=== PATIENT | female | born 1950 | race Caucasian/White ===

== ENCOUNTER 2022-12-03 14:15 | Emergency (ER) | payer MEDICARE, SELFPAY ==
[2022-12-03 14:34] VITALS: BP 139/61; PULSE 77; RESP 16; TEMP 36.8; O2SAT 98; BMI 18.6
--- NOTE | 2022-12-03 14:48 | ECG_ITS ---
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
--- NOTE | 2022-12-03 14:48 | XR_ITS ---
The [address] [address] Patient Name: KARIN ALAN MRN: [id number] date: 1950 Sex: F Assigned Patient Location: ER Current Patient Location: ED.MAIN Accession/Order Number: [id number] Exam Date: 12/03/2022 15:05 Report Date: 12/03/2022 15:34 At the request of: NEVILLE ASHER Procedure: XR chest 1V EXAM: XR chest 1V HISTORY: shortness of breath COMPARISON: None. TECHNIQUE: AP portable study FINDINGS: The lung rodrigez are well-expanded and clear. Hyperexpansion of the thorax is noted. The heart is within normal limits in size. Atherosclerotic aorta without visible aneurysm. Multilevel thoracic spondylosis commensurate with age. IMPRESSION: Hyperexpansion of the thorax. In the proper clinical setting, this finding can be associated with COPD. No acute cardiopulmonary process is otherwise identified. Electronically authenticated by: Anel ROSENTHAL Date: 12/03/2022 15:34
--- NOTE | 2022-12-03 14:53 | ED_ITS ---
HPI - SOB/Dyspnea General Chief Complaint: Shortness of Breath/Dyspnea Stated Complaint: SHORTNESS OF BREATH Time Seen by Provider: 12/03/22 14:28 Source: patient Mode of arrival: walk-in Limitations: no limitations History of Present Illness HPI Narrative: patient with COPD and asthma who smokes daily presents with 2 days of cough and shortness fo breath. She also complains of right ear fullness. No relief with home Albuterol MDI. No fever or chills. No chest pain, pressure or tightness. Related Data Home Medications Medication Instructions Recorded Confirmed albuterol sulfate 90 mcg/actuation inhalation 12/03/22 aerosol inhaler lisinopril 20 tab 12/03/22 mg-hydrochlorothiazide 12.5 mg tablet pregabalin 50 mg capsule mg 12/03/22 Previous Rx's Medication Instructions Recorded azithromycin 250 mg tablet See Rx Instructions PO .COMPLEX #6 12/03/22 tabs prednisone 20 mg tablet 40 mg PO DAILY #10 tabs 12/03/22 Allergies Allergy/AdvReac Type Severity Reaction Status Date / Time acetaminophen [From Percocet] Allergy Unknown Verified 12/03/22 15:26 oxycodone [From Percocet] Allergy Unknown Verified 12/03/22 15:26 PFSH PFSH Social History Smoking status: Current every day smoker Exam Narrative Exam Narrative: Nurses notes and vital signs reviewed and patient is not hypoxic. afebrile General: Well-appearing and in no apparent distress. Skin: Warm, dry, no pallor noted. No rash. Head: Normocephalic, atraumatic. Eye: Pupils are equal, round and EOMI. No scleral icterus. Ears, Nose, Mouth, and Throat: Oral mucosa is moist Cardiovascular: Regular Rate and Rhythm without murmur, gallop or rub. Respiratory: No accessory muscle use or respiratory distress. Lungs are clear to auscultation, no wheezing, rales or rhonchi Chest Wall: no tenderness Musculoskeletal: normal ROM, no calf or popliteal tenderness, no lower extremity edema/swelling GI: Abdomen is soft, non-distended. Normal bowel sounds. No tenderness to palpation. No rebound, guarding, or rigidity noted. Neurological: A&O x4. No cranial nerve dysfunction observed. No truncal ataxia. Moves all extremities. Sensation intact. Psychiatric: Cooperative and interactive. Normal mood and affect. Constitutional Vital Signs - 24 hr 12/03/22 14:34 12/03/22 15:12 12/03/22 15:13 Temperature 98.2 F Pulse Rate 68 Pulse Rate [Monitor] 77 Respiratory Rate 16 Blood Pressure [Right Arm] 139/61 H Pulse Oximetry 98 Oxygen Delivery Method Room Air 12/03/22 15:31 12/03/22 15:55 12/03/22 15:55 Temperature Pulse Rate 78 Pulse Rate [Monitor] Respiratory Rate 16 Blood Pressure [Right Arm] Pulse Oximetry 100 98 98 Oxygen Delivery Method Room Air Room Air Course Vital Signs Vital signs: Vital Signs Temperature 98.2 F 12/03/22 14:34 Pulse Rate 77 12/03/22 14:34 Respiratory Rate 16 12/03/22 14:34 Blood Pressure 139/61 H 12/03/22 14:34 Pulse Oximetry 98 12/03/22 14:34 Temperature 98.2 F 12/03/22 14:34 Pulse Rate 78 12/03/22 15:55 Respiratory Rate 16 12/03/22 15:55 Blood Pressure 139/61 H 12/03/22 14:34 Pulse Oximetry 98 12/03/22 15:55 Oxygen Delivery Method Room Air 12/03/22 15:55 MDM - SOB/Dyspnea MDM Narrative Medical decision making narrative: Patient was placed on environmental monitoring specialist and EKG obtained. Blood drawn and sent for evaluation. chest x-ray obtained. She was ordered to receive IM Solu-Medrol and nebulized albuterol and Atrovent. no pneumonia identified on chest x-ray. Blood testing was unremarkable including negative troponin and BNP. The patient felt better after Emergency Department treatment and was discharged home with a prescription for prednisone hand for azithromycin. She did see her primary care physician for follow-up or return to the emergency department if she worsens. Lab Data Attestation: I reviewed the patient's lab results. Labs: Lab Results 12/03/22 Range/Units 15:14 WBC 8.2 (4.0-11.0) 10^3/uL RBC 4.62 (4.20-5.40) 10^6/uL Hgb 14.0 (12.0-16.0) g/dL Hct 41.3 (36.0-48.0) % MCV 89.4 (81.0-99.0) fL MCH 30.3 (26.7-34.0) pg MCHC 33.9 (29.9-35.2) g/dL RDW 14.4 (11.0-15.0) % Plt Count 200 (150-450) 10^3/uL MPV 10.7 (9.5-13.5) fL Neut % (Auto) 61.6 (43.0-75.0) % Lymph % (Auto) 29.8 (20.5-60.0) % [place] % (Auto) 6.4 (1.7-12.0) % Eos % (Auto) 1.7 (0.9-7.0) % Baso % (Auto) 0.4 (0.2-2.0) % Neut # (Auto) 5.1 (1.4-6.5) 10^3/uL Lymph # (Auto) 2.5 (1.2-3.8) 10^3/uL [place] # (Auto) 0.5 (0.3-0.8) 10^3/uL Eos # (Auto) 0.1 (0.0-0.7) 10^3/uL Baso # (Auto) 0.0 (0.0-0.1) 10^3/uL Abs Immat Gran (auto) 0.01 (0.00-0.03) 10^3/uL Imm/Tot Granulo (auto) 0.1 (0.0-0.5) % Sodium 138 (136-145) mmol/L Potassium 3.2 L (3.5-5.1) mmol/L Chloride 102 (98-107) mmol/L Carbon Dioxide 28.3 (21.0-32.0) mmol/L Anion Gap 10.9 BUN 6.0 L (7.0-18.0) mg/dL Creatinine 0.59 (0.55-1.02) mg/dL Est GFR ( Amer) >60 (>=60) Est GFR (Non-Af Amer) >60 (>=60) BUN/Creatinine Ratio 10.2 Glucose 98 (74-106) mg/dL Calcium 9.1 (8.5-10.1) mg/dL Troponin I High Sens 6.6 (4.0-51.3) pg/mL NT-Pro-B Natriuret Pep 120.0 (<=900.0) pg/mL Imaging Data Chest x-ray: Radiologist's impression: Patient Name: KARIN ALAN MRN: [id number] date: 1950 Sex: F Assigned Patient Location: ER Current Patient Location: ED.MAIN Accession/Order Number: [id number] Exam Date: 12/03/2022 15:05 Report Date: 12/03/2022 15:34 At the request of: NEVILLE ASHER Procedure: XR chest 1V EXAM: XR chest 1V HISTORY: shortness of breath COMPARISON: None. TECHNIQUE: AP portable study FINDINGS: The lung rodrigez are well-expanded and clear. Hyperexpansion of the thorax is noted. The heart is within normal limits in size. Atherosclerotic aorta without visible aneurysm. Multilevel thoracic spondylosis commensurate with age. IMPRESSION: Hyperexpansion of the thorax. In the proper clinical setting, this finding can be associated with COPD. No acute cardiopulmonary process is otherwise identified. Electronically authenticated by: Anel ROSENTHAL Date: 12/03/2022 15:34 ECG Data Interpretation: EKG interpretation: Emergency Department physician interpretation. Normal sinus rhythm at _bpm. Normal axis, normal intervals and no ST segment elevation or depression. sign of early right ventricular conduction delay with RSR in lead V1 and V2. borderline EKG Discharge Plan Discharge Chief Complaint: Shortness of Breath/Dyspnea Clinical Impression: COPD exacerbation Patient Disposition: Home, Self-Care Time of Disposition Decision: 16:24 Prescriptions / Home Meds: New prednisone 20 mg tablet 40 mg PO DAILY Qty: 10 0RF azithromycin 250 mg tablet See Rx Instructions .ROUTE .COMPLEX Qty: 6 0RF Rx Instructions: For 250 mg dose pack: take 500 mg today (day 1), then 250 mg for 4 days (days 2-5) No Action lisinopril-hydrochlorothiazide 20-12.5 mg tablet albuterol sulfate 90 mcg/actuation HFA aerosol inhaler INHALATION pregabalin 50 mg capsule Instructions: COPD (Chronic Obstructive Pulmonary Disease) (ED) Stand Alone Forms: Portal Instructions Referrals: JANICE GARNER [Primary Care Provider] - 1 week
[2022-12-03 15:13] VITALS: PULSE 68
[2022-12-03 15:22] LABS: Basophils Percent Auto 0.4 % (0.2-2.0); Eosinophils Absolute Auto 0.1 10^3/uL (0.0-0.7); Eosinophils Percent Auto 1.7 % (0.9-7.0); Hematocrit 41.3 % (36.0-48.0); Immature Granulocytes Abs Auto 0.01 10^3/uL (0.00-0.03); Immature Granulocytes Pct Auto 0.1 % (0.0-0.5); Lymphocytes Absolute Auto 2.5 10^3/uL (1.2-3.8); Lymphocytes Percent Auto 29.8 % (20.5-60.0); Mean Corpuscular HGB Conc 33.9 g/dL (29.9-35.2); Mean Corpuscular Hemoglobin 30.3 pg (26.7-34.0); Mean Corpuscular Volume 89.4 fL (81.0-99.0); Mean Platelet Volume 10.7 fL (9.5-13.5); Monocytes Absolute Auto 0.5 10^3/uL (0.3-0.8); Monocytes Percent Auto 6.4 % (1.7-12.0); Neutrophils Absolute Auto 5.1 10^3/uL (1.4-6.5); Neutrophils Percent Auto 61.6 % (43.0-75.0); Platelet Count 200 10^3/uL (150-450); Red Blood Count 4.62 10^6/uL (4.20-5.40); Red Cell Distribution Width 14.4 % (11.0-15.0); White Blood Count 8.2 10^3/uL (4.0-11.0)
[2022-12-03] MEDS: METHYLPREDNISOLONE SOD SUCC PF 125 MG/2 ML VIAL IM (15:24)
[2022-12-03] MEDS: IPRATROPIUM/ALBUTEROL SULFATE 3 ML AMPUL.NEB IH (15:28)
[2022-12-03 15:31] VITALS: O2SAT 100
[2022-12-03 15:42] LABS: Anion Gap 10.9; BUN Creatinine Ratio 10.2; Calcium 9.1 mg/dL (8.5-10.1); Carbon Dioxide 28.3 mmol/L (21.0-32.0); Chloride 102 mmol/L (98-107); Estimated GFR (African America >60 (>=60); Estimated GFR (Non-African Ame >60 (>=60); Glucose 98 mg/dL (74-106); Potassium 3.2 mmol/L (3.5-5.1); Sodium 138 mmol/L (136-145); Troponin I High Sensitivity 6.6 pg/mL (4.0-51.3)
[2022-12-03 15:55] VITALS: PULSE 78; RESP 16; O2SAT 98
[2022-12-03] MEDS: POTASSIUM CHLORIDE 10 MEQ ER TABLET 40 MEQ PO (16:26)
--- NOTE | 2022-12-03 16:42 | PC.NURSE ---
d/c instructions complete, pt verbalized understanding and prescriptions sent to pt's pharmacy. gait steady to exit and told to return for any problems
== END 2022-12-03 16:42 | disposition home or self-care (01) ==
PROVIDERS: Emergency Provider Emergency Medicine; PCP Internal Medicine
DX: J44.1 Chronic obstructive pulmonary disease with (acute) exacerbation (principal); F17.210 Nicotine dependence, cigarettes, uncomplicated; Z79.899 Other long term (current) drug therapy
CPT/HCPCS: 36415; 71045; 80048; 83880; 84484; 85025; 93005; 94640; 96372; 99285; 99406; J2930

== ENCOUNTER 2023-01-16 07:25 | Emergency (ER) | payer MEDICARE, SELFPAY ==
[2023-01-16 07:28] VITALS: BP 159/95; PULSE 84; RESP 16; TEMP 37; O2SAT 99; BMI 19.0
--- NOTE | 2023-01-16 07:36 | ED_ITS ---
HPI - Eye Problem General Stated complaint: pink eye Time Seen by Provider: 01/16/23 07:28 History of Present Illness HPI Narrative: patient developed redness of the left eye 2 days ago and then this morning it moved to the right eye. Patient denies any URI symptoms or recent ill exposu res. No eye pain or blurredvision. She has some clear tearing but little to no crusting or matting. No GI or symptoms. Related Data Home Medications Medication Instructions Recorded Confirmed albuterol sulfate 90 mcg/actuation inhalation 12/03/22 aerosol inhaler lisinopril 20 tab 12/03/22 mg-hydrochlorothiazide 12.5 mg tablet pregabalin 50 mg capsule mg 12/03/22 Previous Rx's Medication Instructions Recorded azithromycin 250 mg tablet See Rx Instructions PO .COMPLEX #6 12/03/22 tabs prednisone 20 mg tablet 40 mg PO DAILY #10 tabs 12/03/22 tobramycin 0.3 %-dexamethasone 0.1 1 drp ophthalmic (eye) Q6H 7 days 01/16/23 % eye drops,suspension (TobraDex) #5 mL Allergies Allergy/AdvReac Type Severity Reaction Status Date / Time acetaminophen [From Percocet] Allergy Unknown Verified 12/03/22 15:26 oxycodone [From Percocet] Allergy Unknown Verified 12/03/22 15:26 PFSH PFSH Social History Smoking status: Current every day smoker Exam Narrative Exam Narrative: General: The patient appears well and in no apparent distress. Patient is resting comfortably on cart. afebrile Skin: Warm, dry, no pallor noted. Head: Normocephalic, atraumatic Neck: Supple, trachea mid-line, no tenderness, no lymphadenopathy Eye: Normal extraocular motion without associated pain. Pupils equal, round and reactive to light. Conjunctival injection noted bilaterally, left greater than right. No swelling of the upper/lower eyelid. No evidence of hyphema, preseptal cellulitis or orbital cellulitis. Ears, Nose, Mouth, and Throat: oral mucosa is moist Respiratory: Patient is in no distress Neurological: A&O x4, normal speech Psychiatric: Cooperative and interactive. Constitutional Vital Signs, click to edit/add: Last Vital Signs Temp 98.6 F 01/16/23 07:28 Pulse 84 01/16/23 07:28 Resp 16 01/16/23 07:28 BP 159/95 H 01/16/23 07:28 Pulse Ox 99 01/16/23 07:28 O2 Del Method Room Air 01/16/23 07:28 Course Vital Signs Vital signs: Vital Signs Temperature 98.6 F 01/16/23 07:28 Pulse Rate 84 01/16/23 07:28 Respiratory Rate 16 01/16/23 07:28 Blood Pressure 159/95 H 01/16/23 07:28 Pulse Oximetry 99 01/16/23 07:28 Oxygen Delivery Method Room Air 01/16/23 07:28 Temperature 98.6 F 01/16/23 07:28 Pulse Rate 84 01/16/23 07:28 Respiratory Rate 16 01/16/23 07:28 Blood Pressure 159/95 H 01/16/23 07:28 Pulse Oximetry 99 01/16/23 07:28 Oxygen Delivery Method Room Air 01/16/23 07:28 MDM - Eye Problem MDM Narrative Medical decision making narrative: patient prescribed tobradex ophth drops and discharged home with follow up at local eye doctor Discharge Plan Discharge Clinical Impression: Conjunctivitis Patient Disposition: Home, Self-Care Time of Disposition Decision: 07:39 Prescriptions / Home Meds: New tobramycin-dexamethasone [TobraDex] 0.3-0.1 % drops,suspension 1 drp ophthalmic (eye) Q6H 7 Days Qty: 5 0RF Rx Instructions: 1 drop in both eyes No Action lisinopril-hydrochlorothiazide 20-12.5 mg tablet albuterol sulfate 90 mcg/actuation HFA aerosol inhaler INHALATION pregabalin 50 mg capsule prednisone 20 mg tablet 40 mg PO DAILY Qty: 10 0RF azithromycin 250 mg tablet See Rx Instructions .ROUTE .COMPLEX Qty: 6 0RF Rx Instructions: For 250 mg dose pack: take 500 mg today (day 1), then 250 mg for 4 days (days 2-5) Instructions: Conjunctivitis (ED) Stand Alone Forms: Portal Instructions Referrals: MERLENE LEVY [Physician] - As soon as possible MERLENE SAINI [Physician] - As soon as possible
== END 2023-01-16 07:55 | disposition home or self-care (01) ==
PROVIDERS: Emergency Provider Emergency Medicine; PCP Internal Medicine
DX: H10.9 Unspecified conjunctivitis (principal); F17.210 Nicotine dependence, cigarettes, uncomplicated; Z79.899 Other long term (current) drug therapy
CPT/HCPCS: 99283

== ENCOUNTER 2023-02-28 13:18 | Emergency (ER) | payer MEDICARE, SELFPAY ==
[2023-02-28 13:22] VITALS: BP 142/88; PULSE 86; RESP 18; TEMP 36.6; O2SAT 99; BMI 18.8
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
== END 2023-02-28 13:47 | disposition home or self-care (01) ==
PROVIDERS: Emergency Provider Emergency Medicine; PCP Internal Medicine
DX: H65.01 Acute serous otitis media, right ear (principal); R42 Dizziness and giddiness; J44.9 Chronic obstructive pulmonary disease, unspecified; Z79.899 Other long term (current) drug therapy; F17.210 Nicotine dependence, cigarettes, uncomplicated
CPT/HCPCS: 99283

== ENCOUNTER 2023-04-13 09:46 | Outpatient (OUT) | payer MEDICARE, SELFPAY ==
--- NOTE | 2023-04-13 09:52 | US_ITS ---
The [place] [id number] Patient Name: KARIN ALAN MRN: [id number] date: 1950 Sex: F Assigned Patient Location: US Current Patient Location: US Accession/Order Number: [id number] Exam Date: 04/13/2023 09:55 Report Date: 04/13/2023 20:11 At the request of: TIA JOSE Procedure: US extremity nonvascular LT EXAM: US extremity nonvascular LT 04/13/2023 5:07 PM PST, [id number] HISTORY: Localized Superficial Swelling Or Lump R22.9. TECHNIQUE: Multiple longitudinal and transverse grayscale and color sonographic images of the anterior left shoulder were acquired. COMPARISON: None. FINDINGS/IMPRESSION: Equivocal thickening and hyperemia of the subscapularis tendon which may represent mild tendinitis. No definite soft tissue calcifications. No fluid collection or mass. The visualized skin and subcutaneous fat is within normal limits. Electronically authenticated by: JESÚS SCOTT Date: 04/13/2023 20:11
== END 2023-04-13 09:47 | disposition home or self-care (01) ==
LOC: US 09:46
PROVIDERS: PCP Internal Medicine; Visit Provider Physician Assistant
DX: R22.9 Localized swelling, mass and lump, unspecified (principal)
CPT/HCPCS: 76882

== ENCOUNTER 2023-06-24 15:04 | Emergency (ER) | payer MEDICARE, SELFPAY ==
[2023-06-24 15:13] VITALS: BP 119/63; PULSE 95; RESP 16; TEMP 36.7; O2SAT 98; BMI 19.1
--- OUTSIDE RECORDS SUMMARY | 2023-06-24 15:13 | XMS_ITS | CCD ---
Author Name Unknown Address [address] [place] [id number] Organization [facility] Care Team Providers Care [employer] Insulator Name Role Phone DO Uziel Caicedo Attending Provider [phone] JORDON Jose Primary Care Provider Cynthia Jose Primary Care Unavailable Uziel Caicedo Attending Unavailable Tanisha, Uziel Admitting Unavailable Uziel Caicedo Attending Unavailable Cynthia Jose Primary Care Unavailable Tanisha, Uziel Admitting Unavailable Cynthia Jose Primary Care Unavailable Tanisha, Uziel Admitting Unavailable Uziel Caicedo Attending Unavailable PATSY, DR CAMACHO Primary Care Unavailable ISSA ROJAS Consulting Unavailable ISSA ROJAS Admitting Unavailable ISSA ROJAS Attending Unavailable SELENA CAIN Consulting Unavailable HEMMER, DR CYNTHIA Cohn Admitting Unavailable HEMMER, DR CYNTHIA Cohn Attending Unavailable PATSY, DR CAMACHO Primary Care Unavailable ZIEBER, DR JOSEPH Tavarez Consulting Unavailable HEMMER, DR CYNTHIA Cohn Consulting Unavailable HEMMER, DR CYNTHIA Cohn Admitting Unavailable HEMMER, DR CYNTHIA Cohn Attending Unavailable PATSY, DR CAMACHO Primary Care Unavailable GEOFFREY ELLIS Consulting Unavailable HEMMER, DR CYNTHIA Cohn Consulting Unavailable PATSY, DR CAMACHO Primary Care Unavailable HAY ., DR LOZADA Admitting Unavailable HAY ., DR LOZADA Attending Unavailable PAY ., DR BOWLING Consulting Unavailable UNLU, MARCO Consulting Unavailable KAMILAH ONEILL Attending Unavailable Allergies Allergy Classification Reported Allergen(s) Allergy Type Date of Onset Reaction(s) Facility (2 sources) Acetaminophen; Translations: [acetaminophen] Drug Allergy 03-08-2022 [facility] (2 sources) Amoxicillin; Translations: [amoxicillin] Drug Allergy 03-08-2022 Diarrhea [facility] (2 sources) Clavulanate; Translations: [clavulanic acid] Drug Allergy 03-08-2022 Diarrhea [facility] (2 sources) montelukast; Translations: [montelukast] Drug Allergy 03-08-2022 Nausea [facility] (2 sources) oxyCODONE; Translations: [oxycodone] Drug Allergy 03-08-2022 Dizziness [facility] (1 source) Acetaminophen / oxyCODONE Drug Allergy [facility] Medications Current Medications Medication Drug Class(es) Dates Sig (Normalized) Sig (Original) sensor 200 actuat albuterol 0.09 mg/actuat dry powder inhaler (1 source) beta2-Adrenergic Agonist Start: 2 Albuterol Sulfate Active 2 INH INHALATION Twice daily March 08, 2022 12:00am albuterol 0.833 mg/ml / ipratropium bromide 0.167 mg/ml inhalation solution (1 source) Anticholinergic, beta2-Adrenergic Agonist Start: 2 take 1 mL by inhalation every six hours Ipratropium-Albuter ol Active 3 ML INHALATION Q6H March 08, 2022 12:00am ALPRAZolam 0.25 mg oral tablet (1 source) Benzodiazepine Start: 2 take 0.25 mg by mouth once daily Alprazolam Active 0.25 MG PO Daily March 08, 2022 12:00am ascorbic acid 500 mg oral tablet (1 source) Vitamin C Start: 2 take 1 tablet by mouth once daily Ascorbic Acid (Vitamin C) (Vitamin C) 500 mg Tablet Active 500 MG PO Daily March 08, 2022 12:00am calcium carbonate 500 mg chewable tablet (1 source) Start: 2 take 1 tablet by mouth twice daily Calcium Carbonate (Tums) 200 mg calcium (500 mg) Tablet,Chewable Active 200 MG PO Twice daily March 08, 2022 12:00am cholecalciferol 0.01 mg chewable tablet (1 source) Vitamin D Start: 2 take 1 tablet by mouth once daily Cholecalciferol (Vitamin D3) (Vitamin D3) 10 mcg (400 unit) Tablet,Chewable Active 400 UNIT PO Daily March 08, 2022 12:00am hydroCHLOROthiazide 12.5 mg / lisinopril 20 mg oral tablet (1 source) Thiazide Diuretic, Angiotensin Converting Enzyme Inhibitor Start: 2 take 1 tablet by mouth once daily Lisinopril-Hydrochl orothiazide Active 1 TAB PO Daily March 08, 2022 12:00am ibuprofen 800 mg oral tablet (1 source) Nonsteroidal Anti-inflammatory Drug Start: 2 take 400 mg by mouth twice daily Ibuprofen Active 400 MG PO Twice daily March 08, 2022 12:00am loratadine 10 mg oral tablet (1 source) Start: 2 take 1 tablet by mouth once daily Loratadine (Claritin) 10 mg Tablet Active 10 MG PO Daily March 08, 2022 12:00am meclizine hydrochloride 25 mg oral tablet (1 source) Antiemetic Start: 2 take 25 mg by mouth once daily Meclizine Active 25 MG PO Daily March 08, 2022 12:00am ondansetron 4 mg disintegrating oral tablet (1 source) Serotonin-3 Receptor Antagonist Start: 2 take 4 mg by mouth every six hours Ondansetron Active 4 MG PO Q6H March 08, 2022 12:00am pregabalin 50 mg oral capsule (1 source) Start: 2 take 50 mg by mouth four times daily Pregabalin Active 50 MG PO Four times daily March 08, 2022 12:00am traZODone hydrochloride 50 mg oral tablet (1 source) Serotonin Reuptake Inhibitor Start: 2 take 50 mg by mouth twice daily Trazodone Active 50 MG PO Twice daily March 08, 2022 12:00am Problems Active Problems Problem Classification Problem Date Documented Date Episodic/Chronic Abdominal pain (8 sources) Unspecified abdominal pain; Translations: [Right upper quadrant pain] Onset: 03-02-2022 Episodic Chronic obstructive pulmonary disease and bronchiectasis (1 source) Chronic obstructive pulmonary disease with (acute) exacerbation; Translations: [COPD WITH ACUTE EXACERBATION] Onset: 10-11-2022 Chronic Other aftercare (1 source) Other exterminator (current) drug therapy; Translations: [OTH SKEIN DRIER CURRENT DRUG THERAPY] Onset: 10-11-2022 Episodic Other upper respiratory infections (1 source) Acute upper respiratory infection, unspecified; Translations: [ACUTE UP RESPIRATORY INFECTION UNS] Onset: 10-11-2022 Episodic Residual codes; unclassified (1 source) Acquired absence of other specified parts of digestive tract; Translations: [ACQ ABSENCE OTH PART DIGESTV TRACT] Onset: 09-02-2022 Episodic Substance-related disorders (1 source) Nicotine dependence, cigarettes, uncomplicated; Translations: [NICOTINE DEPEND CIGARETTES UNCOMP] Onset: 10-11-2022 Chronic Unclassified (1 source) Encounter for preprocedural laboratory examination; Translations: [Encounter for preprocedural laboratory examination] Onset: 03-12-2022 Unclassified (3 sources) COUGH, UNSPECIFIED; Translations: [COUGH, UNSPECIFIED] Onset: 10-29-2021 Past or Other Problems Problem Classification Problem Date Documented Date Episodic/Chronic Biliary tract disease (1 source) Calculus of gallbladder with chronic cholecystitis without obstruction; Translations: [Calculus of gallbladder with chronic cholecystitis without obstruction] Onset: 03-16-2022 Episodic Unclassified (1 source) COUGH, UNSPECIFIED; Translations: [COUGH, UNSPECIFIED] Onset: 10-08-2022 Results Test Name Value Interpretation Reference Range Facility XR CHEST 2 Von 10-08-2022 XR CHEST 2 V EXAM: XR CHEST 2 V HISTORY: COUGH COMPARISON: 10/22/2021 TECHNIQUE: PA and lateral views of the chest FINDINGS: There is no focal airspace consolidation. The lungs are hyperinflated. The cardiomediastinal silhouette is not enlarged. There are calcific plaques at aortic arch. No evidence of pleural effusion or pneumothorax are identified. No acute osseous abnormality. IMPRESSION: No acute cardiopulmonary process. Lungs appear hyperinflated suggestive of obstructive lung disease . Electronically authenticated by: MARCO UNLU Date: 2022-10-08 14:[address] [facility] CBC AUTO DIFFon 08-31-2022 BASO # 0.1 103/ul Normal 0.0-0.[address] [facility] Comment on above: Performed By: #### C BC #### [facility] [address] [address] [address] Nehemias Dean Basophils/100 WBC (Bld) 0.6 % Normal 0.2-2.0 [facility] Comment on above: Performed By: #### C BC #### [facility] [address] [place] [address] Dr. Nehemias Dean EO # 0.2 103/ul Normal 0.0-0.7 [facility] Comment on above: Performed By: #### C BC #### [facility] [address] [place] [address] Dr. Nehemias Dean Eosinophils/100 WBC (Bld) 2.2 % Normal 0.9-7.0 [facility] Comment on above: Performed By: #### C BC #### [facility] [address] [place] [address] Dr. Nehemias Dean Erythrocyte distribution width (RBC) [Ratio] 14.6 % Normal 11.0-15.[address] [facility] Comment on above: Performed By: #### C BC #### [facility] [address] [place] [address] Dr. Nehemias Dean Hematocrit (Bld) [Volume fraction] 45.4 % Normal 36.0-48.[address] [facility] Comment on above: Performed By: #### C BC #### [facility] [address] [place] [address] Dr. Nehemias Dean Hemoglobin (Bld) [Mass/Vol] 15.5 g/dL Normal 12.0-16.[address] [facility] Comment on above: Performed By: #### C BC #### [facility] [address] [place] [address] Dr. Nehemias Dean IG # 0.02 10e3/ul Normal 0.00-0.03 [facility] Comment on above: Performed By: #### C BC #### [facility] [address] [place] [address] Dr. Nehemias Dean IG % 0.2 % Normal 0.0-0.5 [facility] Comment on above: Performed By: #### C BC #### [facility] [address] [place] [address] Dr. Nehemias Dean LYMPH # 3.0 103/ul Normal 1.2-3.8 [facility] Comment on above: Performed By: #### C BC #### [facility] [address] [place] [address] Dr. Nehemias Dean Lymphocytes/100 WBC (Bld) 31.2 % Normal 20.5-60.[address] [facility] Comment on above: Performed By: #### C BC #### [facility] [address] [place] [address] Dr. Nehemias Dean MANUAL DIFF REQ NO Normal [facility] Comment on above: Performed By: #### C BC #### [facility] [address] [place] [address] Dr. Nehemias Dean MCH (RBC) [Entitic mass] 30.0 pg Normal 26.7-34.[address] [facility] Comment on above: Performed By: #### C BC #### [facility] [address] [place] [address] Dr. Nehemias Dean MCHC (RBC) [Mass/Vol] 34.1 g/dL Normal 29.9-35.[address] [facility] Comment on above: Performed By: #### C BC #### [facility] [address] [place] [address] Dr. Nehemias Dean MCV (RBC) [Entitic vol] 88.0 fL Normal 81.0-99.0 [facility] Comment on above: Performed By: #### C BC #### [facility] [address] [place] [address] Dr. Nehemias Dean MONO # 0.5 103/ul Normal 0.3-0.[address] [facility] Comment on above: Performed By: #### C BC #### [facility] [address] [place] [address] Dr. Nehemias Dean Monocytes/100 WBC (Bld) 5.5 % Normal 1.7-12.0 [facility] Comment on above: Performed By: #### C BC #### [facility] [address] [place] [address] Dr. Nehemias Dean NEUT # 5.8 103/ul Normal 1.4-6.[address] [facility] Comment on above: Performed By: #### C BC #### [facility] [address] [place] [address] Dr. Nehemias Dean Neutrophils/100 WBC (Bld) 60.3 % Normal 43.0-75.[address] [facility] Comment on above: Performed By: #### C BC #### [facility] [address] [place] [address] Dr. Nehemias Dean Platelet mean volume (Bld) [Entitic vol] 11.2 fL Normal 9.5-13.[address] [facility] Comment on above: Performed By: #### C BC #### [facility] [address] [place] [address] Dr. Nehemias Dean PLT 252 103/ul Normal 150-450 [facility] Comment on above: Performed By: #### C BC #### [facility] [address] [place] [address] Dr. Nehemias Dean RBC 5.16 106/ul Normal 4.20-5.40 [facility] Comment on above: Performed By: #### C BC #### [facility] [address] [place] [address] Dr. Nehemias Dean WBC 9.6 103/ul Normal 4.0-11.0 [facility] Comment on above: Performed By: #### C BC #### [facility] [address] [place] [address] ABD/PELVIS WO CONon 08-31 CT ABD/PELVIS WO CON CT ABD/PELVIS WO CON, 08/31/2022 11:33 AM EDT INDICATION: CALCULUS OF KIDNEY COMPARISON: Contrast-enhanced CT scan of the abdomen and pelvis 01/11/2022 TECHNIQUE: Axial images of the abdomen and pelvis were obtained without IV contrast. Multiplanar reformatted images were generated and reviewed as needed. Dose reduction techniques were achieved by using automated exposure control and/or adjustment of mA and/or kV according to patient size and/or use of iterative reconstruction technique. FINDINGS: No consolidation or effusion. Cholecystectomy. Hepatomegaly. Subcentimeter hepatic hypodensities, too small to characterize. Pancreas, spleen and adrenals are unremarkable on a noncontrast scan. No hydronephrosis or nephrolithiasis. Subcentimeter cortical hypodensities bilaterally, too small to characterize. No urinary bladder wall thickening or perivesicular fat stranding. Uterus and adnexa are unremarkable on a noncontrast scan. No aortic aneurysm. No bowel obstruction or acute focal inflammation. Stable benign-appearing 1.3 cm intramural cystic lesion anterior gastric wall Normal appendix. Sigmoid diverticulosis. No pneumatosis, pneumoperitoneum or ascites. No mesenteric or retroperitoneal lymphadenopathy. No acute fracture or dislocation. IMPRESSION: 1. No hydronephrosis or nephrolithiasis. 2. Sigmoid diverticulosis. No findings to suggest diverticulitis. Electronically authenticated by: SELENA CAIN Date: 2022-08-31 12:26 Normal [facility] ER URINE PROFILEon 3 Bilirubin Ql (U) Negative Normal NEGATIVE [facility] Comment on above: Performed By: #### U MICRO, ERUR #### [facility] [address] [place] [address] Dr. Nehemias Dean Clarity (U) CLEAR Normal CLEAR [facility] Comment on above: Performed By: #### U MICRO, ERUR #### [facility] [address] [place] [address] Dr. Nehemias Dean Color (U) LT. YELLOW Normal YELLOW [facility] Comment on above: Performed By: #### U MICRO, ERUR #### [facility] [address] [place] [address] Dr. Nehemias SUBRAMANIAND A micrscopic examination will be performed if indicated. Normal [facility] Comment on above: Performed By: #### U MICRO, ERUR #### [facility] [address] [address] [address] Nehemias Dean Glucose Ql (U) Negative Normal NEGATIVE The [facility] Comment on above: Performed By: #### U MICRO, ERUR #### [facility] [address] [address] [address] Nehemias Dean Hemoglobin Ql (U) SMALL Abnormal NEGATIVE [facility] Comment on above: Performed By: #### U MICRO, ERUR #### [facility] [address] [place] [address] Dr. Nehemias Dean Ketones Ql (U) Negative Normal NEGATIVE The [facility] Comment on above: Performed By: #### U MICRO, ERUR #### [facility] [address] [place] [address] Dr. Nehemias Dean LEUKOCYTES Negative Normal NEGATIVE [facility] Comment on above: Performed By: #### U MICRO, ERUR #### [facility] [address] [place] [address] Dr. Nehemias Dean Nitrite Ql (U) Negative Normal NEGATIVE [facility] Comment on above: Performed By: #### U MICRO, ERUR #### [facility] [address] [place] [address] Dr. Nehemias Dean pH (U) 7.0 [pH] Normal 5-[address] [facility] Comment on above: Performed By: #### U MICRO, ERUR #### [facility] [address] [place] [address] Dr. Nehemias Dean SPEC GRAVITY 1.015 Normal 1.005-<=1.[address] [facility] Comment on above: Performed By: #### U MICRO, ERUR #### [facility] [address] [place] [address] Dr. Nehemias Dean UA PROTEIN Negative Normal NEGATIVE/ TRACE [facility] Comment on above: Performed By: #### U MICRO, ERUR #### [facility] [address] [place] [address] Dr. Nehemias Dean UR MICRO IND INDICATED Normal [facility] Comment on above: Performed By: #### U MICRO, ERUR #### [facility] [address] [place] [address] Dr. Nehemias Dean Urobilinogen Qn (U) 0.2 {Cristina'U}/dL Normal 0.2 - 1. [address] [facility] Comment on above: Performed By: #### U MICRO, ERUR #### [facility] [address] [place] [address] Dr. Nehemias Dean PROF CHEM 8 (BAS METB)on Anion gap [Moles/Vol] 14.9 mmol/L Normal [facility] Comment on above: Performed By: #### B MP #### [facility] [address] [address] [address] Nehemias Dean Calcium [Mass/Vol] 9.4 mg/dL Normal 8.5-10.1 [facility] Comment on above: Performed By: #### B MP #### [facility] [address] [place] [address] Dr. Nehemias Dean Chloride [Moles/Vol] 100 mmol/L Normal 98-[address] [facility] Comment on above: Performed By: #### B MP #### [facility] [address] [place] [address] Dr. Nehemias Dean CO2 [Moles/Vol] 27.2 mmol/L Normal 21.0-32.0 [facility] Comment on above: Performed By: #### B MP #### [facility] [address] [place] [address] Dr. Nehemias Dean Creatinine [Mass/Vol] 0.63 mg/dL Normal 0.55-1.[address] [facility] Comment on above: Performed By: #### B MP #### [facility] [address] [place] [address] Dr. Nehemias Dean EGFR-AF SWISS >60 Normal >=60 [facility] Comment on above: Performed By: #### B MP #### [facility] [address] [place] [address] Dr. Nehemias Dean EGFR-NON AF SWISS >60 Normal >=[address] [facility] Comment on above: Performed By: #### B MP #### [facility] [address] [place] [address] Dr. Nehemias Dean Glucose [Mass/Vol] 107 mg/dL Critically high 74-106 [facility] Comment on above: Performed By: #### B MP #### [facility] [address] [address] [address] Nehemias Dean Potassium [Moles/Vol] 3.1 mmol/L Critically low 3.5-5.[address] [facility] Comment on above: Performed By: #### B MP #### [facility] [address] [place] [address] Dr. Nehemias Dean Sodium [Moles/Vol] 139 mmol/L Normal 136-145 [facility] Comment on above: Performed By: #### B MP #### [facility] [address] [address] [address] Nehemias Dean Urea nitrogen [Mass/Vol] 7.0 mg/dL Normal 7.0-18.[address] [facility] Comment on above: Performed By: #### B MP #### [facility] [address] [place] [address] Dr. Nehemias Dean Urea nitrogen/Creatinine [Mass ratio] 11.1 mg/mg Normal [facility] Comment on above: Performed By: #### B MP #### [facility] [address] [place] [address] Dr. Nehemias Dean URINE MICROSCOPIC ONLYon BACTERIA TRACE Abnormal NONE SEEN [facility] Comment on above: Performed By: #### U MICRO, ERUR #### [facility] [address] [place] [address] Dr. Nehemias Dean Bacteria identified Cx Nom (U) NOT INDICATED Normal [facility] Comment on above: Performed By: #### U MICRO, ERUR #### [facility] [address] [place] [address] Dr. Nehemias Dean CAST NONE SEEN Normal NONE SEEN [facility] Comment on above: Performed By: #### U MICRO, ERUR #### [facility] [address] [place] [address] Dr. Nehemias Dean Crystals LM Nom (Urine sed) NONE SEEN Normal NONE SEEN [facility] Comment on above: Performed By: #### U MICRO, ERUR #### [facility] [address] [place] [address] Dr. Nehemias Dean Epithelial cells LM Ql (Urine sed) FEW Abnormal NONE SEEN /RARE [facility] Comment on above: Performed By: #### U MICRO, ERUR #### [facility] [address] [place] [address] Dr. Nehemias Dean MUCOUS NONE SEEN Normal NONE SEEN [facility] Comment on above: Performed By: #### U MICRO, ERUR #### [facility] [address] [address] [address] Nehemias Dean RBC 2-5 Abnormal 0-2 [facility] Comment on above: Performed By: #### U MICRO, ERUR #### [facility] [address] [address] [address] Nehemias Dean WBC NONE SEEN Normal NONE SEEN [facility] Comment on above: Performed By: #### U MICRO, ERUR #### [facility] [address] [address] [address] Nehemias Dean Alkaline Phosphataseon 03-16 ALP [Catalytic activity/Vol] 60 U/L Normal 32-92 [facility] Comment on above: Performed By: #### B ILIT, ALP, YEIMY #### [address] Amylaseon 03-16-2022 Amylase [Catalytic activity/Vol] 23 U/L Low 28-100 [facility] Comment on above: Result Comment: PERF ORMED BY: [place] [address] PATHOLOGIST F[employer]ITURE POLISHER LAVERN CHATMAN M.D. Performed By: #### B ILIT, ALP, YEIMY #### [address] Bilirubin,Totalon 03-16-2022 Bilirubin [Mass/Vol] 1.1 mg/dL Normal 0.3-1.2 [facility] Comment on above: Performed By: #### B ILIT, ALP, YEIMY #### [address] Jesus 03-16-2022 L Specimen: [id number] Received: 03/16/22 Status: JOSUE Kern Num: [id number] Spec Type: Surgical Subm Dr: Uziel Caicedo DO Tissues: A Gallbladder (GALLBLADDER) Procedures: HE Stain, Gross/Micro L3 Age/ Patient Sex Location Account Attending Physician Deb Perez 71/F [place] [id number] Uziel Caicedo DO SPEC NUM: [id number] RECD: 03/16/22 STATUS: JOSUE NOELAlyssa NUM: [id number] [place]: 03/16/22- SUBM DR: Uziel Caicedo DO ENTERED: 03/16/22 [facility] DR: DAVID TYPE: Surgical DEPT: S ORDERED: HE Stain, Gross/Micro L3 ORDERED: HE Stain, Gross/Micro L3 Pathological Diagnosis Gallbladder, cholecystectomy: Chronic cholecystitis. Cholelithiasis. Clinical Information Cholelithiasis Gross Description Received in formalin labeled with the patient's name, number and gallbladder is a 6.4 x 3.4 x 3.0 cm previously incised gallbladder with a dove-pink, focally hyperemic serosa. The average wall thickness is 0.2 cm. The lumen contains minimal dove bile and two yellow black choleliths measuring 1.5 cm and 3.8 cm. The mucosa is dove-pink, focally hyperemic, denuded.. Freelance Copywriter sections are submitted in one cassette labeled A1. Microscopic Description One glass slide with H E stained material has been examined. The microscopic findings support the above pathologic diagnosis. Specimen: [id number] Received: 03/16/22 Status: JOSUE Concha Num: [id number] Spec Type: Surgical Subm Dr: Uziel Caicedo DO Tissues: A Gallbladder (GALLBLADDER) Procedures: HE Stain, Gross/Micro L3 Patient: Deb Perez [id number] (Continued) Specimen: [id number] Received: 03/16/22 (Continued) Signed (signature on file) Yasmeen Jameson MD 03/17/22 1744 Specimen: [id number] Received: 03/16/22 Status: JOSUE [place]ern Num: [id number] Spec Type: Surgical Subm Dr: Uziel Caicedo DO Tissues: A Gallbladder (GALLBLADDER) Procedures: HE Stain, Gross/Micro L3 Patient: Deb Perez [id number] (Continued) Specimen: [id number] Received: 03/16/22 (Continued) CPT Codes 05553 Specimen: [id number] Received: 03/16/22 Status: JOSUE [place] Num: [id number] Spec Type: Surgical Subm Dr: Uziel Caicedo DO Tissues: A Gallbladder (GALLBLADDER) Procedures: HE Stain, Gross/Micro L3 Patient: Deb Perez [id number] (Continued) Signed (signature on file) Yasmeen Jameson MD 03/17/22 1741 Normal [facility] COVID-19 [facility] [place] SARS-CoV-2 (COVID-19) RNA DAVIE+probe Ql (Unsp spec) Negative Normal Negative [facility] Comment on above: Order Comment: Healt hcare Worker?: N Result Comment: Testing for SARS-CoV-2 by RT-PCR This test was developed and its performance characteristics determined by [employer] and validated at the [facility]. This test has not been FDA cleared or approved. This test has been authorized by FDA under an Emergency Use Authorization (EUA). This test has been validated in accordance with the FDA's Guidance Document (Policy for Diagnostics Testing in Laboratories Certified to Perform High Complexity Testing under CLIA prior to Emergency Use Authorization for Coronavirus Disease-2019 during the Public Health Emergency) issued on August 30, 2019. This test is only authorized for the duration of time the declaration that circumstances exist justifying the authorization of the emergency use of in vitro diagnostic tests for detection of SARS-CoV-2 virus and/or diagnosis of COVID-19 infection under section 564(b)(1) of the Act, 21 U.S.C. 360bbb-3(b)(1), unless the authorization is terminated or revoked sooner. PERFORMED BY: [place] [address] PATHOLOGIST FURNITURE POLISHER LAVERN CHATMAN M.D. Performed By: #### C OVID 19 [facility] #### [address] COVID-19 Positive/NegativeOr dered By: Uziel Caicedo on 03-12-2022 SARS-CoV-2 (COVID-19) N gene DAVIE+probe Ql (Resp) Negative Negative [facility] Comment on above: Testing for SARS-CoV -2 by RT-PCRThis test was developed and its performance characteristics determined by [employer] and validated at the [facility]. This test has not been FDA cleared or approved. This test has been authorized by FDA under an Emergency Use Authorization (EUA). This test has been validated in accordance with the FDA's Guidance Document (Policy for Diagnostics Testing in Laboratories Certified to Perform High Complexity Testing under CLIA prior to Emergency Use Authorization for Coronavirus Disease-2019 during the Public Health Emergency) issued on August 30, 2019. This test is only authorized for the duration of time the declaration that circumstances exist justifying the authorization of the emergency use of in vitro diagnostic tests for detection of SARS-CoV-2 virus and/or diagnosis of COVID-19 infection under section 564(b)(1) of the Act, 21 U.S.C. 360bbb-3(b)(1), unless the authorization is terminated or revoked sooner. Basic Metabolic Panelon 10- Anion gap [Moles/Vol] 14.9 mmol/L Normal 6.0-15.0 [facility] Comment on above: Performed By: #### C BC, BMP #### [address] Calcium [Mass/Vol] 10.2 mg/dL Normal 8.2-10.2 [facility] Comment on above: Result Comment: PERF ORMED BY: [place] [address] PATHOLOGIST FURNITURE POLISHER LAVERN CHATMAN M.D. Performed By: #### C SHAHAB, BMP #### [address] Chloride [Moles/Vol] 97 mmol/L Normal 95-114 [facility] Comment on above: Performed By: #### C BC, BMP #### [address] CO2 [Moles/Vol] 28.2 mmol/L Normal 22.0-30.0 [facility] Comment on above: Performed By: #### C BC, BMP #### [address] Creatinine [Mass/Vol] 0.65 mg/dL Normal 0.44-1.03 [facility] Comment on above: Performed By: #### C BC, BMP #### [address] Estimated GFR ( My > 60 [facility] Comment on above: Result Comment: GFR estimated reference range: According to KDOQI guidelines, <60 ml/min/1.73m2 is sufficient to diagnose a patient with chronic kidney disease. Performed By: #### C BC, BMP #### [address] Estimated GFR (Non- Am > 60 Normal [facility] Comment on above: Performed By: #### C BC, BMP #### [address] Glucose [Mass/Vol] 97 mg/dL Normal 70-100 [facility] Comment on above: Result Comment: [place] Glucose Reference Range is dependent on time and content of last meal. Glucose of more than 200 mg/dL in a nonstressed, ambulatory subject supports the diagnosis of Diabetes Mellitus. ADA recommended reference range Performed By: #### C BC, BMP #### [facility] [address] Potassium [Moles/Vol] 4.1 mmol/L Normal 3.5-5.1 [facility] Comment on above: Performed By: #### C BC, BMP #### [facility] [address] Sodium [Moles/Vol] 136 mmol/L Normal 136-146 [facility] Comment on above: Performed By: #### C BC, BMP #### [facility] [address] Urea nitrogen [Mass/Vol] 8 mg/dL Low 9-23 [facility] Comment on above: Performed By: #### C BC, BMP #### [facility] [address] [place] [address] [place] Basophils Auto (Bld) [#/Vol] Ordered By: Uziel Caicedo on 03-08-2022 Basophils (Bld) [#/Vol] 0.1 10*3/uL 0.0-0.2 [facility] Basophils/100 WBC Auto (Bld) Ordered By: Uziel Caicedo on 03-08-2022 Basophils/100 WBC (Bld) 0.7 % . [facility] Complete Blood Count Auto Di ffon 03-08-2022 Basophils (Bld) [#/Vol] 0.1 10*3/uL Normal 0.0-0.2 [facility] Comment on above: Result Comment: PERF ORMED BY: [place] [address] PATHOLOGIST FURNITURE POLISHER LAVERN CHATMAN M.D. Performed By: #### C BC, BMP #### [facility] [address] Basophils/100 WBC (Bld) 0.7 % Normal . [facility] Comment on above: Performed By: #### C BC, BMP #### [facility] [address] Eosinophils (Bld) [#/Vol] 0.1 10*3/uL Normal 0.0-0.45 [facility] Comment on above: Performed By: #### C BC, BMP #### [facility] [address] Eosinophils/100 WBC (Bld) 1.2 % Normal . [facility] Comment on above: Performed By: #### C BC, BMP #### [address] Erythrocyte distribution width (RBC) [Ratio] 14.7 % Normal 11.9-15.3 [facility] Comment on above: Performed By: #### C BC, BMP #### [address] Hematocrit (Bld) [Volume fraction] 47.9 % High 34.0-46.4 [facility] Comment on above: Performed By: #### C BC, BMP #### [address] Hemoglobin (Bld) [Mass/Vol] 16.1 g/dL High 11.8-15.4 [facility] Comment on above: Performed By: #### C BC, BMP #### [address] Lymphocytes (Bld) [#/Vol] 1.7 10*3/uL Normal 1.00-4.8 [facility] Comment on above: Performed By: #### C BC, BMP #### [address] Lymphocytes/100 WBC (Bld) 19.6 % Normal . [facility] Comment on above: Performed By: #### C BC, BMP #### [place] [address] [place] MCH (RBC) [Entitic mass] 30.3 pg Normal 24.7-34.3 [facility] Comment on above: Performed By: #### C BC, BMP #### [address] MCV (RBC) [Entitic vol] 90.2 fL Normal 80-100 [facility] Comment on above: Performed By: #### C BC, BMP #### [address] Mean Corpuscular HGB Conc 33.6 g/dL Normal 32.0-35.0 [facility] Comment on above: Performed By: #### C BC, BMP #### [address] Monocytes (Bld) [#/Vol] 0.6 10*3/uL Normal 0.0-0.8 [facility] Comment on above: Performed By: #### C BC, BMP #### [address] Monocytes/100 WBC (Bld) 6.9 % Normal . [facility] Comment on above: Performed By: #### C BC, BMP #### [address] Neutrophils (Bld) [#/Vol] 6.1 10*3/uL Normal 1.8-7.7 [facility] Comment on above: Performed By: #### C BC, BMP #### [address] Neutrophils/100 WBC (Bld) 71.6 % Normal . [facility] Comment on above: Performed By: #### C BC, BMP #### [address] Nucleated RBC/100 WBC (Bld) [Ratio] 0.1 % Normal 0-0.5 [facility] Comment on above: Performed By: #### C BC, BMP #### [address] Platelet mean volume (Bld) [Entitic vol] 10.1 fL Normal 6.3-10.7 [facility] Comment on above: Performed By: #### C SHAHAB, BMP #### [facility] [address] Platelets (Bld) [#/Vol] 218 10*3/uL Normal 150-450 [facility] Comment on above: Performed By: #### C SHAHAB, BMP #### [facility] [address] RBC (Bld) [#/Vol] 5.31 10*6/uL High 3.60-5.00 [facility] Comment on above: Performed By: #### C SHAHAB, BMP #### [facility] [address] WBC (Bld) [#/Vol] 8.5 10*3/uL Normal 4.5-11.0 [facility] Comment on above: Performed By: #### C SHAHAB, BMP #### [address] Creatinine and Glomerular fi ltration rate.predicted panel (S/P/Bld)Ordered By: Uziel Caicedo on 03-08-2022 Creatinine [Mass/Vol] 0.65 mg/dL 0.44-1.03 [facility] ECG 12 lead ECGon 03-08-2022 ECG 12 lead ECG [facility] [place] [address] [place] [address] Electrocardiograph Report Signed Patient: Deb Perez MR#: [id number] : 1950 Acct:[id number] Age/Sex: 71 / F ADM Date: 03/08/22 Loc: Room: Type: [facility] Attending Dr: Uziel Caicedo DO Ordering Provider: Uziel Caicedo DO Date of Service: 03/08/2203/20/810 ECG/ECG 12 lead ECG: surgery Copies to: Test Reason : Blood Pressure : / mmHG Vent. Rate : 060 BPM Atrial Rate : 060 BPM P-R Int : 142 ms QRS Dur : 084 ms QT Int : 414 ms P-R-T Axes : 072 069 078 degrees QTc Int : 414 ms Normal sinus rhythm Normal ECG No previous ECGs available Confirmed by EVERETTE GRAHAM DO ([id number]) on 03/08/2022 12:46:48 PM Referred By: DR CAICEDO Electronically Signed By:EVERETTE GRAHAM DO Transcribed By: MUS Signed By Everette Graham DO 03/08 1246 Normal [facility] Eosinophils Auto (Bld) [#/Vo l]Ordered By: Uziel Caicedo on 03-08-2022 Eosinophils (Bld) [#/Vol] 0.1 10*3/uL 0.0-0.45 [facility] Eosinophils/100 WBC Auto (Bl d)Ordered By: Uziel Caicedo on 03-08-2022 Eosinophils/100 WBC (Bld) 1.2 % . [facility] Erythrocyte distribution wid th Auto (RBC) [Ratio]Ordered By: Uziel Caicedo on 03-08-2022 Erythrocyte distribution width (RBC) [Ratio] 14.7 % 11.9-15.3 [facility] Estimated glomerular filtrat ion rate (GFR) non- AmericanOrdered By: Uziel Caicedo on 03-08-2022 GFR/1.73 sq M.predicted among non-blacks MDRD (S/P/Bld) [Vol rate/Area] > 60 mL/Min [facility] Hematocrit Auto (Bld) [Volum e fraction]Ordered By: Uziel Caicedo on 03-08-2022 Hematocrit (Bld) [Volume fraction] 47.9 % 34.0-46.4 [facility] Hemoglobin [Mass/volume] in BloodOrdered By: Uziel Caicedo on 03-08-2022 Hemoglobin (Bld) [Mass/Vol] 16.1 g/dL 11.8-15.4 [facility] - Hematology and Cell countsOrdered By: Uziel Caicedo on 03-08-2022 Nucleated RBC/100 WBC (Bld) [Ratio] 0.1 % 0-0.5 [facility] Leukocytes [#/volume] in Blo od by Automated countOrdered By: Uziel Caicedo on 03-08-2022 WBC (Bld) [#/Vol] 8.5 10*3/uL 4.5-11.0 [facility] Lymphocytes Auto (Bld) [#/Vo l]Ordered By: Uziel Caicedo on 03-08-2022 Lymphocytes (Bld) [#/Vol] 1.7 10*3/uL 1.00-4.8 [facility] Lymphocytes/100 WBC Auto (Bl d)Ordered By: Uziel Caicedo on 03-08-2022 Lymphocytes/100 WBC (Bld) 19.6 % . [facility] MCH Auto (RBC) [Entitic mass ]Ordered By: Uziel Caicedo on 03-08-2022 MCH (RBC) [Entitic mass] 30.3 pg 24.7-34.3 [facility] MCHC Auto (RBC) [Mass/Vol]Or dered By: Uziel Caicedo on 03-08-2022 MCHC (RBC) [Mass/Vol] 33.6 g/dL 32.0-35.0 [facility] MCV Auto (RBC) [Entitic vol] Ordered By: Uziel Caicedo on 03-08-2022 MCV (RBC) [Entitic vol] 90.2 fL 80-100 [facility] Monocytes Auto (Bld) [#/Vol] Ordered By: Uziel Caicedo on 03-08-2022 Monocytes (Bld) [#/Vol] 0.6 10*3/uL 0.0-0.8 [facility] Monocytes/100 WBC Auto (Bld) Ordered By: Uziel Caicedo on 03-08-2022 Monocytes/100 WBC (Bld) 6.9 % . [facility] Neutrophils Auto (Bld) [#/Vo l]Ordered By: Uziel Caicedo on 03-08-2022 Neutrophils (Bld) [#/Vol] 6.1 10*3/uL 1.8-7.7 [facility] Neutrophils/100 WBC Auto (Bl d)Ordered By: Uziel Caicedo on 03-08-2022 Neutrophils/100 WBC (Bld) 71.6 % . [facility] No Panel InformationOrdered By: Uziel Caicedo on 03-08-2022 Estimated GFR () > 60 mL/Min [facility] Comment on above: GFR estimated refere nce range: According to KDOQI guidelines, <60 ml/min/1.73m2 is sufficient to diagnose a patient with chronic kidney disease. Pharmacy Creatinine Clearance (Chem N/A [facility] Platelet mean volume Auto (B ld) [Entitic vol]Ordered By: Uziel Caicedo on 03-08-2022 Platelet mean volume (Bld) [Entitic vol] 10.1 fL 6.3-10.7 [facility] Platelets Auto (Bld) [#/Vol] Ordered By: Uziel Caicedo on 03-08-2022 Platelets (Bld) [#/Vol] 218 10*3/uL 150-450 [facility] RBC Auto (Bld) [#/Vol]Ordere d By: Uziel Caicedo on 03-08-2022 RBC (Bld) [#/Vol] 5.31 10*6/uL 3.60-5.00 [facility] Serum or plasma anion gap de terminationOrdered By: Uziel Caicedo on 03-08-2022 Anion gap [Moles/Vol] 14.9 mmol/L 6.0-15.0 [facility] Serum or plasma calcium luis m urement (mass/volume)Ordered By: Uziel Caicedo on 03-08-2022 Calcium [Mass/Vol] 10.2 mg/dL 8.2-10.2 [facility] Serum or plasma chloride pedro surement (moles/volume)Ordered By: Uziel Caicedo on 03-08-2022 Chloride [Moles/Vol] 97 mmol/L 95-114 [facility] Serum or plasma glucose luis m urement (mass/volume)Ordered By: Uziel Caicedo on 03-08-2022 Glucose [Mass/Vol] 97 mg/dL 70-100 [facility] Comment on above: ADA recommended refe rence rangeRandom Glucose Reference Range is dependent on time and content of last meal. Glucose of more than 200 mg/dL in a nonstressed, ambulatory subject supports the diagnosis of Diabetes Mellitus. Serum or plasma potassium me asurement (moles/volume)Ordered By: Uziel Caicedo on 03-08-2022 Potassium [Moles/Vol] 4.1 mmol/L 3.5-5.1 [facility] Serum or plasma sodium measu rement (moles/volume)Ordered By: Uziel Caicedo on 03-08-2022 Sodium [Moles/Vol] 136 mmol/L 136-146 [facility] Serum or plasma total carbon dioxide measurement (moles/volume)Ordered By: Uziel Caicedo on 03-08-2022 CO2 [Moles/Vol] 28.2 mmol/L 22.0-30.0 [facility] Serum or plasma urea nitroge n measurement (mass/volume)Ordered By: Uziel Caicedo on 03-08-2022 Urea nitrogen [Mass/Vol] 8 mg/dL 9-23 [facility] US SINGLE QUAD RT UPPERon US SINGLE QUAD RT UPPER EXAMINATION: US SINGLE QUAD RT UPPER HISTORY: Right upper quadrant pain COMPARISON: No relevant comparison available. TECHNIQUE: Transabdominal evaluation of the right upper quadrant. FINDINGS: LIVER: Normal size and echotexture. Color Doppler demonstrates patent hepatic veins. PORTAL VEIN: Duplex Doppler demonstrates normal hepatopetal flow pattern with flow velocity averaging 32 cm/s. GALLBLADDER: Filled with heterogeneous shadowing material, likely mixture of stones and sludge. BILIARY: Common bile duct is 10 mm in diameter. PANCREASE: 3 mm calcification within head of pancreas. No visible mass, abnormal atrophy, or duct dilation. KIDNEY: No hydronephrosis. No visible mass or stones. Size: 11.1 x 5.0 x 4.8 cm IMPRESSION: 1. Abnormal appearance of gallbladder, likely filled with stones and sludge. No internal mass cannot be excluded. No wall thickening or free fluid to suggest acute cholecystitis. 2. Abnormally dilated common bile duct without visible stone or mass. Electronically authenticated by: JOSEPH HUBBARD Date: 2022-03-02 07:[address] [facility] XR CHEST 2 Von 10-22-2021 XR CHEST 2 V EXAM: XR CHEST 2 V HISTORY: . Cough . COMPARISON: 07/07/2021 TECHNIQUE: Total and lateral chest FINDINGS: Heart and vascularity are unremarkable. There is hyperexpansion of lungs and finding in hemidiaphragms suggesting COPD. Lungs are free of focal infiltrates. Atherosclerotic changes of the thoracic aorta are noted. Spondylosis of the spine is noted. IMPRESSION: 1 changes suggestive of COPD. 2. No acute heart or lung disease identified. Electronically authenticated by: GEOFFREY ELLIS Date: 2021-10-22 10:[address] [facility] Iron Profileon 09-22-2021 %FESAT 27 % Normal 11-50 [facility] Comment on above: Performed By: #### T SH reflex FT4, FE Prof #### [facility] [address] [place], [place] [id number] FE 71 ug/dL Normal 40-190 [facility] Comment on above: Result Comment: Refe rence range change 04/15/2017. Prior reference range F 37-145 ug/dL, M 59-158 ug/dL. Performed By: #### T SH reflex FT4, FE Prof #### [facility] [address] [place], [place] [id number] TIBC 261 ug/dL Normal 250-450 [facility] Comment on above: Performed By: #### T SH reflex FT4, FE Prof #### [facility] [address] [place], [place] [id number] UIBC 190 ug/dL Normal 112-347 [facility] Comment on above: Performed By: #### T SH reflex FT4, FE Prof #### [facility] [address] [place], [place] [id number] TSH w/ Reflex to Free T4on 0 09-22-2021 TSH 0.551 uIU/mL Normal 0.400-4.500 [facility] Litigation Support Analyst Comment on above: Performed By: #### T SH reflex FT4, FE Prof #### [facility] [address] [place], [place] [id number] Vitamin B12/Folateon 022 Cobalamin (Vitamin B12) [Mass/Vol] 596 pg/mL Normal 211-946 [facility] Comment on above: Performed By: #### B 12/Fol #### [facility] [address] [place], [place] [id number] FOL 9.9 ng/mL Normal >4.7 [facility] Comment on above: Result Comment: Refe rence range change 04/15/2017. Prior reference range F 4.8-37.3 ng/mL, M 4.5-32.2 ng/mL. Performed By: #### B 12/Fol #### [facility] [address] [place], [place] [id number] Complete Blood Count with Au to Diffon 08-05-2021 Basophils (Bld) [#/Vol] 0.06 10*3/uL Normal 0.00-0.20 [facility] Comment on above: Performed By: #### L IPD, CBCAD, VITD #### [facility] [address] [place], [place] [id number] Basophils/100 WBC (Bld) 0.6 % Normal [facility] Comment on above: Performed By: #### L IPD, CBCAD, VITD #### [facility] [address] [place], [place] [id number] Eosinophils (Bld) [#/Vol] 0.13 10*3/uL Normal 0.02-0.50 [facility] Comment on above: Performed By: #### L IPD, CBCAD, VITD #### [facility] [address] [place], [place] [id number] Eosinophils/100 WBC (Bld) 1.4 % Normal [facility] Comment on above: Performed By: #### L IPD, CBCAD, VITD #### [facility] [address] [place], [place] [id number] Erythrocyte distribution width (RBC) [Ratio] 14.2 % Normal 11.0-15.0 [facility] Specialist Comment on above: Performed By: #### L IPD, CBCAD, VITD #### [facility] [address] [place], [place] [id number] Hematocrit (Bld) [Volume fraction] 48.6 % High 35.0-47.0 [facility] Comment on above: Performed By: #### L IPD, CBCAD, VITD #### [facility] [address] [place], [place] [id number] Hemoglobin (Bld) [Mass/Vol] 16.6 g/dL High 11.6-15.5 [facility] Comment on above: Performed By: #### L IPD, CBCAD, VITD #### [facility] [address] [place], [place] [id number] Lymphocytes (Bld) [#/Vol] 2.2 10*3/uL Normal 0.9-3.9 [facility] Comment on above: Performed By: #### L IPD, CBCAD, VITD #### [facility] [address] [place], [place] [id number] Lymphocytes/100 WBC (Bld) 24.0 % Normal [facility] Comment on above: Performed By: #### L IPD, CBCAD, VITD #### [facility] [address] [place], [place] [id number] MCH (RBC) [Entitic mass] 30.7 pg Normal 27.0-33.0 [facility] Comment on above: Performed By: #### L IPD, CBCAD, VITD #### [facility] [address] [place], [place] [id number] MCHC (RBC) [Mass/Vol] 34.2 g/dL Normal 32.0-36.0 [facility] Comment on above: Performed By: #### L IPD, CBCAD, VITD #### [facility] [address] [place], [place] [id number] MCV (RBC) [Entitic vol] 90 fL Normal 80-100 [facility] Specialist Comment on above: Performed By: #### L IPD, CBCAD, VITD #### [facility] [address] [place], [place] [id number] Monocytes (Bld) [#/Vol] 0.5 10*3/uL Normal 0.2-0.9 [facility] Comment on above: Performed By: #### L IPD, CBCAD, VITD #### [facility] [address] [place], [place] [id number] Monocytes/100 WBC (Bld) 5.8 % Normal [facility] Comment on above: Performed By: #### L IPD, CBCAD, VITD #### [facility] [address] [place], [place] [id number] Neutrophils (Bld) [#/Vol] 6.3 10*3/uL Normal 1.5-7.8 [facility] Comment on above: Performed By: #### L IPD, CBCAD, VITD #### [facility] [address] [place], [place] [id number] Neutrophils/100 WBC (Bld) 67.9 % Normal [facility] Comment on above: Performed By: #### L IPD, CBCAD, VITD #### [facility] [address] [place], [place] [id number] Platelet mean volume (Bld) [Entitic vol] 12.00 fL Normal 7.50-12.50 [facility] Comment on above: Performed By: #### L IPD, CBCAD, VITD #### [facility] [address] [place], [place] [id number] Platelets (Bld) [#/Vol] 215 10*3/uL Normal 140-400 [facility] Comment on above: Performed By: #### L IPD, CBCAD, VITD #### [facility] [address] [place], [place] [id number] RBC (Bld) [#/Vol] 5.41 10*6/uL High 3.90-5.20 [facility] Comment on above: Performed By: #### L IPD, CBCAD, VITD #### [facility] [address] [place], [place] [id number] RDW-SD 46.5 fL Normal 37.0-50.0 [facility] Comment on above: Performed By: #### L IPD, CBCAD, VITD #### [facility] [address] [place], [place] [id number] WBC (Bld) [#/Vol] 9.2 10*3/uL Normal 3.8-11.0 [facility] Comment on above: Performed By: #### L IPD, CBCAD, VITD #### [facility] [address] [place], [place] [id number] Lipid Panelon 08-05-2021 Cholesterol [Mass/Vol] 285 mg/dL High 125-200 [facility] Comment on above: Result Comment: Low risk < 200mg/dL Borderline risk 201-239 mg/dl High risk > or equal to 240 Performed By: #### L IPD, CBCAD, VITD #### [facility] [address] [place], [place] [id number] Cholesterol in HDL [Mass/Vol] 67 mg/dL Normal >40 [facility] Comment on above: Result Comment: High Cardiovascular Risk HDL <40 mg/dL Low Cardiovascular Risk HDL > or equal to 60 mg/dl Performed By: #### L IPD, CBCAD, VITD #### [facility] [address] [place], [place] [id number] Cholesterol in LDL [Mass/Vol] 184 mg/dL Normal [facility] Comment on above: Result Comment: LDL ATP III CLASSIFICATION LDL less than 100 mg/dl Optimal LDL 100-129 mg/dl Near or above optimal LDL 130-159 Borderline high LDL 160-189 High LDL greater than 189 mg/dl Very High Performed By: #### L IPD, CBCAD, VITD #### [facility] [address] [place], [place] [id number] Cholesterol in VLDL [Mass/Vol] 34 mg/dL Normal [facility] Comment on above: Performed By: #### L IPD, CBCAD, VITD #### [facility] [address] [place], [place] [id number] Cholesterol.total/Choles terol in HDL [Mass ratio] 4 {ratio} Normal [facility] Comment on above: Performed By: #### L IPD, CBCAD, VITD #### [facility] [address] [place] [id number] Triglyceride [Mass/Vol] 168 mg/dL High 30-150 [facility] Comment on above: Result Comment: TRIG ATPIII CLASSIFICATIONS TRIG less than 150 mg/dl Normal TRIG 150-199 mg/dl Borderline High TRIG 200-500 mg/dl High TRIG greather than 500 mg/dl Very High Performed By: #### L IPD, CBCAD, VITD #### [facility] [address] [place], [place] [id number] Q - SARS CoV2 COVID 19 Ab Ig Uriel 08-05-2021 SARS-CoV-2 (COVID-19) Ab IA Qn <1.00 Normal <1.00 [facility] Litigation Support Analyst Comment on above: Order Comment: [facility] Testing performed at: [facility], [facility], [address], [address] [place], [address], Wheel Cutter: Solitario Lopez MD [facility] Collection Date/Time: [facility] Results Received Date/Time: [facility] Reported Date/Time: Result Comment: This test is intended to help identify individuals with antibodies to SARS-CoV-2 (COVID-19). The results of this semi-quantitative test should not be interpreted as an indication or degree of immunity or protection from reinfection. A test result that is 1.00 or more (Positive) means antibodies to SARS-CoV-2 were detected in the blood sample by the test. This could mean that the individual may have an immune response to a recent or prior infection with SARS-CoV-2. Positive results may occur after COVID-19 vaccination, but the clinical significance of a positive antibody result for individuals that have received a COVID-19 vaccine is unknown, and the performance of the test has not been established in COVID-19 vaccinees. False positive results for the test may occur due to cross-reactivity from pre-existing antibodies or other possible causes. A test result that is less than 1.00 (Negative) means that antibodies were not detected in the blood sample by the test. This could mean that the individual has not been previously infected with SARS-CoV-2. The clinical significance of a negative antibody result for individuals that have received a COVID-19 vaccine is unknown. The performance of the test has not been established in COVID-19 vaccinees. False negative results for the test may occur if the individual's antibodies have not reached a sufficient level for the test to be able to detect them. Antibodies can take up to two to three weeks (sometimes longer) to develop after someone is infected. How long antibodies to SARS-CoV-2 last after infection is not known. This test should not be used to diagnose an active SARS-CoV-2 infection. If an active infection is suspected, direct molecular or antigen testing for SARS-CoV-2 is recommended. Please review the Fact Sheets available for healthcare providers and patients using the following websites: http://patient.SHAPE.com/Atellica-HCP http://patient.eVoters.com/Atellica-Patients Healthcare Providers: For additional information please refer to: http://education.HelloFresh/faq/XSC989 (This link is being provided for informational/educational purposes only.) This test has been authorized by the FDA under an Emergency Use Authorization (EUA) for use by authorized laboratories. The FDA authorized labeling is available on the [employer] website: www.Channel Breeze.produkte24.com/Covid19. Performed By: #### 3 [id number] #### [facility] [address] [place] [address] Vitamin D 25-OHon 08-05-2021 VIT D 25 OH 67 ng/ml Normal >29 [facility] Litigation Support Analyst Comment on above: Result Comment: Freda min D Status Deficiency <20 ng/mL Insufficiency 20-29 ng/mL Optimal 30-100 ng/mL Possible Toxicity >=150 ng/mL Performed By: #### L IPD, CBCAD, VITD #### [facility] [address] [place], [place] [id number] Encounters Encounter Date Encounter Type Care Provider Facility Start: 06-15-2023 End: 06-15-2023 ambulatory KAMILAH ONEILL Not Available Start: 10-08-2022 End: 10-08-[address] JANICE GARNER Facility:[facility] Start: 08-31-2022 End: 08-31-[address] JANICE GARNER Facility:[facility] Start: 03-16-2022 End: 03-16-2022 ambulatory Cynthia Jose Facility:[facility] Start: 03-12-2022 End: 03-12-2022 ambulatory Uziel Caicedo Facility:[facility] Start: 03-12-2022 End: 03-12-2022 ambulatory [employer] SALES-Rigoberto Jose Work Phone: [facility] Work Phone: Start: 03-12-2022 End: 03-12-2022 Patient encounter procedure AREA DIRECTOR OF HOME HEALTH SALES-Rigoberto Jose Work Phone: [facility][id number] Testing Start: 03-08-2022 End: 03-08-2022 ambulatory Cynthia Jose Facility:[facility] Start: 03-08-2022 End: 03-08-2022 Patient encounter procedure AREA DIRECTOR OF HOME HE[employer] SALES-Rigoberto Jose Work Phone: [facility]Qnf[facility] Testing Start: 03-02-2022 End: 03-03-[address] CYNTHIA JOSE Facility: Start: 10-22-2021 End: 10-23-[address] CYNTHIA JOSE Facility:[facility] Payers Date Payer Category Payer Medicare [id number] 2022 Self-pay [id number] 1961 Medicaid [id number] 1961 Medicare [id number] 1950 Unknown [id number] 2.16.84 [id number] 1950 Unknown [id number] 2.16.84 [id number] 1950 Unknown [id number] 2.16.84 [id number] 1950 Unknown [id number] 2.16.84 [id number] 1950 Unknown [id number] 2.16.84 [id number] Unknown [id number] 2.16.8 [id number] Unknown [id number] 2.16.8 [id number] Unknown [id number] 2.16.8 [id number] Social History Date Type Detail Facility Start[facility]-08-[facility]22 [facility] Start: 1950 Sex Assigned At Female F [facility] Evaluation note Note Date & Type Note Facility Evaluation note No assessment information availa ble [facility] Work Phone: Summary Purpose Family History No Family History Records Found Relationship Condition Age at Onset Recorded Date/T parminder father Malignant neoplasm Unknown Cerebral aneurysm Unknown Not Specified Malignant neoplasm Unknown Hypertension Unknown Advance Directives No Advanced Directives Records Found Advance Directive Response Recorded Date/ Time Advance Directives No March 24, 2018 11:52am Chief Complaint and Reason for Visit Chief Complaint Cholelithiasis Cholelithiasis Additional Source Comments INFORMATION SOURCE (unrecogn ized section and content) DATE CREATED AUTHOR 09/24/2021 [facility] dical Specialist DATE CREATED AUTHOR AUTHOR'S ORGANIZ ATION 07/03/2022 [place] DATE CREATED AUTHOR AUTHOR'S ORGANIZ ATION 10/11/2022 [facility] DATE CREATED AUTHOR AUTHOR'S ORGANIZ ATION 06/16/2023 [facility] dical Specialists EPIC Care Teams (unrecognized sec tion and content) Team Status: Inactive Member Role Status Dates Uziel Caicedo DO Attending Provider Active JORDON Ceja Primary Care Provider Active Team Status: Active Member Role Status Dates JORDON Ceja Primary Care Provider Active Goals (unrecognized section and content) Goals may be documented in a n alternate section FOR RECORDS PERTAINING TO PATIENTS WHO ARE OR HAVE BEEN ENROLLED IN A CHEMICAL DEPENDENCY/SUBSTANCEABUSE PROGRAM, SOME INFORMATION MAY BE OMITTED. This clinical summary was aggregated from multiple sources. Caution should be exercised in using it in the provision of clinical care. This summary normalizes information from multiple sources, and as a consequence, information in this document may materially change the coding, format and clinical context of patient data. In addition, data may be omitted in some cases. CLINICAL DECISIONS SHOULD BE BASED ON THE PRIMARY CLINICAL RECORDS. [facility]. provides no warranty or guarantee of the accuracy or completeness of information in this document.
--- NOTE | 2023-06-24 15:22 | XR_ITS ---
The [address] [address] Patient Name: KARIN ALAN MRN: [id number] date: 1950 Sex: F Assigned Patient Location: ER Current Patient Location: ER Accession/Order Number: [id number] Exam Date: 06/24/2023 16:08 Report Date: 06/24/2023 16:34 At the request of: ISSA ROJAS Procedure: XR chest 1V EXAM: XR chest 1V at 1608 hours HISTORY: cough for two weeks COMPARISON: 12/03/2022 TECHNIQUE: AP upright portable chest X FINDINGS: The heart is not enlarged and the vasculature is not distended. No acute infiltrate, effusion or pneumothorax is identified. The lungs are bit overexpanded suggesting COPD. Degenerative changes are seen in the spine. XR/XR chest 1V IMPRESSION: No acute infiltrate or evidence of cardiac decompensation. Mild chronic changes are present. The overall appearance of the chest is unchanged. Electronically authenticated by: LORETTA PARHAM Date: 06/24/2023 16:34
--- NOTE | 2023-06-24 15:23 | ED.URI1 ---
HPI - URI/Sore Throat General Chief Complaint: Upper Respiratory Infection Stated Complaint: bad cough, headache Time Seen by Provider: 06/24/23 15:18 Source: patient Limitations: no limitations History of Present Illness HPI Narrative: 73-year-old female presents for cough. She has had this for two weeks and has been on prednisone which she has now finished. She also finished a Z-Omar and is on her 2nd Z-Omar and has two pills left. She uses an inhaler at home. The cough is mostly nonproductive and she's had two negative home Covid test. Related Data Home Medications Medication Instructions Recorded Confirmed albuterol sulfate 90 mcg/actuation 2 inh inhalation Q6H PRN shortness 12/03/22 02/28/23 aerosol inhaler of breath or wheezing lisinopril 20 1 tab PO DAILY 12/03/22 02/28/23 mg-hydrochlorothiazide 12.5 mg tablet pregabalin 50 mg capsule 150 mg PO TID 12/03/22 02/28/23 Previous Rx's Medication Instructions Recorded azithromycin 250 mg tablet See Rx Instructions PO .COMPLEX #6 02/28/23 (Zithromax Z-Omar) tabs cetirizine 5 mg-pseudoephedrine ER 1 tab PO BID #10 tabs 02/28/23 120 mg tablet,extended release,12hr (Zyrtec-D) methylprednisolone 4 mg tablets in See Rx Instructions .Route 02/28/23 a dose pack (Medrol (Omar)) .COMPLEX #21 ea ondansetron 4 mg disintegrating 4 mg PO Q6H PRN nausea and 02/28/23 tablet vomiting #12 tabs doxycycline hyclate 100 mg capsule 100 mg PO BID 10 days #20 caps 06/24/23 prednisone 10 mg tablet See Rx Instructions .Route 06/24/23 .COMPLEX #30 tabs Allergies Allergy/AdvReac Type Severity Reaction Status Date / Time acetaminophen [From Percocet] Allergy Unknown Verified 02/28/23 13:31 oxycodone [From Percocet] Allergy Unknown Verified 02/28/23 13:31 Review of Systems ROS Narrative A ten point review of systems is negative except as noted above. PFSH PFSH Social History Smoking status: Current every day smoker Exam Narrative Exam Narrative: Nurses note and vital signs reviewed and patient is not hypoxic. General: The patient appears in no apparent distress. Patient is coughing frequently Skin: Warm, dry, no pallor noted. There is no rash noted. Head: Normocephalic, atraumatic Eye: Normal conjunctiva, no drainage Ears, Nose, Mouth, and Throat: oral mucosa is moist. Nares patent. Cardiovascular: Regular Rate and Rhythm Respiratory: breath sounds are equal with good air movement. No rhonchi. Back: non-tender GI: soft and nontender Musculoskeletal: The patient has no evidence of calf tenderness, no pitting edema, symmetrical pulses noted bilaterally Neurological: A&O, normal speech Psychiatric: Cooperative Constitutional Vital Signs, click to edit/add: Last Vital Signs Temp 98.0 F 06/24/23 15:13 Pulse 95 H 06/24/23 15:13 Resp 16 06/24/23 15:13 BP 119/63 06/24/23 15:13 Pulse Ox 98 06/24/23 15:13 O2 Del Method Room Air 06/24/23 15:13 Course Vital Signs Vital signs: Vital Signs Temperature 98.0 F 06/24/23 15:13 Pulse Rate 95 H 06/24/23 15:13 Respiratory Rate 16 06/24/23 15:13 Blood Pressure 119/63 06/24/23 15:13 Pulse Oximetry 98 06/24/23 15:13 Oxygen Delivery Method Room Air 06/24/23 15:13 Temperature 98.0 F 06/24/23 15:13 Pulse Rate 95 H 06/24/23 15:13 Respiratory Rate 16 06/24/23 15:13 Blood Pressure 119/63 06/24/23 15:13 Pulse Oximetry 98 06/24/23 15:13 Oxygen Delivery Method Room Air 06/24/23 15:13 MDM - URI/Sore Throat MDM Narrative Medical decision making narrative: chest x-ray is negative. I'll switch her to doxycycline and place her on a course of prednisone. Treatment diagnosis and follow-up were discussed with the patient. She was offered Covid an influenza testing but doesn't feel that she needs it. Differential Diagnosis Differential diagnosis: Likely upper respiratory infection and viral infection Imaging Data Chest x-ray: Radiologist's impression: ITS Impressions Chest X-Ray 06/24/23 15:22 IMPRESSION: No acute infiltrate or evidence of cardiac decompensation. Mild chronic changes are present. The overall appearance of the chest is unchanged. Electronically authenticated by: LORETTA PARHAM Date: 06/24/2023 16:34 Discharge Plan Discharge Chief Complaint: Upper Respiratory Infection Clinical Impression: Upper respiratory infection, COPD exacerbation Patient Disposition: Home, Self-Care Time of Disposition Decision: 16:53 Condition: Good Mode of Transportation: Private Vehicle Prescriptions / Home Meds: New prednisone 10 mg tablet See Rx Instructions .ROUTE .COMPLEX Qty: 30 0RF Rx Instructions: 4 by mouth daily for three days then 3 by mouth daily for three days then 2 by mouth daily for three days then 1 by mouth daily for three days doxycycline hyclate 100 mg capsule 100 mg PO BID 10 Days Qty: 20 0RF No Action lisinopril-hydrochlorothiazide 20-12.5 mg tablet 1 tab PO DAILY albuterol sulfate 90 mcg/actuation HFA aerosol inhaler 2 inh INHALATION Q6H PRN (Reason: shortness of breath or wheezing) pregabalin 50 mg capsule 150 mg PO TID cetirizine-pseudoephedrine [Zyrtec-D] 5-120 mg tablet extended release 12 hr 1 tab PO BID Qty: 10 0RF azithromycin [Zithromax Z-Omar] 250 mg tablet See Rx Instructions .ROUTE .COMPLEX Qty: 6 0RF Rx Instructions: For 250 mg dose pack: take 500 mg today (day 1), then 250 mg for 4 days (days 2-5) methylprednisolone [Medrol (Omar)] 4 mg tablets,dose pack See Rx Instructions .ROUTE .COMPLEX Qty: 21 0RF Rx Instructions: Taper as directed ondansetron 4 mg tablet,disintegrating 4 mg PO Q6H PRN (Reason: nausea and vomiting) Qty: 12 0RF Instructions: Upper Respiratory Infection (ED), COPD (Chronic Obstructive Pulmonary Disease) (ED) Stand Alone Forms: Portal Instructions Referrals: JANICE GARNER [Primary Care Provider] - 1 week
--- NOTE | 2023-06-24 16:12 | PC.NURSE ---
Xray to bedside at this time
== END 2023-06-24 17:08 | disposition home or self-care (01) ==
PROVIDERS: Emergency Provider Emergency Medicine; PCP Internal Medicine
DX: J06.9 Acute upper respiratory infection, unspecified (principal); J44.1 Chronic obstructive pulmonary disease with (acute) exacerbation; Z79.899 Other long term (current) drug therapy; F17.210 Nicotine dependence, cigarettes, uncomplicated
CPT/HCPCS: 71045; 99283

== ENCOUNTER 2023-08-15 11:30 | Emergency (ER) | payer MEDICARE, SELFPAY ==
[2023-08-15 11:35] VITALS: BP 132/87; PULSE 87; RESP 18; TEMP 36.8; O2SAT 100; BMI 25.7
[2023-08-15 12:27] LABS: Bilirubin Urine NEGATIVE (NEGATIVE); Blood Urine SMALL (NEGATIVE); Clarity Urine CLEAR (CLEAR); Color Urine LT. YELLOW (YELLOW); Glucose Urine UA NEGATIVE (NEGATIVE); Ketones Urine NEGATIVE (NEGATIVE); Leukocyte Esterase Urine NEGATIVE (NEGATIVE); Nitrite Urine NEGATIVE (NEGATIVE); Protein Urine NEGATIVE (NEG/TRACE); Urobilinogen Urine 0.2 EU/dL (0.2-1.0); pH Urine 6.5 (5.0-9.0)
[2023-08-15 12:40] LABS: WBC Urine 0-2 #/HPF (NONE SEEN)
[2023-08-15 12:41] LABS: Bacteria Urine TRACE #/HPF (NONE SEEN); Cast Seen? NONE SEEN #/LPF (NONE SEEN); Crystals Seen? None Seen #/HPF (None Seen); Mucus Urine NONE SEEN (NONE SEEN); Squamous Epithelial Cell Urine FEW #/LPF (NONE/RARE)
[2023-08-15 12:58] LABS: Basophils Absolute Auto 0.1 10^3/uL (0.0-0.1); Basophils Percent Auto 0.6 % (0.2-2.0); Eosinophils Absolute Auto 0.1 10^3/uL (0.0-0.7); Eosinophils Percent Auto 1.1 % (0.9-7.0); Hematocrit 45.5 % (36.0-48.0); Hemoglobin 15.3 g/dL (12.0-16.0); Immature Granulocytes Abs Auto 0.01 10^3/uL (0.00-0.03); Immature Granulocytes Pct Auto 0.1 % (0.0-0.5); Lymphocytes Absolute Auto 2.7 10^3/uL (1.2-3.8); Lymphocytes Percent Auto 30.5 % (20.5-60.0); Mean Corpuscular HGB Conc 33.6 g/dL (29.9-35.2); Mean Corpuscular Hemoglobin 30.9 pg (26.7-34.0); Mean Corpuscular Volume 91.9 fL (81.0-99.0); Mean Platelet Volume 11.1 fL (9.5-13.5); Monocytes Absolute Auto 0.6 10^3/uL (0.3-0.8); Monocytes Percent Auto 6.3 % (1.7-12.0); Neutrophils Absolute Auto 5.4 10^3/uL (1.4-6.5); Neutrophils Percent Auto 61.4 % (43.0-75.0); Platelet Count 258 10^3/uL (150-450); Red Blood Count 4.95 10^6/uL (4.20-5.40); Red Cell Distribution Width 14.8 % (11.0-15.0); White Blood Count 8.8 10^3/uL (4.0-11.0)
--- NOTE | 2023-08-15 13:01 | CT_ITS ---
[address] [address] Patient Name: KARIN ALAN MRN: [id number] date: 1950 Sex: F Assigned Patient Location: ER Current Patient Location: ER Accession/Order Number: [id number] Exam Date: 08/15/2023 13:48 Report Date: 08/15/2023 14:13 At the request of: ALEXA WATTS Procedure: CT abdomen pelvis wo con EXAMINATION: CT abdomen pelvis wo con HISTORY: flank pain COMPARISON: No relevant comparison available. TECHNIQUE: Axial, Coronal, and Sagittal images were created without IV contrast. Dose reduction techniques were achieved by using automated exposure control and/or adjustment of mA and/or kV according to patient size and/or use of iterative reconstruction technique. FINDINGS: LUNG BASES: Paraseptal emphysema in the right lower lobe over the hemidiaphragm LIVER: No enlargement, atrophy, abnormal density, or significant focal lesion. BILIARY: Surgical clips from cholecystectomy PANCREAS: No lesion, fluid collection, ductal dilatation, or atrophy. SPLEEN: No enlargement or focal lesion. ADRENALS: No mass or enlargement. KIDNEYS: Left renal cortical hypodensities too small to characterize. No hydronephrosis or obstructing stones are observed BOWEL/MESENTERY: Extensive colonic diverticulosis without evidence of acute diverticulitis AORTA/VASCULAR: Extensive atherosclerosis with likely flow significant stenosis of the common iliac arteries RETROPERITONEUM: No mass or adenopathy. LYMPH NODES: No adenopathy. URINARY BLADDER: No visible focal wall thickening, lesion, or calculus. PELVIC ORGANS: No visible mass. Pelvic organs appropriate for patient age. ABDOMINAL WALL: No mass or hernia. BONES: No bony lesion or fracture. OTHER: Negative. CT/CT abdomen pelvis wo con IMPRESSION: No obstructive uropathy Electronically authenticated by: GEOFFREY MORGAN Date: 08/15/2023 14:13
[2023-08-15 13:07] LABS: Alanine Aminotransferase 21 U/L (14-59); Albumin Globulin Ratio 1.3; Albumin Level 3.9 g/dL (3.4-5.0); Alkaline Phosphatase 73 U/L (46-116); Anion Gap 13.1; Aspartate Amino Transferase 16 U/L (15-37); BUN Creatinine Ratio 15.5; Bilirubin Direct 0.1 mg/dL (0.0-0.2); Bilirubin Total 0.6 mg/dL (0.2-1.0); Calcium 9.1 mg/dL (8.5-10.1); Carbon Dioxide 29.4 mmol/L (21.0-32.0); Chloride 98 mmol/L (98-107); Estimated GFR (African America >60 (>=60); Estimated GFR (Non-African Ame >60 (>=60); Globulin 3.1 g/dL; Glucose 93 mg/dL (74-106); Potassium 3.5 mmol/L (3.5-5.1); Sodium 137 mmol/L (136-145)
[2023-08-15] MEDS: 0.9 % SODIUM CHLORIDE 1,000 ML 999 ML IV (13:19)
--- NOTE | 2023-08-15 14:52 | ED.GENADUL1 ---
Documented by User: MANUEL Diaz 08/15/23 14:58 HPI - General Adult General Chief complaint: Abdominal Pain Stated complaint: flank pain'left Time Seen by Provider: 08/15/23 12:53 Source: patient Mode of arrival: walk-in Limitations: no limitations History of Present Illness HPI narrative: 73-year-old female presents to the emergency department with with complaint of left flank pain. Onset yesterday. Symptoms have been waxing and waning since onset. Became concerned because she did notice some hematuria. Has had history of urine infections where hematuria was the only symptom. Currently, his pain-free. Has had some nausea. Denies fever, vomiting, dysuria, frequency. Quality:?Dull Severity:?Moderate Timing:?Since yesterday, waxing and waning, intermittent, currently resolved Context: Normal setting and activity? Modifying factors:?None Associated symptoms: As above Related Data Home Medications Medication Instructions Recorded Confirmed albuterol sulfate 90 mcg/actuation 2 inh inhalation Q6H PRN shortness 12/03/22 02/28/23 aerosol inhaler of breath or wheezing lisinopril 20 1 tab PO DAILY 12/03/22 02/28/23 mg-hydrochlorothiazide 12.5 mg tablet pregabalin 50 mg capsule 150 mg PO TID 12/03/22 02/28/23 Previous Rx's Medication Instructions Recorded azithromycin 250 mg tablet See Rx Instructions PO .COMPLEX #6 02/28/23 (Zithromax Z-Omar) tabs cetirizine 5 mg-pseudoephedrine ER 1 tab PO BID #10 tabs 02/28/23 120 mg tablet,extended release,12hr (Zyrtec-D) methylprednisolone 4 mg tablets in See Rx Instructions .Route 02/28/23 a dose pack (Medrol (Omar)) .COMPLEX #21 ea ondansetron 4 mg disintegrating 4 mg PO Q6H PRN nausea and 02/28/23 tablet vomiting #12 tabs doxycycline hyclate 100 mg capsule 100 mg PO BID 10 days #20 caps 06/24/23 prednisone 10 mg tablet See Rx Instructions .Route 06/24/23 .COMPLEX #30 tabs tizanidine 2 mg capsule 2 mg PO BID PRN muscle spasm #10 08/15/23 caps Allergies Allergy/AdvReac Type Severity Reaction Status Date / Time oxycodone [From Percocet] Allergy Unknown Verified 02/28/23 13:31 Review of Systems ROS Narrative CONST: Denies any fever, chills HENT: Denies any congestion, sore throat RESP: Denies any cough, shortness of breath CV: Denies any chest pain, peripheral edema GI: +nausesa.? Denies abd pain, vomiting, diarrhea : + flank pain, hematuria. Denies any flank pain, dysuria MS: Denies any back pain, myalgias SKIN: Denies any color change, rash NEURO: Denies numbness, weakness PSYCHIATRIC: Denies confusion, agitation PFSH PFSH Social History Smoking status: Current every day smoker Exam Narrative Exam Narrative: Vital signs reviewed Nurses notes noted CONST: Nontoxic, well appearing, well nourished, in no distress.? No diaphoresis.?? HENT: normocephalic, atraumatic, moist mucous membrane, no abnormalities of the nose noted, hearing normal EYES: normal appearing conjunctiva, no apparent discharge bilat NECK: normal appearance CV: normal rate, regular rhythm, no murmur RESP: normal effort, speaking in complete sentences. Lung sounds clear and equal bilat.? No wheezes, rales, rhonchi GI: normal bowel sounds, soft, no distension, nontender : no CVA tenderness MS: no edema, tenderness SKIN: no pallor NEURO: A&Ox 3, no focal findings PSYCH: normal mood, affect Constitutional Vital Signs, click to edit/add: Last Vital Signs Temp 98.2 F 08/15/23 11:35 Pulse 87 08/15/23 11:35 Resp 18 08/15/23 11:35 BP 132/87 08/15/23 11:35 Pulse Ox 100 08/15/23 11:35 Course Reevaluation(s) Reevaluation #1: Remains pain-free on reevaluation. Discussed with patient and results, plan, and disposition. They are agreeable with plan. Time: 14:33 Vital Signs Vital signs: Vital Signs Temperature 98.2 F 08/15/23 11:35 Pulse Rate 87 08/15/23 11:35 Respiratory Rate 18 08/15/23 11:35 Blood Pressure 132/87 08/15/23 11:35 Pulse Oximetry 100 08/15/23 11:35 Temperature 98.2 F 08/15/23 11:35 Pulse Rate 87 08/15/23 11:35 Respiratory Rate 18 08/15/23 11:35 Blood Pressure 132/87 08/15/23 11:35 Pulse Oximetry 100 08/15/23 11:35 Medical Decision Making MDM Narrative Medical decision making narrative: This is a pleasant 73-year-old female who presents to the emergency department with complaint of left flank pain. Onset yesterday. Symptoms have waxed and waned, been intermittent. Currently pain-free. Has had some mild nausea, as well as, hematuria. Denies any nausea currently. Denies any specific injury, history of kidney stones, dysuria, fevers. On arrival, afebrile, vital signs are stable. On exam, nontoxic, well-appearing patient in no distress. Heart regular rate and rhythm. Lung sounds clear and equal bilaterally. No CVA tenderness. Denies any abdominal tenderness. Labs reveal no leukocytosis, anemia, thrombocytopenia, electrolyte imbalance, renal impairment. LFTs unremarkable. Lipase 45. Urinalysis showed 2?5 red blood cells, no other acute findings. CT abdomen pelvis imaging, per radiologist reveals no acute findings. Patient remained symptom-free during ED course Fever nonspecific back pain, possible muscle spasm Less likely ureterolithiasis based on imaging Less likely pyelonephritis based on urinalysis, imaging Disposition ? The patient was discharged. Plan: Patient will be discharged to home. Condition at time of disposition: stable Patient will be given prescription for tizanidine. Advised to follow up with her provider. Advised to return for any worsening and/or development of new, concerning signs or symptoms PLEASE NOTE: Portions of the medical record may have been produced using electronic string studies director and may contain errors with respect to translation of words which may not have been identified prior to finalization of the chart. Lab Data Lab results reviewed: Yes I reviewed the patient's lab results Labs: Lab Results 08/15/23 08/15/23 Range/Units 12:21 12:44 WBC 8.8 (4.0-11.0) 10^3/uL RBC 4.95 (4.20-5.40) 10^6/uL Hgb 15.3 (12.0-16.0) g/dL Hct 45.5 (36.0-48.0) % MCV 91.9 (81.0-99.0) fL MCH 30.9 (26.7-34.0) pg MCHC 33.6 (29.9-35.2) g/dL RDW 14.8 (11.0-15.0) % Plt Count 258 (150-450) 10^3/uL MPV 11.1 (9.5-13.5) fL Neut % (Auto) 61.4 (43.0-75.0) % Lymph % (Auto) 30.5 (20.5-60.0) % [place] % (Auto) 6.3 (1.7-12.0) % Eos % (Auto) 1.1 (0.9-7.0) % Baso % (Auto) 0.6 (0.2-2.0) % Neut # (Auto) 5.4 (1.4-6.5) 10^3/uL Lymph # (Auto) 2.7 (1.2-3.8) 10^3/uL [place] # (Auto) 0.6 (0.3-0.8) 10^3/uL Eos # (Auto) 0.1 (0.0-0.7) 10^3/uL Baso # (Auto) 0.1 (0.0-0.1) 10^3/uL Abs Immat Gran (auto) 0.01 (0.00-0.03) 10^3/uL Imm/Tot Granulo (auto) 0.1 (0.0-0.5) % Sodium 137 (136-145) mmol/L Potassium 3.5 (3.5-5.1) mmol/L Chloride 98 (98-107) mmol/L Carbon Dioxide 29.4 (21.0-32.0) mmol/L Anion Gap 13.1 BUN 9.0 (7.0-18.0) mg/dL Creatinine 0.58 (0.55-1.02) mg/dL Est GFR ( Amer) >60 (>=60) Est GFR (Non-Af Amer) >60 (>=60) BUN/Creatinine Ratio 15.5 Glucose 93 (74-106) mg/dL Calcium 9.1 (8.5-10.1) mg/dL Total Bilirubin 0.6 (0.2-1.0) mg/dL Direct Bilirubin 0.1 (0.0-0.2) mg/dL AST 16 (15-37) U/L ALT 21 (14-59) U/L Alkaline Phosphatase 73 (46-116) U/L Total Protein 7.0 (6.4-8.2) g/dL Albumin 3.9 (3.4-5.0) g/dL Globulin 3.1 g/dL Albumin/Globulin Ratio 1.3 Lipase 45.0 (16.0-77.0) U/L Urine Color Lt. yellow (YELLOW) Urine Clarity Clear (CLEAR) Urine pH 6.5 (5.0-9.0) Ur Specific [place] 1.010 (1.005-1.025) Urine Protein Negative (NEG/TRACE) mg/dL Urine Glucose (UA) Negative (NEGATIVE) mg/dL Urine Ketones Negative (NEGATIVE) mg/dL Urine Occult Blood Small A (NEGATIVE) Urine Nitrite Negative (NEGATIVE) Urine Bilirubin Negative (NEGATIVE) Urine Urobilinogen 0.2 (0.2-1.0) EU/dL Ur Leukocyte Esterase Negative (NEGATIVE) Urine RBC 2-5 A (0-2) #/HPF Urine WBC 0-2 A (NONE SEEN) #/HPF Ur Squamous Epith Cells Few A (NONE/RARE) #/LPF Urine Crystals None seen (None Seen) #/HPF Urine Bacteria Trace A (NONE SEEN) #/HPF Urine Casts None seen (NONE SEEN) #/LPF Urine Mucus None seen (NONE SEEN) Imaging Data CT scan - abdomen: Attestation: I have reviewed the pertinent imaging results. Radiologist's impression: ITS Impressions Abdomen/Pelvis CT 08/15/23 13:01 IMPRESSION: No obstructive uropathy Electronically authenticated by: GEOFFREY MORGAN Date: 08/15/2023 14:13 Discharge Plan Discharge Stand Alone Forms: Portal Instructions Chief Complaint: Abdominal Pain Clinical Impression: Acute left flank pain Hematuria Qualifiers: Hematuria type: unspecified type Qualified Code(s): R31.9 - Hematuria, unspecified Patient Disposition: Home, Self-Care Time of Disposition Decision: 14:33 Condition: Good Mode of Transportation: Private Vehicle Prescriptions / Home Meds: New tizanidine 2 mg capsule 2 mg PO BID PRN (Reason: muscle spasm) Qty: 10 0RF No Action lisinopril-hydrochlorothiazide 20-12.5 mg tablet 1 tab PO DAILY albuterol sulfate 90 mcg/actuation HFA aerosol inhaler 2 inh INHALATION Q6H PRN (Reason: shortness of breath or wheezing) pregabalin 50 mg capsule 150 mg PO TID cetirizine-pseudoephedrine [Zyrtec-D] 5-120 mg tablet extended release 12 hr 1 tab PO BID Qty: 10 0RF azithromycin [Zithromax Z-Omar] 250 mg tablet See Rx Instructions .ROUTE .COMPLEX Qty: 6 0RF Rx Instructions: For 250 mg dose pack: take 500 mg today (day 1), then 250 mg for 4 days (days 2-5) methylprednisolone [Medrol (Omar)] 4 mg tablets,dose pack See Rx Instructions .ROUTE .COMPLEX Qty: 21 0RF Rx Instructions: Taper as directed ondansetron 4 mg tablet,disintegrating 4 mg PO Q6H PRN (Reason: nausea and vomiting) Qty: 12 0RF prednisone 10 mg tablet See Rx Instructions .ROUTE .COMPLEX Qty: 30 0RF Rx Instructions: 4 by mouth daily for three days then 3 by mouth daily for three days then 2 by mouth daily for three days then 1 by mouth daily for three days doxycycline hyclate 100 mg capsule 100 mg PO BID 10 Days Qty: 20 0RF Instructions: Flank Pain (ED) Referrals: JANICE GARNER [Primary Care Provider] - 1 week Discharge Date/Time: 08/15/23 14:46 Documented by User: Bradley Hernandez MD 08/15/23 20:12 HPI - General Adult General Chief complaint: Abdominal Pain Stated complaint: flank pain'left Time Seen by Provider: 08/15/23 12:53 Related Data Home Medications Medication Instructions Recorded Confirmed albuterol sulfate 90 mcg/actuation 2 inh inhalation Q6H PRN shortness 12/03/22 02/28/23 aerosol inhaler of breath or wheezing lisinopril 20 1 tab PO DAILY 12/03/22 02/28/23 mg-hydrochlorothiazide 12.5 mg tablet pregabalin 50 mg capsule 150 mg PO TID 12/03/22 02/28/23 Previous Rx's Medication Instructions Recorded azithromycin 250 mg tablet See Rx Instructions PO .COMPLEX #6 02/28/23 (Zithromax Z-Omar) tabs cetirizine 5 mg-pseudoephedrine ER 1 tab PO BID #10 tabs 02/28/23 120 mg tablet,extended release,12hr (Zyrtec-D) methylprednisolone 4 mg tablets in See Rx Instructions .Route 02/28/23 a dose pack (Medrol (Omar)) .COMPLEX #21 ea ondansetron 4 mg disintegrating 4 mg PO Q6H PRN nausea and 02/28/23 tablet vomiting #12 tabs doxycycline hyclate 100 mg capsule 100 mg PO BID 10 days #20 caps 06/24/23 prednisone 10 mg tablet See Rx Instructions .Route 06/24/23 .COMPLEX #30 tabs tizanidine 2 mg capsule 2 mg PO BID PRN muscle spasm #10 08/15/23 caps Allergies Allergy/AdvReac Type Severity Reaction Status Date / Time oxycodone [From Percocet] Allergy Unknown Verified 02/28/23 13:31 [facility] Social History Smoking status: Current every day smoker Exam Constitutional Vital Signs, click to edit/add: Last Vital Signs Temp 98.2 F 08/15/23 11:35 Pulse 87 08/15/23 11:35 Resp 18 08/15/23 11:35 BP 132/87 08/15/23 11:35 Pulse Ox 100 08/15/23 11:35 Course Vital Signs Vital signs: Vital Signs Temperature 98.2 F 08/15/23 11:35 Pulse Rate 87 08/15/23 11:35 Respiratory Rate 18 08/15/23 11:35 Blood Pressure 132/87 08/15/23 11:35 Pulse Oximetry 100 08/15/23 11:35 Temperature 98.2 F 08/15/23 11:35 Pulse Rate 87 08/15/23 11:35 Respiratory Rate 18 08/15/23 11:35 Blood Pressure 132/87 08/15/23 11:35 Pulse Oximetry 100 08/15/23 11:[address] [facility] Narrative Medical decision making narrative: This is a pleasant 73-year-old female who presents to the emergency department with complaint of left flank pain. Onset yesterday. Symptoms have waxed and waned, been intermittent. Currently pain-free. Has had some mild nausea, as well as, hematuria. Denies any nausea currently. Denies any specific injury, history of kidney stones, dysuria, fevers. On arrival, afebrile, vital signs are stable. On exam, nontoxic, well-appearing patient in no distress. Heart regular rate and rhythm. Lung sounds clear and equal bilaterally. No CVA tenderness. Denies any abdominal tenderness. Labs reveal no leukocytosis, anemia, thrombocytopenia, electrolyte imbalance, renal impairment. LFTs unremarkable. Lipase 45. Urinalysis showed 2?5 red blood cells, no other acute findings. CT abdomen pelvis imaging, per radiologist reveals no acute findings. Patient remained symptom-free during ED course Fever nonspecific back pain, possible muscle spasm Less likely ureterolithiasis based on imaging Less likely pyelonephritis based on urinalysis, imaging Disposition ? The patient was discharged. Plan: Patient will be discharged to home. Condition at time of disposition: stable Patient will be given prescription for tizanidine. Advised to follow up with her provider. Advised to return for any worsening and/or development of new, concerning signs or symptoms PLEASE NOTE: Portions of the medical record may have been produced using electronic string studies director and may contain errors with respect to translation of words which may not have been identified prior to finalization of the chart. I, Dr Hernandez, have reviewed the above progress note and course of action in the ER; agree with the above. I have gone over history and physical, and discussed disposition and treatment plan with the patient. Lab Data Labs: Lab Results 08/15/23 08/15/23 Range/Units 12:21 12:44 WBC 8.8 (4.0-11.0) 10^3/uL RBC 4.95 (4.20-5.40) 10^6/uL Hgb 15.3 (12.0-16.0) g/dL Hct 45.5 (36.0-48.0) % MCV 91.9 (81.0-99.0) fL MCH 30.9 (26.7-34.0) pg MCHC 33.6 (29.9-35.2) g/dL RDW 14.8 (11.0-15.0) % Plt Count 258 (150-450) 10^3/uL MPV 11.1 (9.5-13.5) fL Neut % (Auto) 61.4 (43.0-75.0) % Lymph % (Auto) 30.5 (20.5-60.0) % [place] % (Auto) 6.3 (1.7-12.0) % Eos % (Auto) 1.1 (0.9-7.0) % Baso % (Auto) 0.6 (0.2-2.0) % Neut # (Auto) 5.4 (1.4-6.5) 10^3/uL Lymph # (Auto) 2.7 (1.2-3.8) 10^3/uL [place] # (Auto) 0.6 (0.3-0.8) 10^3/uL Eos # (Auto) 0.1 (0.0-0.7) 10^3/uL Baso # (Auto) 0.1 (0.0-0.1) 10^3/uL Abs Immat Gran (auto) 0.01 (0.00-0.03) 10^3/uL Imm/Tot Granulo (auto) 0.1 (0.0-0.5) % Sodium 137 (136-145) mmol/L Potassium 3.5 (3.5-5.1) mmol/L Chloride 98 (98-107) mmol/L Carbon Dioxide 29.4 (21.0-32.0) mmol/L Anion Gap 13.1 BUN 9.0 (7.0-18.0) mg/dL Creatinine 0.58 (0.55-1.02) mg/dL Est GFR ( Amer) >60 (>=60) Est GFR (Non-Af Amer) >60 (>=60) BUN/Creatinine Ratio 15.5 Glucose 93 (74-106) mg/dL Calcium 9.1 (8.5-10.1) mg/dL Total Bilirubin 0.6 (0.2-1.0) mg/dL Direct Bilirubin 0.1 (0.0-0.2) mg/dL AST 16 (15-37) U/L ALT 21 (14-59) U/L Alkaline Phosphatase 73 (46-116) U/L Total Protein 7.0 (6.4-8.2) g/dL Albumin 3.9 (3.4-5.0) g/dL Globulin 3.1 g/dL Albumin/Globulin Ratio 1.3 Lipase 45.0 (16.0-77.0) U/L Urine Color Lt. yellow (YELLOW) Urine Clarity Clear (CLEAR) Urine pH 6.5 (5.0-9.0) Ur Specific [place] 1.010 (1.005-1.025) Urine Protein Negative (NEG/TRACE) mg/dL Urine Glucose (UA) Negative (NEGATIVE) mg/dL Urine Ketones Negative (NEGATIVE) mg/dL Urine Occult Blood Small A (NEGATIVE) Urine Nitrite Negative (NEGATIVE) Urine Bilirubin Negative (NEGATIVE) Urine Urobilinogen 0.2 (0.2-1.0) EU/dL Ur Leukocyte Esterase Negative (NEGATIVE) Urine RBC 2-5 A (0-2) #/HPF Urine WBC 0-2 A (NONE SEEN) #/HPF Ur Squamous Epith Cells Few A (NONE/RARE) #/LPF Urine Crystals None seen (None Seen) #/HPF Urine Bacteria Trace A (NONE SEEN) #/HPF Urine Casts None seen (NONE SEEN) #/LPF Urine Mucus None seen (NONE SEEN) Imaging Data CT scan - abdomen: Radiologist's impression: ITS Impressions Abdomen/Pelvis CT 08/15/23 13:01
== END 2023-08-15 14:46 | disposition home or self-care (01) ==
PROVIDERS: Physician Assistant; Emergency Provider Emergency Medicine; PCP Internal Medicine
DX: R10.9 Unspecified abdominal pain (principal); Z79.899 Other long term (current) drug therapy; F17.210 Nicotine dependence, cigarettes, uncomplicated
CPT/HCPCS: 36415; 74176; 80053; 80076; 81001; 83690; 85025; 99285

== ENCOUNTER 2023-10-09 08:58 | Emergency (ER) | payer MEDICARE, SELFPAY ==
[2023-10-09 09:03] VITALS: BP 144/79; PULSE 81; TEMP 36.6; O2SAT 99; BMI 18.3
--- NOTE | 2023-10-09 09:18 | ED_ITS ---
HPI - URI/Sore Throat General Chief Complaint: Upper Respiratory Infection Stated Complaint: URTI COMPLAINTS Time Seen by Provider: 10/09/23 09:03 Source: patient Limitations: no limitations History of Present Illness HPI Narrative: 73-year-old female presents to the emergency department for a 6-day history of congestion and cough. It has been getting worse over time and she is now coughing up some yellow phlegm. No hemoptysis or known fever. Her right ear has been hurting. No drainage. Related Data Home Medications ?Medication ?Instructions ?Recorded ?Confirmed albuterol sulfate 90 mcg/actuation 2 inh inhalation Q6H PRN shortness 12/03/22 02/28/23 aerosol inhaler of breath or wheezing lisinopril 20 1 tab PO DAILY 12/03/22 02/28/23 mg-hydrochlorothiazide 12.5 mg tablet pregabalin 50 mg capsule 150 mg PO TID 12/03/22 02/28/23 Previous Rx's ?Medication ?Instructions ?Recorded azithromycin 250 mg tablet See Rx Instructions PO .COMPLEX #6 02/28/23 (Zithromax Z-Omar) tabs cetirizine 5 mg-pseudoephedrine ER 1 tab PO BID #10 tabs 02/28/23 120 mg tablet,extended release,12hr (Zyrtec-D) methylprednisolone 4 mg tablets in See Rx Instructions .Route 02/28/23 a dose pack (Medrol (Omar)) .COMPLEX #21 ea ondansetron 4 mg disintegrating 4 mg PO Q6H PRN nausea and 02/28/23 tablet vomiting #12 tabs doxycycline hyclate 100 mg capsule 100 mg PO BID 10 days #20 caps 06/24/23 prednisone 10 mg tablet See Rx Instructions .Route 06/24/23 .COMPLEX #30 tabs tizanidine 2 mg capsule 2 mg PO BID PRN muscle spasm #10 08/15/23 caps benzonatate 100 mg capsule 100 mg PO TID PRN cough #20 caps 10/09/23 sulfamethoxazole 800 1 tab PO BID 10 days #20 tabs 10/09/23 mg-trimethoprim 160 mg tablet (Bactrim DS) Allergies Allergy/AdvReac Type Severity Reaction Status Date / Time oxycodone [From Percocet] Allergy Unknown Verified 02/28/23 13:31 Review of Systems ROS Narrative A ten point review of systems is negative except as noted above. PFSH PFSH Social History Smoking status: Current every day smoker Exam Narrative Exam Narrative: Nurses note and vital signs reviewed and patient is not hypoxic. General: The patient appears well and in no apparent distress. Patient is resting comfortably on cart. Skin: Warm, dry, no pallor noted. There is no rash noted. Head: Normocephalic, atraumatic Eye: Normal conjunctiva, no drainage Ears, Nose, Mouth, and Throat: oral mucosa is moist. Nares patent. Minimal pharyngeal erythema, no exudate. Both TMs and both external canals are normal. Cardiovascular: Regular Rate and Rhythm Respiratory: Patient is in no distress, no accessory muscle use, lungs are clear to auscultation, no wheezing, rales or rhonchi Back: non-tender GI: Soft and nontender Musculoskeletal: The patient has no evidence of calf tenderness, no pitting edema, symmetrical pulses noted bilaterally Neurological: A&O, normal speech Psychiatric: Cooperative Constitutional Vital Signs, click to edit/add: Last Vital Signs Temp 97.9 F 10/09/23 09:03 Pulse 81 10/09/23 09:03 Resp 20 10/09/23 09:03 BP 144/79 H 10/09/23 09:03 Pulse Ox 99 10/09/23 09:03 O2 Del Method Room Air 10/09/23 09:03 Course Vital Signs Vital signs: Vital Signs Temperature 97.9 F 10/09/23 09:03 Pulse Rate 81 10/09/23 09:03 Respiratory Rate 20 10/09/23 09:03 Blood Pressure 144/79 H 10/09/23 09:03 Pulse Oximetry 99 10/09/23 09:03 Oxygen Delivery Method Room Air 10/09/23 09:03 Temperature 97.9 F 10/09/23 09:03 Pulse Rate 81 10/09/23 09:03 Respiratory Rate 20 10/09/23 09:03 Blood Pressure 144/79 H 10/09/23 09:03 Pulse Oximetry 99 10/09/23 09:03 Oxygen Delivery Method Room Air 10/09/23 09:03 MDM - URI/Sore Throat MDM Narrative Medical decision making narrative: We discussed COVID and influenza testing and she does not feel it is necessary. I do not feel that a chest x-ray is necessary. She will be treated with Bactrim and Tessalon. Treatment diagnosis and follow-up were discussed with the patient. Differential Diagnosis Differential diagnosis: Likely upper respiratory infection, sinusitis, viral infection, bronchitis and pharyngitis Discharge Plan Discharge Stand Alone Forms: Portal Instructions Chief Complaint: Upper Respiratory Infection Clinical Impression: Upper respiratory infection Patient Disposition: Home, Self-Care Time of Disposition Decision: 09:17 Condition: Good Mode of Transportation: Private Vehicle Prescriptions / Home Meds: New sulfamethoxazole-trimethoprim [Bactrim DS] 800-160 mg tablet 1 tab PO BID 10 Days Qty: 20 0RF benzonatate 100 mg capsule 100 mg PO TID PRN (Reason: cough) Qty: 20 0RF No Action lisinopril-hydrochlorothiazide 20-12.5 mg tablet 1 tab PO DAILY albuterol sulfate 90 mcg/actuation HFA aerosol inhaler 2 inh INHALATION Q6H PRN (Reason: shortness of breath or wheezing) pregabalin 50 mg capsule 150 mg PO TID tizanidine 2 mg capsule 2 mg PO BID PRN (Reason: muscle spasm) Qty: 10 0RF cetirizine-pseudoephedrine [Zyrtec-D] 5-120 mg tablet extended release 12 hr 1 tab PO BID Qty: 10 0RF azithromycin [Zithromax Z-Omar] 250 mg tablet See Rx Instructions .ROUTE .COMPLEX Qty: 6 0RF Rx Instructions: For 250 mg dose pack: take 500 mg today (day 1), then 250 mg for 4 days (days 2-5) methylprednisolone [Medrol (Omar)] 4 mg tablets,dose pack See Rx Instructions .ROUTE .COMPLEX Qty: 21 0RF Rx Instructions: Taper as directed ondansetron 4 mg tablet,disintegrating 4 mg PO Q6H PRN (Reason: nausea and vomiting) Qty: 12 0RF prednisone 10 mg tablet See Rx Instructions .ROUTE .COMPLEX Qty: 30 0RF Rx Instructions: 4 by mouth daily for three days then 3 by mouth daily for three days then 2 by mouth daily for three days then 1 by mouth daily for three days doxycycline hyclate 100 mg capsule 100 mg PO BID 10 Days Qty: 20 0RF Print Language: Nepalese Referrals: JANICE GARNER [Primary Care Provider] - 1 week
--- OUTSIDE RECORDS SUMMARY | 2023-10-09 09:34 | XMS_ITS | CCD ---
Author Organization [facility] Care Team Providers Care Mental Health Specialist Name Role Phone DO Uziel Caicedo Attending Provider KRISTINA JoseC Cynthia Primary Care Provider [phone] Cynthia Jose Primary Care Unavailable Uziel Caicedo Attending Unavailable Tanisha, Uziel Admitting Unavailable Uziel Caicedo Attending Unavailable Cynthia Jose Primary Care Unavailable Uziel Caicedo Admitting Unavailable Cynthia Jose Primary Care Unavailable Tanisha, Uziel Admitting Unavailable Uziel Caicedo Attending Unavailable PATSY, DR CAMACHO Primary Care Unavailable ISSA ROJAS Consulting Unavailable ISSA ROJAS Admitting Unavailable ISSA ROJAS Attending Unavailable SELENA CAIN Consulting Unavailable HEMHECTOR, DR CYNTHIA Cohn Admitting Unavailable HEMMER, DR CYNTHIA Cohn Attending Unavailable PATSY, DR CAMACHO Primary Care Unavailable ZIEBER, DR JOSEPH Tavarez Consulting Unavailable HEMMER, DR CYNTHIA Cohn Consulting Unavailable HEMHECTOR, DR CYNTHIA Cohn Admitting Unavailable HEMMER, DR CYNTHIA Cohn Attending Unavailable PATSY, DR CAMACHO Primary Care Unavailable GEOFFREY ELLIS Consulting Unavailable HEMMER, DR CYNTHIA Cohn Consulting Unavailable PATSY, DR CAMACHO Primary Care Unavailable HAY ., DR LOZADA Admitting Unavailable HAY ., DR LOZADA Attending Unavailable PAY ., DR BOWLING Consulting Unavailable UNLU, MARCO Consulting Unavailable Lane Swann MD Primary Care Provider [phone] Swann MD Unavailable Lane Swann MD Unavailable KAMILAH ONEILL Attending Unavailable HEMCYNTHIA YOUNG Attending Unavailable Allergies Allergy Classification Reported Allergen(s) Allergy Type Date of Onset Reaction(s) Facility (2 sources) Acetaminophen; Translations: [acetaminophen] Drug Allergy 03-08-2022 Dizziness [facility] (2 sources) Amoxicillin; Translations: [amoxicillin] Drug Allergy 03-08-2022 Diarrhea [facility] (2 sources) Clavulanate; Translations: [clavulanic acid] Drug Allergy 03-08-2022 Diarrhea [facility] (3 sources) montelukast; Translations: [montelukast] Drug Allergy 03-08-2022 Nausea Only [facility] (2 sources) oxyCODONE; Translations: [oxycodone] Drug Allergy 03-08-2022 Dizziness [facility] (1 source) Acetaminophen / oxyCODONE Drug Allergy [facility] (1 source) Acetaminophen / oxyCODONE Drug Allergy 12-10-2022 Dizziness [facility] (1 source) Amoxicillin-Pot Clavulanate Drug Allergy 12-10-2022 [facility] Healthcare Work Phone: Medications Current Medications Medication Drug Class(es) Dates Sig (Normalized) Sig (Original) [id number] 200 actuat albuterol 0.09 mg/actuat metered dose inhaler (2 sources) beta2-Adrenergic Agonist Start: 02-28-2023 take 2 puff(s) by inhalation every six hours for wheezing albuterol HFA 90 mcg/act inhaler Indications: Chronic obstructive pulmonary disease, unspecified COPD type (CMS/HCC) Inhale 2 puffs every 6 (six) hours if needed for wheezing. 18 g 3 02/28/2023 Active Start: 03-08-2022 Albuterol Sulf ate Active 2 INH INHALATION Twice daily March 08, 2022 12:00am albuterol 0.833 mg/ml / ipratropium bromide 0.167 mg/ml inhalation solution (1 source) Anticholinergic, beta2-Adrenergic Agonist Start: 03-08-2022 take 1 mL by inhalation every six hours Ipratropium-Albuterol Active 3 ML INHALATION Q6H March 08, 2022 12:00am ALPRAZolam 0.25 mg oral tablet (2 sources) Benzodiazepine Start: 02-28-2023 take 1 tablet by mouth three times daily as needed for anxiety ALPRAZolam (Xanax) 0.25 MG tablet Indications: Anxiety state ([facility]) Take 1 tablet (0.25 mg) by mouth 3 (three) times a day as needed for anxiety. 30 tablet 0 02/28/2023 Active Start: 03-08-2022 take 0.25 mg by mout h once daily Alprazolam Active 0.25 MG PO Daily March 08, 2022 12:00am ascorbic acid 500 mg oral tablet (1 source) Vitamin C Start: 03-08-2022 take 1 tablet by mouth once daily Ascorbic Acid (Vitamin C) (Vitamin C) 500 mg Tablet Active 500 MG PO Daily March 08, 2022 12:00am 60 actuat budesonide 0.16 mg/actuat / formoterol fumarate 0.0045 mg/actuat metered dose inhaler (1 source) Corticosteroid, beta2-Adrenergi c Agonist Start: 01-04-2023 End: 01-04-2024 take 2 puff(s) by inhalation in the morning budesonide-formoter ol (Symbicort) 160-4.5 MCG/ACT inhaler Indications: Chronic obstructive pulmonary disease, unspecified COPD type ([facility]) Inhale 2 puffs in the morning and 2 puffs before bedtime. Rinse mouth with water after use to reduce aftertaste and incidence of candidiasis. Do not swallow.. 1 each 01/04/2023 01/04/2024 Active calcium carbonate 500 mg chewable tablet (1 source) Start: 03-08-2022 take 1 tablet by mouth twice daily Calcium Carbonate (Tums) 200 mg calcium (500 mg) Tablet,Chewable Active 200 MG PO Twice daily March 08, 2022 12:00am cholecalciferol 0.01 mg chewable tablet (1 source) Vitamin D Start: 03-08-2022 take 1 tablet by mouth once daily Cholecalciferol (Vitamin D3) (Vitamin D3) 10 mcg (400 unit) Tablet,Chewable Active 400 UNIT PO Daily March 08, 2022 12:00am [facility] D 5-120 MG 12 hr tablet (1 source) Start: 02-28-2023 take 1 tablet by mouth once in the morning, then take 1 tablet by mouth every twelve hours at bedtime [facility] D 5-120 MG 12 hr tablet Take 1 tablet by mouth in the morning and 1 tablet before bedtime. 0 02/28/2023 Active hydroCHLOROthiazide 12.5 mg / lisinopril 20 mg oral tablet (2 sources) Thiazide Diuretic, Angiotensin Converting Enzyme Inhibitor Start: 08-21-2022 take 1 tablet by mouth in the morning lisinopril-hydroCHL OROthiazide 20-12.5 MG tablet Take 1 tablet by mouth in the morning. 0 08/21/2022 Active Start: 03-08-2022 take 1 tablet by uli th once daily Lisinopril-Hydrochlorothiazide Active 1 TAB PO Daily March 08, 2022 12:00am ibuprofen 800 mg oral tablet (2 sources) Nonsteroidal Anti-inflammatory Drug Start: 03-22-2023 take 1 tablet by mouth three times daily at mealtime as needed ibuprofen 800 MG tablet Indications: Right rotator cuff tendonitis TAKE 1 TABLET BY MOUTH THREE TIMES A DAY WITH FOOD OR MILK NEEDED 90 tablet 3 03/22/2023 Active Start: 03-08-2022 take 400 mg by mouth twice rl ly Ibuprofen Active 400 MG PO Twice daily March 08, 2022 12:00am loratadine 10 mg oral tablet (1 source) Start: 03-08-2022 take 1 tablet by mouth once daily Loratadine (Claritin) 10 mg Tablet Active 10 MG PO Daily March 08, 2022 12:00am meclizine hydrochloride 25 mg oral tablet (1 source) Antiemetic Start: 03-08-2022 take 25 mg by mouth once daily Meclizine Active 25 MG PO Daily March 08, 2022 12:00am ondansetron 4 mg disintegrating oral tablet (2 sources) Serotonin-3 Receptor Antagonist Start: 03-08-2022 take 4 mg by mouth every six hours Ondansetron Active 4 MG PO Q6H March 08, 2022 12:00am Start: 02-03-2022 take 1 tablet by uli th every twenty-four hours as needed for nausea and vomiting ondansetron ODT (Zofran-ODT) 4 MG disintegrating tablet Take 4 mg by mouth Daily as needed for nausea or vomiting. 0 02/03/2022 Active pregabalin 50 mg oral capsule (2 sources) Start: 06-08-2023 take 1 capsule by mouth four times daily pregabalin (Lyrica) 50 MG capsule Indications: Neuropathy of both upper extremities TAKE 1 CAPSULE BY MOUTH FOUR TIMES A DAY 120 capsule 2 06/08/2023 Active Start: 03-08-2022 take 50 mg by mouth four times daily Pregabalin Active 50 MG PO Four times daily March 08, 2022 12:00am traZODone hydrochloride 50 mg oral tablet (1 source) Serotonin Reuptake Inhibitor Start: 03-08-2022 take 50 mg by mouth twice daily Trazodone Active 50 MG PO Twice daily March 08, 2022 12:00am Problems Active Problems Problem Classification Problem Date Documented Date Episodic/Chronic Abdominal pain (8 sources) Unspecified abdominal pain; Translations: [Right upper quadrant pain] Onset: 03-02-2022 Episodic Anxiety disorders (1 source) Anxiety state; Translations: [Generalized anxiety disorder] Onset: 11-10-2022 11-10-2022 Chronic Chronic obstructive pulmonary disease and bronchiectasis (2 sources) Chronic obstructive pulmonary disease with (acute) exacerbation; Translations: [Chronic obstructive lung disease] Onset: 10-11-2022 01-04-2023 Chronic Disorders of lipid metabolism (1 source) Hypercholesterolemia; Translations: [Pure hypercholesterolemia, unspecified] Onset: 11-10-2022 11-10-2022 Chronic Diverticulosis and diverticulitis (1 source) Diverticulosis of sigmoid colon; Translations: [Diverticulosis of large intestine without perforation or abscess without bleeding] Onset: 11-10-2022 11-10-2022 Chronic Essential hypertension (1 source) Benign essential hypertension; Translations: [Essential (primary) hypertension] Onset: 11-10-2022 11-10-2022 Chronic Late effects of cerebrovascular disease (1 source) Late effects of cerebrovascular disease; Translations: [Other sequelae following unspecified cerebrovascular disease] Onset: 11-10-2022 11-10-2022 Chronic Malaise and fatigue (1 source) Fatigue; Translations: [Chronic fatigue, unspecified] Onset: 11-10-2022 11-10-2022 Chronic Menopausal disorders (1 source) Primary ovarian failure; Translations: [Other primary ovarian failure] Onset: 11-10-2022 11-10-2022 Chronic Nutritional deficiencies (1 source) Vitamin D deficiency; Translations: [Vitamin D deficiency, unspecified] Onset: 11-10-2022 11-10-2022 Chronic Osteoporosis (1 source) Osteoporosis; Translations: [Age-related osteoporosis without current pathological fracture] Onset: 04-04-2013 01-04-2023 Chronic Other aftercare (1 source) 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; Translations: [OTH BULK SAUSAGE CASING TIER OFF CURRENT DRUG THERAPY] Onset: 10-11-2022 Episodic Other nervous system disorders (1 source) Bilateral carpal tunnel syndrome; Translations: [Carpal tunnel syndrome, bilateral upper limbs] Onset: 11-10-2022 11-10-2022 Chronic Other nervous system disorders (1 source) Polyneuropathy; Translations: [Unspecified mononeuropathy of bilateral upper limbs] Onset: 11-10-2022 11-10-2022 Chronic Other nervous system disorders (1 source) Carpal tunnel syndrome; Translations: [Carpal tunnel syndrome, unspecified upper limb] Onset: 12-14-2017 01-04-2023 Chronic Other upper respiratory disease (1 source) Allergic rhinitis; Translations: [Allergic rhinitis, unspecified] Onset: 11-10-2022 11-10-2022 Chronic Otitis media and related conditions (1 source) Bilateral middle ear chronic mucoid otitis media; Translations: [Other chronic nonsuppurative otitis media, bilateral] Onset: 01-04-2023 01-04-2023 Chronic Residual codes; unclassified (1 source) Initial insomnia; Translations: [Other insomnia] Onset: 11-10-2022 11-10-2022 Chronic Residual codes; unclassified (1 source) Acquired absence of other specified parts of digestive tract; Translations: [ACQ ABSENCE OTH PART DIGESTV TRACT] Onset: 09-02-2022 Episodic Spondylosis; intervertebral disc disorders; other back problems (2 sources) Cervical spondylosis; Translations: [Other spondylosis with myelopathy, cervical region] Onset: 11-10-2022 11-10-2022 Chronic Unclassified (1 source) Encounter for preprocedural laboratory examination; Translations: [Encounter for preprocedural laboratory examination] Onset: 03-12-2022 Unclassified (3 sources) COUGH, UNSPECIFIED; Translations: [COUGH, UNSPECIFIED] Onset: 10-29-2021 Past or Other Problems Problem Classification Problem Date Documented Da te Episodic/Chronic Biliary tract disease (1 source) Calculus of gallbladder with chronic cholecystitis without obstruction; Translations: [Calculus of gallbladder with chronic cholecystitis without obstruction] Onset: 03-16-2022 Episodic Cancer of breast (1 source) History of malignant neoplasm of breast; Translations: [Personal history of malignant neoplasm of breast] Onset: 10-17-2014 01-04-2023 Episodic Conditions associated with dizziness or vertigo (1 source) Dizziness; Translations: [Dizziness and giddiness] Onset: 11-10-2022 11-10-2022 Episodic Fluid and electrolyte disorders (1 source) Hypokalemia; Translations: [Hypokalemia] Onset: 01-04-2023 01-04-2023 Episodic Other acquired deformities (1 source) Spondylolysis of cervical spine; Translations: [Spondylolysis, cervical region] Onset: 11-10-2022 11-10-2022 Episodic Other acquired deformities (1 source) Acquired spondylolisthesis; Translations: [Spondylolisthesis, site unspecified] Onset: 11-01-2016 01-04-2023 Episodic Other bone disease and musculoskeletal deformities (1 source) Osteopenia; Translations: [Other specified disorders of bone density and structure, unspecified site] Onset: 05-04-2012 01-04-2023 Episodic Other connective tissue disease (1 source) Tendinitis of right rotator cuff; Translations: [Other shoulder lesions, right shoulder] Onset: 11-10-2022 11-10-2022 Episodic Other eye disorders (1 source) Xanthoma of eyelid; Translations: [Xanthelasma of unspecified eye, unspecified eyelid] Onset: 11-10-2022 11-10-2022 Episodic Other gastrointestinal disorders (1 source) Constipation; Translations: [Constipation, unspecified] Onset: 11-10-2022 11-10-2022 Episodic Other nervous system disorders (1 source) Burning sensation of skin; Translations: [Other disturbances of skin sensation] Onset: 11-10-2022 11-10-2022 Episodic Other nervous system disorders (1 source) Paresthesia of skin; Translations: [Disturbance of skin sensation] Onset: 03-01-2018 01-04-2023 Episodic Other upper respiratory infections (2 sources) Acute upper respiratory infection, unspecified; Translations: [Nasal discharge] Onset: 10-11-2022 11-10-2022 Episodic Screening and history of mental health and substance abuse codes (1 source) Ex-smoker; Translations: [Personal history of nicotine dependence] Onset: 01-04-2023 01-04-2023 Episodic Substance-related disorders (2 sources) Nicotine dependence, cigarettes, uncomplicated; Translations: [Nicotine dependence] Onset: 10-11-2022 Resolved: 01-04-2023 01-04-2023 Chronic Unclassified (1 source) COUGH, UNSPECIFIED; Translations: [COUGH, [...] lung disease . Electronically authenticated by: MARCO MORTONU Date: 2022-10-08 14:48 Normal [facility] CBC AUTO DIFFon 08-31-2022 BASO # 0.1 103/ul Normal 0.0-0.1 [facility] Comment on above: Performed By: #### C BC #### [facility] [address] [place] [address] Dr. Nehemias Dean Basophils/100 WBC (Bld) 0.6 % Normal 0.2-2.0 [facility] Comment on above: Performed By: #### C BC #### [facility] [address] [place] [address] Dr. Nehemias Dean EO # 0.2 103/ul Normal 0.0-0.7 [facility] Comment on above: Performed By: #### C BC #### [facility] [address] [place] [address] Dr. Nehemias Dean Eosinophils/100 WBC (Bld) 2.2 % Normal 0.9-7.0 [facility] Comment on above: Performed By: #### C BC #### [facility] [address] [place] [address] Dr. Nehemias Dean Erythrocyte distribution width (RBC) [Ratio] 14.6 % Normal 11.0-15.0 [facility] Comment on above: Performed By: #### C BC #### [facility] [address] [place] [address] Dr. Nehemias Dean Hematocrit (Bld) [Volume fraction] 45.4 % Normal 36.0-48.0 [facility] Comment on above: Performed By: #### C BC #### [facility] [address] [place] [address] Dr. Nehemias Dean Hemoglobin (Bld) [Mass/Vol] 15.5 g/dL Normal 12.0-16.0 [facility] Comment on above: Performed By: #### C BC #### [facility] [address] [place] [address] Dr. Nehemias Dean IG # 0.02 10e3/ul Normal 0.00-0.03 [facility] Comment on above: Performed By: #### C BC #### [facility] [address] [place] [address] Dr. Nehemias Dean IG % 0.2 % Normal 0.0-0.5 [facility] Comment on above: Performed By: #### C BC #### [facility] [address] [place] [address] Dr. Nehemias Dean LYMPH # 3.0 103/ul Normal 1.2-3.8 [facility] Comment on above: Performed By: #### C BC #### [facility] [address] [place] [address] Dr. Nehemias Dean Lymphocytes/100 WBC (Bld) 31.2 % Normal 20.5-60.0 [facility] Comment on above: Performed By: #### C BC #### [facility] [address] [place] [address] Dr. Nehemias Dean MANUAL DIFF REQ NO Normal [facility] Comment on above: Performed By: #### C BC #### [facility] [address] [place] [address] Dr. Nehemias Dean MCH (RBC) [Entitic mass] 30.0 pg Normal 26.7-34.0 [facility] Comment on above: Performed By: #### C BC #### [facility] [address] [address] [address] Nehemias Dean MCHC (RBC) [Mass/Vol] 34.1 g/dL Normal 29.9-35.2 [facility] Comment on above: Performed By: #### C BC #### [facility] [address] [address] [address] Nehemias Dean MCV (RBC) [Entitic vol] 88.0 fL Normal 81.0-99.0 [facility] Comment on above: Performed By: #### C BC #### [facility] [address] [place] [address] Dr. Nehemias Dean MONO # 0.5 103/ul Normal 0.3-0.8 [facility] Comment on above: Performed By: #### C BC #### [facility] [address] [place] [address] Dr. Nehemias Dean Monocytes/100 WBC (Bld) 5.5 % Normal 1.7-12.0 [facility] Comment on above: Performed By: #### C BC #### [facility] [address] [place] [address] Dr. Nehemias Dean NEUT # 5.8 103/ul Normal 1.4-6.5 [facility] Comment on above: Performed By: #### C BC #### [facility] [address] [place] [address] Dr. Nehemias Dean Neutrophils/100 WBC (Bld) 60.3 % Normal 43.0-75.0 [facility] Comment on above: Performed By: #### C BC #### [facility] [address] [address] [address] Nehemias Dean Platelet mean volume (Bld) [Entitic vol] 11.2 fL Normal 9.5-13.5 [facility] Comment on above: Performed By: #### C BC #### [facility] [address] [place] [address] Dr. Nehemias Dean PLT 252 103/ul Normal 150-450 [facility] Comment on above: Performed By: #### C BC #### [facility] [address] [place], [place] [address] Dr. Nehemias Dean RBC 5.16 106/ul Normal 4.20-5.40 [facility] Comment on above: Performed By: #### C BC #### [facility] [address] [place], [place] [address] Dr. Nehemias Dean WBC 9.6 103/ul Normal 4.0-11.0 [facility] Comment on above: Performed By: #### C BC #### [facility] [address] [place], [place] [address] ABD/PELVIS WO CONon [...] SELENA CAIN Date: 2022-08-31 12:26 Normal [facility] ER URINE PROFILEon 3 Bilirubin Ql (U) Negative Normal NEGATIVE [facility] Comment on above: Performed By: #### U MICRO, ERUR #### [facility] [address] [address] [address] Nehemias Dean Clarity (U) CLEAR Normal CLEAR [facility] Comment on above: Performed By: #### U MICRO, ERUR #### [facility] [address] [address] [address] Nehemias Dean Color (U) LT. YELLOW Normal YELLOW [facility] Comment on above: Performed By: #### U MICRO, ERUR #### [facility] [address] [address] [address] Nehemias Dean ERUAHD A micrscopic examination will be performed if indicated. Normal [facility] Comment on above: Performed By: #### U MICRO, ERUR #### [facility] [address] [place] [address] Dr. Nehemias Dean Glucose Ql (U) Negative Normal NEGATIVE [facility] Comment on above: Performed By: #### U MICRO, ERUR #### [facility] [address] [place] [address] Dr. Nehemias Dean Hemoglobin Ql (U) SMALL Abnormal NEGATIVE [facility] Comment on above: Performed By: #### U MICRO, ERUR #### [facility] [address] [address] [address] Nehemias Dean Ketones Ql (U) Negative Normal NEGATIVE [facility] Comment on above: Performed By: #### U MICRO, ERUR #### [facility] [address] [address] [address] Nehemias Dean LEUKOCYTES Negative Normal NEGATIVE [facility] Comment on above: Performed By: #### U MICRO, ERUR #### [facility] [address] [address] [address] Nehemias Dean Nitrite Ql (U) Negative Normal NEGATIVE [facility] Comment on above: Performed By: #### U MICRO, ERUR #### [facility] [address] [place] [address] Dr. Nehemias Dean pH (U) 7.0 [pH] Normal 5-9 [facility] Comment on above: Performed By: #### U MICRO, ERUR #### [facility] [address] [place] [address] Dr. Nehemias Dean SPEC GRAVITY 1.015 Normal 1.005-<=1.02 5 [facility] Comment on above: Performed By: #### U MICRO, ERUR #### [facility] [address] [place] [address] Dr. Nehemias Dean UA PROTEIN Negative Normal NEGATIVE/ TRACE [facility] Comment on above: Performed By: #### U MICRO, ERUR #### [facility] [address] [place] [address] Dr. Nehemias Dean UR MICRO IND INDICATED Normal [facility] Comment on above: Performed By: #### U MICRO, ERUR #### [facility] [address] [place] [address] Dr. Nehemias Dean Urobilinogen Qn (U) 0.2 {Cristina'U}/dL Normal 0.2 - 1. 0 [facility] Comment on above: Performed By: #### U MICRO, ERUR #### [facility] [address] [place] [address] Dr. Nehemias Dean PROF CHEM 8 (BAS METB)on Anion gap [Moles/Vol] 14.9 mmol/L Normal [facility] Comment on above: Performed By: #### B MP #### [facility] [address] [place] [address] Dr. Nehemias Dean Calcium [Mass/Vol] 9.4 mg/dL Normal 8.5-10.1 [facility] Comment on above: Performed By: #### B MP #### [facility] [address] [place] [address] Dr. Nehemias Dean Chloride [Moles/Vol] 100 mmol/L Normal 98-107 [facility] Comment on above: Performed By: #### B MP #### [facility] [address] [place] [address] Dr. Nehemias Dean CO2 [Moles/Vol] 27.2 mmol/L Normal 21.0-32.0 [facility] Comment on above: Performed By: #### B MP #### [facility] [address] [address] [address] Nehemias Dean Creatinine [Mass/Vol] 0.63 mg/dL Normal 0.55-1.02 [facility] Comment on above: Performed By: #### B MP #### [facility] [address] [address] [address] Nehemias Dean EGFR-AF TURKMEN >60 Normal >=60 [facility] Comment on above: Performed By: #### B MP #### [facility] [address] [address] [address] Nehemias Dean EGFR-NON AF TURKMEN >60 Normal >=60 [facility] Comment on above: Performed By: #### B MP #### [facility] [address] [address] [address] Nehemias Dean Glucose [Mass/Vol] 107 mg/dL Critically high 74-106 [facility] Comment on above: Performed By: #### B MP #### [facility] [address] [place] [address] Dr. Nehemias Dean Potassium [Moles/Vol] 3.1 mmol/L Critically low 3.5-5.1 [facility] Comment on above: Performed By: #### B MP #### [facility] [address] [address] [address] Nehemias Dean Sodium [Moles/Vol] 139 mmol/L Normal 136-145 [facility] Comment on above: Performed By: #### B MP #### [facility] [address] [address] [address] Nehemias Dean Urea nitrogen [Mass/Vol] 7.0 mg/dL Normal 7.0-18.0 [facility] Comment on above: Performed By: #### B MP #### [facility] [address] [address] [address] Nehemias Dean Urea nitrogen/Creatinine [Mass ratio] 11.1 mg/mg Normal [facility] Comment on above: Performed By: #### B MP #### [facility] [address] [address] [address] Nehemias Dean URINE MICROSCOPIC ONLYon BACTERIA TRACE Abnormal NONE SEEN [facility] Comment on above: Performed By: #### U MICRO, ERUR #### [facility] [address] [place] [address] Dr. Nehemias Dean Bacteria identified Cx Nom (U) NOT INDICATED Normal [facility] Comment on above: Performed By: #### U MICRO, ERUR #### [facility] [address] [place] [address] Dr. Nehemias Dean CAST NONE SEEN Normal NONE SEEN [facility] Comment on above: Performed By: #### U MICRO, ERUR #### [facility] [address] [place] [address] Dr. Nehemias Dean Crystals LM Nom (Urine sed) NONE SEEN Normal NONE SEEN [facility] Comment on above: Performed By: #### U MICRO, ERUR #### [facility] [address] [address] [address] Nehemias Dean Epithelial cells LM Ql (Urine sed) FEW Abnormal NONE SEEN /RARE [facility] Comment on above: Performed By: #### U MICRO, ERUR #### [facility] [address] [place] [address] Dr. Nehemias Dean MUCOUS NONE SEEN Normal NONE SEEN [facility] Comment on above: Performed By: #### U MICRO, ERUR #### [facility] [address] [place] [address] Dr. Nehemias Dean RBC 2-5 Abnormal 0-2 [facility] Comment on above: Performed By: #### U MICRO, ERUR #### [facility] [address] [address] [address] Nehemias Dean WBC NONE SEEN Normal NONE SEEN [facility] Comment on above: Performed By: #### U MICRO, ERUR #### [facility] [address] [place] [address] Dr. Nehemias Dean Alkaline Phosphataseon 03-16 ALP [Catalytic activity/Vol] 60 U/L Normal 32-92 [facility] Comment on above: Performed By: #### B ILIT, ALP, YEIMY #### [facility] [address] Amylaseon 03-16-2022 Amylase [Catalytic activity/Vol] 23 U/L Low 28-100 [facility] Comment on above: Result Comment: PERF ORMED BY: [place] [address] PATHOLOGIST FORGING DIE FINISHER LAVERN CHATMAN M.D. Performed By: #### B ILIT, ALP, YEIMY #### [facility] [address] [place] [address] Bilirubin,Totalon 03-16-2022 Bilirubin [Mass/Vol] 1.1 mg/dL Normal 0.3-1.2 [facility] Comment on above: Performed By: #### B ILIT, ALP, YEIMY #### [facility] [address] [place] [address] Jesus 03-16-2022 L Specimen: [id number] Received: 03/16/22 Status: JOSUE Kern Num: [id number] Spec Type: Surgical Subm Dr: Uziel Caicedo, Tissues: A Gallbladder (GALLBLADDER) Procedures: HE Stain, Gross/Micro L3 Age/ Patient Sex Location Account Attending Physician Deb Perez 71/F [place] [id number] Uziel Caicedo, DO SPEC NUM: [id number] RECD: 03/16/22 STATUS: JOSUE LEONIDAS NUM: [id number] [place]: 03/16/[address]: Uziel Caicedo DO ENTERED: 03/16/22 [facility] DR: DAVID TYPE: Surgical DEPT: S ORDERED: [...] The mucosa is dove-pink, focally hyperemic, denuded.. Client Advisor sections are submitted in one cassette labeled A1. Microscopic Description One glass slide with H E stained material has been examined. The microscopic findings support the above pathologic diagnosis. Specimen: [id number] Received: 03/16/22 Status: JOSUE Kern Num: [id number] Spec Type: Surgical Subm Dr: Uziel Caicedo DO Tissues: A Gallbladder (GALLBLADDER) Procedures: HE Stain, Gross/Micro L3 Patient: Deb Perez [id number] (Continued) Specimen: Received: 03/16/22 (Continued) Signed (signature on file) Yasmeen Jameson MD 03/17/22 1744 Specimen: Received: 03/16/22 Status: JOSUE Kern Num: [id number] Spec Type: Surgical Subm Dr: Uziel Caicedo DO Tissues: A Gallbladder (GALLBLADDER) Procedures: HE Stain, Gross/Micro L3 Patient: Deb Perez [id number] (Continued) Specimen: [id number] Received: 03/16/22 (Continued) CPT Codes 60665 Specimen: [id number] Received: 03/16/22 Status: JOSUE Kern Num: [id number] Spec Type: Surgical Subm Dr: Uziel Caicedo DO Tissues: A Gallbladder (GALLBLADDER) Procedures: HE Stain, Gross/Micro L3 Patient: Deb Perez [id number] (Continued) Signed (signature on file) Yasmeen Jameson MD 03/17/22 1744 Normal [facility] COVID-19 [facility] [place] SARS-CoV-2 (COVID-19) RNA DAVIE+probe Ql (Unsp spec) Negative Normal Negative [facility] Comment on above: Order Comment: Healt hcare Worker?: N Result Comment: Testing for SARS-CoV-2 by RT-PCR This test was developed and its performance characteristics determined by [employer]) and validated at the [facility]. This test has not been FDA cleared [...] is terminated or revoked sooner. PERFORMED BY: [facility] [address] [place] [address] PATHOLOGIST FORGING DIE FINISHER LAVERN CHATMAN M.D. Performed By: #### C OVID 19 [facility] #### [facility] [address] [place] [address] [facility] COVID-19 Positive/NegativeOr dered By: Uziel Caicedo on 03-12-2022 SARS-CoV-2 (COVID-19) N gene DAVIE+probe Ql (Resp) Negative Negative [facility] Comment on above: Testing for SARS-CoV -2 by RT-PCRThis test was developed and its performance characteristics determined by [employer]) and validated at the [facility]. This test has not been FDA cleared [...] terminated or revoked sooner. Basic Metabolic Panelon 10-1 Anion gap [Moles/Vol] 14.9 mmol/L Normal 6.0-15.0 [facility] Comment on above: Performed By: #### C BC, [facility] #### [facility] [id number] [facility] Calcium [Mass/Vol] 10.2 mg/dL Normal 8.2-10.2 [facility] Comment on above: Result Comment: PERF ORMED BY: [facility] [address] [id number] PATHOLOGIST FORGING DIE FINISHER LAVERN CHATMAN M.D. Performed By: #### C BC, BMP #### [facility] [address] [place] [address] [place] Chloride [Moles/Vol] 97 mmol/L Normal 95-114 [facility] Comment on above: Performed By: #### C BC, BMP #### [facility] [address] CO2 [Moles/Vol] 28.2 mmol/L Normal 22.0-30.0 [facility] Comment on above: Performed By: #### C BC, BMP #### [facility] [address] Creatinine [Mass/Vol] 0.65 mg/dL Normal 0.44-1.03 [facility] Comment on above: Performed By: #### C BC, BMP #### [address] Estimated GFR ( My > 60 [facility] Comment on above: Result Comment: GFR estimated reference range: According to KDOQI guidelines, <60 ml/min/1.73m2 is sufficient to diagnose a patient with chronic kidney disease. Performed By: #### C BC, BMP #### [address] Estimated GFR (Non- Am > 60 [facility] Comment on above: Performed By: #### C BC, BMP #### [place] [id number] [facility] Glucose [Mass/Vol] 97 mg/dL Normal 70-100 [facility] Comment on above: Result Comment: Carlotta Glucose Reference Range is dependent on time and content of last meal. Glucose of more than 200 mg/dL in a nonstressed, ambulatory subject supports the diagnosis of Diabetes Mellitus. ADA recommended reference range Performed By: #### C BC, BMP #### [facility] [address] Potassium [Moles/Vol] 4.1 mmol/L Normal 3.5-5.1 [facility] Comment on above: Performed By: #### C BC, BMP #### [facility] [address] Sodium [Moles/Vol] 136 mmol/L Normal 136-146 [facility] Comment on above: Performed By: #### C BC, BMP #### [facility] [address] Urea nitrogen [Mass/Vol] 8 mg/dL Low 9- [facility] Comment on above: Performed By: #### C BC, BMP #### [facility] [address] Basophils Auto (Bld) [#/Vol] Ordered By: Uziel Caicedo on 03-08-2022 Basophils (Bld) [#/Vol] 0.1 10*3/uL 0.0-0.2 [facility] Basophils/100 WBC Auto (Bld) Ordered By: Uziel Caicedo on 03-08-2022 Basophils/100 WBC (Bld) 0.7 % . [facility] Complete Blood Count Auto Di ffon 03-08-2022 Basophils (Bld) [#/Vol] 0.1 10*3/uL Normal 0.0-0.2 [facility] Comment on above: Result Comment: PERF ORMED BY: [place] [address] PATHOLOGIST FORGING DIE FINISHER LAVERN CHATMAN M.D. Performed By: #### C BC, BMP #### [place] [address] [place] Basophils/100 WBC (Bld) 0.7 % Normal . [facility] Comment on above: Performed By: #### C BC, BMP #### [facility] [address] [place] [address] [place] Eosinophils (Bld) [#/Vol] 0.1 10*3/uL Normal 0.0-0.45 [facility] Comment on above: Performed By: #### C BC, BMP #### [place] [address] [place] Eosinophils/100 WBC (Bld) 1.2 % Normal . [facility] Comment on above: Performed By: #### C BC, BMP #### [facility] [address] Erythrocyte distribution width (RBC) [Ratio] 14.7 % Normal 11.9-15.3 [facility] Comment on above: Performed By: #### C BC, BMP #### [facility] [address] Hematocrit (Bld) [Volume fraction] 47.9 % High 34.0-46.4 [facility] Comment on above: Performed By: #### C BC, BMP #### [facility] [address] Hemoglobin (Bld) [Mass/Vol] 16.1 g/dL High 11.8-15.4 [facility] Comment on above: Performed By: #### C BC, BMP #### [address] Lymphocytes (Bld) [#/Vol] 1.7 10*3/uL Normal 1.00-4.8 [facility] Comment on above: Performed By: #### C BC, BMP #### [address] Lymphocytes/100 WBC (Bld) 19.6 % Normal . [facility] Comment on above: Performed By: #### C BC, BMP #### [facility] [address] MCH (RBC) [Entitic mass] 30.3 pg Normal 24.7-34.3 [facility] Comment on above: Performed By: #### C BC, BMP #### [facility] [address] MCV (RBC) [Entitic vol] 90.2 fL Normal 80-100 [facility] Comment on above: Performed By: #### C BC, BMP #### [facility] [address] Mean Corpuscular HGB Conc 33.6 g/dL Normal 32.0-35.0 [facility] Comment on above: Performed By: #### C BC, BMP #### [facility] [address] [place] [address] [place] Monocytes (Bld) [#/Vol] 0.6 10*3/uL Normal 0.0-0.8 [facility] Comment on above: Performed By: #### C BC, BMP #### [facility] [address] [id number] [place] Monocytes/100 WBC (Bld) 6.9 % Normal . [facility] Comment on above: Performed By: #### C BC, BMP #### [facility] [address] [place] [address] [place] Neutrophils (Bld) [#/Vol] 6.1 10*3/uL Normal 1.8-7.7 [facility] Comment on above: Performed By: #### C BC, BMP #### [facility] [address] [id number] [place] Neutrophils/100 WBC (Bld) 71.6 % Normal . [facility] Comment on above: Performed By: #### C BC, BMP #### [facility] [address] [id number] [place] Nucleated RBC/100 WBC (Bld) [Ratio] 0.1 % Normal 0-0.5 [facility] Comment on above: Performed By: #### C BC, BMP #### [facility] [address] [id number] [place] Platelet mean volume (Bld) [Entitic vol] 10.1 fL Normal 6.3-10.7 [facility] Comment on above: Performed By: #### C BC, BMP #### [facility] [address] [id number] [place] Platelets (Bld) [#/Vol] 218 10*3/uL Normal 150-450 [facility] Comment on above: Performed By: #### C BC, BMP #### [facility] [address] [id number] [place] RBC (Bld) [#/Vol] 5.31 10*6/uL High 3.60-5.00 [facility] Comment on above: Performed By: #### C BC, BMP #### [facility] [address] [place] [address] [place] WBC (Bld) [#/Vol] 8.5 10*3/uL Normal 4.5-11.0 [facility] Comment on above: Performed By: #### C BC, BMP #### [facility] [address] Creatinine and Glomerular fi ltration rate.predicted panel (S/P/Bld)Ordered By: Uziel Caicedo on 03-08-2022 Creatinine [Mass/Vol] 0.65 mg/dL 0.44-1.03 [facility] ECG 12 lead ECGon 03-08-2022 ECG 12 lead ECG [facility] [place] [address] [place] [address] Electrocardiograph Report Signed Patient: Deb Perez MR#: [id number] : 1950 Acct:[id number] Age/Sex: 71 / F ADM Date: 03/08/22 Loc: Room: Type: [facility] Attending Dr: Uziel Caicedo DO Ordering Provider: [...] By Everette Graham DO 03/08 1246 Normal [facility] Eosinophils Auto (Bld) [#/Vo l]Ordered By: Uziel Caicedo on 03-08-2022 Eosinophils (Bld) [#/Vol] 0.1 10*3/uL 0.0-0.45 [facility] Eosinophils/100 WBC Auto (Bl d)Ordered By: Uziel Caicedo on 03-08-2022 Eosinophils/100 WBC (Bld) 1.2 % . [facility] Erythrocyte distribution wid th Auto (RBC) [Ratio]Ordered By: Uziel Caicedo on 03-08-2022 Erythrocyte distribution width (RBC) [Ratio] 14.7 % 11.9-15.3 [facility] Estimated glomerular filtrat ion rate (GFR) non- AmericanOrdered By: Uziel Caicedo on 03-08-2022 GFR/1.73 sq M.predicted among non-blacks MDRD (S/P/Bld) [Vol rate/Area] > 60 mL/Min [facility] Hematocrit Auto (Bld) [Volum e fraction]Ordered By: Uziel Caicedo on 03-08-2022 Hematocrit (Bld) [Volume fraction] 47.9 % 34.0-46.4 [facility] Hemoglobin [Mass/volume] in BloodOrdered By: Uziel Caicedo on 03-08-2022 Hemoglobin (Bld) [Mass/Vol] 16.1 g/dL 11.8-15.4 [facility] Laboratory - Hematology and Cell countsOrdered By: Uziel Caicedo on 03-08-2022 Nucleated RBC/100 WBC (Bld) [Ratio] 0.1 % 0-0.5 [facility] Leukocytes [#/volume] in Blo od by Automated countOrdered By: Uziel Caicedo on 03-08-2022 WBC (Bld) [#/Vol] 8.5 10*3/uL 4.5-11.0 [facility] Lymphocytes Auto (Bld) [#/Vo l]Ordered By: Uziel Caicedo on 03-08-2022 Lymphocytes (Bld) [#/Vol] 1.7 10*3/uL 1.00-4.8 [facility] Lymphocytes/100 WBC Auto (Bl d)Ordered By: Uziel Caicedo on 03-08-2022 Lymphocytes/100 WBC (Bld) 19.6 % . [facility] MCH Auto (RBC) [Entitic mass ]Ordered By: Uziel Caicedo on 03-08-2022 MCH (RBC) [Entitic mass] 30.3 pg 24.7-34.3 [facility] MCHC Auto (RBC) [Mass/Vol]Or dered By: Uziel Caicedo on 03-08-2022 MCHC (RBC) [Mass/Vol] 33.6 g/dL 32.0-35.0 [facility] MCV Auto (RBC) [Entitic vol] Ordered By: Uziel Caicedo on 03-08-2022 MCV (RBC) [Entitic vol] 90.2 fL 80-100 [facility] Monocytes Auto (Bld) [#/Vol] Ordered By: Uziel Caicedo on 03-08-2022 Monocytes (Bld) [#/Vol] 0.6 10*3/uL 0.0-0.8 [facility] Monocytes/100 WBC Auto (Bld) Ordered By: Uziel Caicedo on 03-08-2022 Monocytes/100 WBC (Bld) 6.9 % . [facility] Neutrophils Auto (Bld) [#/Vo l]Ordered By: Uziel Caicedo on 03-08-2022 Neutrophils (Bld) [#/Vol] 6.1 10*3/uL 1.8-7.7 [facility] Neutrophils/100 WBC Auto (Bl d)Ordered By: Uziel Caicedo on 03-08-2022 Neutrophils/100 WBC (Bld) 71.6 % . [facility] No Panel InformationOrdered By: Uziel Caicedo on 03-08-2022 Estimated GFR () > 60 mL/Min [facility] Comment on above: GFR estimated refere nce range: According to KDOQI guidelines, <60 ml/min/1.73m2 is sufficient to diagnose a patient with chronic kidney disease. Pharmacy Creatinine Clearance (Chem N/A [facility] Platelet mean volume Auto (B ld) [Entitic vol]Ordered By: Uziel Caicedo on 03-08-2022 Platelet mean volume (Bld) [Entitic vol] 10.1 fL 6.3-10.7 [facility] Platelets Auto (Bld) [#/Vol] Ordered By: Uziel Caicedo on 03-08-2022 Platelets (Bld) [#/Vol] 218 10*3/uL 150-450 [facility] RBC Auto (Bld) [#/Vol]Ordere d By: Uziel Caicedo on 03-08-2022 RBC (Bld) [#/Vol] 5.31 10*6/uL 3.60-5.00 [facility] Serum or plasma anion gap de terminationOrdered By: Uziel Caicedo on 03-08-2022 Anion gap [Moles/Vol] 14.9 mmol/L 6.0-15.0 [facility] Serum or plasma calcium luis m urement (mass/volume)Ordered By: Uziel Caicedo on 03-08-2022 Calcium [Mass/Vol] 10.2 mg/dL 8.2-10.2 [facility] Serum or plasma chloride pedro surement (moles/volume)Ordered By: Uziel Caicedo on 03-08-2022 Chloride [Moles/Vol] 97 mmol/L 95-114 [facility] Serum or plasma glucose luis m urement (mass/volume)Ordered By: Uziel Caicedo on 03-08-2022 Glucose [Mass/Vol] 97 mg/dL 70-100 [facility] Comment on above: ADA recommended refe rence rangeRandom Glucose Reference Range is dependent on time and content of last meal. Glucose of more than 200 mg/dL in a nonstressed, ambulatory subject supports the diagnosis of Diabetes Mellitus. Serum or plasma potassium me asurement (moles/volume)Ordered By: Uziel Caicedo on 03-08-2022 Potassium [Moles/Vol] 4.1 mmol/L 3.5-5.1 [facility] Serum or plasma sodium measu rement (moles/volume)Ordered By: Uziel Caicedo on 03-08-2022 Sodium [Moles/Vol] 136 mmol/L 136-146 [facility] Serum or plasma total carbon dioxide measurement (moles/volume)Ordered By: Uziel Caicedo on 03-08-2022 CO2 [Moles/Vol] 28.2 mmol/L 22.0-30.0 [facility] Serum or plasma urea nitroge n measurement (mass/volume)Ordered By: Uziel Caicedo on 03-08-2022 Urea nitrogen [Mass/Vol] 8 mg/dL 02-19 [facility] US SINGLE QUAD RT UPPERon US SINGLE [...] by: JOSEPH HUBBARD Date: 2022-03-02 07:41 Normal [facility] XR CHEST 2 Von 10-22-2021 XR [...] by: GEOFFREY ELLIS Date: 2021-10-22 10:10 Normal [facility] Iron Profileon 09-22-2021 %FESAT 27 % Normal 11-50 [facility] Comment on above: Performed By: #### T SH reflex FT4, FE Prof #### [facility] [address] [place], [place] [id number] FE 71 ug/dL Normal 40-190 [facility] Comment on above: Result Comment: Refe rence range change 04/15/2017. Prior reference range F 37-145 ug/dL, M 59-158 ug/dL. Performed By: #### T SH reflex FT4, FE Prof #### [facility] [address] [place], [place] [id number] TIBC 261 ug/dL Normal 250-450 [facility] Comment on above: Performed By: #### T SH reflex FT4, FE Prof #### [facility] [address] [place], [place] [id number] UIBC 190 ug/dL Normal 112-347 [facility] Comment on above: Performed By: #### T SH reflex FT4, FE Prof #### [facility] [address] [place], [place] [id number] TSH w/ Reflex to Free T4on 0 09-22-2021 TSH 0.551 uIU/mL Normal 0.400-4.500 [facility] [employer] Comment on above: Performed By: #### T SH reflex FT4, FE Prof #### [facility] [address] [place], [place] [id number] Vitamin B12/Folateon 022 Cobalamin (Vitamin B12) [Mass/Vol] 596 pg/mL Normal 211-946 [facility] Comment on above: Performed By: #### B 12/Fol #### [facility] [address] [place], [place] [id number] FOL 9.9 ng/mL Normal >4.7 [facility] Comment on above: Result Comment: Refe rence range change 04/15/2017. Prior reference range F 4.8-37.3 ng/mL, M 4.5-32.2 ng/mL. Performed By: #### B 12/Fol #### [facility] [address] [place], [place] [id number] Complete Blood Count with Au to Diffon 08-05-2021 Basophils (Bld) [#/Vol] 0.06 10*3/uL Normal 0.00-0.20 [facility] Comment on above: Performed By: #### L IPD, CBCAD, VITD #### [facility] [address] [place], [place] [id number] Basophils/100 WBC (Bld) 0.6 % Normal [facility] Comment on above: Performed By: #### L IPD, CBCAD, VITD #### [facility] [address] [place], [place] [id number] Eosinophils (Bld) [#/Vol] 0.13 10*3/uL Normal 0.02-0.50 [facility] Comment on above: Performed By: #### L IPD, CBCAD, VITD #### [facility] [address] [place], [place] [id number] Eosinophils/100 WBC (Bld) 1.4 % Normal [facility] Comment on above: Performed By: #### L IPD, CBCAD, VITD #### [facility] [address] [place], [place] [id number] Erythrocyte distribution width (RBC) [Ratio] 14.2 % Normal 11.0-15.0 [facility] Comment on above: Performed By: #### L IPD, CBCAD, VITD #### [facility] [address] [place], [place] [id number] Hematocrit (Bld) [Volume fraction] 48.6 % High 35.0-47.0 [facility] Comment on above: Performed By: #### L IPD, CBCAD, VITD #### [facility] [address] [place], [place] [id number] Hemoglobin (Bld) [Mass/Vol] 16.6 g/dL High 11.6-15.5 [facility] Comment on above: Performed By: #### L IPD, CBCAD, VITD #### [facility] [address] [place], [place] [id number] Lymphocytes (Bld) [#/Vol] 2.2 10*3/uL Normal 0.9-3.9 [facility] Comment on above: Performed By: #### L IPD, CBCAD, VITD #### [facility] [address] [place], [place] [id number] Lymphocytes/100 WBC (Bld) 24.0 % Normal [facility] Comment on above: Performed By: #### L IPD, CBCAD, VITD #### [facility] [address] [place], [place] [id number] MCH (RBC) [Entitic mass] 30.7 pg Normal 27.0-33.0 [facility] Comment on above: Performed By: #### L IPD, CBCAD, VITD #### [facility] [address] [place], [place] [id number] MCHC (RBC) [Mass/Vol] 34.2 g/dL Normal 32.0-36.0 [facility] Comment on above: Performed By: #### L IPD, CBCAD, VITD #### [facility] [address] [place], [place] [id number] MCV (RBC) [Entitic vol] 90 fL Normal 80-100 [facility] Comment on above: Performed By: #### L IPD, CBCAD, VITD #### [facility] [address] [place], [place] [id number] Monocytes (Bld) [#/Vol] 0.5 10*3/uL Normal 0.2-0.9 [facility] Comment on above: Performed By: #### L IPD, CBCAD, VITD #### [facility] [address] [place], [place] [id number] Monocytes/100 WBC (Bld) 5.8 % Normal N [facility] Comment on above: Performed By: #### L IPD, CBCAD, VITD #### [facility] [address] [place], [place] [id number] Neutrophils (Bld) [#/Vol] 6.3 10*3/uL Normal 1.5-7.8 [facility] Comment on above: Performed By: #### L IPD, CBCAD, VITD #### [facility] [address] [place], [place] [id number] Neutrophils/100 WBC (Bld) 67.9 % Normal [facility] Comment on above: Performed By: #### L IPD, CBCAD, VITD #### [facility] [address] [place], [place] [id number] Platelet mean volume (Bld) [Entitic vol] 12.00 fL Normal 7.50-12.50 [facility] Comment on above: Performed By: #### L IPD, CBCAD, VITD #### [facility] [address] [place], [place] [id number] Platelets (Bld) [#/Vol] 215 10*3/uL Normal 140-400 [facility] Comment on above: Performed By: #### L IPD, CBCAD, VITD #### [facility] [address] [place], [place] [id number] RBC (Bld) [#/Vol] 5.41 10*6/uL High 3.90-5.20 [facility] Comment on above: Performed By: #### L IPD, CBCAD, VITD #### [facility] [address] [place], [place] [id number] RDW-SD 46.5 fL Normal 37.0-50.0 [facility] Comment on above: Performed By: #### L IPD, CBCAD, VITD #### [facility] [address] [place], [place] [id number] WBC (Bld) [#/Vol] 9.2 10*3/uL Normal 3.8-11.0 [facility] Comment on above: Performed By: #### L IPD, CBCAD, VITD #### [facility] [address] [place], [place] [id number] Lipid Panelon 08-05-2021 Cholesterol [Mass/Vol] 285 mg/dL High 125-200 [facility] on above: Result Comment: Low risk < 200mg/dL Borderline risk 201-239 mg/dl High risk > or equal to 240 Performed By: #### L IPD, CBCAD, VITD #### [facility] [address] [place], [place] [id number] Cholesterol in HDL [Mass/Vol] 67 mg/dL Normal >40 [facility] Comment on above: Result Comment: High Cardiovascular Risk HDL <40 mg/dL Low Cardiovascular Risk HDL > or equal to 60 mg/dl Performed By: #### L IPD, CBCAD, VITD #### [facility] [address] [place], [place] [id number] Cholesterol in LDL [Mass/Vol] 184 mg/dL Normal [facility] Comment on above: Result Comment: LDL ATP III CLASSIFICATION LDL less than 100 mg/dl Optimal LDL 100-129 mg/dl Near or above optimal LDL 130-159 Borderline high LDL 160-189 High LDL greater than 189 mg/dl Very High Performed By: #### L IPD, CBCAD, VITD #### [facility] [address] [place], [place] [id number] Cholesterol in VLDL [Mass/Vol] 34 mg/dL Normal [facility] Comment on above: Performed By: #### L IPD, CBCAD, VITD #### [facility] [address] [place], [place] [id number] Cholesterol.total/Choles terol in HDL [Mass ratio] 4 {ratio} Normal [facility] Comment on above: Performed By: #### L IPD, CBCAD, VITD #### [facility] [address] [place], [place] [id number] Triglyceride [Mass/Vol] 168 mg/dL High 30-150 [facility] Comment on above: Result Comment: TRIG ATPIII CLASSIFICATIONS TRIG less than 150 mg/dl Normal TRIG 150-199 mg/dl Borderline High TRIG 200-500 mg/dl High TRIG greather than 500 mg/dl Very High Performed By: #### L IPD, CBCAD, VITD #### [facility] [address] [place], [place] [id number] Q - SARS CoV2 COVID 19 Ab Ig Uriel 08-05-2021 SARS-CoV-2 (COVID-19) Ab IA Qn <1.00 Normal <1.00 [facility] Sourcing Intern Comment on above: Order Comment: [facility] Testing performed at: PT, [facility], [address], [address] [place], [address], Undertaker Helper: Solitario Lopez MD [facility] Collection Date/Time: [facility] [...] providers and patients using the following websites: http://[email or web address]/[facility]-HCP http://[email or web address]/[email or web address]-Patients Healthcare Providers: For additional information please refer to: http://education.[employer].com/faq/SSV951 (This link is being provided for informational/educational purposes only.) This test has been authorized by the FDA under an Emergency Use Authorization (EUA) for use by authorized laboratories. The FDA authorized labeling is available on the [employer] website: www.[employer] Online Scheduling/Covid19. Performed By: #### [id number] #### [facility] [address] [place] [address] Vitamin D 25-OHon 08-05-2021 VIT D 25 OH 67 ng/ml Normal >29 [facility] Sourcing Intern Comment on above: Result Comment: Freda min D Status Deficiency <20 ng/mL Insufficiency 20-29 ng/mL Optimal 30-100 ng/mL Possible Toxicity >=150 ng/mL Performed By: #### L IPD, CBCAD, VITD #### [facility] [address] [place], [place] [id number] Encounters Encounter Date Encounter Type Care Provider Facility Start: 08-16-2023 End: 08-16-2023 ambulatory CYNTHIA JOSE Not Available Start: 07-04-[address] dacosta MD Work Phone: [facility] Start: 06-15-2023 End: 06-15-2023 ambulatory KAMILAH ONEILL Not Available Start: 10-08-2022 End: 10-08-[address] SWANN Facility:[facility] Start: 08-31-2022 End: 08-31-[address] SWANN Facility:[facility] Start: 03-16-2022 End: 03-16-2022 ambulatory Cynthia Jose Facility:[facility] Start: 03-12-2022 End: 03-12-2022 ambulatory Uziel Caicedo Facility:[facility] Start: 03-12-2022 End: 03-12-2022 ambulatory FOOD AND BEVERAGE ANALYST-C Cynthia Jose Work Phone: [facility] Work Phone: Start: 03-12-2022 End: 03-12-2022 Patient encounter procedure FOOD AND BEVERAGE ANALYST-Rigoberto Jose Work Phone: [id number] Start: 03-08-2022 End: 03-08-2022 ambulatory Cynthia Jose Facility:[facility] Start: 03-08-2022 End: 03-08-2022 Patient encounter procedure FOOD AND BEVERAGE ANALYST-Rigoberto Jose Work Phone: [facility] Start: 03-02-2022 End: 03-03-[address] CYNTHIA JOSE Facility:[facility] Start: 10-22-2021 End: 10-23-[address] CYNTHIA JOSE Facility:[facility] Plan of Treatment Date Care Activity Detail Author Start: 03-22-2024 Pneumococcal Vaccine : 65+ Years (1 of 2 - PCV) Pneumococcal Vaccine: 65+ Years (1 of 2 - PCV) [facility] Comment on above: Postponed from 06/04 (Patient Refused) Start: 03-22-2024 Screening for malign ant neoplasm of colon Colorectal Cancer Screening [facility] Comment on above: Postponed from 06/04 (Patient Refused) Start: 11-27-2023 Influenza vaccination Influenza Vacc ine (#1) [facility] Comment on above: Postponed from 01/28 (Patient Refused) Start: 09-08-2023 Medicare Annual Well ness (AWV) Medicare Annual Wellness (AWV) [facility] Start: 1950 Screening for malign ant neoplasm of colon [facility] Payers Date Payer Category Payer Medicare [id number] 2022 Self-pay [id number] 2022 Medicare ANTHEM MEDICARE ADVANTAGE [facility] MEDICARE ADVANTAGE [id number] 2022-Present [address] [place] [address] [id number] 1959 Medicaid [id number] 1961 Medicare [id number] 1948 Unknown [id number] 1948 Unknown [id number] 1948 Unknown [id number] 1948 Unknown [id number] 1948 Unknown [id number] 1948 Unknown [id number] Unknown [id number] Unknown [id number] Unknown [id number] Social History Date Type Detail Facility Start: 03-08-2022 Tobacco smoking status [facility] Smoker (finding) [facility] Start: 1950 Sex Assigned At Female [facility] Start: 07-07-1978 Tobacco smoking status [facility] Occasional tobacco smoker [facility] Start: 07-07-1978 End: 01-01-2023 History of tobacco use Cigarette Smoker [facility] Start: 06-15-2023 Cigarettes smoked current (pack per day) - Reported 0.5 [facility] History of tobacco use Passive smoker [facility] Start: 06-15-2023 Tobacco use and exposure Smokeless tobacco non-user [facility] Start: 06-15-2023 Alcohol intake Ex-drinker (finding) [facility] Start: 06-15-2023 Humiliation, Afraid, Rape, and Kick questionnaire [HARK] [facility] Within the last year , have you been afraid of your partner or ex-partner? No [facility] In a typical week, h ow many times do you talk on the telephone with family, friends, or neighbors? Patient declined [facility] Are you now , , , , never or living with a partner? [facility] Start: 01-04-2023 Alcohol Comment Caffeine intake : 2-3 cups per day coffee [facility] Start: 1950 Sex Assigned At Not on file [facility] Telephone encounter Note 07-04-2023 Telephone Encounter - Anastacia Hart - 07/04/2023 9:28 AM EST Note Date & Type Note Facility 07-04-2023 Telephone encount er Note PT has been sick for over 3 weeks now and said she has took numerous antibiotics and steroids and still not feeling well. She wanted to have an order for a chest xray sent to [facility] if there has been any change. [facility] Note 07-04-2023 Telephone Encounter - Anastacia Hart - 07/04/2023 9:28 AM EST Note Date & Type Note Facility 07-04-2023 Miscellaneous Notes Formattin g of this note might be different from the original. PT has been sick for over 3 weeks now and said she has took numerous antibiotics and steroids and still not feeling well. She wanted to have an order for a chest xray sent to [facility] if there has been any change. documented in this encounter [facility] Evaluation note Note Date & Type Note Facility Evaluation note No assessment information availa [facility] Work Phone: Summary Purpose Family History No [...] section and content) DATE CREATED AUTHOR 09/24/2021 [facility] dical Specialist DATE CREATED AUTHOR AUTHOR'S ORGANIZ ATION 07/03/2022 [facility] DATE CREATED AUTHOR AUTHOR'S ORGANIZ ATION 10/11/2022 [facility] pital DATE CREATED AUTHOR AUTHOR'S ORGANIZ ATION 08/17/2023 [facility] dical Specialists EPIC Care Teams (unrecognized sec tion and content) Team Status: Inactive Member Role Status Dates Uziel Caicedo DO Attending Provider Active JORDON Ceja Primary Care Provider Active Team Status: Active Member Role Status Dates JORDON Ceja Primary Care Provider Active Mental Health Specialist Relationship Specialty Start Date End Date Lane Swann MD [address] [place] [address] PCP - General Internal Medicine 11/16/22 Lane Swann MD [address] [place] [address] PCP - Tucker GRAF 05/30/21 Lane Swann MD [address] [place] [address] Internal Medicine 11/16/22 Goals (unrecognized section and content) Goals may [...] BE BASED ON THE PRIMARY CLINICAL RECORDS. [employer] provides no warranty or guarantee of the accuracy or completeness of information in this document.
== END 2023-10-09 09:45 | disposition home or self-care (01) ==
LOC: ER 09:32
PROVIDERS: Emergency Provider Emergency Medicine; PCP Internal Medicine
DX: J06.9 Acute upper respiratory infection, unspecified (principal); Z79.899 Other long term (current) drug therapy; F17.210 Nicotine dependence, cigarettes, uncomplicated
CPT/HCPCS: 99283

== ENCOUNTER 2024-08-08 13:14 | Emergency (ER) | payer OTHER, SELFPAY ==
[2024-08-08 13:17] VITALS: BP 132/73; PULSE 93; TEMP 36.9; O2SAT 97; BMI 19.6
--- OUTSIDE RECORDS SUMMARY | 2024-08-08 13:29 | XMS_ITS | CCD ---
Author Organization [facility] Care Team Providers Care Senior Fund Accountant Name Role Phone DO Uziel Caicedo Attending Provider JORDON Jose Primary Care Provider [phone] Cynthia Jose Primary Care Unavailable Uziel Caicedo Attending Unavailable Uziel Caicedo Admitting Unavailable zUiel Caicedo Attending Unavailable Cynthia Jose Primary Care [...] Unavailable ZIEBER, DR JOSEPH Tavarez Consulting Unavailable HEMHECTOR, DR CYNTHIA Cohn Consulting Unavailable HEMHECTOR, DR CYNTHIA Cohn Admitting Unavailable HEMMER, DR CYNTHIA Cohn Attending Unavailable PATSY, DR CAMACHO Primary Care Unavailable GEOFFREY ELLIS Consulting Unavailable HEMMER, DR CYNTHIA Cohn Consulting Unavailable PATSY, DR CAMACHO Primary Care Unavailable LAKESHIA ., DR LOZADA Admitting Unavailable HAY ., DR LOZADA Attending Unavailable PAY ., DR BOWLING Consulting Unavailable UNLU, MARCO Consulting Unavailable Lane Swann MD Primary Care Provider Lane Swann MD Unavailable Lane Swann MD Unavailable [phone] KAMILAH ONEILL Attending Unavailable CYNTHIA JOSE Attending Unavailable HEMCYNTHIA YOUNG Attending Unavailable HEMHECTOR, CYNTHIA Cohn Attending Unavailable FELTER, PRECIOUS A Attending Unavailable Lane Swann MD Unavailable [phone] Allergies Allergy Classification Reported Allergen(s) Allergy Type Date of Onset Reaction(s) Facility (2 sources) Acetaminophen; Translations: [acetaminophen] Drug Allergy 2 Dizziness [facility] (2 sources) Amoxicillin; Translations: [amoxicillin] Drug Allergy 2 Diarrhea [facility] (2 sources) Clavulanate; Translations: [clavulanic acid] Drug Allergy 2 Diarrhea [facility] (10 sources) montelukast; Translations: [montelukast] Drug Allergy 2 Nausea Only [facility] (2 sources) oxyCODONE; Translations: [oxycodone] Drug Allergy 2 Dizziness [facility] (1 source) Acetaminophen / oxyCODONE Drug Allergy [facility] (8 sources) Acetaminophen / oxyCODONE Drug Allergy 3 Dizziness [facility] (8 sources) Amoxicillin-Pot Clavulanate Drug Allergy 3 [facility] Work Phone: (5 sources) Sulfamethoxazole / Trimethoprim Drug Allergy 4 GI intolerance [facility] Work Phone: Medications Current Medications Medication Drug Class(es) Dates Sig (Normalized) Sig (Original) [id number] 200 actuat albuterol 0.09 mg/actuat metered dose inhaler (9 sources) beta2-Adrenergic Agonist Start: 09-14-2023 take 2 puff(s) by inhalation every six hours for wheezing albuterol HFA 90 mcg/act inhaler Indications: Chronic obstructive pulmonary disease, unspecified COPD type (CMS/HCC) INHALE 2 PUFFS EVERY 6 HOURS IF NEEDED FOR WHEEZING. 3 g 3 09/14/2023 Active Start: 02-28-2023 take 2 puff(s) by in halation every six hours for wheezing albuterol HFA [...] 2022 12:00am ALPRAZolam 0.25 mg oral tablet (9 sources) Benzodiazepine Start: 12-29-2023 take 1 tablet by mouth three times daily as needed for anxiety ALPRAZolam (Xanax) 0.25 MG tablet Indications: Anxiety state (CMS/HCC) Take 1 tablet (0.25 mg) by mouth 3 (three) times a day as needed for anxiety 30 tablet 12/29/2023 Active Start: 02-28-2023 take 1 tablet by uli th three times daily as needed for anxiety ALPRAZolam (Xanax) 0.25 MG tablet Indications: Anxiety state (CMS/HCC) Take 1 tablet (0.25 mg) by mouth [...] MG PO Daily March 08, 2022 12:00am azithromycin 250 mg oral tablet (2 sources) Macrolide Antimicrobial Start: 05-02-2024 End: 05-06-2024 take 2 tablets by mouth once daily, then take 1 tablet by mouth once daily azithromycin (Zithromax) 250 MG tablet Indications: Chronic bronchitis, unspecified chronic bronchitis type (CMS/HCC) , Acute non-recurrent frontal sinusitis Take 2 tablets (500 mg) by mouth Daily for 1 day, THEN 1 tablet (250 mg) Daily for 4 days. 6 tablet 05/02/2024 05/06/2024 Active 60 actuat budesonide 0.16 mg/actuat / formoterol fumarate 0.0045 mg/actuat metered dose inhaler (7 sources) Corticosteroid, beta2-Adrenergic Agonist Start: 01-04-2023 End: 01-04-2024 take 2 puff(s) by inhalation in the morning budesonide-formoter ol (Symbicort) 160-4.5 MCG/ACT inhaler Indications: Chronic obstructive pulmonary disease, unspecified COPD type (CMS/HCC) Inhale 2 puffs in the morning and 2 puffs before bedtime. Rinse mouth with water after use to reduce aftertaste and incidence of candidiasis. Do not swallow.. 1 each 01/04/2023 Active calcium carbonate 500 mg chewable tablet [...] Relief D 5-120 MG 12 hr tablet (8 sources) Start: 02-28-2023 End: 05-02-2024 take 1 tablet by mouth once in the morning, then take 1 tablet by mouth every twelve hours at bedtime [facility] Relief D 5-120 MG 12 hr tablet Take 1 tablet by mouth in the morning and 1 tablet before bedtime. 02/28/2023 05/02/2024 Discontinued (Other) Start: 02-28-2023 take 1 tablet by uil th once in the morning, then take 1 tablet by mouth every twelve hours at bedtime [facility] D 5-120 MG 12 hr tablet Take 1 tablet by mouth in the morning and 1 tablet before bedtime. 02/28/2023 Active Start: 02-28-2023 take 1 tablet by uli th once in the morning, then take 1 tablet by mouth every twelve hours at bedtime [facility] D 5-120 MG 12 hr tablet Take 1 tablet by mouth in the morning and 1 tablet before bedtime. 0 02/28/2023 Active hydroCHLOROthiazide 12.5 mg / lisinopril 20 mg oral tablet (9 sources) Thiazide Diuretic, Angiotensin Converting Enzyme Inhibitor Start: 08-15-2023 take 1 tablet by mouth once daily lisinopril-hydroCHLOROthiazide 20-12.5 MG tablet Indications: Essential (primary) hypertension (CMS/HCC) TAKE 1 TABLET BY MOUTH EVERY DAY FOR 90 DAYS 90 tablet 3 08/15/2023 Active Start: 08-21-2022 take 1 tablet by uli th in the morning lisinopril-hydroCHLOROthiazide 20-12.5 M G tablet Take 1 tablet by mouth in the morning. 0 08/21/2022 Active Start: 03-08-2022 take 1 tablet by uli th once daily Lisinopril-Hydrochlorothiazide Active 1 TAB PO Daily March 08, 2022 12:00am ibuprofen 800 mg oral tablet (9 sources) Nonsteroidal Anti-inflammatory Drug Start: 04-09-2024 take 1 tablet by mouth three times daily at mealtime as needed ibuprofen 800 MG tablet Indications: Right rotator cuff tendonitis TAKE 1 TABLET BY MOUTH THREE TIMES A DAY WITH FOOD OR MILK NEEDED 90 tablet 3 04/09/2024 Active Start: 11-28-2023 take 1 tablet by uli th three times daily at mealtime as needed ibuprofen 800 MG tablet Indications: Right rotator cuff tendonitis TAKE 1 TABLET BY MOUTH THREE TIMES A DAY WITH FOOD OR MILK NEEDED 90 tablet 3 11/28/2023 Active Start: 03-22-2023 take 1 tablet by uli th three times daily at mealtime as needed [...] 12:00am ondansetron 4 mg disintegrating oral tablet (9 sources) Serotonin-3 Receptor Antagonist Start: 03-13-2024 take 1 tablet by mouth every twenty-four hours as needed for nausea and vomiting and nausea and nausea ondansetron ODT (Zofran-ODT) 4 MG disintegrating tablet Indications: Nausea Take 1 tablet (4 mg) by mouth Daily as needed for nausea or vomiting 20 tablet 2 03/13/2024 Active Start: 03-08-2022 take 4 mg by mouth e very six hours Ondansetron Active 4 MG PO Q6H March 08, 2022 12:00am Start: 02-03-2022 take 1 tablet by uli th every twenty-four hours as needed for nausea and vomiting ondansetron ODT (Zofran-ODT) 4 MG disintegrating tablet Take 4 mg by mouth Daily as needed for nausea or vomiting. 02/03/2022 Active predniSONE 10 mg oral tablet (2 sources) Start: 05-02-2024 End: 05-11-2024 take 1 tablet by mouth twice daily, then take 1 tablet by mouth once daily at mealtime predniSONE (Deltasone) 10 MG tablet Indications: Chronic bronchitis, unspecified chronic bronchitis type (CMS/HCC) Take 1 tablet (10 mg) by mouth 2 (two) times a day for 5 days, THEN 1 tablet (10 mg) Daily for 5 days. Take with food. 15 tablet 05/02/2024 05/11/2024 Active pregabalin 50 mg oral capsule (10 sources) Start: 12-26-2023 End: 04-16-2024 take 1 capsule by mouth four times daily pregabalin (Lyrica) 50 MG capsule Indications: Neuropathy of both upper extremities TAKE 1 CAPSULE BY MOUTH FOUR TIMES A DAY 120 capsule 04/16/2024 Active Start: 06-08-2023 take 1 capsule by mo uth four times daily pregabalin (Lyrica) 50 MG [...] quadrant pain] Onset: 03-02-2022 Episodic Anxiety disorders (10 sources) Anxiety state; Translations: [Generalized anxiety disorder] Onset: 11-10-2022 11-10-2022 Chronic Chronic obstructive pulmonary disease and bronchiectasis (11 sources) Chronic obstructive pulmonary disease with (acute) exacerbation; Translations: [Chronic obstructive lung disease] Onset: 10-11-2022 01-04-2023 Chronic Disorders of lipid metabolism (10 sources) Hypercholesterolemia; Translations: [Pure hypercholesterolemia, unspecified] Onset: 11-10-2022 11-10-2022 Chronic Diverticulosis and diverticulitis (8 sources) Diverticulosis of sigmoid colon; Translations: [Diverticulosis of large intestine without perforation or abscess without bleeding] Onset: 11-10-2022 11-10-2022 Chronic Essential hypertension (10 sources) Benign essential hypertension; Translations: [Essential (primary) hypertension] Onset: 11-10-2022 11-10-2022 Chronic Late effects of cerebrovascular disease (8 sources) Late effects of cerebrovascular disease; Translations: [Other sequelae following unspecified cerebrovascular disease] Onset: 11-10-2022 11-10-2022 Chronic Malaise and fatigue (8 sources) Fatigue; Translations: [Chronic fatigue, unspecified] Onset: 11-10-2022 11-10-2022 Chronic Menopausal disorders (8 sources) Primary ovarian failure; Translations: [Other primary ovarian failure] Onset: 11-10-2022 11-10-2022 Chronic Neoplasms of unspecified nature or uncertain behavior (2 sources) Neoplastic disease; Translations: [Neoplasm of unspecified behavior of bone, soft tissue, and skin] 03-12-2024 Episodic Nutritional deficiencies (8 sources) Vitamin D deficiency; Translations: [Vitamin D deficiency, unspecified] Onset: 11-10-2022 11-10-2022 Chronic Osteoporosis (8 sources) Osteoporosis; Translations: [Age-related osteoporosis without current pathological fracture] Onset: 04-04-2013 01-04-2023 Chronic Other aftercare (1 source) Other superintendent container terminal (current) drug therapy; Translations: [OTH EDITING COMPUTER PUBLISHER CURRENT DRUG THERAPY] Onset: 10-11-2022 Episodic Other nervous system disorders (8 sources) Bilateral carpal tunnel syndrome; Translations: [Carpal tunnel syndrome, bilateral upper limbs] Onset: 11-10-2022 11-10-2022 Chronic Other nervous system disorders (9 sources) Polyneuropathy; Translations: [Unspecified mononeuropathy of bilateral upper limbs] Onset: 11-10-2022 11-10-2022 Chronic Other skin disorders (2 sources) Inflamed seborrheic keratosis; Translations: [Inflamed seborrheic keratosis] 03-12-2024 Episodic Other upper respiratory disease (8 sources) Allergic rhinitis; Translations: [Allergic rhinitis, unspecified] Onset: 11-10-2022 11-10-2022 Chronic Other upper respiratory infections (11 sources) Acute upper respiratory infection, unspecified; Translations: [Nasal discharge] Onset: 10-11-2022 11-10-2022 Episodic Otitis media and related conditions (8 sources) Bilateral middle ear chronic mucoid otitis media; Translations: [Other chronic nonsuppurative otitis media, bilateral] Onset: 01-04-2023 01-04-2023 Chronic Peripheral and visceral atherosclerosis (7 sources) Atherosclerosis of aorta; Translations: [Atherosclerosis of aorta] Onset: 11-23-2023 11-23-2023 Chronic Residual codes; unclassified (8 sources) Initial insomnia; Translations: [Other insomnia] Onset: 11-10-2022 11-10-2022 Chronic Residual codes; unclassified (1 source) Acquired absence of other specified parts of digestive tract; Translations: [ACQ ABSENCE OTH PART DIGESTV TRACT] Onset: 09-02-2022 Episodic Spondylosis; intervertebral disc disorders; other back problems (16 sources) Cervical spondylosis; Translations: [Other spondylosis with myelopathy, cervical region] Onset: 11-10-2022 11-10-2022 Chronic Substance-related disorders (11 sources) Nicotine dependence, cigarettes, uncomplicated; Translations: [Nicotine dependence] Onset: 10-11-2022 Resolved: 01-04-2023 01-04-2023 Chronic Unclassified (1 source) Encounter for preprocedural [...] obstruction] Onset: 03-16-2022 Episodic Cancer of breast (8 sources) History of malignant neoplasm of breast; Translations: [Personal history of malignant neoplasm of breast] Onset: 10-17-2014 01-04-2023 Episodic Conditions associated with dizziness or vertigo (8 sources) Dizziness; Translations: [Dizziness and giddiness] Onset: 11-10-2022 11-10-2022 Episodic Fluid and electrolyte disorders (8 sources) Hypokalemia; Translations: [Hypokalemia] Onset: 01-04-2023 01-04-2023 Episodic Mood disorders (7 sources) Mood disorders Onset: 10-10-2023 10-11-2023 Other acquired deformities (8 sources) Spondylolysis of cervical spine; Translations: [Spondylolysis, cervical region] Onset: 11-10-2022 11-10-2022 Episodic Other acquired deformities (8 sources) Acquired spondylolisthesis; Translations: [Spondylolisthesis, site unspecified] Onset: 11-01-2016 01-04-2023 Episodic Other bone disease and musculoskeletal deformities (8 sources) Osteopenia; Translations: [Other specified disorders of bone density and structure, unspecified site] Onset: 05-04-2012 Resolved: 10-11-2023 01-04-2023 Episodic Other connective tissue disease (8 sources) Tendinitis of right rotator cuff; Translations: [Other shoulder lesions, right shoulder] Onset: 11-10-2022 11-10-2022 Episodic Other eye disorders (1 source) Xanthoma of eyelid; Translations: [Xanthelasma of unspecified eye, unspecified eyelid] Onset: 11-10-2022 11-10-2022 Episodic Other eye disorders (7 sources) Xanthelasma; Translations: [Xanthelasma of unspecified eye, unspecified eyelid] Onset: 11-10-2022 11-10-2022 Episodic Other gastrointestinal disorders (8 sources) Constipation; Translations: [Constipation, unspecified] Onset: 11-10-2022 3 Episodic Other infections; including parasitic (7 sources) Personal history of other infectious and parasitic diseases; Translations: [History of COVID-19] Onset: 10-11-2023 10-11-2023 Episodic Other nervous system disorders (8 sources) Carpal tunnel syndrome; Translations: [Carpal tunnel syndrome, unspecified upper limb] Onset: 12-14-2017 Resolved: 10-11-2023 01-04-2023 Chronic Other nervous system disorders (8 sources) Burning sensation of skin; Translations: [Other disturbances of skin sensation] Onset: 11-10-2022 11-10-2022 Episodic Other nervous system disorders (8 sources) Paresthesia of skin; Translations: [Disturbance of skin sensation] Onset: 03-01-2018 Resolved: 10-11-2023 01-04-2023 Episodic Other nutritional; endocrine; and metabolic disorders (7 sources) Decrease in appetite; Translations: [Anorexia] Onset: 10-11-2023 10-11-2023 Episodic Other nutritional; endocrine; and metabolic disorders (7 sources) Abnormal weight loss; Translations: [Abnormal weight loss] Onset: 10-11-2023 10-11-2023 Episodic Screening and history of mental health and substance abuse codes (8 sources) Ex-smoker; Translations: [Personal history of nicotine dependence] Onset: 01-04-2023 Resolved: 05-02-2024 01-04-2023 Episodic Unclassified (1 source) COUGH, UNSPECIFIED; Translations: [COUGH, UNSPECIFIED] Onset: 10-08-2022 Results Test Name Value Interpretation Reference Range Facility No Panel Informationon 03-12 [facility] Type of biopsy: tangential Informed consent: discussed and consent obtained Informed consent comment: The risks and benefits of the biopsy were discussed. Risks include but are not limited to bleeding, infection, scarring, pain, and nerve damage. An opportunity to ask questions prior to the procedure was permitted and all questions were answered. Patient was prepped and draped in usual sterile fashion: area cleansed with alcohol. Anesthesia: the lesion was anesthetized in a standard fashion Anesthetic: 1% lidocaine w/ epinephrine 1-100,000 buffered w/ 8.4% NaHCO3 Instrument used: DermaBlade Hemostasis achieved with: electrodesiccation Outcome: patient tolerated procedure well Outcome comment: The specimen was placed in a prelabeled formalin container to be sent for pathology Post-procedure details: sterile dressing applied and wound care instructions given Post-procedure details comment: Emphasized need to contact clinic for any signs of infection, uncontrollable bleeding, or complications. Dressing type: bandage Additional details: Photo taken yes Amount of lidocaine used: 1.0 cc [facility] XR CHEST 2 Von 10-08-2022 XR CHEST [...] by: MARCO UNLU Date: 2022-10-08 14:48 Normal [facility] CBC AUTO DIFFon 08-31-2022 BASO # 0.1 103/ul Normal 0.0-0.1 [facility] Comment on above: Performed By: #### C BC #### [facility] [address] [place] [address] Dr. Nehemias Dean Basophils/100 WBC (Bld) 0.6 % Normal 0.2-2.0 [facility] Comment on above: Performed By: #### C BC #### [facility] [address] [place] [address] Dr. Nehemias Dean EO # 0.2 103/ul Normal 0.0-0.7 [facility] Comment on above: Performed By: #### C BC #### [facility] [address] [place] [address] Dr. Nehemias Dean Eosinophils/100 WBC (Bld) 2.2 % Normal 0.9-7.0 [facility] Comment on above: Performed By: #### C BC #### [facility] [address] [place] [address] Dr. Nehemias Dean Erythrocyte distribution width (RBC) [Ratio] 14.6 % Normal 11.0-15.0 [facility] Comment on above: Performed By: #### C BC #### [facility] [address] [place] [address] Dr. Nehemias Dean Hematocrit (Bld) [Volume fraction] 45.4 % Normal 36.0-48.0 [facility] Comment on above: Performed By: #### C BC #### [facility] [address] [place] [address] Dr. Nehemias Dean Hemoglobin (Bld) [Mass/Vol] 15.5 g/dL Normal 12.0-16.0 [facility] Comment on above: Performed By: #### C BC #### [facility] [address] [place] [address] Dr. Nehemias Dean IG # 0.02 10e3/ul Normal 0.00-0.03 [facility] Comment on above: Performed By: #### C BC #### [facility] [address] [place] [address] Dr. Nehemias Dean IG % 0.2 % Normal 0.0-0.5 [facility] Comment on above: Performed By: #### C BC #### [facility] [address] [place] [address] Dr. Nehemias Dean LYMPH # 3.0 103/ul Normal 1.2-3.8 [facility] Comment on above: Performed By: #### C BC #### [facility] [address] [place] [address] Dr. Nehemias Dean Lymphocytes/100 WBC (Bld) 31.2 % Normal 20.5-60.0 [facility] Comment on above: Performed By: #### C BC #### [facility] [address] [place] [address] Dr. Nehemias Dean MANUAL DIFF REQ NO Normal [facility] Comment on above: Performed By: #### C BC #### [facility] [address] [place] [address] Dr. Nehemias Dean MCH (RBC) [Entitic mass] 30.0 pg Normal 26.7-34.0 [facility] Comment on above: Performed By: #### C BC #### [facility] [address] [place] [address] Dr. Nehemias Dean MCHC (RBC) [Mass/Vol] 34.1 g/dL Normal 29.9-35.2 [facility] Comment on above: Performed By: #### C BC #### [facility] [address] [place] [address] Dr. Nehemias Dean MCV (RBC) [Entitic vol] 88.0 fL Normal 81.0-99.0 [facility] Comment on above: Performed By: #### C BC #### [facility] [address] [place] [address] Dr. Nehemias Dean MONO # 0.5 103/ul Normal 0.3-0.8 [facility] Comment on above: Performed By: #### C BC #### [facility] [address] [place] [address] Dr. Nehemias Dean Monocytes/100 WBC (Bld) 5.5 % Normal 1.7-12.0 [facility] Comment on above: Performed By: #### C BC #### [facility] [address] [place] [address] Dr. Nehemias Dean NEUT # 5.8 103/ul Normal 1.4-6.5 [facility] Comment on above: Performed By: #### C BC #### [facility] [address] [place] [address] Dr. Nehemias Dean Neutrophils/100 WBC (Bld) 60.3 % Normal 43.0-75.0 [facility] Comment on above: Performed By: #### C BC #### [facility] [address] [place] [address] Dr. Nehemias Dean Platelet mean volume (Bld) [Entitic vol] 11.2 fL Normal 9.5-13.5 [facility] Comment on above: Performed By: #### C BC #### [facility] [address] [place] [address] Dr. Nehemias Dean PLT 252 103/ul Normal 150-450 [facility] Comment on above: Performed By: #### C BC #### [facility] [address] [place] [address] Dr. Nehemias Dean RBC 5.16 106/ul Normal 4.20-5.40 [facility] Comment on above: Performed By: #### C BC #### [facility] [address] [address] [address] Nehemias Dean WBC 9.6 103/ul Normal 4.0-11.0 [facility] Comment on above: Performed By: #### C BC #### [facility] [id number] Nehemias Dean CT ABD/PELVIS WO CONon 08-31 CT ABD/PELVIS WO CON CT ABD/PELVIS WO CO N, 08/31/2022 11:33 AM EDT INDICATION: CALCULUS OF [...] SELENA CAIN Date: 2022-08-31 12:26 Normal [facility] ER URINE PROFILEon 3 Bilirubin Ql (U) Negative Normal NEGATIVE [facility] Comment on above: Performed By: #### U MICRO, ERUR #### [facility] [address] [address] [address] Nehemias Dean Clarity (U) CLEAR Normal CLEAR [facility] Comment on above: Performed By: #### U MICRO, ERUR #### [facility] [address] [address] [address] Nehemias Dean Color (U) LT. YELLOW Normal YELLOW [facility] Comment on above: Performed By: #### U MICRO, ERUR #### [facility] [address] [address] [address] Nehemias Dean ERUAHD A micrscopic examination will be performed if indicated. Normal [facility] Comment on above: Performed By: #### U MICRO, ERUR #### [facility] [address] [place] [address] Dr. Nehemias Dean Glucose Ql (U) Negative Normal NEGATIVE [facility] Comment on above: Performed By: #### U MICRO, ERUR #### [facility] [address] [address] [address] Nehemias Dean Hemoglobin Ql (U) SMALL Abnormal NEGATIVE [facility] Comment on above: Performed By: #### U MICRO, ERUR #### [facility] [address] [place] [address] Dr. Nehemias Dean Ketones Ql (U) Negative Normal NEGATIVE [facility] Comment on above: Performed By: #### U MICRO, ERUR #### [facility] [address] [place] [address] Dr[address] Nehemias Dean LEUKOCYTES Negative Normal NEGATIVE [facility] Comment on above: Performed By: #### U MICRO, ERUR #### [facility] [address] [address] [address] Nehemias Dean Nitrite Ql (U) Negative Normal NEGATIVE [facility] Comment on above: Performed By: #### U MICRO, ERUR #### [facility] [address] [place] [address] Dr. Nehemias Dean pH (U) 7.0 [pH] Normal 5-9 [facility] Comment on above: Performed By: #### U MICRO, ERUR #### [facility] [address] [place] [address] Dr. Nehemias Dean SPEC GRAVITY 1.015 Normal 1.005-<=1.02 5 [facility] Comment on above: Performed By: #### U MICRO, ERUR #### [facility] [address] [place] [address] Dr. Nehemias Dean UA PROTEIN Negative Normal NEGATIVE/ TRACE [facility] Comment on above: Performed By: #### U MICRO, ERUR #### [facility] [address] [place] [address] Dr. Nehemias Dean UR MICRO IND INDICATED Normal [facility] Comment on above: Performed By: #### U MICRO, ERUR #### [facility] [address] [place] [address] Dr. Nehemias Dean Urobilinogen Qn (U) 0.2 {Cristina'U}/dL Normal 0.2 - 1. 0 [facility] Comment on above: Performed By: #### U MICRO, ERUR #### [facility] [address] [place] [address] Dr. Nehemias Dean PROF CHEM 8 (BAS METB)on Anion gap [Moles/Vol] 14.9 mmol/L Normal [facility] Comment on above: Performed By: #### B MP #### [facility] [address] [place] [address] Dr. Nehemias Dean Calcium [Mass/Vol] 9.4 mg/dL Normal 8.5-10.1 [facility] Comment on above: Performed By: #### B MP #### [facility] [address] [place] [address] Dr. Nehemias Dean Chloride [Moles/Vol] 100 mmol/L Normal 98-107 [facility] Comment on above: Performed By: #### B MP #### [facility] [address] [place] [address] Dr. Nehemias Dean CO2 [Moles/Vol] 27.2 mmol/L Normal 21.0-32.0 [facility] Comment on above: Performed By: #### B MP #### [facility] [address] [address] [address] Nehemias Dean Creatinine [Mass/Vol] 0.63 mg/dL Normal 0.55-1.02 [facility] Comment on above: Performed By: #### B MP #### [facility] [address] [address] [address] Nehemias Dean EGFR-AF [place]TH [place]OREAN >60 Normal >=60 [facility] Comment on above: Performed By: #### B MP #### [facility] [address] [address] [address] Nehemias Dean EGFR-NON AF [place]ORE[place] >60 Normal >=60 [facility] Comment on above: Performed By: #### B MP #### [facility] [address] [place] [address] Dr. Nehemias Dean Glucose [Mass/Vol] 107 mg/dL Critically high 74-106 [facility] Comment on above: Performed By: #### B MP #### [facility] [address] [address] [address] Nehemias Dean Potassium [Moles/Vol] 3.1 mmol/L Critically low 3.5-5.1 [facility] Comment on above: Performed By: #### B MP #### [facility] [address] [place] [address] Dr. Nehemias Dean Sodium [Moles/Vol] 139 mmol/L Normal 136-145 [facility] Comment on above: Performed By: #### B MP #### [facility] [address] [address] [address] Nehemias Dean Urea nitrogen [Mass/Vol] 7.0 mg/dL Normal 7.0-18.0 [facility] Comment on above: Performed By: #### B MP #### [facility] [address] [place] [address] Dr. Nehemias Dean Urea nitrogen/Creatinine [Mass ratio] 11.1 mg/mg Normal [facility] Comment on above: Performed By: #### B MP #### [facility] [address] [place] [address] Dr. Nehemias Dean URINE MICROSCOPIC ONLYon BACTERIA TRACE Abnormal NONE SEEN [facility] Comment on above: Performed By: #### U MICRO, ERUR #### [facility] [address] [place] [address] Dr. Nehemias Dean Bacteria identified Cx Nom (U) NOT INDICATED Normal [facility] Comment on above: Performed By: #### U MICRO, ERUR #### [facility] [address] [place] [address] Dr. Nehemias Dean CAST NONE SEEN Normal NONE SEEN [facility] Comment on above: Performed By: #### U MICRO, ERUR #### [facility] [address] [address] [address] Nehemias Dean Crystals LM Nom (Urine sed) NONE SEEN Normal NONE SEEN [facility] Comment on above: Performed By: #### U MICRO, ERUR #### [facility] [address] [place] [address] Dr. Nehemias Dean Epithelial cells LM Ql (Urine sed) FEW Abnormal NONE SEEN /RARE [facility] Comment on above: Performed By: #### U MICRO, ERUR #### [facility] [address] [place] [address] Dr. Nehemias Dean MUCOUS NONE SEEN Normal NONE SEEN [facility] Comment on above: Performed By: #### U MICRO, ERUR #### [facility] [address] [place] [address] Dr. Nehemias Dean RBC 2-5 Abnormal 0-2 [facility] Comment on above: Performed By: #### U MICRO, ERUR #### [facility] [address] [place] [address] Dr. Nehemias Dean WBC NONE SEEN Normal NONE SEEN [facility] Comment on above: Performed By: #### U MICRO, ERUR #### [facility] [address] [place] [address] Dr. Nehemias Dean Alkaline Phosphataseon 03-16 ALP [Catalytic activity/Vol] 60 U/L Normal 32-92 [facility] Comment on above: Performed By: #### B ILIT, ALP, YEIMY #### [address] Amylaseon 03-16-2022 Amylase [Catalytic activity/Vol] 23 U/L Low 28-100 [facility] Comment on above: Result Comment: PERF ORMED BY: [address] [place] [address] PATHOLOGIST YOUTH ACCOMMODATION SUPPORT WORKER LAVERN CHATMAN M.D. Performed By: #### B ILIELISE Miles, YEIMY #### [address] Bilirubin,Totalon 03-16-2022 Bilirubin [Mass/Vol] 1.1 mg/dL Normal 0.3-1.2 [facility] Comment on above: Performed By: #### B ELISE BURGESS, YEIMY #### [address] Jesus 03-16-2022 L - -------- Specimen: [id number] Received: 03/16/22 Status: JOSUE Concha Num: [id number] Spec Type: Surgical Subm Dr: Uziel Caicedo, DO Tissues: A Gallbladder (GALLBLADDER) Procedures: HE Stain, Gross/Micro L3 -------- Age/ Patient Sex Location Account Attending Physician -------- Deb Perez Holly 71/F DC [id number] Uziel Caicedo, DO -------- SPEC NUM: [id number] RECD: 03/16/22 STATUS: JOSUE KERN NUM: [id number] [place]: 03/16/22 DR: Uziel Caicedo DO ENTERED: 03/16/[address] [facility] [address]: DAVID TYPE: Surgical DEPT: S [...] The mucosa is dove-pink, focally hyperemic, denuded.. Unbundler sections are submitted in one cassette labeled A1. Microscopic Description One glass slide with H E stained material has been examined. The microscopic findings support the above pathologic diagnosis. -------- Specimen: [id number] Received: 03/16/22 Status: JOSUE Kern Num: [id number] Spec Type: Surgical Subm Dr: Uziel Caicedo DO Tissues: A Gallbladder (GALLBLADDER) Procedures: HE Stain, Gross/Micro L3 -------- Patient: Deb Perez [id number] (Continued) -------- Specimen: [id number] Received: 03/16/22 (Continued) Signed (signature on file) Yasmeen Jameson MD 03/17/22 1744 -------- Specimen: Received: 03/16/22 Status: JOSUE Kern Num: [id number] Spec Type: Surgical Subm Dr: Uziel Caicedo DO Tissues: A Gallbladder (GALLBLADDER) Procedures: HE Stain, Gross/Micro L3 -------- Patient: Deb Perez [id number] (Continued) -------- Specimen: [id number] Received: 03/16/22 (Continued) CPT Codes 98302 -------- -------- Specimen: [id number] Received: 03/16/22 Status: JOSUE Kern Num: [id number] Spec Type: Surgical Subm Dr: Uziel Caicedo DO Tissues: A Gallbladder (GALLBLADDER) Procedures: HE Stain, Gross/Micro L3 -------- Patient: Deb Perez [id number] (Continued) -------- Signed (signature on file) Yasmeen Jameson MD 03/17/22 1744 Normal [facility] COVID[facility]19 [facility] SARS-CoV-2 (COVID-19) RNA DAVIE+probe Ql (Unsp spec) Negative Normal Negative [facility] Comment on above: Order Comment: Healt hcare Worker?: N Result Comment: Testing for SARS-CoV-2 by RT-PCR This test was developed and its performance characteristics determined by [employer] and validated at the [facility]. This test has not been FDA [...] is terminated or revoked sooner. PERFORMED BY: [facility] [place] [address] PATHOLOGIST YOUTH ACCOMMODATION SUPPORT WORKER LAVERN CHATMAN M.D. Performed By: #### C OVID 19 [facility] #### [facility] [address] COVID-19 Positive/NegativeOr dered By: Uziel Caicedo on 03-12-2022 SARS-CoV-2 (COVID-19) N gene DAVIE+probe Ql (Resp) Negative Negative [facility] Comment on above: Testing for SARS-CoV -2 by RT-PCRThis test was developed and its performance characteristics determined by [employer] ([employer]) and validated at the [facility]. This test has not been FDA [...] terminated or revoked sooner. Basic Metabolic Panelon 02-27 Anion gap [Moles/Vol] 14.9 mmol/L Normal 6.0-15.0 [facility] Comment on above: Performed By: #### C BC, BMP #### [place] [id number] [facility] Calcium [Mass/Vol] 10.2 mg/dL Normal 8.2-10.2 [facility] Comment on above: Result Comment: PERF ORMED BY: [address] [place] [address] PATHOLOGIST [employer] ACCOMMODATION SUPPORT WORKER LAVERN CHATMAN M.D. Performed By: #### C BC, BMP #### [address] [place] [address] [place] Chloride [Moles/Vol] 97 mmol/L Normal 95-114 [facility] Comment on above: Performed By: #### C BC, BMP #### [address] CO2 [Moles/Vol] 28.2 mmol/L Normal 22.0-30.0 [facility] Comment on above: Performed By: #### C BC, BMP #### [address] Creatinine [Mass/Vol] 0.65 mg/dL Normal 0.44-1.03 [facility] Comment on above: Performed By: #### C BC, BMP #### [address] Estimated GFR ( My > 60 [facility] Comment on above: Result Comment: GFR estimated reference range: According to KDOQI guidelines, <60 ml/min/1.73m2 is sufficient to diagnose a patient with chronic kidney disease. Performed By: #### C BC, BMP #### [place] [address] [place] Estimated GFR (Non- Am > 60 [facility] Comment on above: Performed By: #### C BC, BMP #### [address] Glucose [Mass/Vol] 97 mg/dL Normal 70-100 [facility] Comment on above: Result Comment: [place] Glucose Reference Range is dependent on time and content of last meal. Glucose of more than 200 mg/dL in a nonstressed, ambulatory subject supports the diagnosis of Diabetes Mellitus. ADA recommended reference range Performed By: #### C BC, BMP #### [place] [address] [place] Potassium [Moles/Vol] 4.1 mmol/L Normal 3.5-5.1 [facility] Comment on above: Performed By: #### C BC, BMP #### [place] [address] [place] Sodium [Moles/Vol] 136 mmol/L Normal 136-146 [facility] Comment on above: Performed By: #### C BC, BMP #### [facility] [address] Urea nitrogen [Mass/Vol] 8 mg/dL Low 02-19 [facility] Comment on above: Performed By: #### C BC, BMP #### [facility] [address] [place] [address] [place] Basophils Auto (Bld) [#/Vol] Ordered By: Uziel Caicedo on 03-08-2022 Basophils (Bld) [#/Vol] 0.1 10*3/uL 0.0-0.2 [facility] Basophils/100 WBC Auto (Bld) Ordered By: Uziel Caicedo on 03-08-2022 Basophils/100 WBC (Bld) 0.7 % . [facility] Complete Blood Count Auto Di ffon 03-08-2022 Basophils (Bld) [#/Vol] 0.1 10*3/uL Normal 0.0-0.2 [facility] Comment on above: Result Comment: PERF ORMED BY: [place] [address] PATHOLOGIST YOUTH ACCOMMODATION SUPPORT WORKER LAVERN CHATMAN M.D. Performed By: #### C BC, BMP #### [facility] [address] [place] [address] [place] Basophils/100 WBC (Bld) 0.7 % Normal . [facility] Comment on above: Performed By: #### C BC, BMP #### [facility] [address] [place] [address] [place] Eosinophils (Bld) [#/Vol] 0.1 10*3/uL Normal 0.0-0.45 [facility] Comment on above: Performed By: #### C BC, BMP #### [facility] [address] [place] [address] [place] Eosinophils/100 WBC (Bld) 1.2 % Normal . [facility] Comment on above: Performed By: #### C BC, BMP #### [facility] [address] Erythrocyte distribution width (RBC) [Ratio] 14.7 % Normal 11.9-15.3 [facility] Comment on above: Performed By: #### C BC, BMP #### [facility] [address] Hematocrit (Bld) [Volume fraction] 47.9 % High 34.0-46.4 [facility] Comment on above: Performed By: #### C BC, BMP #### [address] Hemoglobin (Bld) [Mass/Vol] 16.1 g/dL High 11.8-15.4 [facility] Comment on above: Performed By: #### C BC, BMP #### [address] Lymphocytes (Bld) [#/Vol] 1.7 10*3/uL Normal 1.00-4.8 [facility] Comment on above: Performed By: #### C BC, BMP #### [address] Lymphocytes/100 WBC (Bld) 19.6 % Normal . [facility] Comment on above: Performed By: #### C BC, BMP #### [address] MCH (RBC) [Entitic mass] 30.3 pg Normal 24.7-34.3 [facility] Comment on above: Performed By: #### C BC, BMP #### [address] MCV (RBC) [Entitic vol] 90.2 fL Normal 80-100 [facility] Comment on above: Performed By: #### C BC, BMP #### [address] Mean Corpuscular HGB Conc 33.6 g/dL Normal 32.0-35.0 [facility] Comment on above: Performed By: #### C BC, BMP #### [address] [place] [address] [place] Monocytes (Bld) [#/Vol] 0.6 10*3/uL Normal 0.0-0.8 [facility] Comment on above: Performed By: #### C BC, BMP #### [facility] [address] [place] [address] [place] Monocytes/100 WBC (Bld) 6.9 % Normal . [facility] Comment on above: Performed By: #### C BC, BMP #### [facility] [address] [place] [address] [place] Neutrophils (Bld) [#/Vol] 6.1 10*3/uL Normal 1.8-7.7 [facility] Comment on above: Performed By: #### C SHAHAB, BMP #### [facility] [address] Neutrophils/100 WBC (Bld) 71.6 % Normal . [facility] Comment on above: Performed By: #### C SHAHAB, BMP #### [facility] [address] [place] [address] [place] Nucleated RBC/100 WBC (Bld) [Ratio] 0.1 % Normal 0-0.5 [facility] Comment on above: Performed By: #### C BC, BMP #### [facility] [address] [place] [address] [place] Platelet mean volume (Bld) [Entitic vol] 10.1 fL Normal 6.3-10.7 [facility] Comment on above: Performed By: #### C BC, BMP #### [facility] [address] [place] [address] [place] Platelets (Bld) [#/Vol] 218 10*3/uL Normal 150-450 [facility] Comment on above: Performed By: #### C BC, BMP #### [facility] [address] [place] [address] [place] RBC (Bld) [#/Vol] 5.31 10*6/uL High 3.60-5.00 [facility] Comment on above: Performed By: #### C BC, BMP #### [facility] [address] [place] [id number] [place] WBC (Bld) [#/Vol] 8.5 10*3/uL Normal 4.5-11.0 [facility] Comment on above: Performed By: #### C BC, BMP #### [facility] [address] Creatinine and Glomerular fi ltration rate.predicted panel (S/P/Bld)Ordered By: Uziel Caicedo on 03-08-2022 Creatinine [Mass/Vol] 0.65 mg/dL 0.44-1.03 [facility] ECG 12 lead ECGon 03-08-2022 ECG 12 lead ECG [facility] [place] [address] [place] [address] Electrocardiograph Report Signed Patient: Deb Perez MR#: [id number] : 1950 Acct:[id number] Age/Sex: 71 / F ADM Date: 03/08/22 Loc: Room: Type: [facility] Attending Dr: Uziel Caicedo DO Ordering Provider: [...] Signed By Everette Graham DO 03/08 1246 [facility] Eosinophils Auto (Bld) [#/Vo l]Ordered By: Uziel Caicedo on 03-08-2022 Eosinophils (Bld) [#/Vol] 0.1 10*3/uL 0.0-0.45 [facility] Eosinophils/100 WBC Auto (Bl d)Ordered By: Uziel Caicedo on 03-08-2022 Eosinophils/100 WBC (Bld) 1.2 % . [facility] Erythrocyte distribution wid th Auto (RBC) [Ratio]Ordered By: Uziel Caicedo on 03-08-2022 Erythrocyte distribution width (RBC) [Ratio] 14.7 % 11.9-15.3 [facility] Estimated glomerular filtrat ion rate (GFR) non- AmericanOrdered By: Uziel Caicedo on 03-08-2022 GFR/1.73 sq M.predicted among non-blacks MDRD (S/P/Bld) [Vol rate/Area] > 60 mL/Min [facility] Hematocrit Auto (Bld) [Volum e fraction]Ordered By: Uziel Caicedo on 03-08-2022 Hematocrit (Bld) [Volume fraction] 47.9 % 34.0-46.4 [facility] Hemoglobin [Mass/volume] in BloodOrdered By: Uziel Caicedo on 03-08-2022 Hemoglobin (Bld) [Mass/Vol] 16.1 g/dL 11.8-15.4 [facility] - Hematology and Cell countsOrdered By: Uziel Caicedo on 03-08-2022 Nucleated RBC/100 WBC (Bld) [Ratio] 0.1 % 0-0.5 [facility] Leukocytes [#/volume] in Blo od by Automated countOrdered By: Uziel Caicedo on 03-08-2022 WBC (Bld) [#/Vol] 8.5 10*3/uL 4.5-11.0 [facility] Lymphocytes Auto (Bld) [#/Vo l]Ordered By: Uziel Caicedo on 03-08-2022 Lymphocytes (Bld) [#/Vol] 1.7 10*3/uL 1.00-4.8 [facility] Lymphocytes/100 WBC Auto (Bl d)Ordered By: Uziel Caicedo on 03-08-2022 Lymphocytes/100 WBC (Bld) 19.6 % . [facility] MCH Auto (RBC) [Entitic mass ]Ordered By: Uziel Caicedo on 03-08-2022 MCH (RBC) [Entitic mass] 30.3 pg 24.7-34.3 [facility] MCHC Auto (RBC) [Mass/Vol]Or dered By: Uziel Caicedo on 03-08-2022 MCHC (RBC) [Mass/Vol] 33.6 g/dL 32.0-35.0 [facility] MCV Auto (RBC) [Entitic vol] Ordered By: Uziel Caicedo on 03-08-2022 MCV (RBC) [Entitic vol] 90.2 fL 80-100 [facility] Monocytes Auto (Bld) [#/Vol] Ordered By: Uziel Caicedo on 03-08-2022 Monocytes (Bld) [#/Vol] 0.6 10*3/uL 0.0-0.8 [facility] Monocytes/100 WBC Auto (Bld) Ordered By: Uziel Caicedo on 03-08-2022 Monocytes/100 WBC (Bld) 6.9 % . [facility] Neutrophils Auto (Bld) [#/Vo l]Ordered By: Uziel Caicedo on 03-08-2022 Neutrophils (Bld) [#/Vol] 6.1 10*3/uL 1.8-7.7 [facility] Neutrophils/100 WBC Auto (Bl d)Ordered By: Uziel Caicedo on 03-08-2022 Neutrophils/100 WBC (Bld) 71.6 % . [facility] No Panel InformationOrdered By: Uziel Caicedo on 03-08-2022 Estimated GFR () > 60 mL/Min [facility] Comment on above: GFR estimated refere nce range: According to KDOQI guidelines, <60 ml/min/1.73m2 is sufficient to diagnose a patient with chronic kidney disease. Pharmacy Creatinine Clearance (Chem N/A [facility] Platelet mean volume Auto (B ld) [Entitic vol]Ordered By: Uziel Caicedo on 03-08-2022 Platelet mean volume (Bld) [Entitic vol] 10.1 fL 6.3-10.7 [facility] Platelets Auto (Bld) [#/Vol] Ordered By: Uziel Caicedo on 03-08-2022 Platelets (Bld) [#/Vol] 218 10*3/uL 150-450 [facility] RBC Auto (Bld) [#/Vol]Ordere d By: Uziel Caicedo on 03-08-2022 RBC (Bld) [#/Vol] 5.31 10*6/uL 3.60-5.00 [facility] Serum or plasma anion gap de terminationOrdered By: Uziel Caicedo on 03-08-2022 Anion gap [Moles/Vol] 14.9 mmol/L 6.0-15.0 [facility] Serum or plasma calcium luis m urement (mass/volume)Ordered By: Uziel Caicedo on 03-08-2022 Calcium [Mass/Vol] 10.2 mg/dL 8.2-10.2 [facility] Serum or plasma chloride pedro surement (moles/volume)Ordered By: Uziel Caicedo on 03-08-2022 Chloride [Moles/Vol] 97 mmol/L 95-114 [facility] Serum or plasma glucose luis m urement (mass/volume)Ordered By: Uziel Caicedo on 03-08-2022 Glucose [Mass/Vol] 97 mg/dL 70-100 [facility] Comment on above: ADA recommended refe rence rangeRandom Glucose Reference Range is dependent on time and content of last meal. Glucose of more than 200 mg/dL in a nonstressed, ambulatory subject supports the diagnosis of Diabetes Mellitus. Serum or plasma potassium me asurement (moles/volume)Ordered By: Uziel Caicedo on 03-08-2022 Potassium [Moles/Vol] 4.1 mmol/L 3.5-5.1 [facility] Serum or plasma sodium measu rement (moles/volume)Ordered By: Uziel Caicedo on 03-08-2022 Sodium [Moles/Vol] 136 mmol/L 136-146 [facility] Serum or plasma total carbon dioxide measurement (moles/volume)Ordered By: Uziel Caicedo on 03-08-2022 CO2 [Moles/Vol] 28.2 mmol/L 22.0-30.0 [facility] Serum or plasma urea nitroge n measurement (mass/volume)Ordered By: Uziel Caicedo on 03-08-2022 Urea nitrogen [Mass/Vol] 8 mg/dL 9-23 [facility] US SINGLE QUAD RT UPPERon US [...] by: JOSEPH HUBBARD Date: 2022-03-02 07:41 Normal [facility] XR CHEST 2 Von 10-22-2021 XR [...] by: GEOFFREY ELLIS Date: 2021-10-22 10:10 Normal [facility] Iron Profileon 09-22-2021 %FESAT 27 % Normal 11-50 [facility] Specialist Comment on above: Performed By: #### T SH reflex FT4, FE Prof #### [facility] [address] [place], [place] [id number] FE 71 ug/dL Normal 40-190 [facility] Comment on above: Result Comment: Refe rence range change 04/15/2017. Prior reference range F 37-145 ug/dL, M 59-158 ug/dL. Performed By: #### T SH reflex FT4, FE Prof #### [facility] [address] [place], [place] [id number] TIBC 261 ug/dL Normal 250-450 [facility] Special[facility] Comment on above: Performed By: #### T SH reflex FT4, FE Prof #### [facility] [address] [place], [place] [id number] UIBC 190 ug/dL Normal 112-347 [facility] Specialist Comment on above: Performed By: #### T SH reflex FT4, FE Prof #### [facility] [address] [place], [place] [id number] TSH w/ Reflex to Free T4on 0 09-22-2021 TSH 0.551 uIU/mL Normal 0.400-4.500 [facility] Client Coordinator Comment on above: Performed By: #### T SH reflex FT4, FE Prof #### [facility] [address] [place], [place] [id number] Vitamin B12/Folateon 022 Cobalamin (Vitamin B12) [Mass/Vol] 596 pg/mL Normal 211-946 [facility] Specialist Comment on above: Performed By: #### B 12/Fol #### [facility] [address] [place], [place] [id number] FOL 9.9 ng/mL Normal >4.7 [facility] Special[facility] Comment on above: Result Comment: Refe rence range change 04/15/2017. Prior reference range F 4.8-37.3 ng/mL, M 4.5-32.2 ng/mL. Performed By: #### B 12/Fol #### [facility] Laboratory [address], [place] [id number] Complete Blood Count with Au to Diffon 08-05-2021 Basophils (Bld) [#/Vol] 0.06 10*3/uL Normal 0.00-0.20 [facility] Client Coordinator Comment on above: Performed By: #### L IPD, CBCAD, VITD #### [facility] [address], [place] [id number] Basophils/100 WBC (Bld) 0.6 % Normal [facility] Comment on above: Performed By: #### L IPD, CBCAD, VITD #### [facility] [address], [place] [id number] Eosinophils (Bld) [#/Vol] 0.13 10*3/uL Normal 0.02-0.50 [facility] Specialist Comment on above: Performed By: #### L IPD, CBCAD, VITD #### [facility] [address], [place] [id number] Eosinophils/100 WBC (Bld) 1.4 % Normal [facility] Specialist Comment on above: Performed By: #### L IPD, CBCAD, VITD #### [facility] [address], [place] [id number] Erythrocyte distribution width (RBC) [Ratio] 14.2 % Normal 11.0-15.0 [facility] Specialist Comment on above: Performed By: #### L IPD, CBCAD, VITD #### [facility] [address], [place] [id number] Hematocrit (Bld) [Volume fraction] 48.6 % High 35.0-47.0 [facility] Client Coordinator Comment on above: Performed By: #### L IPD, CBCAD, VITD #### [facility] [address], [place] [id number] Hemoglobin (Bld) [Mass/Vol] 16.6 g/dL High 11.6-15.5 [facility] Specialist Comment on above: Performed By: #### L IPD, CBCAD, VITD #### [facility] [address], [place] [id number] Lymphocytes (Bld) [#/Vol] 2.2 10*3/uL Normal 0.9-3.9 [facility] Specialist Comment on above: Performed By: #### L IPD, CBCAD, VITD #### [facility] [address], [place] [id number] Lymphocytes/100 WBC (Bld) 24.0 % Normal [facility] Comment on above: Performed By: #### L IPD, CBCAD, VITD #### [facility] [address], [place] [id number] MCH (RBC) [Entitic mass] 30.7 pg Normal 27.0-33.0 [facility] Comment on above: Performed By: #### L IPD, CBCAD, VITD #### [facility] [address], [place] [id number] MCHC (RBC) [Mass/Vol] 34.2 g/dL Normal 32.0-36.0 [facility] Comment on above: Performed By: #### L IPD, CBCAD, VITD #### [facility] [address], [place] [id number] MCV (RBC) [Entitic vol] 90 fL Normal 80-100 [facility] Comment on above: Performed By: #### L IPD, CBCAD, VITD #### [facility] [address], [place] [id number] Monocytes (Bld) [#/Vol] 0.5 10*3/uL Normal 0.2-0.9 [facility] Comment on above: Performed By: #### L IPD, CBCAD, VITD #### [facility] [address], [place] [id number] Monocytes/100 WBC (Bld) 5.8 % Normal [facility] Comment on above: Performed By: #### L IPD, CBCAD, VITD #### [facility] [address] [facility] [place] [id number] Neutrophils (Bld) [#/Vol] 6.3 10*3/uL Normal 1.5-7.8 [facility] Comment on above: Performed By: #### L IPD, CBCAD, VITD #### [facility] [address] [facility] [place] [id number] Neutrophils/100 WBC (Bld) 67.9 % Normal [facility] Client Coordinator Comment on above: Performed By: #### L IPD, CBCAD, VITD #### [facility] [address], [place] [id number] Platelet mean volume (Bld) [Entitic vol] 12.00 fL Normal 7.50-12.50 [facility] Comment on above: Performed By: #### L IPD, CBCAD, VITD #### [facility] [address], [place] [id number] Platelets (Bld) [#/Vol] 215 10*3/uL Normal 140-400 [facility] Specialist Comment on above: Performed By: #### L IPD, CBCAD, VITD #### [facility] [address], [place] [id number] RBC (Bld) [#/Vol] 5.41 10*6/uL High 3.90-5.20 [facility] Specialist Comment on above: Performed By: #### L IPD, CBCAD, VITD #### [facility] [address], [place] [id number] RDW-SD 46.5 fL Normal 37.0-50.0 [facility] Specialist Comment on above: Performed By: #### L IPD, CBCAD, VITD #### [facility] [address], [place] [id number] WBC (Bld) [#/Vol] 9.2 10*3/uL Normal 3.8-11.0 [facility] Comment on above: Performed By: #### L IPD, CBCAD, VITD #### [facility] [address], [place] [id number] Lipid Panelon 08-05-2021 Cholesterol [Mass/Vol] 285 mg/dL High 125-200 [facility] Comment on above: Result Comment: Low risk < 200mg/dL Borderline risk 201-239 mg/dl High risk > or equal to 240 Performed By: #### L IPD, CBCAD, VITD #### [facility] [address], [place] [id number] Cholesterol in HDL [Mass/Vol] 67 mg/dL Normal >40 [facility] Specialist Comment on above: Result Comment: High Cardiovascular Risk HDL <40 mg/dL Low Cardiovascular Risk HDL > or equal to 60 mg/dl Performed By: #### L IPD, CBCAD, VITD #### [facility] [address], [place] [id number] Cholesterol in LDL [Mass/Vol] 184 mg/dL Normal [facility] Specialist Comment on above: Result Comment: LDL ATP III CLASSIFICATION LDL less than 100 mg/dl Optimal LDL 100-129 mg/dl Near or above optimal LDL 130-159 Borderline high LDL 160-189 High LDL greater than 189 mg/dl Very High Performed By: #### L IPD, CBCAD, VITD #### [facility] [address], [place] [id number] Cholesterol in VLDL [Mass/Vol] 34 mg/dL Normal [facility] Client Coordinator Comment on above: Performed By: #### L IPD, CBCAD, VITD #### [facility] [address], [place] [id number] Cholesterol.total/Bhumi sterol in HDL [Mass ratio] 4 {ratio} Normal [facility] Client Coordinator Comment on above: Performed By: #### L IPD, CBCAD, VITD #### [facility] [address], [place] [id number] Triglyceride [Mass/Vol] 168 mg/dL High 30-150 [place] [place] [facility] Comment on above: Result Comment: TRIG ATPIII CLASSIFICATIONS TRIG less than 150 mg/dl Normal TRIG 150-199 mg/dl Borderline High TRIG 200-500 mg/dl High TRIG greather than 500 mg/dl Very High Performed By: #### L IPD, CBCAD, VITD #### [facility] [address], [place] [id number] Q - SARS CoV2 COVID 19 Ab Ig Uriel 08-05-2021 SARS-CoV-2 (COVID-19) Ab IA Qn <1.00 Normal <1.00 [facility] Client Coordinator Comment on above: Order Comment: [facility] Testing performed at: [facility], [address] [facility], [address] [place] [address], [place], [address], Certified Coding Specialist: Solitario Lopez MD [facility] Collection Date/Time: [facility] Results Received Date/Time: [id number] [facility] Reported Date/Time: [id number] Result Comment: This test is intended to [...] providers and patients using the following websites: http://patient.iJoules.com/Atellica-HCP http://patient.iJoules.com/Atellica-Patients Healthcare Providers: For additional information please refer to: http://education.Kout.Year Up/faq/JZI084 (This link is being provided for informational/educational purposes only.) This test has been authorized by the FDA under an Emergency Use Authorization (EUA) for use by authorized laboratories. The FDA authorized labeling is available on the [employer]or[employer] website: www.meebee.Year Up/Covid19. Performed By: #### 3 [id number] #### [facility] Default [address] [place] [address] Vitamin D 25-OHon 08-05-2021 VIT D 25 OH 67 ng/ml Normal >29 [facility] Client Coordinator Comment on above: Result Comment: Freda min D Status Deficiency <20 ng/mL Insufficiency 20-29 ng/mL Optimal 30-100 ng/mL Possible Toxicity >=150 ng/mL Performed By: #### L IPD, CBCAD, VITD #### [facility] [address] [place], [place] [id number] Vital Signs Date Time Vital Sign Value Performing Clinician Toi campos 05-02-2024 10:03-0500 Body height 165.1 cm Cynthia Hemmer PA Work Phone: [facility] 05-02-2024 10:03-0500 Body mass index (BMI) [Ratio] 19.04 kg/m2 Cynthia Hemmer PA Work Phone: [facility] 05-02-2024 10:03-0500 Body temperature 97.39 [degF] Cynthia Hemmer PA Work Phone: [facility] 05-02-2024 10:03-0500 Body weight 51.89 kg Cynthia Hemmer PA Work Phone: [facility] 05-02-2024 10:03-0500 Diastolic blood pressure 84 mm[Hg] Cynthia Hemmer PA Work Phone: [facility] 05-02-2024 10:03-0500 Heart rate 90 /min Cynthia Hemmer PA Work Phone: [facility] 05-02-2024 10:03-0500 Respiratory rate 16 /min Cynthia Hemmer PA Work Phone: [facility] 05-02-2024 10:03-0500 SaO2% (BldA) [Mass fraction] 99 % Cynthia Hemmer PA Work Phone: [facility] Healthcare 05-02-2024 10:03-0500 Systolic blood pressure 126 mm[Hg] Cynthia JACKSON Work Phone: [facility] Encounters Encounter Date Encounter Type Care Provider Facility Start: 05-02-2024 End: 05-02-2024 Bamboo flowsheet Cynthia JACKSON Work Phone: [facility] Start: 05-02-2024 End: 05-02-2024 Bamboo flowsheet Cynthia JACKSON Work Phone: [facility] Start: 05-02-2024 End: 05-02-2024 Office outpatient visit 25 minutes Cynthia JACKSON Work Phone: [facility] Comment on above: Benign essential hyp ertension (CMS/HCC) (Primary Dx); Anxiety state (CMS/HCC); Hypercholesteremia (CMS/HCC); Chronic bronchitis, unspecified chronic bronchitis type (CMS/HCC); Acute non-recurrent frontal sinusitis; Tobacco dependence Start: 04-13-2024 End: 04-16-2024 Refill Cynthia JACKSON Work Phone: [facility] Comment on above: Neuropathy of both u pper extremities Start: 03-12-2024 End: 03-12-2024 Bamboo flowsheet Precious A Felter BRINE TANK SEPARATOR OPERATOR-BLOOD COLLECTOR Work Phone: [facility] Start: 03-12-2024 End: 03-12-2024 Bamboo flowsheet Precious A Felter BRINE TANK SEPARATOR OPERATOR-BLOOD COLLECTOR Work Phone: [facility] Start: 03-12-2024 End: 03-12-2024 Patient encounter procedure Precious A Felter BRINE TANK SEPARATOR OPERATOR-BLOOD COLLECTOR Work Phone: [facility] Comment on above: Inflamed seborrheic keratosis (Primary Dx); Neoplasm of unspecified behavior of bone, soft tissue, and skin Start: 03-12-2024 End: 03-12-2024 ambulatory PRECIOUS Dafne SABRAER Not Available Start: 11-23-2023 End: 11-23-2023 ambulatory CYNTHIA JOSE Not Available Start: 10-11-2023 End: 10-11-2023 ambulatory CYNTHIA JOSE Not Available Start: 08-16-2023 End: 08-16-2023 ambulatory CYNTHIA JOSE Not Available Start: 07-04-[address] dacosta MD Work Phone: [facility] Start: 06-15-2023 End: 06-15-2023 ambulatory KAMILAH Cohn MAI Not Available Start: 10-08-2022 End: 10-08-[address] SWANN Facility:[facility] Start: 08-31-2022 End: 08-31-[address] SWANN Facility:[facility] Start: 03-16-2022 End: 03-16-2022 ambulatory Cynthia Jose Facility:[facility] Start: 03-12-2022 End: 03-12-2022 ambulatory Uziel Caicedo Facility:[facility] Start: 03-12-2022 End: 03-12-2022 ambulatory CYLINDER INSPECTOR AND TESTER-C Cynthia Jose Work Phone: [facility] Work Phone: Start: 03-12-2022 End: 03-12-2022 Patient encounter procedure CYLINDER INSPECTOR AND TESTER-C Cynthia Hemhector Work Phone: [facility] Start: 03-08-2022 End: 03-08-2022 ambulatory Cynthia Jose Facility:[facility] Start: 03-08-2022 End: 03-08-2022 Patient encounter procedure CYLINDER INSPECTOR AND TESTER-C Cynthia Hemhector Work Phone: [facility] Start: 03-02-2022 End: 03-03-[address] CYNTHIA JOSE Facility:[facility] Start: 10-22-2021 End: 10-23-[address] CYNTHIA JOSE Facility:[facility] Procedures Date Procedure Procedure Detail Performing Clinician Start: 03-12-2024 CRYOTHERAPY SKIN LESION 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 BRINE TANK SEPARATOR OPERATOR-BLOOD COLLECTOR Work Phone: Start: 03-12-2024 SKIN / NAIL BIOPSY Jie lie Dafne Xiao BRINE TANK SEPARATOR OPERATOR-BLOOD COLLECTOR Work Phone: Plan of Treatment Date Care Activity Detail Author Start: 10-10-2024 Medicare Annual Wellness (AWV) Medicare Annual Wellness (AWV) [facility] Start: 05-02-2024 End: 05-02-2025 Lipid 1996 panel - Serum or Plasma Lipid panel Lab Routine Hypercholesteremia (CMS/HCC) Expected: 05/02/2024 (Approximate), Expires: 05/02/2025 [facility] Work Phone: Comment on above: Expected: 05/02/2024 (Approximate), Expi res: 05/02/2025 Start: 05-02-2024 End: 05-02-2024 Patient encounter procedure [facility] Comment on above: Arrived Start: 05-01-2024 End: 05-01-2024 Patient encounter procedure 05/01/2024 10:55 AM EST Office Visit [facility] [address] [place] [address] 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, BRINE TANK SEPARATOR OPERATOR-BLOOD COLLECTOR [address] [place] [address] [facility] Start: 03-22-2024 Pneumococcal Vaccine: 65+ Years (1 of 2 - PCV) Pneumococcal Vaccine: 65+ Years (1 of 2 - PCV) [facility] Healthcare Comment on above: Postponed from 1954 (Patient Refus ed) Start: 03-22-2024 Screening for malignant neoplasm of colon Colorectal Cancer Screening [facility] Comment on above: Postponed from 1948 (Patient Refus ed) Start: 03-12-2024 End: 03-12-2024 Patient encounter procedure 03/12/2024 11:10 AM EDT Office Visit [facility] [address] [place] [address] 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, BRINE TANK SEPARATOR OPERATOR-BLOOD COLLECTOR [address] [place] [address] Arrived [facility] Comment on above: Arrived Start: 01-29-2024 Influenza vaccination Influenza Vaccine (#1) [facility] Start: 11-27-2023 Influenza vaccination Influenza Vaccine (#1) [facility] Comment on above: Postponed from 01/28/2023 (Patient Refus ed) Start: 09-08-2023 Medicare Annual Wellness (AWV) Medicare Annual Wellness (AWV) [facility] Start: 1956 Pneumococcal Vaccine: 65+ Years (1 of 2 - PCV) Pneumococcal Vaccine: 65+ Years (1 of 2 - PCV) [facility] Start: 1950 Screening for malignant neoplasm of colon [facility] Dermatopathology exam Dermatopat hology exam Pathology and Cytology Timed Neoplasm of unspecified behavior of bone, soft tissue, and skin Release Upon Ordering for 1 Occurrences starting 03/12/2024 [facility] Work Phone: Comment on above: Release Upon Ordering for 1 Occurrences starting 03/12/2024 Payers Date Payer Category Payer Medicare (Managed Care) [facility] [id number] 2023 Unknown [id number] 2022 Medicare [id number] 2022 Self-pay [id number] 2022 Medicare ANTH MEDICARE ADVANTAGE [facility] MEDICARE ADVANTAGE [id number] 2022-Present [address] [place] [address] [id number] 1959 Medicaid [id number] 1959 Medicare [id number] 1948 Unknown [id number]. 593 1948 Unknown [id number]. 593 1948 Unknown [id number] [id number]. 593 1948 Unknown [id number] [id number]. 593 1948 Unknown [id number] [id number]. 1259 1948 Unknown [id number] [id number]. 1259 1948 Unknown [id number] [id number]. 1259 1948 Unknown [id number] [id number]. 1259 1948 Unknown [id number] [id number]. 1259 Unknown [id number] [id number]. 531 Unknown [id number] [id number]. 531 Unknown [id number] [id number]. 531 Social History Date Type Detail Facility Start: 03-08-2022 Tobacco smoking status [facility] Smoker (finding) [facility] Start: 1950 Sex Assigned At Female [facility] Start: 07-07-1978 Tobacco smoking status [facility] Occasional tobacco smoker [facility] Start: 07-07-1978 End: 08-05-2023 History of tobacco use Cigarette Smoker [facility] Start: 06-15-2023 End: 01-12-2024 Cigarettes smoked current (pack per day) - Reported 0.5 [facility] History of tobacco use Passive smoker [facility] Start: 06-15-2023 Tobacco use and exposure Smokeless tobacco non-user [facility] Start: 06-15-2023 End: 03-12-2024 Alcohol intake Ex-drinker (finding) [facility] Start: 06-15-2023 End: 01-12-2024 Humiliation, Afraid, Rape, and Kick questionnaire [HARK] [...] intake : 2-3 cups per day coffee [facility] Start: 1950 Sex Assigned At Not on file [facility] How often to you hav e a drink containing alcohol? Never [facility] How hard is it for y ou to pay for the very basics like food, housing, medical care, and heating Not very hard [facility] Do you feel stress - tense, restless, nervous, or anxious, or unable to sleep at night because your mind is troubled all the time - these days [OSQ] To some extent [facility] (I/We) worried wheth er (my/our) food would run out before (I/we) got money to buy more. Never true [facility] Clinical Notes 07-04-2023 to 05-02-2024 MANUEL Graff - 05/02/2024 10:00 AM ESTTelephone Encounter - Mary Lou Leyva - 04/16/2024 3:23 PM ESTTelephone Encounter - Mary Lou Leyva - 04/16/2024 3:23 PM EST Note Date & Type Note Facility 05-02-2024 History of Present illness Narrative Images from the original note were not included. HPI Sinusitis Additional comments: Admits sinus pressure/pain, headaches, right ear pain, nasal congestion, runny nose, post nasal drainage, cough (dry), SOB. She has had this for a week, She has been taking onion juice and honey for 2 days. Last edited by Olesya Hancock LPN on 05/02/2024 10:03 AM. Subjective Patient ID: Deb Perez is a 73 y.o. female who presents for hypertension. Deb is present today for follow up hypertension. Denies chest pain, SOB, blurry vision. Admits headaches. Does not check BP's at home. Currently on Lisinopril-hydrochlorothiazide. Current Outpatient Medications on File Prior to Visit Medication Sig Dispense Refill albuterol HFA 90 mcg/act inhaler INHALE 2 PUFFS EVERY 6 HOURS IF NEEDED FOR WHEEZING. 3 g 3 ALPRAZolam (Xanax) 0.25 MG tablet Take 1 tablet (0.25 mg) by mouth 3 (three) times a day as needed for anxiety 30 tablet 0 budesonide-formoterol (Symbicort) 160-4.5 MCG/ACT inhaler Inhale 2 puffs in the morning and 2 puffs before bedtime. Rinse mouth with water after use to reduce aftertaste and incidence of candidiasis. Do not swallow.. 1 each 11 ibuprofen 800 MG tablet TAKE 1 TABLET BY MOUTH THREE TIMES A DAY WITH FOOD OR MILK NEEDED 90 tablet 3 lisinopril-hydroCHLOROthiazide 20-12.5 MG tablet TAKE 1 TABLET BY MOUTH EVERY DAY FOR 90 DAYS 90 tablet 3 ondansetron ODT (Zofran-ODT) 4 MG disintegrating tablet Take 1 tablet (4 mg) by mouth Daily as needed for nausea or vomiting 20 tablet 2 pregabalin (Lyrica) 50 MG capsule TAKE 1 CAPSULE BY MOUTH FOUR TIMES A DAY 120 capsule 0 [DISCONTINUED] [facility] Allergy Relief D 5-120 MG 12 hr tablet Take 1 tablet by mouth in the morning and 1 tablet before bedtime. No current facility-administered medications on file prior to visit. I have reviewed and reconciled the history and medication list with the patient today. Allergies Allergen Reactions Amoxicillin-Pot Clavulanate Other Reaction(s): Cramping, Diarrhea Montelukast Nausea Only Oxycodone-Acetaminophen Dizziness Social History Tobacco Use Smoking status: Some Days Current packs/day: 0.00 Average packs/day: 0.5 packs/day for 44.5 years (22.2 ttl pk-yrs) Types: Cigarettes Start date: 07/07/1978 Last attempt to quit: 01/01/2023 Years since quittin.3 Passive exposure: Current Smokeless tobacco: Never Vaping Use Vaping status: Never Used Substance Use Topics Alcohol use: Not Currently Alcohol/week: 2.0 standard drinks of alcohol Types: 2 Standard drinks or equivalent per week Comment: Caffeine intake : 2-3 cups per day coffee Drug use: Never Family History Problem Relation Name Age of Onset Hypertension Mother No Cancer Mother No Aneurysm Father Cancer Father No Known Problems Sister No Known Problems Brother Past Medical History: Diagnosis Date Allergic Anxiety Arthritis Asthma (CMS/HCC) Bartholin's cyst Bronchitis Calculus of gallbladder Calculus of gallbladder and bile duct w/cholecystitis w/o obstruction Cancer (CMS/HCC) breast Carpal tunnel syndrome of right wrist Cataract Cholelithiasis 02/2022 Chronic bronchitis (CMS/HCC) Complex regional pain syndrome affecting both upper arms COVID-19 07/07/2021 Ectopic Hypertension (CMS/HCC) Paresthesia of hand, bilateral Raynaud's disease without gangrene Vertigo as late effectof cerebrovascular disease Past Surgical History: Procedure Laterality Date BREAST LUMPECTOMY Left 2011 CATARACT EXTRACTION Bilateral 03/2019 CERVICAL LAMINECTOMY 2017 with bilateral foraminotomies C3 through C6 Posterior fusion iwth insrumentation C3-4 Dr. Felix Howard SECTION, LOW TRANSVERSE 1981 OTHER SURGICAL HISTORY marsupilization;Disease:bartholom ew cyst NM LAP,CHOLECYSTECTOMY 03/16/2022 with cholangiography SALPINGECTOMY Visit Vitals BP 126/84 Pulse 90 Temp 97.4 F Resp 16 Ht 5' 5 Wt 114 lb 6.4 oz SpO2 99% BMI 19.04 kg/m Smoking Status Some Days BSA 1.54 m Review of Systems Constitutional: Negative for chills, fatigue and fever. HENT: Positive for congestion, ear pain, postnasal drip, rhinorrhea, sinus pressure and sinus pain. Negative for sore throat. Respiratory: Positive for cough and stridor. Negative for shortness of breath and wheezing. Cardiovascular: Negative for chest pain, palpitations and leg swelling. Gastrointestinal: Negative for abdominal pain, constipation, diarrhea, nausea and vomiting. Neurological: Positive for headaches. Objective Physical Exam Constitutional: General: She is not in acute distress. Appearance: Normal appearance. She is well-developed. HENT: Head: Normocephalic and atraumatic. Right Ear: Ear canal normal. Tympanic membrane is retracted. Left Ear: Tympanic membrane and ear canal normal. Nose: Congestion present. Right Turbinates: Swollen. Left Turbinates: Swollen. Right Sinus: Frontal sinus tenderness present. Left Sinus: Frontal sinus tenderness present. Mouth/Throat: Mouth: Mucous membranes are moist. Pharynx: Posterior oropharyngeal erythema present. Eyes: General: No scleral icterus. Conjunctiva/sclera: Conjunctivae normal. Cardiovascular: Rate and Rhythm: Normal rate and regular rhythm. Heart sounds: Normal heart sounds. No murmur heard. Pulmonary: Effort: Pulmonary effort is normal. No respiratory distress. Breath sounds: Decreased air movement present. No wheezing, rhonchi or rales. Comments: Occasional dry cough Lymphadenopathy: Cervical: No cervical adenopathy. Skin: General: Skin is warm and dry. Neurological: General: No focal deficit present. Mental Status: She is alert and oriented to person, place, and time. Psychiatric: Mood and Affect: Mood normal. Behavior: Behavior normal. Assessment/Plan Diagnoses and all orders for this visit: Benign essential hypertension (CMS/HCC) Patient's blood pressure is currently well controlled. Continue with current medications and I will continue to monitor. Goal BP remains less than 130/80. Anxiety state (CMS/HCC) This is a chronic medical condition that is stable since last assessment. No changes in treatment are suggested at this time. Hypercholesteremia (CMS/HCC) Lipid panel ordered for pt to have completed today as she is fasting. Chronic bronchitis, unspecified chronic bronchitis type (CMS/HCC) - azithromycin (Zithromax) 250 MG tablet; Take 2 tablets (500 mg) by mouth Daily for 1 day, THEN 1 tablet (250 mg) Daily for 4 days. - predniSONE (Deltasone) 10 MG tablet; Take 1 tablet (10 mg) by mouth 2 (two) times a day for 5 days, THEN 1 tablet (10 mg) Daily for 5 days. Take with food. Start the above medications as directed. Advised of potential side effects of the steroid. Patient is to take the steroid with food. Increase water intake, get plenty of rest. Can take Tylenol prn for any discomfort or fever. No other anti-inflammatories while on steroid. Cough into elbow. Wash hands often. Follow up in our office if no improvement in one week. Acute non-recurrent frontal sinusitis - azithromycin (Zithromax) 250 MG tablet; Take 2 tablets (500 mg) by mouth Daily for 1 day, THEN 1 tablet (250 mg) Daily for 4 days. See above. Tobacco dependence Is down to 4 cigarettes a day. Encouraged her to continue to cut back and soon quit smoking. Follow up in about 5 months (around 10/11/2024) for Medicare Wellness Visit. documented in this encounter [facility] 04-16-2024 Telephone encounter Note Appt scheduled [facility] 04-16-2024 Miscellaneous Notes Appt scheduled Please help pt get set up for a medication follow up appointment. She cancelled her appt in December. This is her last refill until seen. OARRS reviewed, Rx sent into patient's pharmacy. documented in this encounter [facility] 04-16-2024 Telephone encounter Note Please help pt get set up for a medication follow up appointment. She cancelled her appt in December. This is her last refill until seen. OARRS reviewed, Rx sent into patient's pharmacy. [facility] 03-12-2024 History of Present illness Narrative Images from the original note were not included. Lesions: Location: right abdomen Duration: couple of years Quality: painful at times Modifying factors: rubs on clothing Associated symptoms: non-healing Treatments: none Lesion #2: Location: right neck Duration: couple of years Quality: painful at times Modifying factors: aggravated by picking Associated symptoms: non-healing Treatments: none New patient All pertinent medical history, medications, and allergies were reviewed. General Exam: alert, oriented to person, place, and time, normal affect, well appearing Unaccompanied A focused exam completed based on patient reported problems, see below: 1. Inflamed seborrheic keratosis (2) Right Breast, Right Neck Inflamed seborrheic keratoses: pink and brown stuck on verrucous scaly papule with surrounding erythema and bloody crust. The patient was informed that symptomatic seborrheic keratoses are benign growths that become inflamed, itchy, tender, traumatized, caught on clothing, or bleed. Symptomatic lesions can be treated with cryotherapy or curretage. Thicker lesions treated with cryotherapy may require more than one treatment. The patient was instructed to notify the office if abnormal redness or tenderness develops at the treatment site. Cryotherapy today, see procedure note. Diagnosis: Inflamed seborrheic keratosis Indication: Inflamed Consent: Verbal consent was obtained and risks were discussed, including, but not limited to risks of scarring, darker or master ocean yacht pigmentary changes, recurrence, incomplete removal and infection. Method: Liquid nitrogen was used to treat the lesion(s) with two 5-10 second freeze-thaw cycles Number of lesions treated: 2 Post-procedure instructions: Instructions were given orally and in writing. The office will be contacted if the lesion fails to resolve despite treatment, or if a side effect develops such as abnormal crusting, scabbing, redness or tenderness Cryotherapy, skin lesion - Right Breast, Right Neck 2. Neoplasm of unspecified behavior of bone, soft tissue, and skin Right Abdomen - Lower Hyperkeratotic papule Lesion biopsy Type of biopsy: tangential Informed consent: discussed and consent obtained Informed consent comment: The risks and benefits of the biopsy were discussed. Risks include but are not limited to bleeding, infection, scarring, pain, and nerve damage. An opportunity to ask questions prior to the procedure was permitted and all questions were answered. Patient was prepped and draped in usual sterile fashion: area cleansed with alcohol. Anesthesia: the lesion was anesthetized in a standard fashion Anesthetic: 1% lidocaine w/ epinephrine 1-100,000 buffered w/ 8.4% NaHCO3 Instrument used: DermaBlade Hemostasis achieved with: electrodesiccation Outcome: patient tolerated procedure well Outcome comment: The specimen was placed in a prelabeled formalin container to be sent for pathology Post-procedure details: sterile dressing applied and wound care instructions given Post-procedure details comment: Emphasized need to contact clinic for any signs of infection, uncontrollable bleeding, or complications. Dressing type: bandage Additional details: Photo taken yes Amount of lidocaine used: 1.0 cc Specimen A - Dermatopathology exam Differential Diagnosis: dermatofibroma vs other Check Margins: No Size of lesion: 1.9 x 1.0 cm Next Visit: 6 months, skin check, patient states she will call documented in this encounter [facility] 07-04-2023 Telephone encounter Note PT has been sick for over 3 weeks now and said she has took numerous antibiotics and steroids and still not feeling well. She wanted to have an order for a chest xray sent to [facility] if there has been any change. [facility] 07-04-2023 Miscellaneous Notes PT has been sick for over 3 weeks now and said she has took numerous antibiotics and steroids and still not feeling well. She wanted to have an order for a chest xray sent to [facility] if there has been any change. documented in this encounter [facility] Evaluation note No assessment inform ation available [facility] Work Phone: Evaluation note Diagnosis Inflamed seborrheic keratosis- Primary Neoplasm of unspecified behavior of bone, soft tissue, and skin documented in this encounter [facility] HealthcareEvaluation note* Diagnosis Neuropathy of both upper extremities documented in this encounter [facility] HealthcareEvaluation note* Diagnosis Benign essential hypertension (CMS/HCC)- Primary Essential hypertension, benign Anxiety state (CMS/HCC) Anxiety state, unspecified Hypercholesteremia (CMS/HCC) Pure hypercholesterolemia Chronic bronchitis, unspecified chronic bronchitis type (CMS/HCC) Acute non-recurrent frontal sinusitis Tobacco dependence Tobacco use disorder documented in this encounter [facility] Summary Purpose Family History Relationship Condition Age at Onset Recorded Date/T parminder father Malignant neoplasm Unknown Cerebral aneurysm Unknown Not Specified Malignant neoplasm Unknown Hypertension Unknown Advance Directives Advance Directive Response Recorded Date/ Time Advance Directives No March 24, 2018 11:52am Chief Complaint and Reason for Visit Chief Complaint Cholelithiasis Cholelithiasis Additional Source Comments INFORMATION SOURCE (unrecogn ized section and content) DATE CREATED AUTHOR 09/24/2021 [facility] dical Specialist DATE CREATED AUTHOR AUTHOR'S ORGANIZ ATION 07/03/2022 [facility] DATE CREATED AUTHOR AUTHOR'S ORGANIZ ATION 10/11/2022 [facility] DATE CREATED AUTHOR AUTHOR'S ORGANIZ ATION 03/13/2024 [facility] dical Specialists [facility] Care Teams (unrecognized sec tion and content) Team Status: Inactive Member Role Status Dates Uziel Caicedo DO Attending Provider Active JORDON Ceja Primary Care Provider Active Team Status: Active Member Role Status Dates JORDON Ceja Primary Care Provider Active Senior Fund Accountant Relationship Specialty Start Date End Date Lane Swann MD [address] [place] [address] PCP - General Internal Medicine 11/16/22 Lane Swann MD [address] [facility] [address] [place] [address] PCP - Tucker GRAF 05/30/21 Lane Swann MD [address] [place] [address] Internal Medicine 11/16/22 Senior Fund Accountant Relationship Specialty Start Date End Date Lane Swann MD [address] [place] [address] PCP - General Internal Medicine 11/16/22 Lane Swann MD [address] [place] [address] PCP - Devoted 11/28/23 Lane Swann MD [address] [place] [address] Internal Medicine 11/16/22 Senior Fund Accountant Relationship Specialty Start Date End Date Lane Swann MD [address] [place] [address] PCP - General Internal Medicine 11/16/22 Lane Swann MD [address] [place] [address] PCP - Devoted 11/28/23 Lane Swann MD [address] [place] [address] Internal Medicine 11/16/22 Senior Fund Accountant Relationship Specialty Start Date End Date Lane Swann MD [address] [place] [address] PCP - General Internal Medicine 11/16/22 Lane Swann MD [address] [place] [address] PCP - Devoted 11/28/23 Lane Swann MD [address] [place] [address] Internal Medicine 11/16/22 Senior Fund Accountant Relationship Specialty Start Date End Date Lane Swann MD [address] [place] [address] PCP - General Internal Medicine 11/16/22 Lane Swann MD [address] [place] [address] PCP - Devoted 11/28/23 Lane Swann MD [address] [facility] [place] [address] Internal Medicine 11/16/22 Goals (unrecognized section and content) Goals may be documented in a n alternate section Reason for Visit (unrecogniz ed section and content) Reason Comments Suspicious Skin Lesion Reason Comments Med Refill Reason Comments Sinusitis Admits sinus pressur e/pain, headaches, right ear pain, nasal congestion, runny nose, post nasal drainage, cough (dry), SOB. She has had this for a week, She has been taking onion juice and honey for 2 days. FOR RECORDS PERTAINING TO PATIENTS WHO ARE [...] BE BASED ON THE PRIMARY CLINICAL RECORDS. [employer] provides no warranty or guarantee of the accuracy or completeness of information in this document.
[2024-08-08] MEDS: LIDOCAINE/EPINEPHRINE/TETRACAINE 3 ML GEL.PF.APP 1.5 ML TOPICAL (13:35)
--- NOTE | 2024-08-08 13:38 | PC.NURSE ---
pt request a female DR and a female nurse. ER DR applied Let to area at this time.
--- NOTE | 2024-08-08 14:26 | ED_ITS ---
HPI HPI - General Adult General Chief complaint: Skin/Abscess/Foreign Body Stated complaint: POSSIBLE BOIL LEFT LEG Time Seen by Provider: 08/08/24 13:21 Source: patient Mode of arrival: walk-in History of Present Illness HPI narrative: Patient presents to ED complaining of a bump on her labia. She said it started out as some tenderness and redness and now has grown. She said she has had a history of boils in the past and knew it seems similar. She said she thinks it needs lanced. It has not been draining yet. She said she does not really shave and she is not exactly sure how she got this infection. She has had no fevers no vomiting. She is alert and oriented in no acute distress. She said it is starting to rub on her clothing and become uncomfortable. No other complaints at this time Related Data Home Medications ?Medication ?Instructions ?Recorded ?Confirmed albuterol sulfate 90 mcg/actuation 2 inh inhalation Q6H PRN shortness 12/03/22 02/28/23 aerosol inhaler of breath or wheezing lisinopril 20 1 tab PO DAILY 12/03/22 02/28/23 mg-hydrochlorothiazide 12.5 mg tablet pregabalin 50 mg capsule 150 mg PO TID 12/03/22 02/28/23 Previous Rx's ?Medication ?Instructions ?Recorded azithromycin 250 mg tablet See Rx Instructions PO .COMPLEX #6 02/28/23 (Zithromax Z-Omar) tabs cetirizine 5 mg-pseudoephedrine ER 1 tab PO BID #10 tabs 02/28/23 120 mg tablet,extended release,12hr (Zyrtec-D) methylprednisolone 4 mg tablets in See Rx Instructions .Route 02/28/23 a dose pack (Medrol (Omar)) .COMPLEX #21 ea ondansetron 4 mg disintegrating 4 mg PO Q6H PRN nausea and 02/28/23 tablet vomiting #12 tabs doxycycline hyclate 100 mg capsule 100 mg PO BID 10 days #20 caps 06/24/23 prednisone 10 mg tablet See Rx Instructions .Route 06/24/23 .COMPLEX #30 tabs tizanidine 2 mg capsule 2 mg PO BID PRN muscle spasm #10 08/15/23 caps benzonatate 100 mg capsule 100 mg PO TID PRN cough #20 caps 10/09/23 sulfamethoxazole 800 1 tab PO BID 10 days #20 tabs 10/09/23 mg-trimethoprim 160 mg tablet (Bactrim DS) amoxicillin 875 mg-potassium 1 tab PO BID #14 tabs 08/08/24 clavulanate 125 mg tablet Allergies Allergy/AdvReac Type Severity Reaction Status Date / Time oxycodone (From Percocet) Allergy Unknown Verified 02/28/23 13:31 Opioid HPI Opioid Management Most Recent Opioid Data: Last Pain Scale 8 08/15/23 12:10 08/15/23 Review of Systems ROS Status of ROS 10 or more systems reviewed and unremark able except as noted in history and below PFSH PFS Social History Smoking status: Current every day smoker Little interest or pleasure in doing things: not at all Feeling down, depressed, or hopeless: not at all Exam Narrative Exam Narrative: General: alert, no acute distress Cardiovascular: regular rate and rhythm, normal peripheral perfusion. Respiratory: Lungs CTA, respirations non labored. Extremities: no deformity, no trauma. Neurological: oriented x 4, LOC appropriate for age. Small abscess on the left labia Constitutional Vital Signs, click to edit/add: Last Vital Signs Temp 98.5 F 08/08/24 13:17 Pulse 93 H 08/08/24 13:17 Resp 20 08/08/24 13:17 BP 132/73 08/08/24 13:17 Pulse Ox 97 08/08/24 13:17 O2 Del Method Room Air 08/08/24 13:17 Course Vital Signs Vital signs: Vital Signs Temperature 98.5 F 08/08/24 13:17 Pulse Rate 93 H 08/08/24 13:17 Respiratory Rate 20 08/08/24 13:17 Blood Pressure 132/73 08/08/24 13:17 Pulse Oximetry 97 08/08/24 13:17 Oxygen Delivery Method Room Air 08/08/24 13:17 Temperature 98.5 F 08/08/24 13:17 Pulse Rate 93 H 08/08/24 13:17 Respiratory Rate 20 08/08/24 13:17 Blood Pressure 132/73 08/08/24 13:17 Pulse Oximetry 97 08/08/24 13:17 Oxygen Delivery Method Room Air 08/08/24 13:17 Medical Decision Making MDM Narrative Medical decision making narrative: Patient had an abscess and an I&D was performed here in ED. A large amount of pus was removed. Patient tolerated well. Patient was feeling much better after drainage. She will go home on antibiotics. She said amoxicillin is what she tolerates best. Keep an eye on the area if increased swelling redness or pain or fevers please return to ED otherwise follow-up outpatient. Patient comfortable with care plan for home. Differential Diagnosis Differential Diagnosis: Abscess, cellulitis, Discharge Plan Discharge Chief Complaint: Skin/Abscess/Foreign Body Clinical Impression: Abscess of skin or subcutaneous tissue Patient Disposition: Home, Self-Care Time of Disposition Decision: 14:47 Condition: Good Mode of Transportation: Private Vehicle Prescriptions / Home Meds: New amoxicillin-pot clavulanate 875-125 mg tablet 1 tab PO BID Qty: 14 0RF No Action lisinopril-hydrochlorothiazide 20-12.5 mg tablet 1 tab PO DAILY albuterol sulfate 90 mcg/actuation HFA aerosol inhaler 2 inh INHALATION Q6H PRN (Reason: shortness of breath or wheezing) pregabalin 50 mg capsule 150 mg PO TID tizanidine 2 mg capsule 2 mg PO BID PRN (Reason: muscle spasm) Qty: 10 0RF cetirizine-pseudoephedrine [Zyrtec-D] 5-120 mg tablet extended release 12 hr 1 tab PO BID Qty: 10 0RF azithromycin [Zithromax Z-Omar] 250 mg tablet See Rx Instructions .ROUTE .COMPLEX Qty: 6 0RF Rx Instructions: For 250 mg dose pack: take 500 mg today (day 1), then 250 mg for 4 days (days 2-5) methylprednisolone [Medrol (Omar)] 4 mg tablets,dose pack See Rx Instructions .ROUTE .COMPLEX Qty: 21 0RF Rx Instructions: Taper as directed ondansetron 4 mg tablet,disintegrating 4 mg PO Q6H PRN (Reason: nausea and vomiting) Qty: 12 0RF prednisone 10 mg tablet See Rx Instructions .ROUTE .COMPLEX Qty: 30 0RF Rx Instructions: 4 by mouth daily for three days then 3 by mouth daily for three days then 2 by mouth daily for three days then 1 by mouth daily for three days doxycycline hyclate 100 mg capsule 100 mg PO BID 10 Days Qty: 20 0RF sulfamethoxazole-trimethoprim [Bactrim DS] 800-160 mg tablet 1 tab PO BID 10 Days Qty: 20 0RF benzonatate 100 mg capsule 100 mg PO TID PRN (Reason: cough) Qty: 20 0RF Print Language: Monegasque Instructions: Abscess (ED), Abscess Incision and Drainage (DC) Referrals: JANICE GARNER [Primary Care Provider] - 1 week Procedures ED ID Incision & Drainage I&D Type: abcess Site: other (Left labia) Side (if applicable): left Sedation/analgesia: none Anesthetic used: with epi Technique: incised with #11 blade Amount of fluid (mL): 4 Irrigation: No Packing used: none Complications: other (No complications)
[2024-08-08] MEDS: LIDOCAINE HCL 2%-EPINEPHRINE 1:200,000 20 ML MDV 10 ML INJ (14:30)
== END 2024-08-08 14:59 | disposition home or self-care (01) ==
PROVIDERS: Emergency Provider Emergency Medicine; PCP Internal Medicine
DX: N76.4 Abscess of vulva (principal); F17.200 Nicotine dependence, unspecified, uncomplicated
CPT/HCPCS: 56405; 99283

== ENCOUNTER 2024-09-12 08:08 | Emergency (ER) | payer OTHER, SELFPAY ==
[2024-09-12] VITALS (17 sets, daily range): BP systolic 122–146; BP diastolic 73–97; PULSE 60–72; TEMP 36.6; O2SAT 98–100; BMI 22.4
--- NOTE | 2024-09-12 08:19 | XR_ITS ---
The [place] [id number] Patient Name: KARIN ALAN MRN: [id number] date: 1950 Sex: F Assigned Patient Location: ER Current Patient Location: ED.MAIN Accession/Order Number: [id number] Exam Date: 09/12/2024 08:58 Report Date: 09/12/2024 09:02 At the request of: CAYETANO BRADEN DO Procedure: XR chest 1V PORTABLE P ERECT CHEST 0845 hours CLINICAL HISTORY: dizziness COMPARISON: 06/24/2023 The heart is within normal limits. The hilar and mediastinal contours are stable. There is no vascular congestion. Lungs are hyperinflated. There is minor scarring or atelectasis. No developing consolidation is noted. There is no effusion or pneumothorax. The osseous structures are intact. Endplate spurring is seen XR/XR chest 1V IMPRESSION: SIMILAR MILD CHRONIC CHANGES. NO ACUTE FINDINGS Impression dictated by: Cynthia Paige M.D.09/12/2024 9:02 AM Dictation Location: [place] [address] Electronically authenticated by: [id number] Y Date: 09/12/2024 09:02
--- NOTE | 2024-09-12 08:19 | CT_ITS ---
The [address] [address] Patient Name: KARIN ALAN MRN: [id number] date: 1950 Sex: F Assigned Patient Location: ER Current Patient Location: .[facility] Accession/Order Number: [id number] Exam Date: 09/12/2024 09:03 Report Date: 09/12/2024 09:07 At the request of: CAYETANO BRADEN DO Procedure: CT head/brain wo con CT BRAIN WITHOUT CONTRAST: CLINICAL HISTORY: dizzy vertigo COMPARISON: None TECHNIQUE: Contiguous axial unenhanced images were obtained through the brain. This CT exam was performed using one or more following dose reduction techniques: Automated exposure control, adjustment of the mA and/or kV according to patient size, or use of iterative reconstruction technique. FINDINGS: There is generalized atrophy. The ventricles are normal in size and position. Mild white matter hypodensity is present suggesting chronic microvascular disease. There are no additional areas of abnormal attenuation. There is no hemorrhage, mass effect or extra-axial collections. The imaged paranasal sinuses and mastoid air cells are clear. There is carotid siphon and vertebral artery plaque. CT/CT head/brain wo con IMPRESSION: ATROPHY AND CHRONIC MICROVASCULAR CHANGES. NO ACUTE INTRACRANIAL ABNORMALITY. Impression dictated by: Cynthia Paige M.D.09/12/2024 9:07 AM Dictation Location: [place] [address] Electronically authenticated by: [id number] Y Date: 09/12/2024 09:07
--- NOTE | 2024-09-12 08:19 | ECG_ITS ---
The [facility] Test Date: 2024-09-12 Pat Name: KARIN ALAN Department: Room: - Gender: Female Pharmacy Helper: : 1950 Requested By: [id number] Order Number: [id number] Reading MD: ROLAND ROGERS M.D. Measurements Intervals [place] Rate: 62 P: 106 CT: 152 QRS: 105 QRSD: 86 T: 96 QT: 416 QTc: 421 Interpretive Statements 1100 Sinus rhythm 2420 RSR (QR) in lead V1/V2, consistent with right ventricular conduction delay 7100 Abnormal right axis deviation 0101 Possible arm leads reversed, check lead requested 9130 borderline ECG Compared to ECG 12/03/2022 15:08:29 Right-axis deviation now present Electronically Signed On 09-12-2024 21:14:34 EDT by ROLAND ROGERS M.D.
--- NOTE | 2024-09-12 08:22 | ED.DIZZY1 ---
HPI - Dizziness General Chief Complaint: Dizziness Stated Complaint: general weakness Time Seen by Provider: 09/12/24 08:09 Mode of arrival: ambulance Limitations: no limitations History of Present Illness HPI Narrative: Patient presents to ED complaining of dizziness. She has a history of vertigo but states when she got up this morning it was much worse than normal. Patient states she could not even sit up without severe dizziness and feeling like she had to hold onto everything. She denies chest pain or shortness of breath. No headache no visual changes. Patient denies any numbness tingling or weakness in her extremities. Patient does admit to being more congested than normal and she said she has had some ear pain worse on the right feels like she had fluid in her ears and sinus congestion recently. She also reports a cough but states that is chronic. She said she is able to cough things up in the morning and that is typical for her. She is a smoker. She has a history of COPD as well. Patient is alert and oriented and answering questions appropriately. Related Data Home Medications ?Medication ?Instructions ?Recorded ?Confirmed albuterol sulfate 90 mcg/actuation 2 inh inhalation Q6H PRN shortness 12/03/22 02/28/23 aerosol inhaler of breath or wheezing lisinopril 20 1 tab PO DAILY 12/03/22 02/28/23 mg-hydrochlorothiazide 12.5 mg tablet pregabalin 50 mg capsule 150 mg PO TID 12/03/22 02/28/23 Previous Rx's ?Medication ?Instructions ?Recorded azithromycin 250 mg tablet See Rx Instructions PO .COMPLEX #6 02/28/23 (Zithromax Z-Omar) tabs cetirizine 5 mg-pseudoephedrine ER 1 tab PO BID #10 tabs 02/28/23 120 mg tablet,extended release,12hr (Zyrtec-D) methylprednisolone 4 mg tablets in See Rx Instructions .Route 02/28/23 a dose pack (Medrol (Omar)) .COMPLEX #21 ea ondansetron 4 mg disintegrating 4 mg PO Q6H PRN nausea and 02/28/23 tablet vomiting #12 tabs doxycycline hyclate 100 mg capsule 100 mg PO BID 10 days #20 caps 06/24/23 prednisone 10 mg tablet See Rx Instructions .Route 06/24/23 .COMPLEX #30 tabs tizanidine 2 mg capsule 2 mg PO BID PRN muscle spasm #10 08/15/23 caps benzonatate 100 mg capsule 100 mg PO TID PRN cough #20 caps 10/09/23 sulfamethoxazole 800 1 tab PO BID 10 days #20 tabs 10/09/23 mg-trimethoprim 160 mg tablet (Bactrim DS) amoxicillin 875 mg-potassium 1 tab PO BID #14 tabs 08/08/24 clavulanate 125 mg tablet amoxicillin 875 mg-potassium 1 tab PO BID 7 days #14 tabs 09/12/24 clavulanate 125 mg tablet meclizine 25 mg tablet 25 mg PO BID PRN dizziness #20 tabs 09/12/24 Allergies Allergy/AdvReac Type Severity Reaction Status Date / Time oxycodone (From Percocet) Allergy Unknown Verified 02/28/23 13:31 Review of Systems ROS Status of ROS 10 or more systems reviewed and unremarkable except as noted in history and below PFSH PFS Social History Smoking status: Current every day smoker Little interest or pleasure in doing things: not at all Feeling down, depressed, or hopeless: not at all Exam Narrative Exam Narrative: Time Seen: [] Vital Signs: [Per nurse's notes.] General: [Alert] Skin: [Warm, dry, no rash.] Head: [Normocephalic, atraumatic.] Neck: [Supple, trachea midline.] Eye: [Pupils are equal, round and reactive to light, extraocular movements are intact, normal conjunctiva.] Ears, nose, mouth and throat: oral mucosa moist. TMs slightly occluded with wax bilaterally. Right TM is slightly erythematous. Cardiovascular: [Regular rate and rhythm, no murmur.] Respiratory: [Lungs are clear to auscultation, respirations are non-labored, breath sounds are equal.] Chest wall: [No tenderness, no deformity.] Gastrointestinal: [Soft, nontender, non distended, normal bowel sounds.] MSK: 5 out of 5 muscle strength x 4 extremities no calf pain or edema Lymphatics: [No lymphadenopathy.] Psychiatric: [Cooperative, appropriate mood & affect.] Neurological: [Alert and oriented to person, place, time, and situation, no focal neurological deficit observed.] Constitutional Vital Signs, click to edit/add: Last Vital Signs Temp 97.8 F 09/12/24 08:12 Pulse 61 09/12/24 09:20 Resp 19 09/12/24 09:20 BP 127/76 09/12/24 10:00 Pulse Ox 98 09/12/24 10:00 O2 Del Method Room Air 09/12/24 08:12 Course Vital Signs Vital signs: Vital Signs Temperature 97.8 F 09/12/24 08:12 Pulse Rate 68 09/12/24 08:12 Respiratory Rate 18 09/12/24 08:12 Blood Pressure 122/97 H 09/12/24 08:12 Pulse Oximetry 98 09/12/24 08:12 Oxygen Delivery Method Room Air 09/12/24 08:12 Temperature 97.8 F 09/12/24 08:12 Pulse Rate 61 09/12/24 09:20 Respiratory Rate 19 09/12/24 09:20 Blood Pressure 127/76 09/12/24 10:00 Pulse Oximetry 98 09/12/24 10:00 Oxygen Delivery Method Room Air 09/12/24 08:12 MDM - Dizziness MDM Narrative Medical decision making narrative: Patient is feeling better after some fluids and meclizine. She was able to ambulate to the bathroom and back. She still does have some mild dizziness but it is much improved. CT brain negative for acute findings. Labs are negative for acute findings. COVID and flu are negative. Patient states she takes a decongestant every day. She does have a red ear on examination on the right as well as pain in that ear which could be increasing her vertigo. Patient will be sent home with a prescription for meclizine and antibiotic for her ear. Return to ED if worsening symptoms otherwise follow-up outpatient. Patient expresses understanding and is comfortable with care plan for home Differential Diagnosis Differential diagnosis: Likely benign paroxysmal positional vertigo, orthostatic hypotension, vertebral basilar insufficiency, cerebrovascular accident, acute vestibular neuronitis and transient cerebral ischemia Medical Records Attestation: I reviewed the patient's medical records. Lab Data Attestation: I reviewed the patient's lab results. Labs: Lab Results 09/12/24 09/12/24 09/12/24 Range/Units 08:22 08:58 09:35 WBC 8.9 (4.0-11.0) 10^3/uL RBC 5.04 (4.20-5.40) 10^6/uL Hgb 15.3 (12.0-16.0) g/dL Hct 44.8 (36.0-48.0) % MCV 88.9 (81.0-99.0) fL MCH 30.4 (26.7-34.0) pg MCHC 34.2 (29.9-35.2) g/dL RDW 14.3 (11.0-15.0) % Plt Count 218 (150-450) 10^3/uL MPV 11.1 (9.5-13.5) fL Neut % (Auto) 64.4 (43.0-75.0) % Lymph % (Auto) 25.4 (20.5-60.0) % [place] % (Auto) 7.7 (1.7-12.0) % Eos % (Auto) 1.6 (0.9-7.0) % Baso % (Auto) 0.6 (0.2-2.0) % Neut # (Auto) 5.7 (1.4-6.5) 10^3/uL Lymph # (Auto) 2.3 (1.2-3.8) 10^3/uL [place] # (Auto) 0.7 (0.3-0.8) 10^3/uL Eos # (Auto) 0.1 (0.0-0.7) 10^3/uL Baso # (Auto) 0.1 (0.0-0.1) 10^3/uL Abs Immat Gran (auto) 0.03 (0.00-0.03) 10^3/uL Imm/Tot Granulo (auto) 0.3 (0.0-0.5) % Sodium 142 (136-145) mmol/L Potassium 3.6 (3.5-5.1) mmol/L Chloride 107 (98-107) mmol/L Carbon Dioxide 26.9 (21.0-32.0) mmol/L Anion Gap 11.7 BUN 8.0 (7.0-18.0) mg/dL Creatinine 0.69 (0.55-1.02) mg/dL Est GFR ( Amer) >60 (>=60 mL/min/1.73m^2) Est GFR (Non-Af Amer) >60 (>=60 mL/min/1.73m^2) BUN/Creatinine Ratio 11.6 Glucose 93 (74-106) mg/dL Calcium 9.0 (8.5-10.1) mg/dL Total Bilirubin 0.7 (0.2-1.0) mg/dL AST 16 (15-37) U/L ALT 20 (14-59) U/L Alkaline Phosphatase 75 (46-116) U/L Troponin I High Sens 9.4 (4.0-51.3) pg/mL Total Protein 6.3 L (6.4-8.2) g/dL Albumin 3.5 (3.4-5.0) g/dL Globulin 2.8 g/dL Albumin/Globulin Ratio 1.2 Urine Color Lt. yellow (YELLOW) Urine Clarity Clear (CLEAR) Urine pH 7.5 (5.0-9.0) Ur Specific [place] 1.010 (1.005-1.025) Urine Protein Negative (NEG/TRACE) mg/dL Urine Glucose (UA) Negative (NEGATIVE) mg/dL Urine Ketones Negative (NEGATIVE) mg/dL Urine Occult Blood Negative (NEGATIVE) Urine Nitrite Negative (NEGATIVE) Urine Bilirubin Negative (NEGATIVE) Urine Urobilinogen 0.2 (0.2-1.0) EU/dL Ur Leukocyte Esterase Negative (NEGATIVE) Influenza Type A Ag Negative Influenza Type B Ag Negative SARS-CoV-2 Ag (CV2AG) Negative (NEGATIVE) Imaging Data CT scan - head: Radiologist's impression: ITS Impressions Chest X-Ray 09/12/24 08:19 IMPRESSION: SIMILAR MILD CHRONIC CHANGES. NO ACUTE FINDINGS Impression dictated by: Cynthia Paige M.D.09/12/2024 9:02 AM Dictation Location: [place] [address] Electronically authenticated by: [id number] Y Date: 09/12/2024 09:[address] 09/12/24 08:19 IMPRESSION: ATROPHY AND CHRONIC MICROVASCULAR CHANGES. NO ACUTE INTRACRANIAL ABNORMALITY. Impression dictated by: Cynthia Paige M.D.09/12/2024 9:07 AM Dictation Location: [place] [address] Electronically authenticated by: [id number] Y Date: 09/12/2024 09:07 ECG Data Attestation: I personally reviewed and interpreted this ECG as follows: Interpretation: EKG INTERPRETATION Time: [] 814 Rate: [] 62 Rhythm: _ [] Normal sinus rhythm ST segments: _ [] No acute ST elevation or depression T waves: _ [] Ectopy: _ [] P wave/NE interval: _ [] QRS interval: _ [] QT interval: _ [] Comparison: _ [] Comparison EKG date: [] Performed by: [self] right axis deviation Discharge Plan Discharge Chief Complaint: Dizziness Clinical Impression: Vertigo, Otitis media Patient Disposition: Home, Self-Care Time of Disposition Decision: 10:00 Condition: Good Mode of Transportation: Private Vehicle Prescriptions / Home Meds: New meclizine 25 mg tablet 25 mg PO BID PRN (Reason: dizziness) Qty: 20 0RF amoxicillin-pot clavulanate 875-125 mg tablet 1 tab PO BID 7 Days Qty: 14 0RF No Action lisinopril-hydrochlorothiazide 20-12.5 mg tablet 1 tab PO DAILY albuterol sulfate 90 mcg/actuation HFA aerosol inhaler 2 inh INHALATION Q6H PRN (Reason: shortness of breath or wheezing) pregabalin 50 mg capsule 150 mg PO TID tizanidine 2 mg capsule 2 mg PO BID PRN (Reason: muscle spasm) Qty: 10 0RF amoxicillin-pot clavulanate 875-125 mg tablet 1 tab PO BID Qty: 14 0RF cetirizine-pseudoephedrine [Zyrtec-D] 5-120 mg tablet extended release 12 hr 1 tab PO BID Qty: 10 0RF azithromycin [Zithromax Z-Omar] 250 mg tablet See Rx Instructions .ROUTE .COMPLEX Qty: 6 0RF Rx Instructions: For 250 mg dose pack: take 500 mg today (day 1), then 250 mg for 4 days (days 2-5) methylprednisolone [Medrol (Omar)] 4 mg tablets,dose pack See Rx Instructions .ROUTE .COMPLEX Qty: 21 0RF Rx Instructions: Taper as directed ondansetron 4 mg tablet,disintegrating 4 mg PO Q6H PRN (Reason: nausea and vomiting) Qty: 12 0RF prednisone 10 mg tablet See Rx Instructions .ROUTE .COMPLEX Qty: 30 0RF Rx Instructions: 4 by mouth daily for three days then 3 by mouth daily for three days then 2 by mouth daily for three days then 1 by mouth daily for three days doxycycline hyclate 100 mg capsule 100 mg PO BID 10 Days Qty: 20 0RF sulfamethoxazole-trimethoprim [Bactrim DS] 800-160 mg tablet 1 tab PO BID 10 Days Qty: 20 0RF benzonatate 100 mg capsule 100 mg PO TID PRN (Reason: cough) Qty: 20 0RF Print Language: Tamazight Instructions: Vertigo (ED), Dizziness (ED) Referrals: JANICE GARNER [Physician] - 1 week Discharge Date/Time: 09/12/24 10:27 Procedures ED Procedure Instructions Procedures Procedures: NIH stroke scale: Date/Time: [] Level of consciousness: _0 Current month and age: _0 Open and close eyes/investment officer release hand: _0 Best gaze: _0 Visual field testing: _0 Facial paresis: _0 Motor function left arm: _0 Motor function right arm: _0 Motor function left leg: _0 Motor function right leg: _0 Limb ataxia: _0 Sensory: _0 Best language: _0 Extinction and inattention: _0 Total Score: [] 0 (severe deficit > 22) Notes: [] No acute neurological deficits found on NIH scale
[2024-09-12 08:45] LABS: Influenza Virus A Antigen Negative; Influenza Virus B Antigen Negative; Internal Control Within Normal Limits; SARS-CoV-2 Ag NEGATIVE (NEGATIVE)
[2024-09-12] MEDS: MECLIZINE HCL 12.5 MG TABLET 25 MG PO (08:49)
[2024-09-12] MEDS: 0.9 % SODIUM CHLORIDE 1,000 ML 1000 ML IV (08:49)
--- OUTSIDE RECORDS SUMMARY | 2024-09-12 09:00 | XMS_ITS | CCD ---
Author Organization [facility] [place] [facility] Care Team Providers Care [employer] Supervisor Name Role Phone DO Uziel Caicedo Attending Provider JORDON Jose Primary Care Provider [phone] Cynthia Jose Primary Care Unavailable Uziel Caicedo Attending Unavailable Uziel Caicedo Admitting Unavailable Uziel Caicedo Attending Unavailable Cynthia [...] Unavailable Lane Swann MD Primary Care Provider [phone] Swann MD Unavailable Lane Swann MD Unavailable [phone] KAMILAH ONEILL Attending Unavailable CYNTHIA JOSE Attending Unavailable HEMCYNTHIA YONUG Attending Unavailable HEMHECTOR, CYNTHIA Cohn Attending Unavailable FELTER, PRECIOUS A Attending Unavailable Lane Swann MD Unavailable Zohra Somers LPN Unavailable Unavailable Allergies Allergy Classification Reported Allergen(s) Allergy Type Date of Onset Reaction(s) Facility (2 sources) Acetaminophen; Translations: [acetaminophen] Drug Allergy 2 Dizziness [facility] (2 sources) Amoxicillin; Translations: [amoxicillin] Drug Allergy 2 Diarrhea [facility] (2 sources) Clavulanate; Translations: [clavulanic acid] Drug Allergy 2 Diarrhea [facility] (11 sources) montelukast; Translations: [montelukast] Drug Allergy 2 Nausea Only [facility] (2 sources) oxyCODONE; Translations: [oxycodone] Drug Allergy 2 [facility] (1 source) Acetaminophen / oxyCODONE Drug Allergy [facility] (9 sources) Acetaminophen / oxyCODONE Drug Allergy [address] [facility] (9 sources) Amoxicillin-Pot Clavulanate Drug Allergy [address] [facility] Work Phone: (5 sources) Sulfamethoxazole / Trimethoprim Drug Allergy [address] [facility] Work Phone: Medications Current Medications Medication Drug Class(es) Dates Sig (Normalized) Sig (Original) [id number] 200 actuat albuterol 0.09 mg/actuat metered dose inhaler (10 sources) beta2-Adrenergic Agonist Start: 09-14-2023 take 2 [...] 2022 12:00am ALPRAZolam 0.25 mg oral tablet (11 sources) Benzodiazepine Start: 12-29-2023 End: 09-21-2024 take 1 tablet by mouth three times daily as needed for anxiety ALPRAZolam (Xanax) 0.25 MG tablet Indications: Anxiety state (CMS/HCC) Take 1 tablet (0.25 mg) by mouth 3 (three) times a day as needed for anxiety for up to 10 days 30 tablet 09/11/2024 09/21/2024 Active Start: 02-28-2023 take 1 tablet by [...] MG PO Daily March 08, 2022 12:00am amoxicillin 875 mg / clavulanate 125 mg oral tablet (1 source) Penicillin-class Antibacterial Start: 08-08-2024 take 1 tablet by mouth in the morning amoxicillin-clavulanate (Augmentin) 875-125 MG tablet Take 875 mg by mouth in the morning and 875 mg before bedtime. 08/08/2024 Active ascorbic acid 500 mg oral tablet (1 source) Vitamin C Start: 03-08-2022 take 1 tablet by mouth once daily Ascorbic Acid (Vitamin C) (Vitamin C) 500 mg Tablet Active 500 MG PO Daily March 08, 2022 12:00am azithromycin 250 mg oral tablet (2 sources) Macrolide Antimicrobial Start: 05-02-2024 End: 12-08-2024 take 2 tablets by mouth once daily, [...] formoterol fumarate 0.0045 mg/actuat metered dose inhaler (8 sources) Corticosteroid, beta2-Adrenergic Agonist Start: 01-04-2023 End: 01-04-2024 take 2 puff(s) by inhalation in the morning budesonide-formoterol (Symbicort) 160-4.5 MCG/ACT inhaler Indications: Chronic obstructive pulmonary disease, unspecified COPD type (CMS/HCC) Inhale 2 puffs in the morning and 2 puffs before bedtime. Rinse mouth with water after use to reduce aftertaste and incidence of candidiasis. Do not swallow.. 1 each 11 01/04/2023 Active calcium carbonate 500 mg chewable [...] (Other) Start: 02-28-2023 take 1 tablet by uli once in the morning, then take 1 [...] mg / lisinopril 20 mg oral tablet (10 sources) Thiazide Diuretic, Angiotensin Converting Enzyme Inhibitor Start: 08-10-2024 take 1 tablet by mouth once daily lisinopril-hydroCHLOROthiazide 20-12.5 MG tablet Indications: Essential (primary) hypertension (CMS/HCC) TAKE 1 TABLET BY MOUTH EVERY DAY FOR 90 DAYS 90 tablet 3 08/10/2024 Active Start: 08-15-2023 take 1 tablet by uli th once daily lisinopril-hydroCHLOROthiazide 20-12.5 M G tablet Indications: Essential (primary) hypertension (CMS/HCC) TAKE [...] 2022 12:00am ibuprofen 800 mg oral tablet (10 sources) Nonsteroidal Anti-inflammatory Drug Start: 04-09-2024 take [...] 12:00am ondansetron 4 mg disintegrating oral tablet (10 sources) Serotonin-3 Receptor Antagonist Start: 06-22-2024 take 1 tablet by mouth every twenty-four hours as needed for nausea and vomiting and nausea and nausea ondansetron ODT (Zofran-ODT) 4 MG disintegrating tablet Indications: Nausea Take 1 tablet (4 mg) by mouth Daily as needed for nausea or vomiting 20 tablet 2 06/22/2024 Active Start: 03-13-2024 take 1 tablet by uli th every [...] 05/11/2024 Active pregabalin 50 mg oral capsule (11 sources) Start: 06-23-2024 pregabalin (Ly monica) 50 MG capsule Indications: Neuropathy of both upper extremities Take 1 capsule (50 mg) by mouth in the morning and 1 capsule (50 mg) at noon and 1 capsule (50 mg) in the evening and 1 capsule (50 mg) before bedtime. 120 capsule 2 06/23/2024 Active Start: 12-26-2023 End: 04-16-2024 take 1 capsule [...] quadrant pain] Onset: 03-02-2022 Episodic Anxiety disorders (12 sources) Anxiety state; Translations: [Generalized anxiety disorder] Onset: 11-10-2022 11-10-2022 Chronic Chronic obstructive pulmonary disease and bronchiectasis (12 sources) Chronic obstructive pulmonary disease with (acute) exacerbation; Translations: [Chronic obstructive lung disease] Onset: 10-11-2022 01-04-2023 Chronic Disorders of lipid metabolism (11 sources) Hypercholesterolemia; Translations: [Pure hypercholesterolemia, unspecified] Onset: 11-10-2022 11-10-2022 Chronic Diverticulosis and diverticulitis (9 sources) Diverticulosis of sigmoid colon; Translations: [Diverticulosis of large intestine without perforation or abscess without bleeding] Onset: 11-10-2022 11-10-2022 Chronic Essential hypertension (11 sources) Benign essential hypertension; Translations: [Essential (primary) hypertension] Onset: 11-10-2022 11-10-2022 Chronic Late effects of cerebrovascular disease (9 sources) Late effects of cerebrovascular disease; Translations: [Other sequelae following unspecified cerebrovascular disease] Onset: 11-10-2022 11-10-2022 Chronic Malaise and fatigue (9 sources) Fatigue; Translations: [Chronic fatigue, unspecified] Onset: 11-10-2022 11-10-2022 Chronic Menopausal disorders (9 sources) Primary ovarian failure; Translations: [Other primary ovarian failure] Onset: 11-10-2022 11-10-2022 Chronic Neoplasms of unspecified nature or uncertain behavior (2 sources) Neoplastic disease; Translations: [Neoplasm of unspecified behavior of bone, soft tissue, and skin] 03-12-2024 Episodic Nutritional deficiencies (9 sources) Vitamin D deficiency; Translations: [Vitamin D deficiency, unspecified] Onset: 11-10-2022 11-10-2022 Chronic Osteoporosis (9 sources) Osteoporosis; Translations: [Age-related osteoporosis without current pathological fracture] Onset: 04-04-2013 01-04-2023 Chronic Other aftercare (1 source) Other halfway (current) drug therapy; Translations: [[facility] CURRENT DRUG THERAPY] Onset: 10-11-2022 Episodic Other nervous system disorders (9 sources) Bilateral carpal tunnel syndrome; Translations: [Carpal tunnel syndrome, bilateral upper limbs] Onset: 11-10-2022 11-10-2022 Chronic Other nervous system disorders (10 sources) Polyneuropathy; Translations: [Unspecified mononeuropathy of bilateral upper limbs] Onset: 11-10-2022 11-10-2022 Chronic Other skin disorders (2 sources) Inflamed seborrheic keratosis; Translations: [Inflamed seborrheic keratosis] 03-12-2024 Episodic Other upper respiratory disease (9 sources) Allergic rhinitis; Translations: [Allergic rhinitis, unspecified] Onset: 11-10-2022 11-10-2022 Chronic Otitis media and related conditions (9 sources) Bilateral middle ear chronic mucoid otitis media; Translations: [Other chronic nonsuppurative otitis media, bilateral] Onset: 01-04-2023 01-04-2023 Chronic Peripheral and visceral atherosclerosis (8 sources) Atherosclerosis of aorta; Translations: [Atherosclerosis of aorta] Onset: 11-23-2023 11-23-2023 Chronic Residual codes; unclassified (9 sources) Initial insomnia; Translations: [Other insomnia] Onset: 11-10-2022 11-10-2022 Chronic Residual codes; unclassified (1 source) Acquired absence of other specified parts of digestive tract; Translations: [ACQ ABSENCE OTH PART DIGESTV TRACT] Onset: 09-02-2022 Episodic Spondylosis; intervertebral disc disorders; other back problems (18 sources) Cervical spondylosis; Translations: [Other spondylosis with myelopathy, cervical region] Onset: 11-10-2022 11-10-2022 Chronic Substance-related disorders (12 sources) Nicotine dependence, cigarettes, uncomplicated; Translations: [Nicotine [...] obstruction] Onset: 03-16-2022 Episodic Cancer of breast (9 sources) History of malignant neoplasm of breast; Translations: [Personal history of malignant neoplasm of breast] Onset: 10-17-2014 01-04-2023 Episodic Conditions associated with dizziness or vertigo (9 sources) Dizziness; Translations: [Dizziness and giddiness] Onset: 11-10-2022 11-10-2022 Episodic Fluid and electrolyte disorders (9 sources) Hypokalemia; Translations: [Hypokalemia] Onset: 01-04-2023 01-04-2023 Episodic Mood disorders (8 sources) Mood disorders Onset: 10-10-2023 10-11-2023 Other acquired deformities (9 sources) Spondylolysis of cervical spine; Translations: [Spondylolysis, cervical region] Onset: 11-10-2022 11-10-2022 Episodic Other acquired deformities (9 sources) Acquired spondylolisthesis; Translations: [Spondylolisthesis, site unspecified] Onset: 11-01-2016 01-04-2023 Episodic Other bone disease and musculoskeletal deformities (9 sources) Osteopenia; Translations: [Other specified disorders of bone density and structure, unspecified site] Onset: 05-04-2012 Resolved: 10-11-2023 01-04-2023 Episodic Other connective tissue disease (9 sources) Tendinitis of right rotator cuff; Translations: [Other shoulder lesions, right shoulder] Onset: 11-10-2022 11-10-2022 Episodic Other eye disorders (1 source) Xanthoma of eyelid; Translations: [Xanthelasma of unspecified eye, unspecified eyelid] Onset: 11-10-2022 11-10-2022 Episodic Other eye disorders (8 sources) Xanthelasma; Translations: [Xanthelasma of unspecified eye, unspecified eyelid] Onset: 11-10-2022 11-10-2022 Episodic Other gastrointestinal disorders (9 sources) Constipation; Translations: [Constipation, unspecified] Onset: 11-10-2022 11-10-2022 Episodic Other infections; including parasitic (8 sources) Personal history of other infectious and parasitic diseases; Translations: [History of COVID-19] Onset: 10-11-2023 10-11-2023 Episodic Other nervous system disorders (9 sources) Carpal tunnel syndrome; Translations: [Carpal tunnel syndrome, unspecified upper limb] Onset: 12-14-2017 Resolved: 10-11-2023 01-04-2023 Chronic Other nervous system disorders (9 sources) Burning sensation of skin; Translations: [Other disturbances of skin sensation] Onset: 11-10-2022 11-10-2022 Episodic Other nervous system disorders (9 sources) Paresthesia of skin; Translations: [Disturbance of skin sensation] Onset: 03-01-2018 Resolved: 10-11-2023 01-04-2023 Episodic Other nutritional; endocrine; and metabolic disorders (8 sources) Decrease in appetite; Translations: [Anorexia] Onset: 10-11-2023 4 Episodic Other nutritional; endocrine; and metabolic disorders (8 sources) Abnormal weight loss; Translations: [Abnormal weight loss] Onset: 10-11-2023 10-11-2023 Episodic Other upper respiratory infections (12 sources) Acute upper respiratory infection, unspecified; Translations: [Nasal discharge] Onset: 10-11-2022 11-10-2022 Episodic Screening and history of mental health and substance abuse codes (9 sources) Ex-smoker; Translations: [Personal history of nicotine dependence] Onset: 01-04-2023 Resolved: 05-02-2024 01-04-2023 Episodic Unclassified (1 source) COUGH, UNSPECIFIED; Translations: [COUGH, UNSPECIFIED] Onset: 10-08-2022 Results Test Name Value Interpretation Reference Range Facility No Panel Informationon 03-12 [facility] Type of biopsy: tangential Informed consent: discussed [...] yes Amount of lidocaine used: 1.0 cc [facility] XR CHEST 2 Von 10-08-2022 XR CHEST [...] MARCO UNLU Date: 2022-10-08 14:48 Normal [facility] CBC AUTO DIFFon 08-31-2022 BASO # 0.1 103/ul Normal 0.0-0.1 [facility] Comment on above: Performed By: #### C BC #### [facility] [address] [address] [address] Nehemias Dean Basophils/100 WBC (Bld) 0.6 % Normal 0.2-2.0 [facility] Comment on above: Performed By: #### C BC #### [facility] [address] [address] [address] Nehemias Dean EO # 0.2 103/ul Normal 0.0-0.7 [facility] Comment on above: Performed By: #### C BC #### [facility] [address] [address] [address] Nehemias Dean Eosinophils/100 WBC (Bld) 2.2 % Normal 0.9-7.0 [facility] Comment on above: Performed By: #### C BC #### [facility] [address] [address] [address] Nehemias Dean Erythrocyte distribution width (RBC) [Ratio] 14.6 % Normal 11.0-15.0 [facility] Comment on above: Performed By: #### C BC #### [facility] [address] [address] [address] Nehemias Dean Hematocrit (Bld) [Volume fraction] 45.4 % Normal 36.0-48.0 [facility] Comment on above: Performed By: #### C BC #### [facility] [address] [address] [address] Nehemias Dean Hemoglobin (Bld) [Mass/Vol] 15.5 g/dL Normal 12.0-16.0 [facility] Comment on above: Performed By: #### C BC #### [facility] [address] [address] [address] Nehemias Dean IG # 0.02 10e3/ul Normal 0.00-0.03 [facility] Comment on above: Performed By: #### C BC #### [facility] [address] [place] [address] Dr. Nehemias Dean IG % 0.2 % Normal 0.0-0.5 [facility] Comment on above: Performed By: #### C BC #### [facility] [address] [place] [address] Dr. Nehemias Dean LYMPH # 3.0 103/ul Normal 1.2-3.8 [facility] Comment on above: Performed By: #### C BC #### [facility] [address] [place] [address] Dr. Nehemias Dean Lymphocytes/100 WBC (Bld) 31.2 % Normal 20.5-60.0 [facility] Comment on above: Performed By: #### C BC #### [facility] [address] [place] [address] Dr. Nehemias Dean MANUAL DIFF REQ NO Normal [facility] Comment on above: Performed By: #### C BC #### [facility] [address] [place] [address] Dr. Nehemias Dean MCH (RBC) [Entitic mass] 30.0 pg Normal 26.7-34.0 [facility] Comment on above: Performed By: #### C BC #### [facility] [address] [place] [address] Dr. Nehemias Dean MCHC (RBC) [Mass/Vol] 34.1 g/dL Normal 29.9-35.2 [facility] Comment on above: Performed By: #### C BC #### [facility] [address] [place] [address] Dr. Nehemias Dean MCV (RBC) [Entitic vol] 88.0 fL Normal 81.0-99.0 [facility] Comment on above: Performed By: #### C BC #### [facility] [address] [place] [address] Dr. Nehemias Dean MONO # 0.5 103/ul Normal 0.3-0.8 [facility] Comment on above: Performed By: #### C BC #### [facility] [address] [place] [address] Dr. Nehemias Dean Monocytes/100 WBC (Bld) 5.5 % Normal 1.7-12.0 [facility] Comment on above: Performed By: #### C BC #### [facility] [address] [address] [address] Nehemias Dean NEUT # 5.8 103/ul Normal 1.4-6.5 [facility] Comment on above: Performed By: #### C BC #### [facility] [address] [place] [address] Dr. Nehemias Dean Neutrophils/100 WBC (Bld) 60.3 % Normal 43.0-75.0 [facility] Comment on above: Performed By: #### C BC #### [facility] [address] [place] [address] Dr. Nehemias Dean Platelet mean volume (Bld) [Entitic vol] 11.2 fL Normal 9.5-13.5 [facility] Comment on above: Performed By: #### C BC #### [facility] [address] [place] [address] Dr. Nehemias Dean PLT 252 103/ul Normal 150-450 [facility] Comment on above: Performed By: #### C BC #### [facility] [address] [place] [address] Dr. Nehemias Dean RBC 5.16 106/ul Normal 4.20-5.40 [facility] Comment on above: Performed By: #### C BC #### [facility] [address] [place] [address] Dr. Nehemias Dean WBC 9.6 103/ul Normal 4.0-11.0 [facility] Comment on above: Performed By: #### C BC #### [facility] [address] [place] [address] ABD/PELVIS WO CONon [...] SELENA CAIN Date: 2022-08-31 12:26 Normal [facility] ER URINE PROFILEon 3 Bilirubin Ql (U) Negative Normal NEGATIVE [facility] Comment on above: Performed By: #### U MICRO, ERUR #### [facility] [address] [address] [address] Nehemias Dean Clarity (U) CLEAR Normal CLEAR [facility] Comment on above: Performed By: #### U MICRO, ERUR #### [facility] [address] [address] [address] Nehemias Dean Color (U) LT. YELLOW Normal YELLOW [facility] Comment on above: Performed By: #### U MICRO, ERUR #### [facility] [address] [address] [address] Nehemias Dean ERUAHD A micrscopic examination will be performed if indicated. Normal [facility] Comment on above: Performed By: #### U MICRO, ERUR #### [facility] [address] [address] [address] Nehemias Dean Glucose Ql (U) Negative Normal NEGATIVE [facility] Comment on above: Performed By: #### U MICRO, ERUR #### [facility] [address] [address] [address] Nehemias Dean Hemoglobin Ql (U) SMALL Abnormal NEGATIVE [facility] Comment on above: Performed By: #### U MICRO, ERUR #### [facility] [address] [address] [address] Nehemias Dean Ketones Ql (U) Negative Normal NEGATIVE [facility] Comment on above: Performed By: #### U MICRO, ERUR #### [facility] [address] [place] [address] Dr. Nehemias Dean LEUKOCYTES Negative Normal NEGATIVE [facility] Comment on above: Performed By: #### U MICRO, ERUR #### [facility] [address] [place] [address] Dr. Nehemias Dean Nitrite Ql (U) Negative Normal NEGATIVE [facility] Comment on above: Performed By: #### U MICRO, ERUR #### [facility] [address] [address] [address] Nehemias Dean pH (U) 7.0 [pH] Normal 5-9 [facility] Comment on above: Performed By: #### U MICRO, ERUR #### [facility] [address] [place] [address] Dr. Nehemias Dean SPEC GRAVITY 1.015 Normal 1.005-<=1.02 5 [facility] Comment on above: Performed By: #### U MICRO, ERUR #### [facility] [address] [address] [address] Nehemias Dean UA PROTEIN Negative Normal NEGATIVE/ TRACE [facility] Comment on above: Performed By: #### U MICRO, ERUR #### [facility] [address] [place] [address] Dr. Nehemias Dean UR MICRO IND INDICATED Normal [facility] Comment on above: Performed By: #### U MICRO, ERUR #### [facility] [address] [address] [address] Nehemias Dean Urobilinogen Qn (U) 0.2 {Cristina'U}/dL Normal 0.2 - 1. 0 [facility] Comment on above: Performed By: #### U MICRO, ERUR #### [facility] [address] [address] [address] Nehemias Dean PROF CHEM 8 (BAS METB)on Anion gap [Moles/Vol] 14.9 mmol/L Normal [facility] Comment on above: Performed By: #### B MP #### [facility] [address] [address] [address] Nehemias Dean Calcium [Mass/Vol] 9.4 mg/dL Normal 8.5-10.1 [facility] Comment on above: Performed By: #### B MP #### [facility] [address] [address] [address] Nehemias Dean Chloride [Moles/Vol] 100 mmol/L Normal 98-107 [facility] Comment on above: Performed By: #### B MP #### [facility] [address] [address] [address] Nehemias Dean CO2 [Moles/Vol] 27.2 mmol/L Normal 21.0-32.0 [facility] Comment on above: Performed By: #### B MP #### [facility] [address] [address] [address] Nehemias Dean Creatinine [Mass/Vol] 0.63 mg/dL Normal 0.55-1.02 [facility] Comment on above: Performed By: #### B MP #### [facility] [address] [address] [address] Nehemias Dean EGFR-AF PRYDEINIG >60 Normal >=60 [facility] Comment on above: Performed By: #### B MP #### [facility] [address] [address] [address] Nehemias Dean EGFR-NON AF PRYDEINIG >60 Normal >=60 [facility] Comment on above: Performed By: #### B MP #### [facility] [address] [address] [address] Nehemias Dean Glucose [Mass/Vol] 107 mg/dL Critically high 74-106 [facility] Comment on above: Performed By: #### B MP #### [facility] [address] [place] [address] Dr. Nehemias Dean Potassium [Moles/Vol] 3.1 mmol/L Critically low 3.5-5.1 [facility] Comment on above: Performed By: #### B MP #### [facility] [address] [address] [address] Nehemias Dean Sodium [Moles/Vol] 139 mmol/L Normal 136-145 [facility] Comment on above: Performed By: #### B MP #### [facility] [address] [place] [address] Dr. Nehemias Dean Urea nitrogen [Mass/Vol] 7.0 mg/dL Normal 7.0-18.0 [facility] Comment on above: Performed By: #### B MP #### [facility] [address] [place] [address] Dr. Nehemias Dean Urea nitrogen/Creatinine [Mass ratio] 11.1 mg/mg Normal [facility] Comment on above: Performed By: #### B MP #### [facility] [address] [place] [address] Dr. Nehemias Dean URINE MICROSCOPIC ONLYon BACTERIA TRACE Abnormal NONE SEEN [facility] Comment on above: Performed By: #### U MICRO, ERUR #### [facility] [address] [place] [address] Dr. Nehemias Dean Bacteria identified Cx Nom (U) NOT INDICATED Normal [facility] Comment on above: Performed By: #### U MICRO, ERUR #### [facility] [address] [place] [address] Dr. Nehemias Dean CAST NONE SEEN Normal NONE SEEN [facility] Comment on above: Performed By: #### U MICRO, ERUR #### [facility] [address] [place] [address] Dr. Nehemias Dean Crystals LM Nom (Urine sed) NONE SEEN Normal NONE SEEN [facility] Comment on above: Performed By: #### U MICRO, ERUR #### [facility] [address] [address] [address] Nehemias Dean Epithelial cells LM Ql (Urine sed) FEW Abnormal NONE SEEN /RARE [facility] Comment on above: Performed By: #### U MICRO, ERUR #### [facility] [address] [address] [address] Nehemias Dean MUCOUS NONE SEEN Normal NONE SEEN [facility] Comment on above: Performed By: #### U MICRO, ERUR #### [facility] [address] [address] [address] Nehemias Dean RBC 2-5 Abnormal 0-2 [facility] Comment on above: Performed By: #### U MICRO, ERUR #### [facility] [address] [place] [address] Dr. Nehemias Dean WBC NONE SEEN Normal NONE SEEN [facility] Comment on above: Performed By: #### U MICRO, ERUR #### [facility] [address] [address] [address] Nehemias Dean Alkaline Phosphataseon 03-16 ALP [Catalytic activity/Vol] 60 U/L Normal 32-92 [facility] Comment on above: Performed By: #### B ILIT, ALP, YEIMY #### [facility] [address] [place] [address] Amylaseon 03-16-2022 Amylase [Catalytic activity/Vol] 23 U/L Low 28-100 [facility] Comment on above: Result Comment: PERF ORMED BY: [place] [address] PATHOLOGIST BUDDER LAVERN CHATMAN M.D. Performed By: #### B ILIT, ALP, YEIMY #### [facility] [address] [place] [address] [place] Bilirubin,Totalon 03-16-2022 Bilirubin [Mass/Vol] 1.1 mg/dL Normal 0.3-1.2 [facility] Comment on above: Performed By: #### B ILIT, ALP, YEIMY #### [facility] [address] [id number] [facility] 03-16-2022 L - -------- Specimen: [id number] Received: 03/16/22 Status: JOSUE Kern Num: [id number] Spec Type: Surgical Subm Dr: Uziel Caicedo DO Tissues: A Gallbladder (GALLBLADDER) Procedures: HE Stain, Gross/Micro L3 -------- Age/ Patient Sex Location Account Attending Physician -------- Deb Perez 71/F CT [id number] Uziel Caicedo DO -------- SPEC NUM: [id number] RECD: 03/16/22 STATUS: JOSUE KERN NUM: [id number] [place]: 03/16/22 DR: Uziel Caicedo DO ENTERED: 03/16/[address]: DAVID TYPE: Surgical DEPT: S ORDERED: [...] The mucosa is dove-pink, focally hyperemic, denuded.. Ring Striker sections are submitted in one cassette labeled A1. Microscopic Description One glass slide with H E stained material has been examined. The microscopic findings support the above pathologic diagnosis. -------- Specimen: [id number] Received: 03/16/22 Status: JOSUE Kern Num: [id number] Spec Type: Surgical Subm Dr: Uziel Caicedo DO Tissues: A Gallbladder (GALLBLADDER) Procedures: HE Stain, Gross/Micro L3 -------- Patient: Deb Perez [id number] (Continued) -------- Specimen: [id number] Received: 03/16/22 (Continued) Signed (signature on file) Yasmeen Jameson MD 03/17/221743 -------- Specimen: [id number] Received: 03/16/22 Status: JOSUE Kern Num: [id number] Spec Type: Surgical Subm Dr: Uziel Caicedo DO Tissues: A Gallbladder (GALLBLADDER) Procedures: HE Stain, Gross/Micro L3 -------- Patient: ChrisDeb [id number] (Continued) -------- Specimen: [id number] Received: 03/16/22 (Continued) CPT Codes 67816 -------- -------- Specimen: [id number] Received: 03/16/22 Status: JOSUE Kern Num: [id number] Spec Type: Surgical Subm Dr: Uziel Caicedo DO Tissues: A Gallbladder (GALLBLADDER) Procedures: HE Stain, Gross/Micro L3 -------- Patient: Deb Perez [id number] (Continued) -------- Signed (signature on file) Yasmeen Jameson MD 03/17/22 1744 Normal [facility] COVID[facility]19 [facility] SARS-CoV-2 (COVID-19) RNA DAVIE+probe Ql (Unsp spec) Negative Normal Negative [facility] Comment on above: Order Comment: Healt hcare Worker?: N Result Comment: Testing for SARS-CoV-2 by RT-PCR This test was developed and its performance characteristics determined by [employer]) and validated at the [facility]. This test has not been FDA [...] is terminated or revoked sooner. PERFORMED BY: [place] [address] PATHOLOGIST BUDDER LAVERN CHATMAN M.D. Performed By: #### C OVID 19 [facility] #### [address] COVID-19 Positive/NegativeOr dered By: Uziel Caicedo on 03-12-2022 SARS-CoV-2 (COVID-19) N gene DAVIE+probe Ql (Resp) Negative Negative [facility] Comment on above: Testing for SARS-CoV -2 by RT-PCRThis test was developed and its performance characteristics determined by [employer]) and validated at the [facility]. This test has not been FDA [...] terminated or revoked sooner. Basic Metabolic Panelon 10 Anion gap [Moles/Vol] 14.9 mmol/L Normal 6.0-15.0 [facility] Comment on above: Performed By: #### C BC, BMP #### [address] Calcium [Mass/Vol] 10.2 mg/dL Normal 8.2-10.2 [facility] Comment on above: Result Comment: PERF ORMED BY: [place] [address] PATHOLOGIST BUDDER LAVERN CHATMAN M.D. Performed By: #### C BC, BMP #### [place] [address] [place] Chloride [Moles/Vol] 97 mmol/L Normal 95-114 [facility] Comment on above: Performed By: #### C BC, BMP #### [facility] [address] [id number] [place] CO2 [Moles/Vol] 28.2 mmol/L Normal 22.0-30.0 [facility] Comment on above: Performed By: #### C BC, BMP #### [facility] [address] Creatinine [Mass/Vol] 0.65 mg/dL Normal 0.44-1.03 [facility] Comment on above: Performed By: #### C BC, BMP #### [facility] [address] [place] [address] [place] Estimated GFR ( My > 60 Normal [facility] Comment on above: Result Comment: GFR estimated reference range: According to KDOQI guidelines, <60 ml/min/1.73m2 is sufficient to diagnose a patient with chronic kidney disease. Performed By: #### C BC, BMP #### [facility] [address] Estimated GFR (Non- Am > 60 Normal [facility] Comment on above: Performed By: #### C BC, BMP #### [address] Glucose [Mass/Vol] 97 mg/dL Normal 70-100 [facility] Comment on above: Result Comment: [place] Glucose Reference Range is dependent on time and content of last meal. Glucose of more than 200 mg/dL in a nonstressed, ambulatory subject supports the diagnosis of Diabetes Mellitus. ADA recommended reference range Performed By: #### C BC, BMP #### [address] Potassium [Moles/Vol] 4.1 mmol/L Normal 3.5-5.1 [facility] Comment on above: Performed By: #### C BC, BMP #### [address] Sodium [Moles/Vol] 136 mmol/L Normal 136-146 [facility] Comment on above: Performed By: #### C BC, BMP #### [address] Urea nitrogen [Mass/Vol] 8 mg/dL Low 9-23 [facility] Comment on above: Performed By: #### C BC, BMP #### [place] [address] [place] Basophils Auto (Bld) [#/Vol] Ordered By: Uziel Caicedo on 03-08-2022 Basophils (Bld) [#/Vol] 0.1 10*3/uL 0.0-0.2 [facility] Basophils/100 WBC Auto (Bld) Ordered By: Uziel Caicedo on 03-08-2022 Basophils/100 WBC (Bld) 0.7 % . [facility] Complete Blood Count Auto Di ffon 03-08-2022 Basophils (Bld) [#/Vol] 0.1 10*3/uL Normal 0.0-0.2 [facility] Comment on above: Result Comment: PERF ORMED BY: [place] [address] PATHOLOGIST BUDDER LAVERN CHATMAN M.D. Performed By: #### C BC, BMP #### [facility] [address] Basophils/100 WBC (Bld) 0.7 % Normal . [facility] Comment on above: Performed By: #### C BC, BMP #### [facility] [address] [place] [address] [place] Eosinophils (Bld) [#/Vol] 0.1 10*3/uL Normal 0.0-0.45 [facility] Comment on above: Performed By: #### C BC, BMP #### [place] [address] [place] Eosinophils/100 WBC (Bld) 1.2 % Normal . [facility] Comment on above: Performed By: #### C BC, BMP #### [facility] [address] [place] [address] [place] Erythrocyte distribution width (RBC) [Ratio] 14.7 % Normal 11.9-15.3 [facility] Comment on above: Performed By: #### C BC, BMP #### [facility] [address] [place] [address] [place] Hematocrit (Bld) [Volume fraction] 47.9 % High 34.0-46.4 [facility] Comment on above: Performed By: #### C BC, BMP #### [address] Hemoglobin (Bld) [Mass/Vol] 16.1 g/dL High 11.8-15.4 [facility] Comment on above: Performed By: #### C BC, BMP #### [facility] [address] [place] [address] [place] Lymphocytes (Bld) [#/Vol] 1.7 10*3/uL Normal 1.00-4.8 [facility] Comment on above: Performed By: #### C BC, BMP #### [facility] [address] [id number] [place] Lymphocytes/100 WBC (Bld) 19.6 % Normal . [facility] Comment on above: Performed By: #### C BC, BMP #### [facility] [address] MCH (RBC) [Entitic mass] 30.3 pg Normal 24.7-34.3 [facility] Comment on above: Performed By: #### C BC, BMP #### [facility] [address] MCV (RBC) [Entitic vol] 90.2 fL Normal 80-100 [facility] Comment on above: Performed By: #### C BC, BMP #### [facility] [address] Mean Corpuscular HGB Conc 33.6 g/dL Normal 32.0-35.0 [facility] Comment on above: Performed By: #### C BC, BMP #### [facility] [address] [place] [address] [place] Monocytes (Bld) [#/Vol] 0.6 10*3/uL Normal 0.0-0.8 [facility] Comment on above: Performed By: #### C BC, BMP #### [facility] [address] [place] [address] [place] Monocytes/100 WBC (Bld) 6.9 % Normal . [facility] Comment on above: Performed By: #### C BC, BMP #### [facility] [address] [place] [address] [place] Neutrophils (Bld) [#/Vol] 6.1 10*3/uL Normal 1.8-7.7 [facility] Comment on above: Performed By: #### C BC, BMP #### [facility] [address] [place] [address] [place] Neutrophils/100 WBC (Bld) 71.6 % Normal . [facility] Comment on above: Performed By: #### C BC, BMP #### [facility] [address] [place] [address] [place] Nucleated RBC/100 WBC (Bld) [Ratio] 0.1 % Normal 0-0.5 [facility] Comment on above: Performed By: #### C SHAHAB, BMP #### [facility] [address] Platelet mean volume (Bld) [Entitic vol] 10.1 fL Normal 6.3-10.7 [facility] Comment on above: Performed By: #### C SHAHAB, BMP #### [facility] [address] [place] [address] [place] Platelets (Bld) [#/Vol] 218 10*3/uL Normal 150-450 [facility] Comment on above: Performed By: #### C SHAHAB, BMP #### [facility] [address] [place] [address] [place] RBC (Bld) [#/Vol] 5.31 10*6/uL High 3.60-5.00 [facility] Comment on above: Performed By: #### C SHAHAB, BMP #### [facility] [address] [place] [address] [place] WBC (Bld) [#/Vol] 8.5 10*3/uL Normal 4.5-11.0 [facility] Comment on above: Performed By: #### C SHAHAB, BMP #### [facility] [address] [place] [address] [place] Creatinine and Glomerular fi ltration rate.predicted panel (S/P/Bld)Ordered By: Uziel Caicedo on 03-08-2022 Creatinine [Mass/Vol] 0.65 mg/dL 0.44-1.03 [facility] ECG 12 lead ECGon 03-08-2022 ECG 12 lead ECG [facility] [address] [place] [address] [place] [address] Electrocardiograph Report Signed Patient: Deb Perez MR#: [id number] : 1950 Acct:[id number] Age/Sex: 71 / F ADM Date: 03/08/22 Loc: PS Room: Type: [facility] Attending Dr: Uziel Caicedo DO Ordering [...] By Everette Graham DO 03/08 1246 Normal [facility] Eosinophils Auto (Bld) [#/Vo l]Ordered By: Uziel Caicedo on 03-08-2022 Eosinophils (Bld) [#/Vol] 0.1 10*3/uL 0.0-0.45 [facility] Eosinophils/100 WBC Auto (Bl d)Ordered By: Uziel Caicedo on 03-08-2022 Eosinophils/100 WBC (Bld) 1.2 % . [facility] Erythrocyte distribution wid th Auto (RBC) [Ratio]Ordered By: Uziel Caicedo on 03-08-2022 Erythrocyte distribution width (RBC) [Ratio] 14.7 % 11.9-15.3 [facility] Estimated glomerular filtrat ion rate (GFR) non- AmericanOrdered By: Uziel Caicedo on 03-08-2022 GFR/1.73 sq M.predicted among non-blacks MDRD (S/P/Bld) [Vol rate/Area] > 60 mL/Min [facility] Hematocrit Auto (Bld) [Volum e fraction]Ordered By: Uziel Caicedo on 03-08-2022 Hematocrit (Bld) [Volume fraction] 47.9 % 34.0-46.4 [facility] Hemoglobin [Mass/volume] in BloodOrdered By: Uziel Caicedo on 03-08-2022 Hemoglobin (Bld) [Mass/Vol] 16.1 g/dL 11.8-15.4 [facility] - Hematology and Cell countsOrdered By: Uziel Caicedo on 03-08-2022 Nucleated RBC/100 WBC (Bld) [Ratio] 0.1 % 0-0.5 [facility] Leukocytes [#/volume] in Blo od by Automated countOrdered By: Uziel Caicedo on 03-08-2022 WBC (Bld) [#/Vol] 8.5 10*3/uL 4.5-11.0 [facility] Lymphocytes Auto (Bld) [#/Vo l]Ordered By: Uziel Caicedo on 03-08-2022 Lymphocytes (Bld) [#/Vol] 1.7 10*3/uL 1.00-4.8 [facility] Lymphocytes/100 WBC Auto (Bl d)Ordered By: Uziel Caicedo on 03-08-2022 Lymphocytes/100 WBC (Bld) 19.6 % . [facility] MCH Auto (RBC) [Entitic mass ]Ordered By: Uziel Caicedo on 03-08-2022 MCH (RBC) [Entitic mass] 30.3 pg 24.7-34.3 [facility] MCHC Auto (RBC) [Mass/Vol]Or dered By: Uziel Caicedo on 03-08-2022 MCHC (RBC) [Mass/Vol] 33.6 g/dL 32.0-35.0 [facility] MCV Auto (RBC) [Entitic vol] Ordered By: Uziel Caicedo on 03-08-2022 MCV (RBC) [Entitic vol] 90.2 fL 80-100 [facility] Monocytes Auto (Bld) [#/Vol] Ordered By: Uziel Caicedo on 03-08-2022 Monocytes (Bld) [#/Vol] 0.6 10*3/uL 0.0-0.8 [facility] Monocytes/100 WBC Auto (Bld) Ordered By: Uziel Caicedo on 03-08-2022 Monocytes/100 WBC (Bld) 6.9 % . [facility] Neutrophils Auto (Bld) [#/Vo l]Ordered By: Uziel Caicedo on 03-08-2022 Neutrophils (Bld) [#/Vol] 6.1 10*3/uL 1.8-7.7 [facility] Neutrophils/100 WBC Auto (Bl d)Ordered By: Uziel Caicedo on 03-08-2022 Neutrophils/100 WBC (Bld) 71.6 % . [facility] No Panel InformationOrdered By: Uziel Caicedo on 03-08-2022 Estimated GFR () > 60 mL/Min [facility] Comment on above: GFR estimated refere nce range: According to KDOQI guidelines, <60 ml/min/1.73m2 is sufficient to diagnose a patient with chronic kidney disease. Pharmacy Creatinine Clearance (Chem N/A [facility] Platelet mean volume Auto (B ld) [Entitic vol]Ordered By: Uziel Caicedo on 03-08-2022 Platelet mean volume (Bld) [Entitic vol] 10.1 fL 6.3-10.7 [facility] Platelets Auto (Bld) [#/Vol] Ordered By: Uziel Caicedo on 03-08-2022 Platelets (Bld) [#/Vol] 218 10*3/uL 150-450 [facility] RBC Auto (Bld) [#/Vol]Ordere d By: Uziel Caicedo on 03-08-2022 RBC (Bld) [#/Vol] 5.31 10*6/uL 3.60-5.00 [facility] Serum or plasma anion gap de terminationOrdered By: Uziel Caicedo on 03-08-2022 Anion gap [Moles/Vol] 14.9 mmol/L 6.0-15.0 [facility] Serum or plasma calcium luis m urement (mass/volume)Ordered By: Uziel Caicedo on 03-08-2022 Calcium [Mass/Vol] 10.2 mg/dL 8.2-10.2 [facility] Serum or plasma chloride pedro surement (moles/volume)Ordered By: Uziel Caicedo on 03-08-2022 Chloride [Moles/Vol] 97 mmol/L 95-114 [facility] Serum or plasma glucose luis m urement (mass/volume)Ordered By: Uziel Caicedo on 03-08-2022 Glucose [Mass/Vol] 97 mg/dL 70-100 [facility] Comment on above: ADA recommended refe rence rangeRandom Glucose Reference Range is dependent on time and content of last meal. Glucose of more than 200 mg/dL in a nonstressed, ambulatory subject supports the diagnosis of Diabetes Mellitus. Serum or plasma potassium me asurement (moles/volume)Ordered By: Uziel Caicedo on 03-08-2022 Potassium [Moles/Vol] 4.1 mmol/L 3.5-5.1 [facility] Serum or plasma sodium measu rement (moles/volume)Ordered By: Uziel Caicedo on 03-08-2022 Sodium [Moles/Vol] 136 mmol/L 136-146 [facility] Serum or plasma total carbon dioxide measurement (moles/volume)Ordered By: Uziel Caicedo on 03-08-2022 CO2 [Moles/Vol] 28.2 mmol/L 22.0-30.0 [facility] Serum or plasma urea nitroge n measurement (mass/volume)Ordered By: Uziel Caicedo on 03-08-2022 Urea nitrogen [Mass/Vol] 8 mg/dL 9- [facility] US SINGLE QUAD RT UPPERon US [...] by: JOSEPH HUBBARD Date: 2022-03-02 07:41 Normal [facility] XR CHEST 2 Von 10-22-2021 XR [...] by: GEOFFREY ELLIS Date: 2021-10-22 10:10 Normal [facility] Iron Profileon 09-22-2021 %FESAT 27 % Normal 11-50 [facility] Comment on above: Performed By: #### T SH reflex FT4, FE Prof #### [facility] [address] [place], [place] [id number] FE 71 ug/dL Normal 40-190 [facility] Comment on above: Result Comment: Refe rence range change 04/15/2017. Prior reference range F 37-145 ug/dL, M 59-158 ug/dL. Performed By: #### T SH reflex FT4, FE Prof #### [facility] [address] [place], [place] [id number] TIBC 261 ug/dL Normal 250-450 [facility] Comment on above: Performed By: #### T SH reflex FT4, FE Prof #### [facility] [address] [place], [place] [id number] UIBC 190 ug/dL Normal 112-347 [facility] Comment on above: Performed By: #### T SH reflex FT4, FE Prof #### [facility] [address] [place], [place] [id number] TSH w/ Reflex to Free T4on 0 09-22-2021 TSH 0.551 uIU/mL Normal 0.400-4.500 [facility] Comment on above: Performed By: #### T SH reflex FT4, FE Prof #### [facility] [address] [place], [place] [id number] Vitamin B12/Folateon 022 Cobalamin (Vitamin B12) [Mass/Vol] 596 pg/mL Normal 211-946 [facility] Comment on above: Performed By: #### B 12/Fol #### [facility] [address] [place], [place] [id number] FOL 9.9 ng/mL Normal >4.7 [facility] Comment on above: Result Comment: Refe rence range change 04/15/2017. Prior reference range F 4.8-37.3 ng/mL, M 4.5-32.2 ng/mL. Performed By: #### B 12/Fol #### [facility] [address] [place], [place] [id number] Complete Blood Count with Au to Diffon 08-05-2021 Basophils (Bld) [#/Vol] 0.06 10*3/uL Normal 0.00-0.20 [facility] Comment on above: Performed By: #### L IPD, CBCAD, VITD #### [facility] [address] [place], [place] [id number] Basophils/100 WBC (Bld) 0.6 % Normal N [facility] Comment on above: Performed By: #### L IPD, CBCAD, VITD #### [facility] [address] [place], [place] [id number] Eosinophils (Bld) [#/Vol] 0.13 10*3/uL Normal 0.02-0.50 [facility] Comment on above: Performed By: #### L IPD, CBCAD, VITD #### [facility] [address] [place], [place] [id number] Eosinophils/100 WBC (Bld) 1.4 % Normal [facility] Comment on above: Performed By: #### L IPD, CBCAD, VITD #### [facility] [address] [place], [place] [id number] Erythrocyte distribution width (RBC) [Ratio] 14.2 % Normal 11.0-15.0 [facility] Comment on above: Performed By: #### L IPD, CBCAD, VITD #### [facility] [address] [place], [place] [id number] Hematocrit (Bld) [Volume fraction] 48.6 % High 35.0-47.0 [facility] Comment on above: Performed By: #### L IPD, CBCAD, VITD #### [facility] [address] [place], [place] [id number] Hemoglobin (Bld) [Mass/Vol] 16.6 g/dL High 11.6-15.5 [facility] Comment on above: Performed By: #### L IPD, CBCAD, VITD #### [facility] [address] [place], [place] [id number] Lymphocytes (Bld) [#/Vol] 2.2 10*3/uL Normal 0.9-3.9 [facility] Comment on above: Performed By: #### L IPD, CBCAD, VITD #### [facility] [address] [place], [place] [id number] Lymphocytes/100 WBC (Bld) 24.0 % Normal [facility] Comment on above: Performed By: #### L IPD, CBCAD, VITD #### [facility] [address] [place], [place] [id number] MCH (RBC) [Entitic mass] 30.7 pg Normal 27.0-33.0 [facility] Comment on above: Performed By: #### L IPD, CBCAD, VITD #### [facility] [address] [place], [place] [id number] MCHC (RBC) [Mass/Vol] 34.2 g/dL Normal 32.0-36.0 [facility] Comment on above: Performed By: #### L IPD, CBCAD, VITD #### [facility] [address] [place], [place] [id number] MCV (RBC) [Entitic vol] 90 fL Normal 80-100 [facility] Comment on above: Performed By: #### L IPD, CBCAD, VITD #### [facility] [address] [place], [place] [id number] Monocytes (Bld) [#/Vol] 0.5 10*3/uL Normal 0.2-0.9 [facility] Comment on above: Performed By: #### L IPD, CBCAD, VITD #### [facility] [address] [place], [place] [id number] Monocytes/100 WBC (Bld) 5.8 % Normal [facility] Comment on above: Performed By: #### L IPD, CBCAD, VITD #### [facility] [address] [place], [place] [id number] Neutrophils (Bld) [#/Vol] 6.3 10*3/uL Normal 1.5-7.8 [facility] Comment on above: Performed By: #### L IPD, CBCAD, VITD #### [facility] [address] [place], [place] [id number] Neutrophils/100 WBC (Bld) 67.9 % Normal [facility] Comment on above: Performed By: #### L IPD, CBCAD, VITD #### [facility] [address] [place], [place] [id number] Platelet mean volume (Bld) [Entitic vol] 12.00 fL Normal 7.50-12.50 [facility] Specialist Comment on above: Performed By: #### L IPD, CBCAD, VITD #### [facility] [address] [place], [place] [id number] Platelets (Bld) [#/Vol] 215 10*3/uL Normal 140-400 [facility] Comment on above: Performed By: #### L IPD, CBCAD, VITD #### [facility] [address] [place], [place] [id number] RBC (Bld) [#/Vol] 5.41 10*6/uL High 3.90-5.20 [facility] Comment on above: Performed By: #### L IPD, CBCAD, VITD #### [facility] [address] [place], [place] [id number] RDW-SD 46.5 fL Normal 37.0-50.0 [facility] Comment on above: Performed By: #### L IPD, CBCAD, VITD #### [facility] [address] [place], [place] [id number] WBC (Bld) [#/Vol] 9.2 10*3/uL Normal 3.8-11.0 [facility] Comment on above: Performed By: #### L IPD, CBCAD, VITD #### [facility] [address] [place], [place] [id number] Lipid Panelon 08-05-2021 Cholesterol [Mass/Vol] 285 mg/dL High 125-200 [facility] Comment on above: Result Comment: Low risk < 200mg/dL Borderline risk 201-239 mg/dl High risk > or equal to 240 Performed By: #### L IPD, CBCAD, VITD #### [facility] [address] [place], [place] [id number] Cholesterol in HDL [Mass/Vol] 67 mg/dL Normal >40 [facility] Comment on above: Result Comment: High Cardiovascular Risk HDL <40 mg/dL Low Cardiovascular Risk HDL > or equal to 60 mg/dl Performed By: #### L IPD, CBCAD, VITD #### [facility] [address] [place], [place] [id number] Cholesterol in LDL [Mass/Vol] 184 mg/dL Normal [facility] Comment on above: Result Comment: LDL ATP III CLASSIFICATION LDL less than 100 mg/dl Optimal LDL 100-129 mg/dl Near or above optimal LDL 130-159 Borderline high LDL 160-189 High LDL greater than 189 mg/dl Very High Performed By: #### L IPD, CBCAD, VITD #### [facility] [address] [place], [place] [id number] Cholesterol in VLDL [Mass/Vol] 34 mg/dL Normal [facility] [employer] [facility] Comment on above: Performed By: #### L IPD, CBCAD, VITD #### [facility] [address] [place], [place] [id number] Cholesterol.total/Bhumi sterol in HDL [Mass ratio] 4 {ratio} Normal [facility] Specialist Comment on above: Performed By: #### L IPD, CBCAD, VITD #### [facility] [address] [place], [place] [id number] Triglyceride [Mass/Vol] 168 mg/dL High 30-150 [facility] Comment on above: Result Comment: TRIG ATPIII CLASSIFICATIONS TRIG less than 150 mg/dl Normal TRIG 150-199 mg/dl Borderline High TRIG 200-500 mg/dl High TRIG greather than 500 mg/dl Very High Performed By: #### L IPD, CBCAD, VITD #### [facility] [address] [place], [place] [id number] Q - SARS CoV2 COVID 19 Ab Ig Uriel 08-05-2021 SARS-CoV-2 (COVID-19) Ab IA Qn <1.00 Normal <1.00 [facility] Specialist Comment on above: Order Comment: [facility] Testing performed at: Q, [facility], [address] [place] [address], [address] [place] [address], [id number], Certified Nursing Assistant: Solitario Lopez MD [facility] Collection Date/Time: [facility] [...] providers and patients using the following websites: http://patient.[employer]ica.Nexway/[facility]ell[facility]-HCP http://patient.Selectica.com/Atellica-Patients Healthcare Providers: For additional information please refer to: http://education.Selectica.Nexway/faq/JYV324 (This link is being provided for informational/educational purposes only.) This test has been authorized by the FDA under an Emergency Use Authorization (EUA) for use by authorized laboratories. The FDA authorized labeling is available on the [employer] website: www.Newshubby.Nexway/Covid19. Performed By: #### 3 4499 #### [facility] Default [address] [place] [address] Vitamin D 25-OHon 08-05-2021 VIT D 25 OH 67 ng/ml Normal >29 [facility] Drum Plater Comment on above: Result Comment: Freda min D Status Deficiency <20 ng/mL Insufficiency 20-29 ng/mL Optimal 30-100 ng/mL Possible Toxicity >=150 ng/mL Performed By: #### L IPD, CBCAD, VITD #### [facility] [address] [place], [place] [id number] Vital Signs Date Time Vital Sign Value Performing Clinician Faci lity 05-02-2024 10:03-0500 Body height 165.1 cm Cynthia Hemmer PA Work Phone: [facility] 05-02-2024 10:03-0500 Body mass index (BMI) [Ratio] 19.04 kg/m2 Cynthia Hemmer PA Work Phone: [facility] 05-02-2024 10:03-0500 Body temperature 97.39 [degF] Cynthia Hemmer PA Work Phone: [facility] 05-02-2024 10:03-0500 Body weight 51.89 kg Cynthia Hemmer PA Work Phone: [facility] 05-02-2024 10:03-0500 Diastolic blood pressure 84 mm[Hg] Cynthia Hemmer PA Work Phone: [facility] 05-02-2024 10:03-0500 Heart rate 90 /min Cynthia Hemmer PA Work Phone: [facility] 05-02-2024 10:03-0500 Respiratory rate 16 /min Cynthia Hemmer PA Work Phone: [facility] 05-02-2024 10:03-0500 SaO2% (BldA) [Mass fraction] 99 % Cynthia Hemmer PA Work Phone: [facility] 05-02-2024 10:03-0500 Systolic blood pressure 126 mm[Hg] Cynthia Hemmer PA Work Phone: [facility] Healthcare Encounters Encounter Date Encounter Type Care Provider Facility Start: 09-11-2024 End: 09-11-2024 Refill Zaria Figueroa MA [facility] Comment on above: Anxiety state (CMS/H CC) Start: 05-02-2024 End: 05-02-2024 Bamboo flowsheet Cynthia Jose PA Work Phone: [facility] Start: 05-02-2024 End: 05-02-2024 Bamboo flowsheet Cynthia Jose PA Work Phone: [facility] Start: 05-02-2024 End: 05-02-2024 Office outpatient visit 25 minutes Cynthia Jose PA Work Phone: [facility] Comment on above: Benign essential hyp ertension (CMS/HCC) (Primary Dx); Anxiety state (CMS/HCC); Hypercholesteremia (CMS/HCC); Chronic bronchitis, unspecified chronic bronchitis type (CMS/HCC); Acute non-recurrent frontal sinusitis; Tobacco dependence Start: 04-13-2024 End: 04-16-2024 Refill Cynthia Jose PA Work Phone: [facility] Comment on above: Neuropathy of both u pper extremities Start: 03-12-2024 End: 03-12-2024 Bamboo flowsheet Precious Leos Felter 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 Work Phone: [facility] Start: 03-12-2024 End: 03-12-2024 Bamboo flowsheet Precious A Felter 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 Work Phone: [facility] Start: 03-12-2024 End: 03-12-2024 Patient encounter procedure Precious Leos Felter 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 Work Phone: [facility] Comment on above: Inflamed seborrheic keratosis (Primary Dx); Neoplasm of unspecified behavior of bone, soft tissue, and skin Start: 03-12-2024 End: 03-12-2024 ambulatory PRECIOUS MONTAÑOER Not Available Start: 11-23-2023 End: 11-23-2023 ambulatory [...] Start: 03-16-2022 End: 03-16-2022 ambulatory Cynthia Jose Facility:[facility] Start: 03-12-2022 End: 03-12-2022 ambulatory Uziel Caicedo Facility:[facility] Start: 03-12-2022 End: 03-12-2022 ambulatory TANGLED [employer] SPOOL STRAIGHTENER-C Cynthia Estradamer Work Phone: [facility] Work Phone: Start: 03-12-2022 End: 03-12-2022 Patient encounter procedure TANGLED YARN SPOOL STRAIGHTENER-C Cynthia Estradamer Work Phone: [facility] Start: 03-08-2022 End: 03-08-2022 ambulatory Cynthia Jose Facility:[facility] Start: 03-08-2022 End: 03-08-2022 Patient encounter procedure TANGLED YARN SPOOL STRAIGHTENER-C Cynthia Hemmer Work Phone: [facility] Start: 03-02-2022 End: 03-03-[address] CYNTHIA JOSE Facility:[facility] Start: 10-22-2021 End: 10-23-[address] CYNTHIA JOSE Facility:[facility] Procedures Date Procedure Procedure Detail Performing Clinician Start: 03-12-2024 CRYOTHERAPY SKIN LESION 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 Work Phone: Start: 03-12-2024 SKIN / NAIL BIOPSY Jie ed Xiao 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 Work Phone: Plan of Treatment Date Care Activity Detail Author Start: 01-28-2025 Influenza vaccination Influenza Vaccine (Season Ended) [facility] Start: 10-10-2024 Medicare Annual Wellness (AWV) Medicare Annual Wellness (AWV) 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 [address] [place] [address] [facility] Start: 03-22-2024 Pneumococcal Vaccine: 65+ Years (1 of 2 - PCV) Pneumococcal Vaccine: 65+ Years (1 of 2 - PCV) [facility] Comment on above: Postponed from 1954 (Patient Refus ed) Start: 03-22-2024 Screening for malignant neoplasm of colon Colorectal Cancer Screening [facility] Comment on above: Postponed from 1948 (Patient Refus ed) Start: 03-12-2024 End: 03-12-2024 Patient encounter procedure 03/12/2024 11:10 AM EDT Office Visit [facility] [address] [place] [address] 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, 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 [address] [place] [address] Arrived [facility] Comment on above: Arrived Start: 01-29-2024 Influenza vaccination Influenza Vaccine (#1) [facility] Start: 11-27-2023 Influenza vaccination Influenza Vaccine (#1) [facility] Comment on above: Postponed from 01/28/2023 (Patient Refus ed) Start: 09-08-2023 Medicare Annual Wellness (AWV) Medicare Annual Wellness (AWV) [facility] Start: 1969 Pneumococcal Vaccine: 65+ Years (1 of 2 - PCV) Pneumococcal Vaccine: 65+ Years (1 of 2 - PCV) [facility] Start: 1956 Pneumococcal Vaccine: 65+ Years (1 of 2 - PCV) Pneumococcal Vaccine: 65+ Years (1 of 2 - PCV) [facility] Start: 1950 Screening for malignant neoplasm of colon [facility] Dermatopathology exam Dermatopat hology exam Pathology and Cytology Timed Neoplasm of unspecified behavior of bone, soft tissue, and skin Release Upon Ordering for 1 Occurrences starting 03/12/2024 [facility] Work Phone: Comment on above: Release Upon Ordering for 1 Occurrences starting 03/12/2024 Payers Date Payer Category Payer Medicare (Managed Care) [facility] [id number] 2023 Unknown [id number] 2022 Medicare [id number] 2022 Self-pay [id number] 2022 Medicare ANTHEM MEDICARE ADVANTAGE ANTHEM MEDICARE ADVANTAGE [id number] 2022-Present [address] [place] [address] [id number] 1959 Medicaid [id number] 1959 Medicare [id number] 1948 Unknown [id number] [id number]. 593 1948 Unknown [id number] [id number]. 593 1948 Unknown [id number] 2.16.840.1.611946.3.579.2. 593 1948 Unknown [id number] [id number]. 593 1948 Unknown [id number] 2.16.840.1.436104.3.579.2. 1259 1948 Unknown [id number] 2.16.840.1.914562.3.579.2. 1259 1948 Unknown [id number] 2.16.840.1.075239.3.579.2. 1259 1948 Unknown [id number] 2.16.840.1.402680.3.579.2. 1259 1948 Unknown [id number] 2.16.840.1.892182.3.579.2. 1259 Unknown [id number] [id number]. 531 Unknown [id number] [id number]. 531 Unknown [id number]. 531 Social History Date Type Detail Facility Start: 03-08-2022 Tobacco smoking status [facility] Smoker (finding) [facility] Start: 1950 Sex Assigned At Female [facility] Start: 07-07-1978 Tobacco smoking status [facility] Occasional tobacco smoker [facility] Start: 07-07-1978 End: 01-01-2023 History of tobacco use Cigarette Smoker [facility] Start: 06-15-2023 End: 01-12-2024 Cigarettes smoked current (pack per day) - Reported 0.5 [facility] History of tobacco use Passive smoker [facility] Start: 06-15-2023 Tobacco use and exposure Smokeless tobacco non-user [facility] Start: 06-15-2023 End: 05-02-2024 Alcohol intake Ex-drinker (finding) [facility] Start: [...] true [facility] Clinical Notes 07-04-2023 to 09-11-2024 Telephone Encounter - MANUEL Graff - 09/11/2024 4:16 PM EDTTelephone Encounter - MANUEL Graff - 09/11/2024 4:16 PM EDTMANUEL Graff - 05/02/2024 10:00 AM EST Note Date & Type Note Facility 09-11-2024 Telephone encounter Note OARRS reviewed, Rx sent into patient's pharmacy. [facility] 09-11-2024 Miscellaneous Notes OARRS reviewed, Rx sent into patient's pharmacy. documented in this encounter [facility] 05-02-2024 History of Present illness Narrative Images [...] History: Procedure Laterality Date BREAST LUMPECTOMY Left 2010 CATARACT EXTRACTION Bilateral 03/2019 CERVICAL LAMINECTOMY 2017 with bilateral foraminotomies C3 through C6 Posterior fusion iwth insrumentation C3-4 Dr. [place] - [facility] SECTION, LOW TRANSVERSE 1980 OTHER SURGICAL HISTORY marsupilization;Disease:bartholom ew cyst ND LAP,CHOLECYSTECTOMY 03/16/2022 with cholangiography SALPINGECTOMY Visit Vitals [...] Medicare Wellness Visit. documented in this encounter [facility] 04-16-2024 Telephone encounter Note Appt scheduled [facility] 04-16-2024 Miscellaneous Notes Appt scheduled Please help pt get set up for a medication follow up appointment. She cancelled her appt in December. This is her last refill until seen. OARRS reviewed, Rx sent into patient's pharmacy. documented in this encounter [facility] 04-16-2024 Telephone encounter Note Please help pt get set up for a medication follow up appointment. She cancelled her appt in December. This is her last refill until seen. OARRS reviewed, Rx sent into patient's pharmacy. [facility] 03-12-2024 History of Present illness Narrative Images [...] limited to risks of scarring, darker or parquetry layer pigmentary changes, recurrence, incomplete removal and infection. [...] she will call documented in this encounter [facility] 07-04-2023 Telephone encounter Note PT has been sick for over 3 weeks now and said she has took numerous antibiotics and steroids and still not feeling well. She wanted to have an order for a chest xray sent to [facility] if there has been any change. [facility] 07-04-2023 Miscellaneous Notes PT has been sick for over 3 weeks now and said she has took numerous antibiotics and steroids and still not feeling well. She wanted to have an order for a chest xray sent to [facility] if there has been any change. documented in this encounter [facility] Evaluation note No assessment inform ation available [facility] Work Phone: Evaluation note Diagnosis Inflamed seborrheic keratosis- Primary Neoplasm of unspecified behavior of bone, soft tissue, and skin documented in this encounter [facility] HealthcareEvaluation note* Diagnosis Neuropathy of both upper extremities documented in this encounter [facility] HealthcareEvaluation note* Diagnosis Benign essential hypertension (CMS/HCC)- Primary Essential hypertension, benign Anxiety state (CMS/HCC) Anxiety state, unspecified Hypercholesteremia (CMS/HCC) Pure hypercholesterolemia Chronic bronchitis, unspecified chronic bronchitis type (CMS/HCC) Acute non-recurrent frontal sinusitis Tobacco dependence Tobacco use disorder documented in this encounter [facility] Diagnosis Anxiety state (CMS/HCC) Anxiety state, unspecified documented in this encounter [facility] Summary [...] section and content) DATE CREATED AUTHOR 09/24/2021 [facility] dical Specialist DATE CREATED AUTHOR AUTHOR'S ORGANIZ ATION 07/03/2022 [facility] DATE CREATED AUTHOR AUTHOR'S ORGANIZ ATION 10/11/[address] [facility] DATE CREATED AUTHOR AUTHOR'S ORGANIZ ATION 03/13/2024 [facility] dical Specialists EPIC Care Teams (unrecognized sec tion and content) Team Status: Inactive Member Role Status Dates Uziel Caicedo DO Attending Provider Active JORDON Ceja Primary Care Provider Active Team Status: Active Member Role Status Dates JORDON Ceja Primary Care Provider Active [employer] Supervisor Relationship Specialty Start Date End Date Lane Swann MD [address] [facility] [address] [place] [address] PCP - General Internal Medicine 11/16/22 Lane Swann MD [address] [place] [address] PCP - Tucker GRAF 05/30/21 Lane Swann MD [address] [place] [address] Internal Medicine 11/16/22 [employer] Supervisor Relationship Specialty Start Date End Date Lane Swann MD [address] [place] [address] PCP - General Internal Medicine 11/16/22 Lane Swann MD [address] [place] [address] PCP - Devoted 11/28/23 Lane Swann MD [address] [place] [address] Internal Medicine 11/16/22 [employer] Supervisor Relationship Specialty Start Date End Date Lane Swann MD [address] [place] [address] PCP - General Internal Medicine 11/16/22 Lane Swann MD [address] [place] [address] PCP - Devoted 11/28/23 Lane Swann MD [address] [place] [address] Internal Medicine 11/16/22 [employer] Supervisor Relationship Specialty Start Date End Date Lane Swann MD [address] [place] [address] PCP - General Internal Medicine 11/16/22 Lane Swann MD [address] [place] [address] PCP - Devoted 11/28/23 Lane Swann MD [address] [place] [address] Internal Medicine 11/16/22 [employer] S[employer] Supervisor Relationship Specialty Start Date End Date Lane Swann MD [address] [place] [address] PCP - General Internal Medicine 11/16/22 Lane Swann MD [address] [place] [address] PCP - Devoted 11/28/23 Lane Swann MD [address] [place] [address] Internal Medicine 11/16/22 [employer] Supervisor Relationship Specialty Start Date End Date Lane Swann MD [address] [place] [address] PCP - General Internal Medicine 11/16/22 Lane Swann MD [address] [place] [address] PCP - Devoted 11/28/23 Lane Swann MD [address] [place] [address] Internal Medicine 11/16/22 Zohra Somers LPN 08/14/24 Goals (unrecognized section and content) Goals may [...] onion juice and honey for 2 days. Reason Onset Date Comments Med Refill 09/11/2024 FOR RECORDS PERTAINING TO PATIENTS WHO ARE [...] BE BASED ON THE PRIMARY CLINICAL RECORDS. [employer] provides no warranty or guarantee of the accuracy or completeness of information in this document.
[2024-09-12 09:06] LABS: Basophils Absolute Auto 0.1 10^3/uL (0.0-0.1); Basophils Percent Auto 0.6 % (0.2-2.0); Eosinophils Absolute Auto 0.1 10^3/uL (0.0-0.7); Eosinophils Percent Auto 1.6 % (0.9-7.0); Hematocrit 44.8 % (36.0-48.0); Hemoglobin 15.3 g/dL (12.0-16.0); Immature Granulocytes Abs Auto 0.03 10^3/uL (0.00-0.03); Immature Granulocytes Pct Auto 0.3 % (0.0-0.5); Lymphocytes Absolute Auto 2.3 10^3/uL (1.2-3.8); Lymphocytes Percent Auto 25.4 % (20.5-60.0); Mean Corpuscular HGB Conc 34.2 g/dL (29.9-35.2); Mean Corpuscular Hemoglobin 30.4 pg (26.7-34.0); Mean Corpuscular Volume 88.9 fL (81.0-99.0); Mean Platelet Volume 11.1 fL (9.5-13.5); Monocytes Absolute Auto 0.7 10^3/uL (0.3-0.8); Monocytes Percent Auto 7.7 % (1.7-12.0); Neutrophils Absolute Auto 5.7 10^3/uL (1.4-6.5); Neutrophils Percent Auto 64.4 % (43.0-75.0); Platelet Count 218 10^3/uL (150-450); Red Blood Count 5.04 10^6/uL (4.20-5.40); Red Cell Distribution Width 14.3 % (11.0-15.0); White Blood Count 8.9 10^3/uL (4.0-11.0)
[2024-09-12 09:26] LABS: Alanine Aminotransferase 20 U/L (14-59); Albumin Globulin Ratio 1.2; Albumin Level 3.5 g/dL (3.4-5.0); Alkaline Phosphatase 75 U/L (46-116); Anion Gap 11.7; Aspartate Amino Transferase 16 U/L (15-37); BUN Creatinine Ratio 11.6; Bilirubin Total 0.7 mg/dL (0.2-1.0); Carbon Dioxide 26.9 mmol/L (21.0-32.0); Chloride 107 mmol/L (98-107); Estimated GFR (African America >60 (>=60 mL/min/1.73m^2); Estimated GFR (Non-African Ame >60 (>=60 mL/min/1.73m^2); Globulin 2.8 g/dL; Glucose 93 mg/dL (74-106); Potassium 3.6 mmol/L (3.5-5.1); Sodium 142 mmol/L (136-145); Total Protein 6.3 g/dL (6.4-8.2); Troponin I High Sensitivity 9.4 pg/mL (4.0-51.3)
[2024-09-12 09:42] LABS: Bilirubin Urine NEGATIVE (NEGATIVE); Blood Urine NEGATIVE (NEGATIVE); Clarity Urine CLEAR (CLEAR); Color Urine LT. YELLOW (YELLOW); Glucose Urine UA NEGATIVE (NEGATIVE); Ketones Urine NEGATIVE (NEGATIVE); Leukocyte Esterase Urine NEGATIVE (NEGATIVE); Nitrite Urine NEGATIVE (NEGATIVE); Protein Urine NEGATIVE (NEG/TRACE); Urobilinogen Urine 0.2 EU/dL (0.2-1.0); pH Urine 7.5 (5.0-9.0)
[2024-09-12 09:56] LABS: Urine Microscopic Indicated NO
== END 2024-09-12 10:27 | disposition home or self-care (01) ==
PROVIDERS: Emergency Provider Emergency Medicine; PCP Physician Assistant
DX: R42 Dizziness and giddiness (principal); H66.91 Otitis media, unspecified, right ear; J44.9 Chronic obstructive pulmonary disease, unspecified; F17.200 Nicotine dependence, unspecified, uncomplicated
CPT/HCPCS: 36415; 70450; 71045; 80053; 81003; 84484; 85025; 87804; 87811; 93005; 99285

== ENCOUNTER 2025-01-18 21:19 | Emergency (ER) | payer OTHER, MEDICAID, SELFPAY ==
--- OUTSIDE RECORDS SUMMARY | 2025-01-18 21:53 | XMS_ITS | CCD ---
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 GRAVITY 1.015 Normal 1.005-<=1.02 5 [facility] Comment on above: Performed By: #### U MICRO, ERUR #### [facility] [address] [address] [address] Nehemias Dean UA PROTEIN Negative Normal NEGATIVE/ TRACE [facility] Comment on above: Performed By: #### U MICRO, ERUR #### [facility] [address] [place] [address] Dr. Nehemias Dean UR MICRO IND INDICATED Normal [facility] Comment on above: Performed By: #### U MICRO, ERUR #### [facility] [address] [place] [address] Dr. Nehemias Dean Urobilinogen Qn (U) 0.2 {Cristina'U}/dL Normal 0.2 - 1. 0 [facility] Comment on above: Performed By: #### U MICRO, ERUR #### [facility] [address] [place] [address] Dr. Nehemias Dean PROF CHEM 8 (BAS METB)on Anion gap [Moles/Vol] 14.9 mmol/L Normal [facility] Comment on above: Performed By: #### B MP #### [facility] [address] [place] [address] Dr. Nehemias Dean Calcium [Mass/Vol] 9.4 mg/dL Normal 8.5-10.1 [facility] Comment on above: Performed By: #### B MP #### [facility] [address] [place] [address] Dr. Nehemias Dean Chloride [Moles/Vol] 100 mmol/L Normal 98-107 [facility] Comment on above: Performed By: #### B MP #### [facility] [address] [place] [address] Dr. Nehemias Dean CO2 [Moles/Vol] 27.2 mmol/L Normal 21.0-32.0 [facility] Comment on above: Performed By: #### B MP #### [facility] [address] [place] [address] Dr. Nehemias Dean Creatinine [Mass/Vol] 0.63 mg/dL Normal 0.55-1.02 [facility] Comment on above: Performed By: #### B MP #### [facility] [address] [place] [address] Dr. Nehemias Dean EGFR-AF FINNISH >60 Normal >=60 [facility] Comment on above: Performed By: #### B MP #### [facility] [address] [address] [address] Nehemias Dean EGFR-NON AF FINNISH >60 Normal >=60 [facility] Comment on above: Performed By: #### B MP #### [facility] [address] [address] [address] Nehemias Dean Glucose [Mass/Vol] 107 mg/dL Critically high 74-106 [facility] Comment on above: Performed By: #### B MP #### [facility] [address] [address] [address] Nehemias Dean Potassium [Moles/Vol] 3.1 mmol/L Critically low 3.5-5.1 [facility] Comment on above: Performed By: #### B MP #### [facility] [address] [place] [address] Dr. Nehemias Dean Sodium [Moles/Vol] 139 mmol/L Normal 136-145 [facility] Comment on above: Performed By: #### B MP #### [facility] [address] [place] [address] Dr. Nehemias Dean Urea nitrogen [Mass/Vol] 7.0 mg/dL Normal 7.0-18.0 [facility] Comment on above: Performed By: #### B MP #### [facility] [address] [place] [address] Dr. Nehemias Dean Urea nitrogen/Creatinine [Mass ratio] 11.1 mg/mg Normal [facility] Comment on above: Performed By: #### B MP #### [facility] [address] [place] [address] Dr. Nehemias Dean URINE MICROSCOPIC ONLYon BACTERIA TRACE Abnormal NONE SEEN [facility] Comment on above: Performed By: #### U MICRO, ERUR #### [facility] [address] [place] [address] Dr. Nehemias Dean Bacteria identified Cx Nom (U) NOT INDICATED Normal [facility] Comment on above: Performed By: #### U MICRO, ERUR #### [facility] [address] [place], [place] [id number] Dr. Nehemias Dean CAST NONE SEEN Normal NONE SEEN [facility] Comment on above: Performed By: #### U MICRO, ERUR #### [facility] [address] [place] [address] Dr. Nehemias Dean Crystals LM Nom (Urine sed) NONE SEEN Normal NONE SEEN [facility] Comment on above: Performed By: #### U MICRO, ERUR #### [facility] [address] [address] [address] Nehemias Dean Epithelial cells LM Ql (Urine sed) FEW Abnormal NONE SEEN /RARE [facility] Comment on above: Performed By: #### U MICRO, ERUR #### [facility] [address] [place] [address] Dr. Nehemias Dean MUCOUS NONE SEEN Normal NONE SEEN [facility] Comment on above: Performed By: #### U MICRO, ERUR #### [facility] [address] [place] [address] Dr. Nehemias Dean RBC 2-5 Abnormal 0-2 [facility] Comment on above: Performed By: #### U MICRO, ERUR #### [facility] [address] [place] [address] Dr. Nehemias Dean WBC NONE SEEN Normal NONE SEEN [facility] Comment on above: Performed By: #### U MICRO, ERUR #### [facility] [address] [place] [address] Dr. Nehemias Dean Alkaline Phosphataseon 03-16 ALP [Catalytic activity/Vol] 60 U/L Normal 32-92 [facility] Comment on above: Performed By: #### B ILIT, ALP, YEIMY #### [address] Amylaseon 03-16-2022 Amylase [Catalytic activity/Vol] 23 U/L Low 28-100 [facility] Comment on above: Result Comment: PERF ORMED BY: [place] [address] PATHOLOGIST FISHER TRAMMEL NET LAVERN CHATMAN M.D. Performed By: #### B ILIT, ALP, YEIMY #### [facility] [address] [id number] [facility] Bil[facility],Totalon 03-16-2022 Bilirubin [Mass/Vol] 1.1 mg/dL Normal 0.3-1.2 [facility] Comment on above: Performed By: #### B ELISE BURGESS AMY #### [facility] [address] [id number] [facility] [place] 03-16-2022 L - -------- Specimen: [id number] Received: 03/16/22 Status: JOSUE Kern Num: [id number] Spec Type: Surgical Subm Dr: Uziel Caicedo DO Tissues: A Gallbladder (GALLBLADDER) Procedures: HE Stain, Gross/Micro L3 -------- Age/ Patient Sex Location Account Attending Physician -------- Deb Perez 71/F [place] [id number] Uziel Caicedo DO -------- SPEC NUM: [id number] RECD: 03/16/22 STATUS: JOSUE KERN NUM: [id number] [place]: 03/16/22- SUBM DR: Uziel Caicedo DO ENTERED: 03/16/22 [facility] DR: SPEC TYPE: Surgical DEPT: S ORDERED: HE Stain, [...] The mucosa is dove-pink, focally hyperemic, denuded.. [employer] Education sections are submitted in one cassette labeled A1. Microscopic Description One glass slide with H E stained material has been examined. The microscopic findings support the above pathologic diagnosis. -------- Specimen: [id number] Received: 03/16/22 Status: JOSUE Kern Num: [id number] Spec Type: Surgical Subm Dr: Uziel Caicedo DO Tissues: A Gallbladder (GALLBLADDER) Procedures: HE Stain, Gross/Micro L3 -------- Patient: Deb Perez [id number] (Continued) -------- Specimen: [id number] Received: 03/16/22 (Continued) Signed (signature on file) Yasmeen Jameson MD 03/17/22 174 -------- Specimen: [id number] Received: 03/16/22 Status: JOSUE Kern Num: [id number] Spec Type: Surgical Subm Dr: Uziel Caicedo DO Tissues: A Gallbladder (GALLBLADDER) Procedures: REGLA Bernal, Gross/Micro L3 -------- Patient: Deb Perez [id number] (Continued) -------- Specimen: [id number] Received: 03/16/22 (Continued) CPT Codes 20664 -------- -------- Specimen: [id number] Received: 03/16/22 Status: JOSUE Harosundeep Num: [id number] Spec Type: Surgical Subm Dr: Uziel Caicedo DO Tissues: A Gallbladder (GALLBLADDER) Procedures: HE Stain, Gross/Micro L3 -------- Patient: Deb Perez [id number] (Continued) -------- Signed (signature on file) Yasmeen Jameson MD 03/17/22 1744 Normal [facility] SARS-CoV-2 (COVID-19) RNA DAVIE+probe Ql (Unsp spec) Negative Normal Negative [facility] Comment on above: Order Comment: Healt hcare Worker?: N Result Comment: Testing for SARS-CoV-2 by RT-PCR This test was developed and its performance characteristics determined by [employer]) and validated at the [facility]. This test has not been FDA [...] is terminated or revoked sooner. PERFORMED BY: [facility] [address] [place] [address] PATHOLOGIST FISHER TRAMMEL NET LAVERN CHATMAN M.D. Performed By: #### C OVID 19 [facility] #### [facility] [address] COVID-19 Positive/NegativeOr dered By: Uziel Caicedo on 03-12-2022 SARS-CoV-2 (COVID-19) N gene DAVIE+probe Ql (Resp) Negative Negative [facility] Comment on above: Testing for SARS-CoV -2 by RT-PCRThis test was developed and its performance characteristics determined by [employer] ([employer]) and validated at the [facility]. This test has not been FDA [...] Anion gap [Moles/Vol] 14.9 mmol/L Normal 6.0-15.0 [facility] Comment on above: Performed By: #### C BC, BMP #### [facility] [address] [place] [address] [place] Calcium [Mass/Vol] 10.2 mg/dL Normal 8.2-10.2 [facility] Comment on above: Result Comment: PERF ORMED BY: [place] [address] PATHOLOGIST FISHER TRAMMEL NET LAVERN CHATMAN M.D. Performed By: #### C BC, BMP #### [facility] [address] [place] [address] [place] Chloride [Moles/Vol] 97 mmol/L Normal 95-114 [facility] Comment on above: Performed By: #### C BC, BMP #### [facility] [address] [address] [place] CO2 [Moles/Vol] 28.2 mmol/L Normal 22.0-30.0 [facility] Comment on above: Performed By: #### C BC, BMP #### [facility] [address] Creatinine [Mass/Vol] 0.65 mg/dL Normal 0.44-1.03 [facility] Comment on above: Performed By: #### C BC, BMP #### [facility] [address] Estimated GFR ( My > 60 Normal [facility] Comment on above: Result Comment: GFR estimated reference range: According to KDOQI guidelines, <60 ml/min/1.73m2 is sufficient to diagnose a patient with chronic kidney disease. Performed By: #### C BC, BMP #### [facility] [address] Estimated GFR (Non- Am > 60 Normal [facility] Comment on above: Performed By: #### C BC, BMP #### [address] Glucose [Mass/Vol] 97 mg/dL Normal 70-100 [facility] Comment on above: Result Comment: [place] Glucose Reference Range is dependent on time and content of last meal. Glucose of more than 200 mg/dL in a nonstressed, ambulatory subject supports the diagnosis of Diabetes Mellitus. ADA recommended reference range Performed By: #### C BC, BMP #### [address] Potassium [Moles/Vol] 4.1 mmol/L Normal 3.5-5.1 [facility] Comment on above: Performed By: #### C BC, BMP #### [address] Sodium [Moles/Vol] 136 mmol/L Normal 136-146 [facility] Comment on above: Performed By: #### C BC, BMP #### [address] Urea nitrogen [Mass/Vol] 8 mg/dL Low 9-23 [facility] Comment on above: Performed By: #### C BC, BMP #### [place] [address] [place] Basophils Auto (Bld) [#/Vol] Ordered By: Uziel Caicedo on 03-08-2022 Basophils (Bld) [#/Vol] 0.1 10*3/uL 0.0-0.2 [facility] Basophils/100 WBC Auto (Bld) Ordered By: Uziel Caicedo on 03-08-2022 Basophils/100 WBC (Bld) 0.7 % . [facility] Complete Blood Count Auto Di ffon 03-08-2022 Basophils (Bld) [#/Vol] 0.1 10*3/uL Normal 0.0-0.2 [facility] Comment on above: Result Comment: PERF ORMED BY: [place] [address] PATHOLOGIST FISHER TRAMMEL NET LAVERN CHATMAN M.D. Performed By: #### C BC, BMP #### [address] Basophils/100 WBC (Bld) 0.7 % Normal . [facility] Comment on above: Performed By: #### C BC, BMP #### [address] Eosinophils (Bld) [#/Vol] 0.1 10*3/uL Normal 0.0-0.45 [facility] Comment on above: Performed By: #### C BC, BMP #### [facility] [address] [place] [address] Eosinophils/100 WBC (Bld) 1.2 % Normal . [facility] Comment on above: Performed By: #### C BC, BMP #### [facility] [address] [place] [address] Erythrocyte distribution width (RBC) [Ratio] 14.7 % Normal 11.9-15.3 [facility] Comment on above: Performed By: #### C BC, BMP #### [address] Hematocrit (Bld) [Volume fraction] 47.9 % High 34.0-46.4 [facility] Comment on above: Performed By: #### C BC, BMP #### [facility] [address] Hemoglobin (Bld) [Mass/Vol] 16.1 g/dL High 11.8-15.4 [facility] Comment on above: Performed By: #### C BC, BMP #### [facility] [address] Lymphocytes (Bld) [#/Vol] 1.7 10*3/uL Normal 1.00-4.8 [facility] Comment on above: Performed By: #### C BC, BMP #### [facility] [address] Lymphocytes/100 WBC (Bld) 19.6 % Normal . [facility] Comment on above: Performed By: #### C BC, BMP #### [facility] [address] MCH (RBC) [Entitic mass] 30.3 pg Normal 24.7-34.3 [facility] Comment on above: Performed By: #### C BC, BMP #### [facility] [address] [place] [address] [place] MCV (RBC) [Entitic vol] 90.2 fL Normal 80-100 [facility] Comment on above: Performed By: #### C BC, BMP #### [facility] [address] Mean Corpuscular HGB Conc 33.6 g/dL Normal 32.0-35.0 [facility] Comment on above: Performed By: #### C BC, BMP #### [facility] [address] [place] [address] [place] Monocytes (Bld) [#/Vol] 0.6 10*3/uL Normal 0.0-0.8 [facility] Comment on above: Performed By: #### C BC, BMP #### [facility] [address] [place] [address] [place] Monocytes/100 WBC (Bld) 6.9 % Normal . [facility] Comment on above: Performed By: #### C BC, BMP #### [facility] [address] [place] [address] [place] Neutrophils (Bld) [#/Vol] 6.1 10*3/uL Normal 1.8-7.7 [facility] Comment on above: Performed By: #### C BC, BMP #### [facility] [address] [address] [place] Neutrophils/100 WBC (Bld) 71.6 % Normal . [facility] Comment on above: Performed By: #### C BC, BMP #### [facility] [address] [place] [address] [place] Nucleated RBC/100 WBC (Bld) [Ratio] 0.1 % Normal 0-0.5 [facility] Comment on above: Performed By: #### C BC, BMP #### [facility] [address] [place] [address] [place] Platelet mean volume (Bld) [Entitic vol] 10.1 fL Normal 6.3-10.7 [facility] Comment on above: Performed By: #### C SHAHAB, BMP #### [facility] [address] [place] [address] [place] Platelets (Bld) [#/Vol] 218 10*3/uL Normal 150-450 [facility] Comment on above: Performed By: #### C SHAHAB, BMP #### [facility] [address] [address] [place] RBC (Bld) [#/Vol] 5.31 10*6/uL High 3.60-5.00 [facility] Comment on above: Performed By: #### C BC, BMP #### [facility] [address] [address] [place] WBC (Bld) [#/Vol] 8.5 10*3/uL Normal 4.5-11.0 [facility] Comment on above: Performed By: #### C BC, BMP #### [facility] [address] [place] [address] [place] Creatinine and Glomerular fi ltration rate.predicted panel (S/P/Bld)Ordered By: Uziel Caicedo on 03-08-2022 Creatinine [Mass/Vol] 0.65 mg/dL 0.44-1.03 [facility] ECG 12 lead ECGon 03-08-2022 ECG 12 lead ECG [facility] [place] [address] Electrocardiograph Report Signed Patient: Deb Perez MR#: [id number] : 1950 Acct:[id number] Age/Sex: 71 / F ADM Date: 03/08/22 Loc: PS Room: Type: [facility] Attending Dr: Uziel Caicedo DO Ordering [...] By Everette Graham DO 03/08 1246 Normal [facility] Eosinophils Auto (Bld) [#/Vo l]Ordered By: Uziel Caicedo on 03-08-2022 Eosinophils (Bld) [#/Vol] 0.1 10*3/uL 0.0-0.45 [facility] Eosinophils/100 WBC Auto (Bl d)Ordered By: Uziel Caicedo on 03-08-2022 Eosinophils/100 WBC (Bld) 1.2 % . [facility] Erythrocyte distribution wid th Auto (RBC) [Ratio]Ordered By: Uziel Caicedo on 03-08-2022 Erythrocyte distribution width (RBC) [Ratio] 14.7 % 11.9-15.3 [facility] Estimated glomerular filtrat ion rate (GFR) non- AmericanOrdered By: Uziel Caicedo on 03-08-2022 GFR/1.73 sq M.predicted among non-blacks MDRD (S/P/Bld) [Vol rate/Area] > 60 mL/Min [facility] Hematocrit Auto (Bld) [Volum e fraction]Ordered By: Uziel Caicedo on 03-08-2022 Hematocrit (Bld) [Volume fraction] 47.9 % 34.0-46.4 [facility] Hemoglobin [Mass/volume] in BloodOrdered By: Uziel Caicedo on 03-08-2022 Hemoglobin (Bld) [Mass/Vol] 16.1 g/dL 11.8-15.4 [facility] Laboratory - Hematology and Cell countsOrdered By: Uziel Caicedo on 03-08-2022 Nucleated RBC/100 WBC (Bld) [Ratio] 0.1 % 0-0.5 [facility] Leukocytes [#/volume] in Blo od by Automated countOrdered By: Uziel Caicedo on 03-08-2022 WBC (Bld) [#/Vol] 8.5 10*3/uL 4.5-11.0 [facility] Lymphocytes Auto (Bld) [#/Vo l]Ordered By: Uziel Caicedo on 03-08-2022 Lymphocytes (Bld) [#/Vol] 1.7 10*3/uL 1.00-4.8 [facility] Lymphocytes/100 WBC Auto (Bl d)Ordered By: Uziel Caicedo on 03-08-2022 Lymphocytes/100 WBC (Bld) 19.6 % . [facility] MCH Auto (RBC) [Entitic mass ]Ordered By: Uziel Caicedo on 03-08-2022 MCH (RBC) [Entitic mass] 30.3 pg 24.7-34.3 [facility] MCHC Auto (RBC) [Mass/Vol]Or dered By: Uziel Caicedo on 03-08-2022 MCHC (RBC) [Mass/Vol] 33.6 g/dL 32.0-35.0 [facility] MCV Auto (RBC) [Entitic vol] Ordered By: Uziel Caicedo on 03-08-2022 MCV (RBC) [Entitic vol] 90.2 fL 80-100 [facility] Monocytes Auto (Bld) [#/Vol] Ordered By: Uziel Caicedo on 03-08-2022 Monocytes (Bld) [#/Vol] 0.6 10*3/uL 0.0-0.8 [facility] Monocytes/100 WBC Auto (Bld) Ordered By: Uziel Caicedo on 03-08-2022 Monocytes/100 WBC (Bld) 6.9 % . [facility] Neutrophils Auto (Bld) [#/Vo l]Ordered By: Uziel Caicedo on 03-08-2022 Neutrophils (Bld) [#/Vol] 6.1 10*3/uL 1.8-7.7 [facility] Neutrophils/100 WBC Auto (Bl d)Ordered By: Uziel Caicedo on 03-08-2022 Neutrophils/100 WBC (Bld) 71.6 % . [facility] No Panel InformationOrdered By: Uziel Caicedo on 03-08-2022 Estimated GFR () > 60 mL/Min [facility] Comment on above: GFR estimated refere nce range: According to KDOQI guidelines, <60 ml/min/1.73m2 is sufficient to diagnose a patient with chronic kidney disease. Pharmacy Creatinine Clearance (Chem N/A [facility] Platelet mean volume Auto (B ld) [Entitic vol]Ordered By: Uziel Caicedo on 03-08-2022 Platelet mean volume (Bld) [Entitic vol] 10.1 fL 6.3-10.7 [facility] Platelets Auto (Bld) [#/Vol] Ordered By: Uziel Caicedo on 03-08-2022 Platelets (Bld) [#/Vol] 218 10*3/uL 150-450 [facility] RBC Auto (Bld) [#/Vol]Ordere d By: Uziel Ciacedo on 03-08-2022 RBC (Bld) [#/Vol] 5.31 10*6/uL 3.60-5.00 [facility] Serum or plasma anion gap de terminationOrdered By: Uziel Caicedo on 03-08-2022 Anion gap [Moles/Vol] 14.9 mmol/L 6.0-15.0 [facility] Serum or plasma calcium luis m urement (mass/volume)Ordered By: Uziel Caicedo on 03-08-2022 Calcium [Mass/Vol] 10.2 mg/dL 8.2-10.2 [facility] Serum or plasma chloride pedro surement (moles/volume)Ordered By: Uziel Caicedo on 03-08-2022 Chloride [Moles/Vol] 97 mmol/L 95-114 [facility] Serum or plasma glucose luis m urement (mass/volume)Ordered By: Uziel Caicedo on 03-08-2022 Glucose [Mass/Vol] 97 mg/dL 70-100 [facility] Comment on above: ADA recommended refe rence rangeRandom Glucose Reference Range is dependent on time and content of last meal. Glucose of more than 200 mg/dL in a nonstressed, ambulatory subject supports the diagnosis of Diabetes Mellitus. Serum or plasma potassium me asurement (moles/volume)Ordered By: Uziel Caicedo on 03-08-2022 Potassium [Moles/Vol] 4.1 mmol/L 3.5-5.1 [facility] Serum or plasma sodium measu rement (moles/volume)Ordered By: Uziel Caicedo on 03-08-2022 Sodium [Moles/Vol] 136 mmol/L 136-146 [facility] Serum or plasma total carbon dioxide measurement (moles/volume)Ordered By: Uziel Caicedo on 03-08-2022 CO2 [Moles/Vol] 28.2 mmol/L 22.0-30.0 [facility] Serum or plasma urea nitroge n measurement (mass/volume)Ordered By: Uziel Caicedo on 03-08-2022 Urea nitrogen [Mass/Vol] 8 mg/dL 9 [facility] US SINGLE QUAD RT UPPERon US [...] by: JOSEPH HUBBARD Date: 2022-03-02 07:41 Normal [facility] XR CHEST 2 Von 10-22-2021 [...] by: GEOFFREY ELLIS Date: 2021-10-22 10:10 Normal [facility] Iron Profileon 09-22-2021 %FESAT 27 % Normal 11-50 [facility] [employer] Comment on above: Performed By: #### T SH reflex FT4, FE Prof #### [facility] [address] [place], [place] [id number] FE 71 ug/dL Normal 40-190 [facility] [employer] Comment on above: Result Comment: Refe rence range change 04/15/2017. Prior reference range F 37-145 ug/dL, M 59-158 ug/dL. Performed By: #### T SH reflex FT4, FE Prof #### [facility] [address], [place] [id number] TIBC 261 ug/dL Normal 250-450 [facility] Specialist Comment on above: Performed By: #### T SH reflex FT4, FE Prof #### [facility] [address], [place] [id number] UIBC 190 ug/dL Normal 112-347 [facility] Specialist Comment on above: Performed By: #### T SH reflex FT4, FE Prof #### [facility] [address], [place] [id number] TSH w/ Reflex to Free T4on 0 09-22-2021 TSH 0.551 uIU/mL Normal 0.400-4.500 [facility] Specialist Comment on above: Performed By: #### T SH reflex FT4, FE Prof #### [facility] [address], [place] [id number] Vitamin B12/Folateon 022 Cobalamin (Vitamin B12) [Mass/Vol] 596 pg/mL Normal 211-946 [facility] Specialist Comment on above: Performed By: #### B 12/Fol #### [facility] [address], [place] [id number] FOL 9.9 ng/mL Normal >4.7 [facility] Specialist Comment on above: Result Comment: Refe rence range change 04/15/2017. Prior reference range F 4.8-37.3 ng/mL, M 4.5-32.2 ng/mL. Performed By: #### B 12/Fol #### [facility] [address], [place] [id number] Complete Blood Count with Au to Diffon 08-05-2021 Basophils (Bld) [#/Vol] 0.06 10*3/uL Normal 0.00-0.20 [facility] Specialist Comment on above: Performed By: #### L IPD, CBCAD, VITD #### [facility] [address], [place] [id number] Basophils/100 WBC (Bld) 0.6 % Normal N [facility] Comment on above: Performed By: #### L IPD, CBCAD, VITD #### [facility] [address], [place] [id number] Eosinophils (Bld) [#/Vol] 0.13 10*3/uL Normal 0.02-0.50 [facility] Specialist Comment on above: Performed By: #### L IPD, CBCAD, VITD #### [facility] [address], [place] [id number] Eosinophils/100 WBC (Bld) 1.4 % Normal [facility] Specialist Comment on above: Performed By: #### L IPD, CBCAD, VITD #### [facility] [address], [place] [id number] Erythrocyte distribution width (RBC) [Ratio] 14.2 % Normal 11.0-15.0 [facility] Scale Clerk Comment on above: Performed By: #### L IPD, CBCAD, VITD #### [facility] [address], [place] [id number] Hematocrit (Bld) [Volume fraction] 48.6 % High 35.0-47.0 [facility] Clerk Comment on above: Performed By: #### L IPD, CBCAD, VITD #### [facility] [address], [place] [id number] Hemoglobin (Bld) [Mass/Vol] 16.6 g/dL High 11.6-15.5 [facility] Clerk Comment on above: Performed By: #### L IPD, CBCAD, VITD #### [facility] [address], [place] [id number] Lymphocytes (Bld) [#/Vol] 2.2 10*3/uL Normal 0.9-3.9 [facility]ist Comment on above: Performed By: #### L IPD, CBCAD, VITD #### [facility] [address], [place] [id number] Lymphocytes/100 WBC (Bld) 24.0 % Normal [facility] Specialist Comment on above: Performed By: #### L IPD, CBCAD, VITD #### [facility] [address], [place] [id number] MCH (RBC) [Entitic mass] 30.7 pg Normal 27.0-33.0 [facility] Specialist Comment on above: Performed By: #### L IPD, CBCAD, VITD #### [facility] [address], [place] [id number] MCHC (RBC) [Mass/Vol] 34.2 g/dL Normal 32.0-36.0 [facility] Comment on above: Performed By: #### L IPD, CBCAD, VITD #### [facility] [address], [place] [id number] MCV (RBC) [Entitic vol] 90 fL Normal 80-100 [facility] Specialist Comment on above: Performed By: #### L IPD, CBCAD, VITD #### [facility] [address], [place] [id number] Monocytes (Bld) [#/Vol] 0.5 10*3/uL Normal 0.2-0.9 [facility] Specialist Comment on above: Performed By: #### L IPD, CBCAD, VITD #### [facility] [address], [place] [id number] Monocytes/100 WBC (Bld) 5.8 % Normal [facility] Specialist Comment on above: Performed By: #### L IPD, CBCAD, VITD #### [facility] [address], [place] [id number] Neutrophils (Bld) [#/Vol] 6.3 10*3/uL Normal 1.5-7.8 [facility] Specialist Comment on above: Performed By: #### L IPD, CBCAD, VITD #### [facility] [address], [place] [id number] Neutrophils/100 WBC (Bld) 67.9 % Normal [facility] Specialist Comment on above: Performed By: #### L IPD, CBCAD, VITD #### [facility] [address], [place] [id number] Platelet mean volume (Bld) [Entitic vol] 12.00 fL Normal 7.50-12.50 [facility] Specialist Comment on above: Performed By: #### L IPD, CBCAD, VITD #### [facility] [address], [place] [id number] Platelets (Bld) [#/Vol] 215 10*3/uL Normal 140-400 [facility] Specialist Comment on above: Performed By: #### L IPD, CBCAD, VITD #### [facility] [address], [place] [id number] RBC (Bld) [#/Vol] 5.41 10*6/uL High 3.90-5.20 [facility] Comment on above: Performed By: #### L IPD, CBCAD, VITD #### [facility] [address], [place] [id number] RDW-SD 46.5 fL Normal 37.0-50.0 [facility]ist Comment on above: Performed By: #### L IPD, CBCAD, VITD #### [facility] [address], [place] [id number] WBC (Bld) [#/Vol] 9.2 10*3/uL Normal 3.8-11.0 [facility] Comment on above: Performed By: #### L IPD, CBCAD, VITD #### [facility] [address], [place] [id number] Lipid Panelon 08-05-2021 Cholesterol [Mass/Vol] 285 mg/dL High 125-200 No [place] Comment on above: Result Comment: Low risk < 200mg/dL Borderline risk 201-239 mg/dl High risk > or equal to 240 Performed By: #### L IPD, CBCAD, VITD #### [facility] [address], [place] [id number] Cholesterol in HDL [Mass/Vol] 67 mg/dL Normal >40 [facility] Specialist Comment on above: Result Comment: High Cardiovascular Risk HDL <40 mg/dL Low Cardiovascular Risk HDL > or equal to 60 mg/dl Performed By: #### L IPD, CBCAD, VITD #### [facility] [address], [place] [id number] Cholesterol in LDL [Mass/Vol] 184 mg/dL Normal [facility] Specialist Comment on above: Result Comment: LDL ATP III CLASSIFICATION LDL less than 100 mg/dl Optimal LDL 100-129 mg/dl Near or above optimal LDL 130-159 Borderline high LDL 160-189 High LDL greater than 189 mg/dl Very High Performed By: #### L IPD, CBCAD, VITD #### [facility] [address], [place] [id number] Cholesterol in VLDL [Mass/Vol] 34 mg/dL Normal [facility] Clerk Comment on above: Performed By: #### L IPD, CBCAD, VITD #### [facility] [address], [place] [id number] Cholesterol.total/Bhumi sterol in HDL [Mass ratio] 4 {ratio} Normal [facility] Clerk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 office if no improvement in one week. Nausea - ondansetron ODT (Zofran-ODT) 4 MG disintegrating tablet; Take 1 tablet (4 mg) by mouth Daily as needed for nausea or vomiting This is a chronic medical condition that is stable since last assessment. No changes in treatment are suggested at this time. No follow-ups on file. documented in this encounter [facility] 12-15-2024 Telephone encounter Note OARRS reviewed, Rx sent into patient's pharmacy. [facility] 12-15-2024 Miscellaneous Notes OARRS reviewed, Rx sent into patient's pharmacy. documented in this encounter [facility] 10-11-2024 History of Present illness Narrative Images from the original note were not included. Subjective Patient ID: Deb Perez is a 74 y.o. female who presents for Medicare Annual Wellness Visit Subsequent. Did PT for Vertigo with good results. Had flare up again yesterday when she bent forward. recently had a heart ablation. Medicare Wellness Over the past 2 weeks, how often have you been bothered by any of the following problems? Little interest or pleasure in doing things: Not at all Feeling down, depressed, or hopeless: Not at all Patient Health Questionnaire-2 Score: 0 Over the past 2 weeks, how often have you been bothered by any of the following problems? Trouble falling or staying asleep, or sleeping too much: Not at all Feeling tired or having little energy: Not at all Poor appetite or overeating: Not at all Feeling bad about yourself - or that you are a failure or have let yourself or your family down: Not at all Trouble concentrating on things, such as reading the newspaper or watching television: Not at all Moving or speaking so slowly that other people could have noticed? Or the opposite - being so fidgety or restless that you have been moving around a lot more than usual.: Not at all Thoughts that you would be better off or hurting yourself in some way: Not at all Patient Health Questionnaire-9 Score: 0 [place] Fall Risk History of Falling, Immediate or Within 3 Months: No Health Risk Assessment Form Do you need help eating, bathing, using the toilet, dressing, or getting around your home?: No Can you prepare your own meals?: Yes Can you do your own housework without help?: Yes Can you shop for groceries or clothes without help?: Yes Do you exercise for about 20 minutes 3 or more days a week?: No How confident are you that you can control and manage most of your health problems?: Very confident Can you mange your money, credit cards and accounts, pay bills and taxes?: Yes Vision Screening: Yes, no gross abnormalities Hearing Screening: Yes, no gross abnormalities Cognitive Screening Self Assessment: No overt cognitive deficiency is apparent by direct observation Three Word Registration: Village, Kitchen, Baby Clock Drawing: Normal Clock - 2 Three Word Recall: All 3 words correct - 3 Total Score (0-5 Points): 5 Pain Assessment Pain Score: 0 - No pain Advance Care Planning Do you have a living will?: No Do you have a medical power of regulatory attorney?: No Current Outpatient Medications on File Prior to Visit Medication Sig Dispense Refill albuterol HFA 90 mcg/act inhaler INHALE 2 PUFFS EVERY 6 HOURS IF NEEDED FOR WHEEZING. 3 g 3 ALPRAZolam (Xanax) 0.25 MG tablet Take 1 tablet (0.25 mg) by mouth 3 (three) times a day as needed for anxiety for up to 10 days 30 tablet 0 budesonide-formoterol (Symbicort) 160-4.5 MCG/ACT [...] DAY FOR 90 DAYS 90 tablet 3 meclizine (Antivert) 25 MG tablet Take 25 mg by mouth 3 (three) times a day as needed for dizziness ondansetron ODT (Zofran-ODT) 4 MG disintegrating tablet Take 1 tablet (4 mg) by mouth Daily as needed for nausea or vomiting 20 tablet 2 [DISCONTINUED] pregabalin (Lyrica) 50 MG capsule Take 1 capsule (50 mg) by mouth in the morning and 1 capsule (50 mg) at noon and 1 capsule (50 mg) in the evening and 1 capsule (50 mg) before bedtime. 120 capsule 2 No current facility-administered medications on file prior to visit. I have reviewed and reconciled the history and medication list with the patient today. Allergies Allergen Reactions Amoxicillin-Pot Clavulanate Other Reaction(s): Cramping, Diarrhea Montelukast Nausea Only Oxycodone-Acetaminophen Dizziness Social History Tobacco Use Smoking status: Every Day Current packs/day: 0.00 Average packs/day: 0.5 packs/day for 44.5 years (22.2 ttl pk-yrs) Types: Cigarettes Start date: 07/07/1978 Last attempt to quit: 01/01/2023 Years since quittin.7 Passive exposure: Current Smokeless tobacco: Never Vaping [...] Problems Brother Past Medical History: Diagnosis Date Acquired spondylolisthesis 11/01/2016 Seen on Cervical Spine X-rays, C3-C4. Allergic Anxiety Arthritis Asthma Bartholin's cyst Bronchitis Calculus of gallbladder Calculus of gallbladder and bile duct w/cholecystitis w/o obstruction Cancer (CMS/HCC) breast Carpal tunnel syndrome of right wrist Cataract Cholelithiasis 02/2022 Chronic bronchitis (CMS/HCC) Complex regional pain syndrome affecting both upper arms COVID-19 07/07/2021 Ectopic Hypertension (CMS/HCC) Paresthesia of hand, bilateral Raynaud's disease without gangrene Right rotator cuff tendonitis 11/10/2022 Vertigo as late effectof cerebrovascular disease Past Surgical History: Procedure Laterality Date BREAST LUMPECTOMY Left 2010 CATARACT EXTRACTION Bilateral 03/2019 CERVICAL LAMINECTOMY 2017 with bilateral foraminotomies C3 through C6 Posterior fusion iwth insrumentation C3-4 Dr. [place] SECTION, LOW TRANSVERSE 1981 OTHER SURGICAL HISTORY marsupilization;Disease:bartholom ew cyst [place] LAP,CHOLECYSTECTOMY 03/16/2022 with cholangiography SALPINGECTOMY Visit Vitals BP 126/74 Pulse 86 Resp 16 Ht 5' 5 Wt 115 lb 6.4 oz SpO2 97% BMI 19.20 kg/m Smoking Status Every Day BSA 1.55 m Review of Systems Constitutional: Negative for chills, fatigue and fever. HENT: Negative for congestion, ear pain, rhinorrhea and sore throat. Eyes: Negative for pain, discharge and visual disturbance. Respiratory: Negative for cough, shortness of breath and wheezing. Cardiovascular: Negative for chest pain, palpitations and leg swelling. Gastrointestinal: Negative for abdominal pain, constipation, diarrhea, nausea and vomiting. Genitourinary: Negative for difficulty urinating, dysuria and frequency. Musculoskeletal: Negative for arthralgias and back pain. Skin: Negative for rash. Neurological: Positive for dizziness. Negative for numbness. Psychiatric/Behavioral: Negative for sleep disturbance. The patient is not nervous/anxious. Objective Physical Exam Constitutional: General: She is not in acute distress. Appearance: Normal appearance. She is well-developed. HENT: Head: Normocephalic and atraumatic. Left Ear: Tympanic membrane and ear canal normal. Ears: Comments: Small amount of light colored cerumen in right canal, right up against TM. Rest of canal is clear Nose: Nose normal. Mouth/Throat: Mouth: Mucous membranes are moist. Pharynx: No posterior oropharyngeal erythema. Eyes: General: No scleral icterus. Extraocular Movements: Extraocular movements intact. Conjunctiva/sclera: Conjunctivae normal. Pupils: Pupils are equal, round, and reactive to light. Neck: Vascular: No carotid bruit. Cardiovascular: Rate and Rhythm: Normal rate and regular rhythm. Heart sounds: Normal heart sounds. No murmur heard. Pulmonary: Effort: Pulmonary effort is normal. No respiratory distress. Breath sounds: Decreased air movement present. Decreased breath sounds present. No wheezing, rhonchi or rales. Abdominal: General: Bowel sounds are normal. There is no distension. Palpations: Abdomen is soft. Tenderness: There is no abdominal tenderness. There is no guarding. Musculoskeletal: General: No swelling or deformity. Normal range of motion. Cervical back: Normal range of motion and neck supple. No tenderness. Skin: General: Skin is warm and dry. Capillary Refill: Capillary refill takes less than 2 seconds. Findings: No rash. Neurological: General: No focal deficit present. Mental Status: She is alert and oriented to person, place, and time. Cranial Nerves: No cranial nerve deficit. Sensory: No sensory deficit. Motor: No weakness. Gait: Gait normal. Deep Tendon Reflexes: Reflexes normal. Psychiatric: Mood and Affect: Mood normal. Behavior: Behavior normal. Thought Content: Thought content normal. Judgment: Judgment normal. Assessment & Plan 1. Medicare annual wellness visit, subsequent (Primary) Reviewed all relevant preventative screenings with the patient in detail. Medicare Wellness form completed and will be scanned into patient's chart. All needed testing was ordered. Will continue with yearly Medicare Wellness exams. - CBC and differential - Comprehensive metabolic panel - Lipid panel - Vitamin D 25 hydroxy Total 2. ACP (advance care planning) Patient agreed to discuss advance care planning at today's wellness visit. We discussed that an advance directive is a legal document that only goes into effect if the patient is incapacitated and unable to speak for himself or herself. This would help healthcare providers to ensure that the patient gets the care that he or she wishes to receive. The goal is to provide a patient with the best possible quality of life. Encouraged patient to obtain a living will and durable power of regulatory attorney for healthcare. We discussed telling rodas people about their advance directives such as close family members, and requested a copy to scan into the patient's EHR. An advance directive packet was offered to the patient. 3. BPPV (benign paroxysmal positional vertigo), left Encouraged pt to change positions slowly. Continue to stay hydrated. Encouraged her to set up an appointment with PT to work on recent flare up of symptoms. Meclizine prn. 4. Neuropathy of both upper extremities Medication choice and dosage is appropriate for patient's current medical conditions. Patient will continue to be required to be seen in our office at least every three months for monitoring. At each follow up visit I will reassess the patient's need for the medication. Patient is to have this medication prescribed only through this office. Failure to follow the rules and regulations will result in tapering and discontinuation of medications if applicable. Patient verbalized understanding. OARRS Report was reviewed for this patient. - pregabalin (Lyrica) 50 MG capsule; Take 1 capsule (50 mg) by mouth in the morning and 1 capsule (50 mg) before bedtime. 5. Carpal tunnel syndrome on both sides This is a chronic medical condition that is stable since last assessment. No changes in treatment are suggested at this time. Takes Lyrica. 6. Cervical spondylosis with myelopathy This is a chronic medical condition that is stable since last assessment. No changes in treatment are suggested at this time. Takes Lyrica. 7. Cervicalgia This is a chronic medical condition that is stable since last assessment. No changes in treatment are suggested at this time. Takes Lyrica. 8. Dizziness Encouraged pt to change positions slowly. Continue to stay hydrated. Encouraged her to set up an appointment with PT to work on recent flare up of symptoms. 9. Osteoarthritis of spine with radiculopathy, cervical region This is a chronic medical condition that is stable since last assessment. No changes in treatment are suggested at this time. Takes Lyrica. 10. Chronic bronchitis, unspecified chronic bronchitis type (CMS/HCC) This is a chronic medical condition that is stable since last assessment. No changes in treatment are suggested at this time. Symbicort and Albuterol as prescribed. 11. Atherosclerosis of aorta (CMS/HCC) This is a chronic medical condition that is stable since last assessment. Will continue to work on risk factor reduction. 12. Benign essential hypertension (CMS/HCC) Patient's blood pressure is currently well controlled. Continue with current medications and I will continue to monitor. Goal BP remains less than 130/80. - CBC and differential - Comprehensive metabolic panel - Lipid panel 13. Chronic idiopathic constipation Patient's blood pressure is currently well controlled. No treatment needed at this time. 14. Sigmoid diverticulosis Patient's blood pressure is currently well controlled. No treatment needed at this time. 15. Age-related osteoporosis without current pathological fracture (CMS/HCC) This is a chronic medical condition that is stable since last assessment. No changes in treatment are suggested at this time. 16. Spondylolysis of cervical region This is a chronic medical condition that is stable since last assessment. No changes in treatment are suggested at this time. Takes Lyrica. 17. Other primary ovarian failure This is a chronic medical condition that is stable since last assessment. No changes in treatment are suggested at this time. 18. Vitamin D deficiency This is a chronic medical condition that is stable since last assessment. Recommend OTC Vitamin D daily. - Vitamin D 25 hydroxy Total 19. Chronic FANI (middle ear effusion), bilateral Can provide pt with referral to ENT if symptoms not relieved by PT. Unable to visualize right TM today, left TM was clear. 20. Allergic rhinitis due to pollen, unspecified seasonality This is a chronic medical condition that is stable since last assessment. No changes in treatment are suggested at this time. Can take OTC allergy medication prn. 21. Anxiety state (CMS/HCC) This is a chronic medical condition that is stable since last assessment. No changes in treatment are suggested at this time. Xanax prn. 22. Chronic fatigue This is a chronic medical condition that is stable since last assessment. Will continue to monitor. 23. History of breast cancer Denies any concerns at this time. Will continue to monitor. 24. History of COVID-19 Denies any concerns at this time. Will continue to monitor. 25. Hypercholesteremia (CMS/HCC) This is a chronic medical condition that is stable since last assessment. Pt would like to have her cholesterol rechecked. Has been taking Garlique for cholesterol. - CBC and differential - Comprehensive metabolic panel - Lipid panel 26. Hypokalemia This is a chronic medical condition that is stable since last assessment. Will recheck with upcoming labs. - Comprehensive metabolic panel 27. Other sequelae following unspecified cerebrovascular disease Denies any concerns at this time. Will continue to monitor. 28. Post-nasal drainage This is a chronic medical condition that is stable since last assessment. No changes in treatment are suggested at this time. Can take OTC allergy medication prn. 29. Tobacco dependence Discussed smoking cessation with the patient. She is down to a 1/4 PPD. Encouraged patient to continue to cut back and soon quit smoking. Health risks of smoking, and benefits of quitting reviewed with the patient. She can use Debrox in right ear for the next week and follow up in our office if cerumen does not come out on its own. Follow up in about 3 months (around 01/11/2025) for Medication Follow Up. Cynthia Jose MSSIMON, GO documented in this encounter [facility] 09-27-2024 History of Present illness Narrative Images from the original note were not included. Deb Perez [id number] 09/27/24 Subjective: Phone consult 09/18 74 yof sent to PT by Dr Kaci Lubin for dizziness Onset last wed Down in basement and drinking coffee and room started to spin, lasted approx 1/2 hour ER cat scan negative per pt, blood work fine everything looked fine except: Double ear infection , which started last wk R ear is worst Denies tinnitus/hearing loss Vision blurry worse since getting this problem Neck surgery in past Tingling in hands Feet are fine Objective/Examination: Vision/Ocular: Head alignment: Negative head tilt Ocular alignment-Strabismus observation: Negative misalignment noticed (Exo, Eso, Hyper & Hypo tropia/phoria) Pupil Size/shape: Negative asymmetry noticed Double Vision: Denies Binocular & Monocular double vision Visual Field: Pass, Performed Monocularly and able to see at least shoulder width & chin to eyebrow length Static Visual Acuity (Snellen 20' distance): Line 6 Needs glasses adjusted worst R vision Cover Tropia/Uncover Phoria test: Negative Cross Cover test for fatibagility (20 reps): Negative Saccades: Pass, Performed with stationary head at arms length with Blue & [place] Markers Smooth Pursuit: Pass, Performed Monocularly Negative undershoot/overshoot, jumping, head movement Gaze evoked nystagmus: Negative *Postional Testing: positive L side semont *BPPV testing: Positive Christa L post canal Postural Hypotension head fixed lay down sit up testing: Negative BP was not tested Head Impulse Test: Negative Upper Motor Neuron: Negative finger to nose, hoffmans, hyperreflexia, rapid alt hand movt *Cervical Motion: Impaired motion and discomfort *Cervical Massage vibration test with goggles: dizzines Vertebral Artery Screening test (VAST): negative Cervical Torsion Test: negative *Smooth Pursuit Neck Tosrion Test (SPNT): dizziness loss of balance *Sensory Organization Performance Test: fail test 6 *Fukuda test: spin L Ocular assessment with goggles: negative spontaneous nystagmus High Frequency Head shake (2 Hz) with video goggles: negative Therapeutic Intervention: reEvaluation BPPV maneuvers 16 min wedge Neck arm rom Balance eyes closed Ms cdvat testing Aerobics heat Revised hep 45 See flow sheet Assessment: Suspected Therapy Diagnosis: BPPV L post canal with cervical stiffness and balance impairment and vestibular unilateral weakness Problems: BPPV L post canal, severe dizziness laying down/bending head/looking up, poor balance, fail test 6 sop, valdes medium fall risk, neck stiffness/discomfort, Impaired motion sensitivity Suspect impaired vor reflex will test once bppv resolved Goals: Eliminate bppv, negative dizziness with positioning, restore balance, pass sop tests, pass valdes tests low fall risk, Optimize neck motion, restore vor and pass cdvat and motion sensitivity and sop tests, Plan: Bppv maneuvers, balance intervention, gentle rom neck, vestibular rehabilitation, vision therapy, aerobics/heat Frequency/Duration: Once every other week Potential: Good I hereby deem this POC medically necessary. Please sign below. Alexa Brown, PT, Dsc, OCS, COMT, AIB-VAM Director Vestibular Rehabilitation documented in this encounter [facility] 09-24-2024 History of Present illness Narrative Images from the original note were not included. Deb Perez [id number] 09/19/24 Subjective: Phone consult 09/18 74 yof sent to PT by Dr Kaci Lubin for dizziness Onset last wed Down in basement and drinking coffee and room started to spin, lasted approx 1/2 hour ER cat scan negative per pt, blood work fine everything looked fine except: Double ear infection , which started last wk R ear is worst Denies tinnitus/hearing loss Vision blurry worse since getting this problem Neck surgery in past Tingling in hands Feet are fine Objective/Examination: Vision/Ocular: Head alignment: Negative head tilt Ocular alignment-Strabismus observation: Negative misalignment noticed (Exo, Eso, Hyper & Hypo tropia/phoria) Pupil Size/shape: Negative asymmetry noticed Double Vision: Denies Binocular & Monocular double vision Visual Field: Pass, Performed Monocularly and able to see at least shoulder width & chin to eyebrow length Static Visual Acuity (Snellen 20' distance): Line 6 Needs glasses adjusted worst R vision Cover Tropia/Uncover Phoria test: Negative Cross Cover test for fatibagility (20 reps): Negative Saccades: Pass, Performed with stationary head at arms length with Blue & [place] Markers Smooth Pursuit: Pass, Performed Monocularly Negative undershoot/overshoot, jumping, head movement Gaze evoked nystagmus: Negative *Postional Testing: positive L side semont *BPPV testing: Positive Christa L post canal Postural Hypotension head fixed lay down sit up testing: Negative BP was not tested Head Impulse Test: Negative Upper Motor Neuron: Negative finger to nose, hoffmans, hyperreflexia, rapid alt hand movt *Cervical Motion: Impaired motion and discomfort *Cervical Massage vibration test with goggles: dizzines Vertebral Artery Screening test (VAST): negative Cervical Torsion Test: negative *Smooth Pursuit Neck Tosrion Test (SPNT): dizziness loss of balance *Sensory Organization Performance Test: fail test 6 *Fukuda test: spin L Ocular assessment with goggles: negative spontaneous nystagmus High Frequency Head shake (2 Hz) with video goggles: negative Therapeutic Intervention: Evaluation BPPV maneuvers 16 min Gentle rom neck/arms, balance, aerobics heat, written hep 25 min See flow sheet Assessment: Suspected Therapy Diagnosis: BPPV L post canal with cervical stiffness and balance impairment and vestibular unilateral weakness Problems: BPPV L post canal, severe dizziness laying down/bending head/looking up, poor balance, fail test 6 sop, valdes medium fall risk, neck stiffness/discomfort, Impaired motion sensitivity Suspect impaired vor reflex will test once bppv resolved Goals: Eliminate bppv, negative dizziness with positioning, restore balance, pass sop tests, pass valdes tests low fall risk, Optimize neck motion, restore vor and pass cdvat and motion sensitivity and sop tests, Plan: Bppv maneuvers, balance intervention, gentle rom neck, vestibular rehabilitation, vision therapy, aerobics/heat Frequency/Duration: Once every other week Potential: Good I hereby deem this POC medically necessary. Please sign below. Alexa Brown, PT, Dsc, OCS, COMT, AIB-VAM Director Vestibular Rehabilitation documented in this encounter [facility] 09-18-2024 History of Present illness Narrative Images from the original note were not included. Subjective Patient ID: Deb Perez is a 74 y.o. female who presents for No chief complaint on file.. Deb presents today for an ER F?U for having ear pain, dizziness and weakness. She did say she does have an inner infection. She says she is still not feeling well. Ear Fullness There is pain in both ears. This is a new problem. The current episode started 1 to 4 weeks ago. The problem occurs constantly. The problem has been gradually worsening. There has been no fever. The patient is experiencing no pain. Treatments tried: Amoxicillin. The treatment provided no relief. Current Outpatient Medications on File Prior to Visit Medication Sig Dispense Refill albuterol HFA 90 mcg/act inhaler INHALE 2 PUFFS EVERY 6 HOURS IF NEEDED FOR WHEEZING. 3 g 3 ALPRAZolam (Xanax) 0.25 MG tablet Take 1 tablet (0.25 mg) by mouth 3 (three) times a day as needed for anxiety for up to 10 days 30 tablet 0 amoxicillin-clavulanate (Augmentin) 875-125 MG tablet Take 875 mg by mouth in the morning and 875 mg before bedtime. budesonide-formoterol (Symbicort) 160-4.5 MCG/ACT inhaler Inhale 2 puffs in the morning and 2 puffs before bedtime. Rinse mouth with water after use to reduce aftertaste and incidence of candidiasis. Do not swallow.. (Patient not taking: Reported on 09/14/2024) 1 each 11 ibuprofen 800 MG tablet TAKE 1 TABLET BY MOUTH THREE TIMES A DAY WITH FOOD OR MILK NEEDED (Patient not taking: Reported on 09/14/2024) 90 tablet 3 lisinopril-hydroCHLOROthiazide 20-12.5 MG tablet TAKE 1 TABLET BY MOUTH EVERY DAY FOR 90 DAYS 90 tablet 3 meclizine (Antivert) 25 MG tablet Take 25 mg by mouth 3 (three) times a day as needed for dizziness ondansetron ODT (Zofran-ODT) 4 MG disintegrating tablet Take 1 tablet (4 mg) by mouth Daily as needed for nausea or vomiting (Patient not taking: Reported on 09/14/2024) 20 tablet 2 pregabalin (Lyrica) 50 MG capsule Take 1 capsule (50 mg) by mouth in the morning and 1 capsule (50 mg) at noon and 1 capsule (50 mg) in the evening and 1 capsule (50 mg) before bedtime. 120 capsule 2 No current facility-administered medications on file prior [...] Last attempt to quit: 01/01/2023 Years since quittin.7 Passive exposure: Current Smokeless tobacco: Never Vaping [...] History: Diagnosis Date Allergic Anxiety Arthritis Asthma Bartholin's cyst Bronchitis Calculus of gallbladder Calculus [...] C3-4 Dr. Felix Howard SECTION, LOW TRANSVERSE 1980 OTHER SURGICAL HISTORY marsupilization;Disease:bartholom ew cyst TN LAP,CHOLECYSTECTOMY 03/16/2022 with cholangiography SALPINGECTOMY Visit Vitals Smoking Status Some Days Review of Systems Constitutional: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
[2025-01-18 21:59] VITALS: BP 148/78; PULSE 75; TEMP 36.9; O2SAT 100; BMI 42.2
--- NOTE | 2025-01-18 22:50 | CT_ITS ---
The [address] [address] Patient Name: KARIN ALAN MRN: [id number] date: 1950 Sex: F Assigned Patient Location: ED.MAIN Current Patient Location: ED.MAIN Accession/Order Number: [id number] Exam Date: 01/18/2025 22:59 Report Date: 01/18/2025 23:52 At the request of: OLIVA VELASQUEZ MD Procedure: CT stroke head/brain wo con Unenhanced head CTstroke alert TECHNIQUE: Contiguous axial imaging of the head. The CT exam was performed using one or more the following dose reduction techniques: Automated exposure control, adjustment of the MA and/or Kv according to patient size, or use of the iterative reconstruction technique. COMPARISON: 09/12/2024 HISTORY: Dizziness since this morning. Nausea. VENTRICLES: Within normal limits ATROPHY: Similar atrophy BRAIN PARENCHYMA: Decreased density of the white matter is most consistent with chronic small vessel disease. HEMORRHAGE: None HERNIATION: No mass effect or herniation INFARCTION: No recent vascular distribution infarction is seen. EXTRA-AXIAL FLUID COLLECTIONS None MIDBRAIN: Unremarkable ALANA: Unremarkable MEDULLA: Unremarkable SINUSES: Unremarkable ORBITS: Grossly unremarkable MASTOIDS: Unremarkable BONY STRUCTURES Intact ADDITIONAL FINDINGS: CT/CT stroke head/brain wo con IMPRESSION: No acute findings. Preliminary 10:50 PM 01/18/2025 Impression dictated by: Bradley Long M.D. 01/18/2025 11:52 PM Dictation Location: [employer] Electronically authenticated by: [id number] Y Date: 01/18/2025 23:52
--- NOTE | 2025-01-18 22:50 | XR_ITS ---
The [address] [address] Patient Name: KARIN ALAN MRN: [id number] date: 1950 Sex: F Assigned Patient Location: ED.MAIN Current Patient Location: ED.MAIN Accession/Order Number: [id number] Exam Date: 01/18/2025 22:59 Report Date: 01/18/2025 23:55 At the request of: OLIVA VELASQUEZ MD Procedure: XR chest 1V Plain film chest Single view HISTORY: Dizziness since this morning. COMPARISON: 09/12/2024 FINDINGS: SUPPORT DEVICES: None POSTSURGICAL CHANGES: None HEART: Within normal limits PULMONARY NARCISO: Within normal limits MEDIASTINUM: Unremarkable LUNGS AND PLEURA: No acute lung process, pleural effusion or pneumothorax identified. Hyperinflation BONY STRUCTURES: Intact ADDITIONAL FINDINGS None XR/XR chest 1V IMPRESSION: No acute process. Impression dictated by: Bradley Long M.D. 01/18/2025 11:55 PM Dictation Location: [employer] Electronically authenticated by: [id number] Y Date: 01/18/2025 23:55
--- NOTE | 2025-01-18 22:50 | ED.GENADUL1 ---
HPI HPI - General Adult General Chief complaint: Extremity Problem, Nontraumatic Stated complaint: LEFT ARM TINGLY AND PAINFUL Time Seen by Provider: 01/18/25 22:28 Source: patient Mode of arrival: walk-in Limitations: no limitations History of Present Illness HPI narrative: past C-spine surgery. state she has gen. weakness and also neuropathy of her hands. States around 8:30pm tonight she developed a heaviness of the left arm and tingling of her left hand. No chest pain. Does feel short of breath but this is not new for her as she has COPD. no associated nausea. Denies similar symptoms of her left leg. Related Data Home Medications ?Medication ?Instructions ?Recorded ?Confirmed albuterol sulfate 90 mcg/actuation 2 inh inhalation Q6H PRN shortness 12/03/22 02/28/23 aerosol inhaler of breath or wheezing lisinopril 20 1 tab PO DAILY 12/03/22 02/28/23 mg-hydrochlorothiazide 12.5 mg tablet pregabalin 50 mg capsule 150 mg PO TID 12/03/22 02/28/23 Previous Rx's ?Medication ?Instructions ?Recorded azithromycin 250 mg tablet See Rx Instructions PO .COMPLEX #6 02/28/23 (Zithromax Z-Omar) tabs cetirizine 5 mg-pseudoephedrine ER 1 tab PO BID #10 tabs 02/28/23 120 mg tablet,extended release,12hr (Zyrtec-D) methylprednisolone 4 mg tablets in See Rx Instructions .Route 02/28/23 a dose pack (Medrol (Omar)) .COMPLEX #21 ea ondansetron 4 mg disintegrating 4 mg PO Q6H PRN nausea and 02/28/23 tablet vomiting #12 tabs doxycycline hyclate 100 mg capsule 100 mg PO BID 10 days #20 caps 06/24/23 prednisone 10 mg tablet See Rx Instructions .Route 06/24/23 .COMPLEX #30 tabs tizanidine 2 mg capsule 2 mg PO BID PRN muscle spasm #10 08/15/23 caps benzonatate 100 mg capsule 100 mg PO TID PRN cough #20 caps 10/09/23 sulfamethoxazole 800 1 tab PO BID 10 days #20 tabs 10/09/23 mg-trimethoprim 160 mg tablet (Bactrim DS) amoxicillin 875 mg-potassium 1 tab PO BID #14 tabs 08/08/24 clavulanate 125 mg tablet amoxicillin 875 mg-potassium 1 tab PO BID 7 days #14 tabs 09/12/24 clavulanate 125 mg tablet meclizine 25 mg tablet 25 mg PO BID PRN dizziness #20 tabs 09/12/24 Allergies Allergy/AdvReac Type Severity Reaction Status Date / Time oxycodone (From Percocet) AdvReac Unknown Vomiting Verified 01/18/25 21:59 Opioid HPI Opioid Management Most Recent Opioid Data: Last Pain Scale 9 01/18/25, 21:59 Review of Systems ROS Status of ROS 10 or more systems reviewed and unremarkable except as noted in history and below PFSH PFS Social History Smoking status: Current every day smoker Little interest or pleasure in doing things: not at all Feeling down, depressed, or hopeless: not at all Exam Constitutional Vital Signs, click to edit/add: Last Vital Signs Temp 98.4 F 01/18/25 21:59 Pulse 75 01/18/25 21:59 Resp 18 01/18/25 21:59 BP 148/78 H 01/18/25 21:59 Pulse Ox 100 01/18/25 21:59 O2 Del Method Room Air 01/18/25 21:59 Common normals: no apparent distress, average body habitus, oriented x3, no limitations, healthy appearing, alert and well nourished [facility] Common normals: normocephalic and head/scalp atraumatic Eye Common normals: EOMs intact bilaterally and conjunctivae normal Neck & C-Spine Other: well healed C-spine incision posteriorly Respiratory Common normals: normal respiratory effort, no retractions, no use of accessory muscles and clear to auscultation bilaterally Cardio Common normals: regular rate, regular rhythm, S1 normal heart sound and S2 normal heart sound GI Common normals: Normal to inspection, nondistended, normoactive bowel sounds present, soft to palpation and non-tender Extremity Common normals: normal to inspection and full ROM Neuro Common normals: oriented x3, CN's II-XII intact bilaterally and moves all extremities Psych Appearance: grossly normal Course Vital Signs Vital signs: Vital Signs Temperature 98.4 F 01/18/25 21:59 Pulse Rate 75 01/18/25 21:59 Respiratory Rate 18 01/18/25 21:59 Blood Pressure 148/78 H 01/18/25 21:59 Pulse Oximetry 100 01/18/25 21:59 Oxygen Delivery Method Room Air 01/18/25 21:59 Temperature 98.4 F 01/18/25 21:59 Pulse Rate 75 01/18/25 21:59 Respiratory Rate 18 01/18/25 21:59 Blood Pressure 148/78 H 01/18/25 21:59 Pulse Oximetry 100 01/18/25 21:59 Oxygen Delivery Method Room Air 01/18/25 21:59 Medical Decision Making MDM Narrative Medical decision making narrative: patient presents 2 hours after onset of left arm heaviness. She has no other new neuro deficits. Has chronic neuropathy burning of her hands and gen. weakness. CT stroke result return as neg. Patient informed and is requesting to go home. Her NIH score is 0 but her hand grasp on the left is weaker than the right. Did convince her to stay for CTAs. CTA returns with normal CTA brain. calcified plague at the left carotid bulb with 20% stenosis and calcified plague at the right carotid bulb with 20% stenosis. Calcified plague at the proximal left ICA with 40% stenosis and calcified polague at the proximal right ICA segment with 30% stenosis. patient re examined and feels her arm has improved. still feels heavy but less so. [facility] Stroke physician Dr Jovita aviles Discussed with Dr Hussein [facility]roke physician who recommends admission to the hospitalist and MRI. Informed MRI not available on the weekends. He still recommends admission here and Neuro consult Lab Data Labs: Lab Results 01/18/25 Range/Units 23:30 WBC 11.4 H (4.0-11.0) 10^3/uL RBC 4.81 (4.20-5.40) 10^6/uL Hgb 15.0 (12.0-16.0) g/dL Hct 42.7 (36.0-48.0) % MCV 88.8 (81.0-99.0) fL MCH 31.2 (26.7-34.0) pg MCHC 35.1 (29.9-35.2) g/dL RDW 14.1 (11.0-15.0) % Plt Count 234 (150-450) 10^3/uL MPV 11.3 (9.5-13.5) fL Neut % (Auto) 66.8 (43.0-75.0) % Lymph % (Auto) 23.6 (20.5-60.0) % Franklin % (Auto) 7.3 (1.7-12.0) % Eos % (Auto) 1.7 (0.9-7.0) % Baso % (Auto) 0.4 (0.2-2.0) % Neut # (Auto) 7.6 H (1.4-6.5) 10^3/uL Lymph # (Auto) 2.7 (1.2-3.8) 10^3/uL Franklin # (Auto) 0.8 (0.3-0.8) 10^3/uL Eos # (Auto) 0.2 (0.0-0.7) 10^3/uL Baso # (Auto) 0.1 (0.0-0.1) 10^3/uL Abs Immat Gran (auto) 0.02 (0.00-0.03) 10^3/uL Imm/Tot Granulo (auto) 0.2 (0.0-0.5) % Sodium 139 (136-145) mmol/L Potassium 3.5 (3.5-5.1) mmol/L Chloride 104 (98-107) mmol/L Carbon Dioxide 28.4 (21.0-32.0) mmol/L Anion Gap 10.1 BUN 10.0 (7.0-18.0) mg/dL Creatinine 0.50 L (0.55-1.02) mg/dL Est GFR ( Amer) >60 (>=60 mL/min/1.73m^2) Est GFR (Non-Af Amer) >60 (>=60 mL/min/1.73m^2) BUN/Creatinine Ratio 20.0 Glucose 109 H (74-106) mg/dL Calcium 9.2 (8.5-10.1) mg/dL Troponin I High Sens 9.5 (4.0-51.3) pg/mL Discharge Plan Discharge Chief Complaint: Extremity Problem, Nontraumatic Clinical Impression: Acute CVA (cerebrovascular accident) Patient Disposition: Admitted as Observation
--- NOTE | 2025-01-18 22:58 | ECG_ITS ---
The 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
[2025-01-18 23:43] LABS: Hematocrit 42.7 % (36.0-48.0); Hemoglobin 15.0 g/dL (12.0-16.0); Immature Granulocytes Abs Auto 0.02 10^3/uL (0.00-0.03); Immature Granulocytes Pct Auto 0.2 % (0.0-0.5); Lymphocytes Absolute Auto 2.7 10^3/uL (1.2-3.8); Mean Corpuscular HGB Conc 35.1 g/dL (29.9-35.2); Mean Corpuscular Hemoglobin 31.2 pg (26.7-34.0); Mean Corpuscular Volume 88.8 fL (81.0-99.0); Platelet Count 234 10^3/uL (150-450); Red Blood Count 4.81 10^6/uL (4.20-5.40); White Blood Count 11.4 10^3/uL (4.0-11.0)
[2025-01-19 00:03] LABS: Anion Gap 10.1; Blood Urea Nitrogen 10.0 mg/dL (7.0-18.0); Calcium 9.2 mg/dL (8.5-10.1); Carbon Dioxide 28.4 mmol/L (21.0-32.0); Chloride 104 mmol/L (98-107); Estimated GFR (African America >60 (>=60 mL/min/1.73m^2); Estimated GFR (Non-African Ame >60 (>=60 mL/min/1.73m^2); Glucose 109 mg/dL (74-106); Potassium 3.5 mmol/L (3.5-5.1); Sodium 139 mmol/L (136-145)
--- NOTE | 2025-01-19 04:41 | PC.NURSE ---
Dr. Helms speaking with [facility] teleneurology team at this time.
[2025-01-19] MEDS: ASPIRIN 81 MG TABLET.DR 324 MG PO (05:16)
== END 2025-01-19 05:56 | disposition left against medical advice (07) ==
PROVIDERS: Emergency Provider Internal Medicine; PCP Physician Assistant
DX: I63.9 Cerebral infarction, unspecified (principal); Z53.29 Procedure and treatment not carried out because of patient's decision for other reasons; J44.9 Chronic obstructive pulmonary disease, unspecified; F17.200 Nicotine dependence, unspecified, uncomplicated
CPT/HCPCS: 36415; 70450; 70496; 70498; 71045; 80048; 84484; 85025; 93005; 96374; 99285; J2405; Q9967

== ENCOUNTER 2025-02-24 15:04 | Emergency (ER) | payer OTHER, MEDICAID, SELFPAY ==
[2025-02-24 15:11] VITALS: BP 135/78; PULSE 73; TEMP 36.6; O2SAT 100; BMI 19.1
[2025-02-24 16:15] VITALS: O2SAT 100
[2025-02-24 16:17] VITALS: O2SAT 100
--- NOTE | 2025-02-24 16:18 | PC.NURSE ---
pt reports pressure in eyes and sinus's
--- NOTE | 2025-02-24 16:42 | ED.GENADUL1 ---
HPI HPI - General Adult General Chief complaint: Shortness of Breath/Dyspnea Stated complaint: SOB Time Seen by Provider: 02/24/25 16:35 Source: patient Mode of arrival: walk-in Limitations: no limitations History of Present Illness HPI narrative: This 4-year-old female presents with ear pain and facial pain and congestion. She feels like she has a sinus infection and we will send antibiotic. No productive cough or fever. No ear drainage. Dems present for 2 or 3 days. Related Data Home Medications ?Medication ?Instructions ?Recorded ?Confirmed albuterol sulfate 90 mcg/actuation 2 inh inhalation Q6H PRN shortness 12/03/22 01/19/25 aerosol inhaler of breath or wheezing lisinopril 20 1 tab PO DAILY 12/03/22 02/24/25 mg-hydrochlorothiazide 12.5 mg tablet pregabalin 50 mg capsule 150 mg PO TID 12/03/22 02/24/25 cyclosporine 0.05 % eye drops in a 1 drp ophthalmic (eye) Q12H 01/19/25 02/24/25 dropperette (Restasis) rosuvastatin 5 mg tablet 5 mg PO DAILY 01/19/25 02/24/25 Previous Rx's ?Medication ?Instructions ?Recorded tizanidine 2 mg capsule 2 mg PO BID PRN muscle spasm #10 08/15/23 caps amoxicillin 500 mg capsule 500 mg PO TID 10 days #30 caps 02/24/25 loratadine 5 mg-pseudoephedrine ER 1 tab PO Q12H PRN nasal congestion 02/24/25 120 mg tablet,extended #20 tabs release,12hr (Claritin-D 12 Hour) Allergies Allergy/AdvReac Type Severity Reaction Status Date / Time oxycodone (From Percocet) AdvReac Unknown Vomiting Verified 02/24/25 15:15 Opioid HPI Opioid Management Most Recent Opioid Data: Last Pain Scale 4 Today, 15:11 Review of Systems ROS Narrative A ten point review of systems is negative except as noted above. PFSH PFSH Social History Smoking status: Current every day smoker Little interest or pleasure in doing things: not at all Feeling down, depressed, or hopeless: not at all Exam Narrative Exam Narrative: Nurses note and vital signs reviewed and patient is not hypoxic. General:The patient appears well and in no apparent distress.Patient is resting comfortably on cart. Skin:Warm, dry, no pallor noted.There is no rash noted. Head:Normocephalic, atraumatic Eye: Normal conjunctiva, no drainage Ears, Nose, Mouth, and Throat: oral mucosa is moist. Nares patent. Both TMs are normal. Small amount of cerumen in the right ear canal, left is free of cerumen. Oral mucosas well-hydrated, no pharyngeal exudate or erythema. Cardiovascular:Regular Rate and Rhythm Respiratory:Patient is in no distress, no accessory muscle use, lungs are clear to auscultation, no wheezing, rales or rhonchi Back:non-tender GI: Left and nontender Musculoskeletal: The patient has no evidence of calf tenderness, no pitting edema, symmetrical pulses noted bilaterally Neurological:A&O, normal speech Psychiatric:Cooperative Constitutional Vital Signs, click to edit/add: Last Vital Signs Temp 97.8 F 02/24/25 15:11 Pulse 73 02/24/25 15:11 Resp 02/24/25 15:11 BP 135/78 02/24/25 15:11 Pulse Ox 100 02/24/25 16:17 O2 Del Method Room Air 02/24/25 16:17 Course Vital Signs Vital signs: Vital Signs Temperature 97.8 F 02/24/25 15:11 Pulse Rate 73 02/24/25 15:11 Respiratory Rate 02/24/25 15:11 Blood Pressure 135/78 02/24/25 15:11 Pulse Oximetry 100 02/24/25 15:11 Temperature 97.8 F 02/24/25 15:11 Pulse Rate 73 02/24/25 15:11 Respiratory Rate 02/24/25 15:11 Blood Pressure 135/78 02/24/25 15:11 Pulse Oximetry 100 02/24/25 16:17 Oxygen Delivery Method Room Air 02/24/25 16:17 Medical Decision Making [facility] Narrative Medical decision making narrative: The patient is prescribed amoxicillin and Claritin-D. Treatment diagnosis and follow-up were discussed with the patient. Discharge Plan Discharge Chief Complaint: Shortness of Breath/Dyspnea Clinical Impression: Upper respiratory infection Patient Disposition: Home, Self-Care Time of Disposition Decision: 16:41 Condition: Good Mode of Transportation: Private Vehicle Prescriptions / Home Meds: New amoxicillin 500 mg capsule 500 mg PO TID 10 Days Qty: 30 0RF Claritin-D 12 Hour 5-120 mg tablet extended release 12 hr 1 tab PO Q12H PRN (Reason: nasal congestion) Qty: 20 0RF No Action lisinopril-hydrochlorothiazide 20-12.5 mg tablet 1 tab PO DAILY albuterol sulfate 90 mcg/actuation HFA aerosol inhaler 2 inh INHALATION Q6H PRN (Reason: shortness of breath or wheezing) pregabalin 50 mg capsule 150 mg PO TID tizanidine 2 mg capsule 2 mg PO BID PRN (Reason: muscle spasm) Qty: 10 0RF cyclosporine [Restasis] 0.05 % dropperette 1 drp OPHTHALMIC (EYE) Q12H rosuvastatin 5 mg tablet 5 mg PO DAILY Print Language: Serbian Instructions: Upper Respiratory Infection (ED) Referrals: TIA JOSE [Primary Care Provider, Family Practice] - 1 week
== END 2025-02-24 16:55 | disposition home or self-care (01) ==
PROVIDERS: Emergency Provider Emergency Medicine; PCP Physician Assistant
DX: J06.9 Acute upper respiratory infection, unspecified (principal); F17.200 Nicotine dependence, unspecified, uncomplicated; R06.02 Shortness of breath
CPT/HCPCS: 99283

== ENCOUNTER 2025-03-03 08:12 | Emergency (ER) | payer OTHER, MEDICAID, SELFPAY ==
--- OUTSIDE RECORDS SUMMARY | 2025-03-03 08:18 | XMS_ITS | CCD ---
Author Organization [facility] Care Team Providers Care Pulp Drier Name Role Phone DO Uziel Caicedo Attending Provider Glenn, YOVANI-C Cynthia Primary Care Provider Cynthia Jose Primary Care Unavailable Uziel Caicedo Attending Unavailable Tanisha, Uziel Admitting Unavailable Uziel Caicedo Attending Unavailable Glenn, Cynthia Primary Care Unavailable Uziel Caicedo Admitting Unavailable Hemhector, Cynthia Primary Care Unavailable Tanisha, Uziel Admitting Unavailable Uziel Caicedo Attending Unavailable PATSY, DR CAMACHO Primary Care Unavailable ISSA ROJAS Consulting Unavailable ISSA ROJAS Admitting Unavailable ISSA ROJAS Attending Unavailable SELENA CAIN Consulting Unavailable HEMMER, DR CYNTHIA Cohn Admitting Unavailable HEMMER, DR CYNTHIA Cohn Attending Unavailable SWANN, DR CAMACHO Primary Care Unavailable ZIEBER, DR [...] Swann MD Unavailable Lane Swann MD Unavailable [phone] Swann MD Unavailable [phone] Somers SURVEILLANCE SYSTEM MONITOR, Zohra Unavailable Unavailable Somers SURVEILLANCE SYSTEM MONITOR, Zohra Unavailable DARIA REGALADO Referring Unavailable DARIA REGALADO Primary Care Unavailable DARIA REGALADO Referring Unavailable DARIA REGALADO Primary Care Unavailable DARIA REGALADO Primary Care Unavailable DARIA REGALADO Referring Unavailable DARIA REGALADO Primary Care Unavailable KACI LUBIN Attending Unavailable ALEXA BROWN Attending Unavailable KACI LUBIN Referring Unavailable ALEXA BROWN Attending Unavailable KACI LUBIN Referring Unavailable CYNTHIA JOSE Attending Unavailable KACI LUBIN Attending Unavailable CYNTHIA JOSE Attending Unavailable ROSENDA XIAO Attending Unavailable CYNTHIA JOSE Attending Unavailable Allergies Allergy Classification Reported Allergen(s) Allergy Type Date of Onset Reaction(s) Facility (2 sources) Acetaminophen; Translations: [acetaminophen] Drug Allergy 03-08-20 [facility] (2 sources) Amoxicillin; Translations: [amoxicillin] Drug Allergy 03-08-20 Diarrhea [facility] (2 sources) Clavulanate; Translations: [clavulanic acid] Drug Allergy 03-08-20 Diarrhea [facility] (20 sources) montelukast; Translations: [montelukast] Drug Allergy 03-08-20 Nausea Only [facility] (2 sources) oxyCODONE; Translations: [oxycodone] Drug Allergy 03-08-20 [facility] (1 source) Acetaminophen / oxyCODONE Drug Allergy [facility] (20 sources) Acetaminophen / oxyCODONE; Translations: [OXYCODONE-ACETAMIN OPHEN] Drug Allergy 04-29-20 17 Dizziness [facility] (20 sources) Amoxicillin-Pot Clavulanate Drug Allergy 12-11-19 23 [facility] Work Phone: (5 sources) Sulfamethoxazole / Trimethoprim Drug Allergy 10-11-19 24 GI intolerance [facility] Work Phone: (2 sources) Rosuvastatin calcium Propensity to adverse reactions 01-25-20 25 Headache [facility] Medications Current Medications Medication Drug Class(es) Dates Sig (Normalized) Sig (Original) [id number] 200 actuat albuterol 0.09 mg/actuat metered dose [...] tablet (20 sources) Benzodiazepine Start: 12-29-2023 End: 02-03-2025 take 1 tablet by mouth three times daily as needed for anxiety ALPRAZolam (Xanax) 0.25 MG tablet Indications: Anxiety state Take 1 tablet (0.25 mg) by mouth 3 (three) times a day as needed for anxiety for up to 10 days 30 tablet 01/24/2025 02/03/2025 Active Start: 02-28-2023 take 1 tablet by [...] 2022 12:00am azithromycin 250 mg oral tablet (4 sources) Macrolide Antimicrobial Start: 01-24-2025 End: 01-29-2025 take 2 tablets by mouth once daily, then take 1 tablet by mouth once daily azithromycin (Zithromax) 250 MG tablet Indications: Acute non-recurrent frontal sinusitis Take 2 tablets (500 mg) by mouth Daily for 1 day, THEN 1 tablet (250 mg) Daily for 4 days. 6 tablet 01/24/2025 01/29/2025 Active Start: 05-02-2024 End: 05-06-2024 take 2 tablets [...] 1 tablet before bedtime. 0 02/28/2023 Active cycloSPORINE 0.5 mg/ml ophthalmic suspension (2 sources) Calcineurin Inhibitor Immunosuppressant Start: 01-06-2025 take 1 drop(s) into the eye(s) every twelve hours Restasis 0.05 % ophthalmic emulsion Administer 1 drop into both eyes every 12 (twelve) hours 01/06/2025 Active Garlic preparation (2 sources) Non-Standardized Food Allergenic Extract take 2 tablets by mouth once daily Garlic (GARLIQUE PO) Take 2 tablets by mouth Daily Active hydroCHLOROthiazide 12.5 mg / lisinopril 20 mg oral tablet (20 sources) Thiazide Diuretic, Angiotensin Converting Enzyme Inhibitor Start: 08-10-2024 take 1 tablet by mouth once daily lisinopril-hydro CHLOROthiazide 20-12.5 MG tablet Indications: Essential (primary) hypertension [...] 12:00am meclizine hydrochloride 25 mg oral tablet (18 sources) Antiemetic Start: 09-12-2024 take 1 tablet [...] tablet (20 sources) Serotonin-3 Receptor Antagonist Start: 06-22-2024 End: 12-25-2024 take 1 tablet by mouth every twenty-four hours as needed for nausea and vomiting and nausea and nausea ondansetron ODT (Zofran-ODT) 4 MG disintegrating tablet Indications: Nausea Take 1 tablet (4 mg) by mouth Daily as needed for nausea or vomiting 20 tablet 2 12/25/2024 Active Start: 03-13-2024 take 1 tablet by uli every twenty-four hours as needed for nausea [...] Start: 02-03-2022 take 1 tablet by uli every twenty-four hours as needed for nausea [...] Start: 06-08-2023 take 1 capsule by mo [facility] four times daily pregabalin (Lyrica) 50 MG capsule Indications: Neuropathy of both upper extremities TAKE 1 CAPSULE BY MOUTH FOUR TIMES A DAY 120 capsule 2 06/08/2023 Active Start: 03-08-2022 take 50 mg by mouth four times daily Pregabalin Active 50 MG PO Four times daily March 08, 2022 12:00am rosuvastatin calcium 5 mg oral tablet (2 sources) HMG-CoA Reductase Inhibitor Start: 12-26-2024 End: 01-24-2025 take 1 tablet by mouth once daily rosuvastatin (Crestor) 5 MG tablet Take 5 mg by mouth Daily 12/26/2024 01/24/2025 Discontinued (Side effects) silver sulfADIAZINE 10 mg/ml topical cream (5 sources) Sulfonamide Antibacterial Start: 12-25-2024 End: 02-23-2025 silver sulfADIAZINE (Silvadene) 1 % cream Indications: Burn Apply to affected area twice a day or with each dressing change. 400 g 12/25/2024 01/24/2025 Discontinued (Therapy completed) sulfamethoxazole 800 mg / trimethoprim 160 mg [...] PO Twice daily March 08, 2022 12:00am 24 hr venlafaxine 37.5 mg extended release oral capsule (2 sources) Serotonin and Norepinephrine Reuptake Inhibitor Start: 01-24-2025 take 1 capsule by mouth once daily venlafaxine XR (Effexor XR) 37.5 MG 24 hr capsule Indications: Anxiety state Take 1 capsule (37.5 mg) by mouth Daily Do not crush or chew. 30 capsule 2 01/24/2025 Active Start: 01-24-2025 take 1 capsule by mo uth once daily venlafaxine XR (Effexor XR) 37.5 MG 24 hr capsule Indications: Anxiety state Take 1 capsule (37.5 mg) by mouth Daily Do not crush or chew. 30 capsule 2 01/24/2025 Active Problems Active Problems Problem Classification Problem Date Documented Da te Episodic/Chronic Abdominal pain (8 sources) Unspecified abdominal pain; Translations: [Right upper quadrant pain] Onset: 03-02-2022 Episodic Acute cerebrovascular disease (1 source) Acute cerebrovascular disease Onset: 01-19-2025 Administrative/social admission (2 sources) Patient encounter status; [...] D deficiency, unspecified] Onset: 11-10-2022 11-10-2022 Chronic Occlusion or stenosis of precerebral arteries (2 sources) Bilateral stenosis of carotid arteries; Translations: [Occlusion and stenosis of bilateral carotid arteries] 01-24-2025 Chronic Osteoporosis (20 sources) Osteoporosis; Translations: [Age-related osteoporosis without current pathological fracture] Onset: 04-04-2013 01-04-2023 Chronic Other aftercare (1 source) Other joint terminal attack controller (current) drug therapy; Translations: [OTH GROUP HOME CURRENT DRUG THERAPY] Onset: 10-11-2022 Episodic Other [...] [Allergic rhinitis due to pollen] 10-11-2024 Chronic Other upper respiratory infections (20 sources) Acute upper respiratory infection, unspecified; Translations: [Nasal discharge] Onset: 10-11-2022 11-10-2022 Episodic Otitis media and related conditions (20 sources) [...] OTH PART DIGESTV TRACT] Onset: 09-02-2022 Episodic Residual codes; unclassified (2 sources) Other specified health status; Translations: [Other drug allergy] 01-24-2025 Episodic Residual codes; unclassified (1 source) Pain, unspecified; Translations: [Pain, unspecified] Onset: 01-19-2025 Episodic Spondylosis; intervertebral disc disorders; other back [...] 10-11-2023 01-04-2023 Episodic Other nervous system disorders (16 sources) Impairment of balance; Translations: [Other abnormalities of gait and mobility] Onset: 09-18-2024 Resolved: 10-11-2024 09-18-2024 Episodic Other nutritional; endocrine; and metabolic disorders (20 sources) Decrease in appetite; Translations: [Anorexia] Onset: 10-11-2023 Resolved: 10-11-2024 10-11-2023 Episodic Other nutritional; endocrine; and metabolic disorders (20 sources) Abnormal weight loss; Translations: [Abnormal weight loss] Onset: 10-11-2023 Resolved: 10-11-2024 10-11-2023 Episodic Residual codes; unclassified (20 sources) Initial insomnia; Translations: [Other insomnia] Onset: 11-10-2022 Resolved: 10-11-2024 11-10-2022 Chronic Screening and history of mental health and substance abuse codes (20 sources) Ex-smoker; Translations: [Personal history of nicotine dependence] Onset: 01-04-2023 Resolved: 05-02-2024 01-04-2023 Episodic Spondylosis; intervertebral disc disorders; other back problems (18 sources) Neck pain; Translations: [Cervicalgia] Onset: 09-19-2024 [...] Healthcare STREPTOCOCCUS PYOGENES (GROUP A STREP) 0 [facility] STREPTOCOCCUS PYOGENES (GROUP A STREP) Not detected [facility] Urinalysis macro (dipstick) panel (U)on 12-25-2024 Bilirubin, UA Negative Negative - 4(70) +++ mg/dL [facility] Blood, UA Positive Negative - 50 Jeet/mcL [facility] Clarity, UA Cloudy [facility] Color, UA Lolly [facility] Glucose, UA Negative Negative - 2000(110) ++++ mg/dL [facility] Interpretation and review of laboratory results Abnormal [facility] Ketones, UA Positive Negative - 160(16) ++++ mg/dL [facility] Leukocytes, UA Negative Negative - 500+++ Mine/mcL [facility] Nitrite, UA Negative Negative - Positive [facility] pH, UA 7 5 - 9 [facility] Protein, UA Negative Negative - 2000(20) ++++ mg/dL [facility] Spec Grav, UA 1.005 1 - 1.03 [facility] Urobilinogen, UA 0.2 0.2 - 12 mg/dL [facility] No Panel Informationon 03-12 [facility] Type of biopsy: tangential Informed consent: discussed [...] yes Amount of lidocaine used: 1.0 cc [facility] XR CHEST 2 Von 10-08-2022 XR [...] MARCO UNLU Date: 2022-10-08 14:48 Normal [facility] CBC AUTO DIFFon 08-31-2022 BASO # 0.1 103/ul Normal 0.0-0.1 [facility] Comment on above: Performed By: #### C BC #### [facility] [address] [address] [address] Nehemias Dean Basophils/100 WBC (Bld) 0.6 % Normal 0.2-2.0 [facility] Comment on above: Performed By: #### C BC #### [facility] [address] [address] [address] Nehemias Dean EO # 0.2 103/ul Normal 0.0-0.7 [facility] Comment on above: Performed By: #### C BC #### [facility] [address] [address] [address] Nehemias Dean Eosinophils/100 WBC (Bld) 2.2 % Normal 0.9-7.0 [facility] Comment on above: Performed By: #### C BC #### [facility] [address] [address] [address] Nehemias Dean Erythrocyte distribution width (RBC) [Ratio] 14.6 % Normal 11.0-15.0 [facility] Comment on above: Performed By: #### C BC #### [facility] [address] [address] [address] Nehemias Dean Hematocrit (Bld) [Volume fraction] 45.4 % Normal 36.0-48.0 [facility] Comment on above: Performed By: #### C BC #### [facility] [address] [address] [address] Nehemias Dean Hemoglobin (Bld) [Mass/Vol] 15.5 g/dL Normal 12.0-16.0 [facility] Comment on above: Performed By: #### C BC #### [facility] [address] [place] [address] Dr. Nehemias Dean IG # 0.02 10e3/ul Normal 0.00-0.03 [facility] Comment on above: Performed By: #### C BC #### [facility] [address] [place] [address] Dr. Nehemias Dean IG % 0.2 % Normal 0.0-0.5 [facility] Comment on above: Performed By: #### C BC #### [facility] [address] [place] [address] Dr. Nehemias Dean LYMPH # 3.0 103/ul Normal 1.2-3.8 [facility] Comment on above: Performed By: #### C BC #### [facility] [address] [place] [address] Dr. Nehemias Dean Lymphocytes/100 WBC (Bld) 31.2 % Normal 20.5-60.0 [facility] Comment on above: Performed By: #### C BC #### [facility] [address] [place] [address] Dr. Nehemias Dean MANUAL DIFF REQ NO Normal [facility] Comment on above: Performed By: #### C BC #### [facility] [address] [place] [address] Dr. Nehemias Dean MCH (RBC) [Entitic mass] 30.0 pg Normal 26.7-34.0 [facility] Comment on above: Performed By: #### C BC #### [facility] [address] [place] [address] Dr. Nehemias Dean MCHC (RBC) [Mass/Vol] 34.1 g/dL Normal 29.9-35.2 [facility] Comment on above: Performed By: #### C BC #### [facility] [address] [place] [address] Dr. Nehemias Dean MCV (RBC) [Entitic vol] 88.0 fL Normal 81.0-99.0 [facility] Comment on above: Performed By: #### C BC #### [facility] [address] [place] [address] Dr. Nehemias Dean MONO # 0.5 103/ul Normal 0.3-0.8 [facility] Comment on above: Performed By: #### C BC #### [facility] [address] [place] [address] Dr. Nehemias Dean Monocytes/100 WBC (Bld) 5.5 % Normal 1.7-12.0 [facility] Comment on above: Performed By: #### C BC #### [facility] [address] [place] [address] Dr. Nehemias Dean NEUT # 5.8 103/ul Normal 1.4-6.5 [facility] Comment on above: Performed By: #### C BC #### [facility] [address] [place] [address] Dr. Nehemias Dean Neutrophils/100 WBC (Bld) 60.3 % Normal 43.0-75.0 [facility] Comment on above: Performed By: #### C BC #### [facility] [address] [place] [address] Dr. Nehemias Dean Platelet mean volume (Bld) [Entitic vol] 11.2 fL Normal 9.5-13.5 [facility] Comment on above: Performed By: #### C BC #### [facility] [address] [place] [address] Dr. Nehemias Dean PLT 252 103/ul Normal 150-450 [facility] Comment on above: Performed By: #### C BC #### [facility] [address] [place] [address] Dr. Nehemias Dean RBC 5.16 106/ul Normal 4.20-5.40 [facility] Comment on above: Performed By: #### C BC #### [facility] [address] [place] [address] Dr. Nehemias Dean WBC 9.6 103/ul Normal 4.0-11.0 [facility] Comment on above: Performed By: #### C BC #### [facility] [address] [address] [address] ABD/PELVIS WO CONon [...] SELENA CAIN Date: 2022-08-31 12:26 Normal [facility] ER URINE PROFILEon 3 Bilirubin Ql (U) Negative Normal NEGATIVE [facility] Comment on above: Performed By: #### U MICRO, ERUR #### [facility] [address] [address] [address] Nehemias Dean Clarity (U) CLEAR Normal CLEAR [facility] Comment on above: Performed By: #### U MICRO, ERUR #### [facility] [address] [address] [address] Nehemias Dean Color (U) LT. YELLOW Normal YELLOW [facility] Comment on above: Performed By: #### U MICRO, ERUR #### [facility] [address] [address] [address] Nehemias TATE A micrscopic examination will be performed if indicated. Normal [facility] Comment on above: Performed By: #### U MICRO, ERUR #### [facility] [address] [address] [address] Nehemias Dean Glucose Ql (U) Negative Normal NEGATIVE [facility] Comment on above: Performed By: #### U MICRO, ERUR #### [facility] [address] [address] [address] Nehemias Dean Hemoglobin Ql (U) SMALL Abnormal NEGATIVE [facility] Comment on above: Performed By: #### U MICRO, ERUR #### [facility] [address] [address] [address] Nehemias Dean Ketones Ql (U) Negative Normal NEGATIVE [facility] Comment on above: Performed By: #### U MICRO, ERUR #### [facility] [address] [address] [address] Nehemias Dean LEUKOCYTES Negative Normal NEGATIVE [facility] Comment on above: Performed By: #### U MICRO, ERUR #### [facility] [address] [address] [address] Nehemias Dean Nitrite Ql (U) Negative Normal NEGATIVE [facility] Comment on above: Performed By: #### U MICRO, ERUR #### [facility] [address] [address] [address] Nehemias Dean pH (U) 7.0 [pH] Normal 5-9 [facility] Comment on above: Performed By: #### U MICRO, ERUR #### [facility] [address] [address] [address] Nehemias Dean SPEC GRAVITY 1.015 Normal 1.005-<=1.02 5 [facility] Comment on above: Performed By: #### U MICRO, ERUR #### [facility] [address] [place] [address] Dr. Nehemias Dean UA PROTEIN Negative Normal NEGATIVE/ TRACE [facility] Comment on above: Performed By: #### U MICRO, ERUR #### [facility] [address] [place] [address] Dr. Nehemias Dean UR MICRO IND INDICATED Normal [facility] Comment on above: Performed By: #### U MICRO, ERUR #### [facility] [address] [place] [address] Dr. Nehemias Dean Urobilinogen Qn (U) 0.2 {Cristina'U}/dL Normal 0.2 - 1. 0 [facility] Comment on above: Performed By: #### U MICRO, ERUR #### [facility] [address] [place] [address] Dr. Nehemias Dean PROF CHEM 8 (BAS METB)on Anion gap [Moles/Vol] 14.9 mmol/L Normal [facility] Comment on above: Performed By: #### B MP #### [facility] [address] [place] [address] Dr. Nehemias Dean Calcium [Mass/Vol] 9.4 mg/dL Normal 8.5-10.1 [facility] Comment on above: Performed By: #### B MP #### [facility] [address] [place] [address] Dr. Nehemias Dean Chloride [Moles/Vol] 100 mmol/L Normal 98-107 [facility] Comment on above: Performed By: #### B MP #### [facility] [address] [place] [address] Dr. Nehemias Dean CO2 [Moles/Vol] 27.2 mmol/L Normal 21.0-32.0 [facility] Comment on above: Performed By: #### B MP #### [facility] [address] [place] [address] Dr. Nehemias Dean Creatinine [Mass/Vol] 0.63 mg/dL Normal 0.55-1.02 [facility] Comment on above: Performed By: #### B MP #### [facility] [address] [place] [address] Dr. Nehemias Dean EGFR-AF BRAZILIAN >60 Normal >=60 [facility] Comment on above: Performed By: #### B MP #### [facility] [address] [address] [address] Nehemias Dean EGFR-NON AF BRAZILIAN >60 Normal >=60 [facility] Comment on above: Performed By: #### B MP #### [facility] [address] [address] [address] Nehemias Dean Glucose [Mass/Vol] 107 mg/dL Critically high 74-106 T [facility] Comment on above: Performed By: #### B MP #### [facility] [address] [place] [address] Dr. Nehemias Dean Potassium [Moles/Vol] 3.1 mmol/L Critically low 3.5-5.1 [facility] Comment on above: Performed By: #### B MP #### [facility] [address] [place] [address] Dr. Nehemias Dean Sodium [Moles/Vol] 139 mmol/L Normal 136-145 [facility] Comment on above: Performed By: #### B MP #### [facility] [address] [place] [address] Dr. Nehemias Dean Urea nitrogen [Mass/Vol] 7.0 mg/dL Normal 7.0-18.0 [facility] Comment on above: Performed By: #### B MP #### [facility] [address] [place] [address] Dr. Nehemias Dean Urea nitrogen/Creatinine [Mass ratio] 11.1 mg/mg Normal [facility] Comment on above: Performed By: #### B MP #### [facility] [address] [place] [address] Dr. Nehemias Dean URINE MICROSCOPIC ONLYon BACTERIA TRACE Abnormal NONE SEEN [facility] Comment on above: Performed By: #### U MICRO, ERUR #### [facility] [address] [place] [address] Dr. Nehemias Dean Bacteria identified Cx Nom (U) NOT INDICATED Normal [facility] Comment on above: Performed By: #### U MICRO, ERUR #### [facility] [address] [place] [address] Dr. Nehemias Dean CAST NONE SEEN Normal NONE SEEN [facility] Comment on above: Performed By: #### U MICRO, ERUR #### [facility] [address] [address] [address] Nehemias Dean Crystals LM Nom (Urine sed) NONE SEEN Normal NONE SEEN [facility] Comment on above: Performed By: #### U MICRO, ERUR #### [facility] [address] [address] [address] Nehemias Dean Epithelial cells LM Ql (Urine sed) FEW Abnormal NONE SEEN /RARE [facility] Comment on above: Performed By: #### U MICRO, ERUR #### [facility] [address] [address] [address] Nehemias Dean MUCOUS NONE SEEN Normal NONE SEEN [facility] Comment on above: Performed By: #### U MICRO, ERUR #### [facility] [address] [place] [address] Dr. Nehemias Dean RBC 2-5 Abnormal 0-2 [facility] Comment on above: Performed By: #### U MICRO, ERUR #### [facility] [address] [place] [address] Dr. Nehemias Dean WBC NONE SEEN Normal NONE SEEN [facility] Comment on above: Performed By: #### U MICRO, ERUR #### [facility] [address] [place] [address] Dr. Nehemias Dean Alkaline Phosphataseon 03-16 ALP [Catalytic activity/Vol] 60 U/L Normal 32-92 [facility] Comment on above: Performed By: #### B ILIT, ALP, YEIMY #### [facility] [address] [place] [address] [place] Amylaseon 03-16-2022 Amylase [Catalytic activity/Vol] 23 U/L Low 28-100 [facility] Comment on above: Result Comment: PERF ORMED BY: [place] [address] PATHOLOGIST DESULFURIZER HAND LAVERN CHATMAN M.D. Performed By: #### B ILIT, ALP, YEIMY #### [facility] [address] [id number] [facility] Bilirubin,Totalon 03-16-2022 Bilirubin [Mass/Vol] 1.1 mg/dL Normal 0.3-1.2 [facility] Comment on above: Performed By: #### B ELISE BURGESS AMY #### [facility] [address] [id number] [facility] Jesus 03-16-2022 L - -------- Specimen: [id number] Received: 03/16/22 Status: JOSUE Kern Num: [id number] Spec Type: Surgical Subm Dr: Uziel Caicedo DO Tissues: A Gallbladder (GALLBLADDER) Procedures: HE Stain, Gross/Micro L3 -------- Age/ Patient Sex Location Account Attending Physician -------- Deb Perez 71/F [place] [id number] Uziel Caicedo DO -------- SPEC NUM: [id number] RECD: 03/16/22 STATUS: JOSUE KERN NUM: [id number] [place]: 03/16/22- SUBM DR: Uziel Caicedo DO ENTERED: 03/16/22 [facility] DR: SPEC TYPE: Surgical DEPT: S ORDERED: [...] The mucosa is dove-pink, focally hyperemic, denuded.. [employer] sections are submitted in one cassette labeled A1. Microscopic Description One glass slide with H E stained material has been examined. The microscopic findings support the above pathologic diagnosis. -------- Specimen: [id number] Received: 03/16/22 Status: JOSUE Harosundeep Num: [id number] Spec Type: Surgical Subm Dr: Uziel Caicedo DO Tissues: A Gallbladder (GALLBLADDER) Procedures: HE Stain, Gross/Micro L3 -------- Patient: Deb Perez [id number] (Continued) -------- Specimen: [id number] Received: 03/16/22 (Continued) Signed (signature on file) Yasmeen Jameson MD 03/17/22 1744 -------- Specimen: [id number] Received: 03/16/22 Status: JOSUE Kern Num: [id number] Spec Type: Surgical Subm Dr: Uziel Caicedo DO Tissues: A Gallbladder (GALLBLADDER) Procedures: REGLA Bernal, Boris/Andrew L3 -------- Patient: Deb Perez [id number] (Continued) -------- Specimen: [id number] Received: 03/16/22 (Continued) CPT Codes 10356 -------- -------- Specimen: [id number] Received: 03/16/22 Status: JOSUE Concha Num: [id number] Spec Type: Surgical Subm Dr: Uziel Caicedo DO Tissues: A Gallbladder (GALLBLADDER) Procedures: HE Stain, Gross/Micro L3 -------- Patient: Deb Perez [id number] (Continued) -------- Signed (signature on file) Yasmeen Jameson MD 03/17/22 1744 Normal [facility]19 [facility] SARS-CoV-2 (COVID-19) RNA DAVIE+probe Ql (Unsp spec) Negative Normal Negative [facility] Comment on above: Order Comment: Healt hcare Worker?: N Result Comment: Testing for SARS-CoV-2 by RT-PCR This test was developed and its performance characteristics determined by [employer]) and validated at the [facility]. This test has not been FDA cleared [...] is terminated or revoked sooner. PERFORMED BY: [facility] [address] [place] [address] PATHOLOGIST DESULFURIZER HAND LAVERN CHATMAN M.D. Performed By: #### C OVID 19 [facility] #### [address] COVID-19 Positive/NegativeOr dered By: Uziel Caicedo on 03-12-2022 SARS-CoV-2 (COVID-19) N gene DAVIE+probe Ql (Resp) Negative Negative [facility] Comment on above: Testing for SARS-CoV -2 by RT-PCRThis test was developed and its performance characteristics determined by [employer]) and validated at the [facility]. This test has not been FDA cleared [...] [Moles/Vol] 14.9 mmol/L Normal 6.0-15.0 [facility] Comment on above: Performed By: #### C BC, BMP #### [place] [address] [place] Calcium [Mass/Vol] 10.2 mg/dL Normal 8.2-10.2 [facility] Comment on above: Result Comment: PERF ORMED BY: [place] [address] PATHOLOGIST DESULFURIZER HAND LAVERN CHATMAN M.D. Performed By: #### C BC, BMP #### [facility] [address] [place] [id number] [place] Chloride [Moles/Vol] 97 mmol/L Normal 95-114 [facility] Comment on above: Performed By: #### C BC, BMP #### [facility] [address] [place] [address] [place] CO2 [Moles/Vol] 28.2 mmol/L Normal 22.0-30.0 [facility] Comment on above: Performed By: #### C BC, BMP #### [facility] [address] Creatinine [Mass/Vol] 0.65 mg/dL Normal 0.44-1.03 [facility] Comment on above: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 09-24-2024 End: 09-24-2024 Clinical Support Alexa Brown PT Work Phone: [facility] Comment on above: Cervicalgia (Primary Dx); Balance disorder; Vertigo; BPPV (benign paroxysmal positional vertigo), left Start: 09-18-2024 End: 09-18-2024 Bamboo flowsheet Kaci Lubin FACING MACHINE OPERATOR Work Phone: [facility] Start: 09-18-2024 End: 09-18-2024 Bamboo flowsheet Kaci Lubin FACING MACHINE OPERATOR Work Phone: [facility] Start: 09-18-2024 End: 09-18-2024 Office outpatient visit 25 minutes Kaci Lubin FACING MACHINE OPERATOR Work Phone: [facility] Comment on [...] Available Start: 04-13-2024 End: 04-16-2024 Refill Cynthia Jose PA Work Phone: [facility] Comment on above: Neuropathy of both u pper extremities Start: 03-12-2024 End: 03-12-2024 Bamboo flowsheet Rosenda Joseer SENIOR SYSTEMS PROGRAMMER-GRAIN AND YEAST PLANT[employer] SUPERVISOR Work Phone: [facility] Start: 03-12-2024 End: 03-12-2024 Bamboo flowsheet Rosenda Joseer SENIOR SYSTEMS PROGRAMMER-GRAIN AND YEAST [employer] SUPERVISOR Work Phone: [facility] Start: 03-12-2024 End: 03-12-2024 Patient encounter procedure Rosenda Joseer SENIOR SYSTEMS PROGRAMMER-GRAIN AND YEAST [employer] SUPERVISOR Work Phone: [facility] Comment on above: Inflamed seborrheic keratosis (Primary Dx); Neoplasm of unspecified behavior of bone, soft tissue, and skin Start: 03-12-2024 End: 03-12-2024 ambulatory ROSENDA XIAO Not Available Start: 07-04-[address] dacosta MD Work Phone: [facility] Start: 10-08-2022 End: 10-08-[address] SWANN Facility:[facility] Start: 08-31-2022 End: 08-31-[address] SWANN Facility:[facility] Start: 03-16-2022 End: 03-16-2022 ambulatory Cynthia Jose Facility:[facility] Start: 03-12-2022 End: 03-12-2022 ambulatory Uziel Caicedo Facility:[facility] Start: 03-12-2022 End: 03-12-2022 ambulatory FACING MACHINE OPERATOR-Rigoberto Jose Work Phone: [facility] Work Phone: Start: 03-12-2022 End: 03-12-2022 Patient encounter procedure FACING MACHINE OPERATOR-Rigoberto Jose Work Phone: [facility]Qwxqljy[facility] Start: 03-08-2022 End: 03-08-2022 ambulatory Cynthia Jose Facility:[facility] Start: 03-08-2022 End: 03-08-2022 Patient encounter procedure FACING MACHINE OPERATOR-Rigoberto Jose Work Phone: [facility] Oby-Sux-Zxkkemxg Testing Start: 03-02-2022 End: 03-03-[address] CYNTHIA JOSE Facility:[facility] Start: 10-22-2021 End: 10-23-[address] CYNTHIA JOSE Facility:[facility] Procedures Date Procedure Procedure Detail Performing Clinician Start: 12-25-2024 Urnls dip stick/tabl et rgnt non-auto w/o micrscp Kaci Lubin FACING MACHINE OPERATOR Work Phone: Start: 12-25-2024 URINARY TRACT INFECT ION (HTRX) Kaci Lubin FACING MACHINE OPERATOR Work Phone: Start: 03-12-2024 CRYOTHERAPY SKIN LESION Rosenda Xiao SENIOR SYSTEMS PROGRAMMER-GRAIN AND YE[employer] SUPERVISOR Work Phone: Start: 03-12-2024 SKIN / NAIL BIOPSY Jie lie A Felter SENIOR SYSTEMS PROGRAMMER-GRAIN AND YEAST [employer] SUPERVISOR Work Phone: Plan of Treatment Date Care [...] [address] [place] [address] Kaci Lubin, FACING MACHINE OPERATOR [address] [place] [address] Arrived [facility] [facility] Comment on above: Arrived Start: 10-11-2024 End: 10-11-2024 Patient encounter procedure 10/11/2024 11:00 AM EDT Office Visit [facility] [address] [place] [address] Cynthia Jose PA [address] [place] [address] Arrived [facility] Comment on above: Arrived Start: 10-10-2024 Medicare Annual Wellness (AWV) Medicare Annual Wellness (AWV) [facility] Start: 10-08-2024 End: 10-08-2024 ambulatory 10/08/2024 12:30 PM EDT Treatment [facility] [address] [place] [id number] Ann Bob, GLUING MACHINE OPERATOR [address] [place] [address] [facility] Start: 09-27-2024 End: 09-27-2024 ambulatory [facility] Comment on above: Arrived Start: 09-24-2024 End: 09-24-2024 Evaluation 09/24/2024 9:20 AM EDT Evaluation [facility] [address] [place] [phone] Alexa Brown, PT [address] [place] [address] Cervicalgia (Primary Dx); Balance disorder; Vertigo [facility] Comment on above: Cervicalgia (Primary Dx); Balance disorder; Vertigo Start: 09-18-2024 End: 09-18-2024 Patient encounter procedure 09/18/2024 10:00 AM EDT Office Visit [facility] [address] [place] [phone] Kaci Lubin, FACING MACHINE OPERATOR [address] [place] [address] Arrived [facility] Comment on above: Arrived Start: 05-02-2024 End: 05-02-2025 Lipid 1996 panel - Serum or Plasma Lipid panel Lab Routine Hypercholesteremia (CMS/HCC) Expected: 05/02/2024 (Approximate), Expires: 05/02/2025 [facility] Work Phone: Comment on above: Expected: 05/02/2024 (Approximate), Expi res: 05/02/2025 Start: 05-02-2024 End: 05-02-2024 Patient encounter procedure [facility] Comment on above: Arrived Start: 05-01-2024 End: 05-01-2024 Patient encounter procedure 05/01/2024 10:55 AM EST Office Visit [facility] [address] [place] [phone] Rosenda Xiao, SENIOR SYSTEMS PROGRAMMER-GRAIN AND YEAST [employer] SUPERVISOR [address] [place] [address] [facility] Start: 03-22-2024 Pneumococcal Vaccine: [...] procedure 03/12/2024 11:10 AM EDT [facility] [address] [place] [address] Rosenda Xiao APRN-GRAIN AND YEAST PLANTS SUPERVISOR [address] [place] [address] [facility] Comment on above: Arrived Start: 01-29-2024 Influenza vaccination Influenza Vaccine (#1) [facility] Start: 11-27-2023 Influenza vaccination Influenza Vaccine (#1) [facility] Comment on above: Postponed from 01/28/2023 (Patient Refus ed) Start: 09-08-2023 Medicare Annual Wellness (AWV) Medicare Annual Wellness (AWV) [facility] Start: 1967 Pneumococcal Vaccine: 65+ Years (1 of 2 - PCV) Pneumococcal Vaccine: 65+ Years (1 of 2 - PCV) [facility] Start: 1954 Pneumococcal Vaccine: 65+ Years (1 of 2 - PCV) Pneumococcal Vaccine: 65+ Years (1 of 2 - PCV) [facility] Start: 1948 Screening for malignant neoplasm of colon [facility] Start: 1948 Screening for malignant neoplasm of lung Lung Cancer Screening Shared Decision Making [facility] 25-hydroxyvitamin D3 [Mass/volume] in Serum or Plasma Vitamin D 25 hydroxy Total Lab Routine Medicare annual wellness visit, subsequent Vitamin D deficiency Ordered: 10/11/2024 [facility] Comment on above: Ordered: 10/11/2024 CBC W Auto Different ial panel - Blood CBC and differential Lab Routine Medicare annual wellness visit, subsequent Benign essential hypertension (CMS/HCC) Hypercholesteremia (CMS/HCC) Ordered: 10/11/2024 [facility] Work Phone: Comment on above: Ordered: 10/11/2024 Comprehensive metabo lic 2000 panel - Serum or Plasma Comprehensive metabolic panel Lab Routine Medicare annual wellness visit, subsequent Benign essential hypertension (CMS/HCC) Hypercholesteremia (CMS/HCC) Hypokalemia Ordered: 10/11/2024 [facility] [employer] Comment on above: Ordered: 10/11/2024 Dermatopathology exam Dermatopat hology exam Pathology and Cytology Timed Neoplasm of unspecified behavior of bone, soft tissue, and skin Release Upon Ordering for 1 Occurrences starting 03/12/2024 [facility] Work Phone: Comment on above: Release Upon Ordering for 1 Occurrences starting 03/12/2024 Lipid 1996 panel - S magui or Plasma Lipid panel Lab Routine Medicare annual wellness visit, subsequent Benign essential hypertension (CMS/HCC) Hypercholesteremia (CMS/HCC) Ordered: 10/11/2024 [facility] Comment on above: Ordered: 10/11/2024 Payers Date Payer Category Payer Medicare (Managed Care) [facility] [id number] 2023 Medicare [id number] 2022 Medicare [id number] 2022 Self-pay [id number] 2022 Medicare ANTHEM MEDICARE ADVANTAGE [facility] MEDICARE ADVANTAGE [id number] 2022-Present [address] [place] [address] [id number] 1959 Medicaid [id number] 1959 Medicare [id number] 1948 Unknown [id number] 2.16.840.1.772169.3.579.2. 593 1948 Unknown [id number] 2.16.840.1.041465.3.579.2. 593 1948 Unknown [id number] 2.16.840.1.467369.3.579.2. 593 1948 Unknown [id number] 2.16.840.1.116704.3.579.2. 593 1948 Unknown [id number] 2.16.840.1.781135.3.579.2. 1286 1948 Unknown [id number] 2.16.840.1.368517.3.579.2. 1286 1948 Unknown [id number] 2.16.840.1.723022.3.579.2. 1286 1948 Unknown [id number] 2.16.840.1.030924.3.579.2. 1286 1948 Unknown [id number] 2.16.840.1.696028.3.579.2. 1286 1948 Unknown [id number] 2.16.840.1.933743.3.579.2. 1259 1948 Unknown [id number] 2.16.840.1.475226.3.579.2. 1259 1948 Unknown [id number] 2.16.840.1.432315.3.579.2. 1259 1948 Unknown [id number] 2.16.840.1.824192.3.579.2. 1259 1948 Unknown [id number] 2.16.840.1.854560.3.579.2. 1259 1948 Unknown [id number] 2.16.840.1.997369.3.579.2. 1259 1948 Unknown [id number] 2.16.840.1.040628.3.579.2. 1259 1948 Unknown [id number] 2.16.840.1.230908.3.579.2. 1259 Unknown [id number] 2.16.840.1.375981.3.579.2. 531 Unknown [id number] 2.16.840.1.588626.3.579.2. 531 Unknown [id number] 2.16.840.1.928052.3.579.2. 531 Social History Date Type Detail Facility Start: 03-08-2022 Tobacco smoking status [facility] Smoker (finding) [facility] Start: 1950 Sex Assigned At Female [facility] Start: 07-07-1978 End: 09-18-2024 Tobacco smoking status [facility] Occasional tobacco smoker [facility] Start: 07-07-1978 End: 01-01-2023 History of tobacco use Cigarette Smoker [facility] Start: 06-15-2023 End: 01-23-2025 Cigarettes smoked current (pack per day) - Reported 0.5 [facility] History of tobacco use Passive smoker [facility] Start: 06-15-2023 End: 10-11-2024 Tobacco use and exposure Smokeless tobacco non-user [facility] Start: 06-15-2023 End: 01-24-2025 Alcohol intake Ex-drinker (finding) [facility] Start: 06-15-2023 End: 01-23-2025 Humiliation, Afraid, Rape, and Kick questionnaire [HARK] [facility] Within the last year , have you been afraid of your partner or ex-partner? No [facility] In a typical week, h ow many times do you talk on the telephone with family, friends, or neighbors? Patient declined [facility] Are you now , , , , never or living with a partner? [facility] Start: 01-04-2023 Alcohol Comment Caffeine intake : 2-3 cups per day coffee [facility] Start: 1950 Sex Assigned At Not on file [facility] How often to you hav e a drink containing alcohol? Never [facility] How hard is it for y ou to pay for the very basics like food, housing, medical care, and heating Not very hard [facility] Do you feel stress - tense, restless, nervous, or anxious, or unable to sleep at night because your mind is troubled all the time - these days [OSQ] To some extent [facility] (I/We) worried wheth er (my/our) food would run out before (I/we) got money to buy more. Never true [facility] Start: 07-07-1978 Tobacco smoking status NHIS Smokes tobacco daily [facility] Functional Status Date Assessment Result Facility 01-24-2025 Patient Health Quest ionnaire 2 item (PHQ-2) [Reported] [facility] 12-25-2024 Patient Health Quest ionnaire 2 item (PHQ-2) [Reported] [facility] 10-11-2024 Patient Health Quest ionnaire 2 item (PHQ-2) [Reported] [facility] 09-18-2024 Patient Health Quest ionnaire 2 item (PHQ-2) [Reported] [facility] Clinical Notes 07-04-2023 to 01-24-2025 MANUEL Graff - 01/24/2025 11:30 AM Lucero Lubin NP - 12/25/2024 9:30 AM EDTTelephone Encounter - MANUEL Graff - 12/15/2024 1:24 PM MANUEL Purdy - 10/11/2024 11:00 AM EDT Note Date & Type Note Facility 01-24-2025 History of Present illness Narrative Images from the original note were not included. HPI Med Refill Additional comments: Alprazolam URI Additional comments: Admits sinus pressure, nasal congestion, sore throat in mornings, right ear pain, cough with yellow phlegm, SOB, nausea. This all started on about a week ago. She has not been taking anything OTC. Last edited by Olesya Hancock LPN on 01/24/2025 11:39 AM. Subjective Patient ID: Deb Perez is a 74 y.o. female who presents for [facility] ER follow up. Deb is present today for follow up [facility] ER. Dx. Acute CVA and was supposed to be admitted for the weekend d/t ER doctor wanted her to have an MRI but pt refused, d/t she gets anxiety and told Dr. She would follow up with her PCP. She does not know anything about a [facility] televisit. Pt feels it is neuropathy in her left arm. She was taking 4 lyrica a day and cut herself down to 2 and feels that could be what brought on her symptoms with the left arm. States went back up to the 100 mg dosage twice a day, and does think it is helping her arm. Over the past 2 weeks, how often have you been bothered by any of the following problems? Little interest or pleasure in doing things: Not at all Feeling down, depressed, or hopeless: Not at all Patient Health Questionnaire-2 Score: 0 Current Outpatient Medications on File Prior to Visit Medication Sig Dispense Refill Garlic (GARLIQUE PO) Take 2 tablets by mouth Daily Restasis 0.05 % ophthalmic emulsion Administer 1 drop into both eyes every 12 (twelve) hours albuterol HFA 90 mcg/act inhaler INHALE 2 PUFFS BY MOUTH EVERY 6 HOURS NEEDED FOR WHEEZING 18 g 3 budesonide-formoterol (Symbicort) 160-4.5 MCG/ACT inhaler Inhale 2 [...] (50-100 mg) before bedtime. 120 capsule 2 [DISCONTINUED] ALPRAZolam (Xanax) 0.25 MG tablet Take 1 tablet (0.25 mg) by mouth 3 (three) times a day as needed for anxiety for up to 10 days 30 tablet 0 [DISCONTINUED] rosuvastatin (Crestor) 5 MG tablet Take 5 mg by mouth Daily (Patient not taking: Reported on 01/24/2025) [DISCONTINUED] silver sulfADIAZINE (Silvadene) 1 % cream Apply to affected area twice a day or with each dressing change. 400 g 0 No current facility-administered medications on file prior to visit. I have reviewed and reconciled the history and medication list with the patient today. Allergies Allergen Reactions Amoxicillin-Pot Clavulanate Other Reaction(s): Cramping, Diarrhea Montelukast Nausea Only Oxycodone-Acetaminophen Dizziness Rosuvastatin Headache Social History Tobacco Use Smoking status: Every Day Current packs/day: 0.00 Average packs/day: 0.5 packs/day for 44.5 years (22.2 ttl pk-yrs) Types: Cigarettes Start date: 07/07/1978 Last attempt to quit: 01/01/2023 Years since quittin.0 Passive exposure: Current Smokeless tobacco: Never Vaping [...] 1981 OTHER SURGICAL HISTORY marsupilization;Disease:bartholom ew cyst [place] LAP,CHOLECYSTECTOMY 03/16/2022 with cholangiography SALPINGECTOMY Visit Vitals BP 112/76 Pulse 92 Temp 97.1 F Resp 16 Ht 5' 5 Wt 112 lb 12.8 oz SpO2 99% BMI 18.77 kg/m Smoking Status Every Day BSA 1.53 m Review of Systems Constitutional: Negative for chills, fatigue and fever. HENT: Positive for congestion, ear pain, rhinorrhea, sinus pressure, sinus pain and sore throat. Respiratory: Positive for cough and shortness of breath. Negative for wheezing. Cardiovascular: Negative for chest pain, palpitations and leg swelling. Gastrointestinal: Positive for nausea. Negative for abdominal pain, constipation, diarrhea and vomiting. Neurological: Positive for numbness. Psychiatric/Behavioral: The patient is nervous/anxious. Objective Physical Exam Constitutional: General: She is not in acute distress. Appearance: Normal appearance. She is well-developed. HENT: Head: Normocephalic and atraumatic. Right Ear: Ear canal normal. A middle ear effusion is present. Left Ear: There is impacted cerumen. Nose: Congestion present. Right Turbinates: Swollen. Left Turbinates: Swollen. Comments: Turbinates with erythema Mouth/Throat: Mouth: Mucous membranes are moist. Pharynx: Posterior oropharyngeal erythema and postnasal drip present. Eyes: General: No scleral icterus. Conjunctiva/sclera: Conjunctivae normal. Cardiovascular: Rate and Rhythm: Normal rate and regular rhythm. Heart sounds: Normal heart sounds. No murmur heard. Pulmonary: Effort: Pulmonary effort is normal. No respiratory distress. Breath sounds: Decreased air movement present. No wheezing, rhonchi or rales. Lymphadenopathy: Cervical: No cervical adenopathy. Skin: General: Skin is warm and dry. Neurological: General: No focal deficit present. Mental Status: She is alert and oriented to person, place, and time. Psychiatric: Mood and Affect: Mood is anxious (Mild). Behavior: Behavior normal. Assessment/Plan Diagnoses and all orders for this visit: Benign essential hypertension Patient's blood pressure is currently well controlled. Continue with current medications and I will continue to monitor. Goal BP remains less than 130/80. Anxiety state - ALPRAZolam (Xanax) 0.25 MG tablet; Take 1 tablet (0.25 mg) by mouth 3 (three) times a day as needed for anxiety for up to 10 days - venlafaxine XR (Effexor XR) 37.5 MG 24 hr capsule; Take 1 capsule (37.5 mg) by mouth Daily Do not crush or chew. Medication choice and dosage is appropriate for [...] OARRS Report was reviewed for this patient. Provided pt with Rx for Effexor to start for anxiety. Start once a day. Hypercholesteremia Refuses to take the Rosuvastatin due to side effects. Recommend she try Red Yeast Rice supplement OTC. Neuropathy of both upper extremities Lyrica as prescribed. She is back up to 100 mg BID and the neuropathy pain/symptoms have improved. Will continue to monitor for now. Low suspicion for CVA based on current symptoms and negative CT and CTA in the ER. Statin intolerance See above. Bilateral carotid artery stenosis CTA results reviewed with pt. Showed < 50% carotid artery stenosis bilaterally. Tobacco dependence Has smoked a little more this past week, but overall has decreased how much she is smoking, down to a half a pack or less a day. Acute non-recurrent frontal sinusitis - azithromycin (Zithromax) 250 MG tablet; Take 2 tablets (500 mg) by mouth Daily for 1 day, THEN 1 tablet (250 mg) Daily for 4 days. Elevated WBC count in the ER was likely due to current illness. Start the above as directed. Reviewed potential s/e with patient. Increase water intake, get plenty of rest. Follow up if no improvement in one week. She will come back later today to have fasting labs drawn that were previously ordered. The patient was seen today in follow up of recent hospital ER visit. All available hospital records/labs/diagnostics were reviewed and discussed with the patient. Any changes to plan are as noted. Follow up in about 3 months (around 04/26/2025) for Medication Follow Up. documented in this encounter [facility] 12-25-2024 History of Present illness Narrative Images [...] fusion iwth insrumentation C3-4 [facility] [place] SECTION, LOW TRANSVERSE 1980 OTHER SURGICAL HISTORY marsupilization;Disease:bartholom ew cyst [place] LAP,CHOLECYSTECTOMY 03/16/2022 with cholangiography SALPINGECTOMY Visit Vitals [...] follow-ups on file. documented in this encounter [facility] 12-15-2024 Telephone encounter Note OARRS reviewed, Rx sent into patient's pharmacy. [facility] 12-15-2024 Miscellaneous Notes OARRS reviewed, Rx sent into patient's pharmacy. documented in this encounter [facility] 10-11-2024 History of Present illness Narrative Images [...] Do you have a medical power of audiovisual lead technician?: No Current Outpatient Medications on File Prior [...] fusion iwth insrumentation C3-4 [facility] [place] SECTION, LOW TRANSVERSE 1981 OTHER SURGICAL HISTORY marsupilization;Disease:bartholom ew cyst [place] LAP,CHOLECYSTECTOMY 03/16/2022 with cholangiography SALPINGECTOMY Visit Vitals [...] a living will and durable power of audiovisual lead technician for healthcare. We discussed telling rodas people [...] (around 01/11/2025) for Medication Follow Up. Cynthia ADKINS, JAZMINC documented in this encounter [facility] 09-27-2024 History of Present illness Narrative Images from the original note were not included. Deb Perez [id number] 09/27/24 Subjective: Phone consult 09/18 74 yof [...] head at arms length with Blue & [place] Markers Smooth Pursuit: Pass, Performed Monocularly Negative [...] Director Vestibular Rehabilitation documented in this encounter [facility] 09-24-2024 History of Present illness Narrative Images from the original note were not included. Deb Holly Perez [id number] 09/19/24 Subjective: Phone consult 09/18 74 yof [...] head at arms length with [employer] [place] Mark[employer] Smooth Pursuit: Pass, Performed Monocularly Negative [...] POC medically necessary. Please sign below. Alexa Umberto, PT, Dsc, OCS, COMT, AIB-VAM Director Vestibular Rehabilitation documented in this encounter [facility] 09-18-2024 History of Present illness Narrative Images [...] fusion iwth insrumentation C3-4 [facility]. [place] [facility] SECTION, LOW TRANSVERSE 1981 OTHER SURGICAL HISTORY marsupilization;Disease:bartholom ew cyst [place] LAP,CHOLECYSTECTOMY 03/16/2022 with cholangiography SALPINGECTOMY Visit Vitals [...] was effective. She wants to go to [place] to see the same therapist her cousin [...] follow-ups on file. documented in this encounter [facility] 09-11-2024 Telephone encounter Note OARRS reviewed, Rx sent into patient's pharmacy. [facility] 09-11-2024 Miscellaneous Notes OARRS reviewed, Rx sent into patient's pharmacy. documented in this encounter [facility] 05-02-2024 History of Present illness Narrative Images [...] 1980 OTHER SURGICAL HISTORY marsupilization;Disease:bartholom ew cyst [place] LAP,CHOLECYSTECTOMY 03/16/2022 with cholangiography SALPINGECTOMY Visit Vitals [...] Medicare Wellness Visit. documented in this encounter [facility] 04-16-2024 Telephone encounter Note Appt scheduled [facility] 04-16-2024 Miscellaneous Notes Appt scheduled Please help pt get set up for a medication follow up appointment. She cancelled her appt in December. This is her last refill until seen. OARRS reviewed, Rx sent into patient's pharmacy. documented in this encounter [facility] 04-16-2024 Telephone encounter Note Please help pt get set up for a medication follow up appointment. She cancelled her appt in December. This is her last refill until seen. OARRS reviewed, Rx sent into patient's pharmacy. [facility] 03-12-2024 History of Present illness [...] limited to risks of scarring, darker or shoe maker pigmentary changes, recurrence, incomplete removal and infection. [...] she will call documented in this encounter [facility] 07-04-2023 Telephone encounter Note PT has been sick for over 3 weeks now and said she has took numerous antibiotics and steroids and still not feeling well. She wanted to have an order for a chest xray sent to [facility] if there has been any change. [facility] 07-04-2023 Miscellaneous Notes PT has been sick for over 3 weeks now and said she has took numerous antibiotics and steroids and still not feeling well. She wanted to have an order for a chest xray sent to [facility] if there has been any change. documented in this encounter [facility] Evaluation note No assessment inform ation available [facility] Work Phone: Evaluation note Diagnosis Inflamed seborrheic keratosis- Primary Neoplasm of unspecified behavior of bone, soft tissue, and skin documented in this encounter [facility]* Diagnosis Neuropathy of both upper extremities documented in this encounter [facility]* Diagnosis Benign essential hypertension (CMS/HCC)- Primary Essential hypertension, benign Anxiety state (CMS/HCC) Anxiety state, unspecified Hypercholesteremia (CMS/HCC) Pure hypercholesterolemia Chronic bronchitis, unspecified chronic bronchitis type (CMS/HCC) Acute non-recurrent frontal sinusitis Tobacco dependence Tobacco use disorder documented in this encounter [facility]* Diagnosis Anxiety state (CMS/HCC) Anxiety state, unspecified documented in this encounter [facility]* Diagnosis Vertigo- Primary Dizziness and giddiness Cerumen debris on tympanic membrane, right documented in this encounter [facility]* Diagnosis Cervicalgia- Primary Balance disorder Vertigo Dizziness and giddiness BPPV (benign paroxysmal positional vertigo), left documented in this encounter [facility]* Diagnosis Cervicalgia- Primary Balance disorder BPPV (benign paroxysmal positional vertigo), left documented in this encounter [facility]* Diagnosis Medicare annual wellness visit, [...] Nausea Nausea alone documented in this encounter [facility]* Diagnosis Benign essential hypertension- Primary Essential hypertension, benign Anxiety state Anxiety state, unspecified Hypercholesteremia Pure hypercholesterolemia Neuropathy of both upper extremities Statin intolerance Bilateral carotid artery stenosis Occlusion and stenosis of carotid artery without mention of cerebral infarction Tobacco dependence Tobacco use disorder Acute non-recurrent frontal sinusitis documented in this encounter [facility] for visit Narrative* Rehabilitation - Outpatient (Routine) - Authorized Specialty Diagnoses / Procedures Referred By Contac t Referred To Contact Physical Therapy Diagnoses Vertigo Procedures [place] OFFICE/OUTPATIENT NEW HIGH MDM 60 MINUTES Kaci Lubin NP [address] [facility] [address] [place] [address] Phone: tel: fax: Alexa Brown, PT [address] [place] [address] Phone: tel: fax: Referral ID Status Reason Start Date Expiration Date Visits Requested Visits Authorized [id number] Authorized Specialty Services Required 09/18/2024 03/17/2025 99 99 [facility] for [facility] Narrative* Rehabilitation - Outpatient (Routine) - Authorized Specialty Diagnoses / Procedures Referred By Contac t Referred To Contact Physical Therapy Diagnoses Vertigo Procedures WY OFFICE/OUTPATIENT NEW HIGH MDM 60 MINUTES Kaci Lubin NP [address] [facility] [address] [place] [address] Phone: tel: fax: Alexa Brown, PT [address] [place] [address] Phone: tel: fax: Referral ID Status Reason Start Date Expiration Date Visits Requested Visits Authorized [id number] Authorized Specialty Services Required 09/18/2024 05/29/2025 99 99 [facility] Summary Purpose Family History No Family [...] section and content) DATE CREATED AUTHOR 09/24/2021 [facility] dical Specialist DATE CREATED AUTHOR AUTHOR'S ORGANIZ ATION 07/03/2022 [facility] DATE CREATED AUTHOR AUTHOR'S ORGANIZ ATION 10/11/2022 [facility] DATE CREATED AUTHOR AUTHOR'S ORGANIZ ATION 01/25/2025 [facility] DATE CREATED AUTHOR AUTHOR'S ORGANIZ ATION 01/26/2025 [facility] dical Specialists EPIC Care Teams (unrecognized sec tion and content) Team Status: Inactive Member Role Status Dates Uziel Caicedo DO Attending Provider Active JORDON Ceja Primary Care Provider Active Team Status: Active Member Role Status Dates JORDON Ceja Primary Care Provider Active Pulp Drier Relationship Specialty Start Date End Date Lane Swann MD [address] [place] [address] PCP - General Internal Medicine 11/16/22 Lane Swann MD [address] [place] [address] PCP - Tucker GRAF 05/30/21 Lane Swann MD [address] [place] [address] Internal Medicine 11/16/22 Pulp Drier Relationship Specialty Start Date End Date Lane Swann MD [address] [place] [address] PCP - General Internal Medicine 11/16/22 Lane Swann MD [address] [place] [address] PCP - Devoted 11/28/23 Lane Swann MD [address] [place] [address] Internal Medicine 11/16/22 Pulp Drier Relationship Specialty Start Date End Date Lane wSann MD [address] [place] [address] PCP - General Internal Medicine 11/16/22 Lane Swann MD [address] [place] [address] PCP - Devoted 11/28/23 Lane Swann MD [address] [place] [address] Internal Medicine 11/16/22 Pulp Drier Relationship Specialty Start Date End Date Lane Swann MD [address] [place] [address] PCP - General Internal Medicine 11/16/22 Lane Swann MD [address] [place] [address] PCP - Devoted 11/28/23 Lane Swann MD [address] [place] [address] Internal Medicine 11/16/22 Pulp Drier Relationship Specialty Start Date End Date Lane Swann MD [address] [place] [address] PCP - General Internal Medicine 11/16/22 Lane Swann MD [address] [place] [address] PCP - Devoted 11/28/23 Lane Swann MD [address] [place] [address] Internal Medicine 11/16/22 Pulp Drier Relationship Specialty Start Date End Date Lane Swann MD [address] [place] [address] PCP - General Internal Medicine 11/16/22 Lane Swann MD [address] [place] [address] PCP - Devoted 11/28/23 Lane Swann MD [address] [place] [address] Internal Medicine 11/16/22 Zohra Somers LPN 08/14/24 Pulp Drier Relationship Specialty Start Date End Date Lane Swann MD [address] [place] [address] PCP - General Internal Medicine 11/16/22 Lane Swann MD [address] [place] [address] PCP - Devoted 11/28/23 Lane Swann MD [address] [place] [address] Internal Medicine 11/16/22 Zohra Somers LPN 08/14/24 Pulp Drier Relationship Specialty Start Date End Date Lane Swann MD [address] [place] [address] PCP - General Internal Medicine 11/16/22 Lane Swann MD [address] [place] [address] PCP - Devoted 11/28/23 Lane Swann MD [address] [place] [address] Internal Medicine 11/16/22 Zohra Somers, [facility] 08/14/24 Pulp Drier Relationship Specialty Start Date End Date Lane Swann MD [address] [place] [address] PCP - General Internal Medicine 11/16/22 Lane Swann MD [address] [place] [address] PCP - Devoted 11/28/23 Lane Swann MD [address] [place] [address] Internal Medicine 11/16/22 Zohra Somers, [facility] 08/14/24 Pulp Drier Relationship Specialty Start Date End Date Lane Swann MD [address] [place] [address] PCP - General Internal Medicine 11/16/22 Lane Swann MD [address] [place] [address] PCP - Devoted 11/28/23 Lane Swann MD [address] [place] [address] Internal Medicine 11/16/22 Zohra Somers [facility] 08/14/24 Pulp Drier Relationship Specialty Start Date End Date Lane Swann MD [address] [place] [address] PCP - General Internal Medicine 11/16/22 Lane Swann MD [address] [place] [address] PCP - Devoted 11/28/23 Lane Swann MD [address] [place] [address] Internal Medicine 11/16/22 Zohra Somers [facility] 08/14/24 Pulp Drier Relationship Specialty Start Date End Date Lane Swann MD [address] [place] [address] PCP - General Internal Medicine 11/16/22 Lane Swann MD [address] [place] [address] PCP - Devoted 11/28/23 Lane Swann MD [address] [place] [address] Internal Medicine 11/16/22 Zohra Somers [facility] 08/14/24 Pulp Drier Relationship Specialty Start Date End Date Lane Swann MD [address] [place] [address] PCP - General Internal Medicine 11/16/22 Lane Swann MD [address] [place] [address] PCP - Devoted 11/28/23 Lane Swann MD [address] [place] [address] Internal Medicine 11/16/22 Zohra Somers LPN 08/14/24 Pulp Drier Relationship Specialty Start Date End Date Lane Swann MD [address] [place] [address] PCP - General Internal Medicine 11/16/22 Lane Swann MD [address] [place] [address] PCP - Devoted 11/28/23 Lane Swann MD [address] [place] [address] Internal Medicine 11/16/22 Zohra Somers LPN [address] [place] [address] 08/14/24 Pulp Drier Relationship Specialty Start Date End Date Lane Swann MD [address] [place] [address] PCP - General Internal Medicine 11/16/22 Lane Swann MD [address] [place] [address] PCP - Devoted 11/28/23 Lane Swann MD [address] [place] [address] Internal Medicine 11/16/22 Zohra Somers LPN [address] [place] [address] 08/14/24 Pulp Drier Relationship Specialty Start Date End Date Lane Swann MD [address] [place] [address] PCP - General Internal Medicine 11/16/22 Lane Swann MD [address] [place] [address] PCP - Devoted 11/28/23 Lane Swann MD [address] [place] [address] Internal Medicine 11/16/22 Zohra Somers LPN [address] [place] [address] 08/14/24 Pulp Drier Relationship Specialty Start Date End Date Lane Swann MD [address] [place] [address] PCP - General Internal Medicine 11/16/22 Lane Swann MD [address] [place] [address] PCP - Devoted 11/28/23 Lane Swann MD [address] [place] [address] Internal Medicine 11/16/22 Zohra Somers LPN [address] [place] [address] 08/14/24 Pulp Drier Relationship Specialty Start Date End Date Lane Swann MD [address] [place] [address] PCP - General Internal Medicine 11/16/22 Lane Swann MD [address] [place] [address] PCP - Devoted 11/28/23 Lane Swann MD [address] [facility] [place] [address] Internal Medicine 11/16/22 SomersZohraPHILL [address] [facility] [place] [address] 08/14/24 Goals (unrecognized section and content) Goals [...] Comments Medicare Annual Wellness Visit Subsequen t Reason Comments Med Refill Alprazolam URI Admits sinus pressur e, nasal congestion, sore throat in mornings, right ear pain, cough with yellow phlegm, SOB, nausea. This all started on about a week ago. She has not been taking anything OTC. FOR RECORDS PERTAINING TO PATIENTS WHO ARE [...] BE BASED ON THE PRIMARY CLINICAL RECORDS. [employer] provides no warranty or guarantee of the accuracy or completeness of information in this document.
[2025-03-03 08:20] VITALS: BP 150/85; PULSE 77; TEMP 36.6; O2SAT 100; BMI 19.1
--- NOTE | 2025-03-03 08:28 | ECG_ITS ---
[facility] Test Date: 2025-03-03 Pat Name: KARIN ALAN Department: Room: - Gender: Female Clinical Nurse Manager: : 1950 Requested By: [id number] Order Number: [id number] Reading MD: ROLAND ROGERS M.D. Measurements Intervals [place] Rate: 69 P: 81 NC: 142 QRS: 74 QRSD: 86 T: 84 QT: 386 QTc: 404 Interpretive Statements 1100 Sinus rhythm 2420 RSR (QR) in lead V1/V2, consistent with right ventricular conduction delay 9130 borderline ECG Compared to ECG 01/18/2025 23:26:45 No significant changes Electronically Signed On 03-03-2025 13:29:37 EDT by ROLAND ROGERS M.D.
--- NOTE | 2025-03-03 08:28 | XR_ITS ---
[facility] [place] [id number] Patient Name: KARIN ALAN MRN: [id number] date: 1950 Sex: F Assigned Patient Location: ER Current Patient Location: ER Accession/Order Number: [id number] Exam Date: 03/03/2025 08:52 Report Date: 03/03/2025 09:10 At the request of: JORDI GUTIERREZ MD Procedure: XR chest 1V Single view chest: CLINICAL HISTORY: sob COMPARISON: Chest 01/18/2025 FINDINGS: The heart is normal in size. Chronic interstitial changes. The pulmonary vasculature is normal. Mediastinum and hilar regions are unremarkable. No pleural effusions are seen. Visualized bones are intact. XR/XR chest 1V IMPRESSION: CHRONIC INTERSTITIAL CHANGES. NO CONSOLIDATION TO SUGGEST PNEUMONIA. Impression dictated by: Landry Gonzalez Jr., D.O. 03/03/2025 9:10 AM [id number] [employer] Electronically authenticated by: [id number] Date: 03/03/2025 09:10
[2025-03-03] MEDS: 0.9 % SODIUM CHLORIDE 1,000 ML 500 ML IV (08:30)
[2025-03-03 08:58] LABS: Hematocrit 46.6 % (36.0-48.0); Hemoglobin 15.9 g/dL (12.0-16.0); Immature Granulocytes Abs Auto 0.00 10^3/uL (0.00-0.03); Immature Granulocytes Pct Auto 0.0 % (0.0-0.5); Lymphocytes Absolute Auto 2.3 10^3/uL (1.2-3.8); Mean Corpuscular HGB Conc 34.1 g/dL (29.9-35.2); Mean Corpuscular Hemoglobin 30.5 pg (26.7-34.0); Mean Corpuscular Volume 89.4 fL (81.0-99.0); Platelet Count 249 10^3/uL (150-450); Red Blood Count 5.21 10^6/uL (4.20-5.40); White Blood Count 6.9 10^3/uL (4.0-11.0)
--- NOTE | 2025-03-03 09:11 | ED.DIZZY1 ---
HPI - Dizziness General Chief Complaint: Dizziness Stated Complaint: DIZZINESS, DIARRHEA, SHORTNESS OF BREATH Time Seen by Provider: 03/03/25 08:27 Source: patient Mode of arrival: walk-in Limitations: no limitations History of Present Illness HPI Narrative: The patient is a 74-year-old female who was recently diagnosed with otitis media who did not finish her antibiotic because it was making her feeling sick. Went to the ER complaining of cough and difficulty breathing in addition to ongoing dizziness and vertigo No chest pain at any time no other concerns Related Data Home Medications ?Medication ?Instructions ?Recorded ?Confirmed albuterol sulfate 90 mcg/actuation 2 inh inhalation Q6H PRN shortness 12/03/22 03/03/25 aerosol inhaler of breath or wheezing lisinopril 20 1 tab PO DAILY 12/03/22 03/03/25 mg-hydrochlorothiazide 12.5 mg tablet pregabalin 50 mg capsule 150 mg PO TID 12/03/22 03/03/25 cyclosporine 0.05 % eye drops in a 1 drp ophthalmic (eye) Q12H 01/19/25 03/03/25 dropperette (Restasis) rosuvastatin 5 mg tablet 5 mg PO DAILY 01/19/25 03/03/25 meclizine 25 mg tablet mg 03/03/25 Previous Rx's ?Medication ?Instructions ?Recorded tizanidine 2 mg capsule 2 mg PO BID PRN muscle spasm #10 08/15/23 caps loratadine 5 mg-pseudoephedrine ER 1 tab PO Q12H PRN nasal congestion 02/24/25 120 mg tablet,extended #20 tabs release,12hr (Claritin-D 12 Hour) azithromycin 250 mg tablet See Rx Instructions PO .COMPLEX #6 03/03/25 (Zithromax Z-Omar) tabs fluticasone propionate 50 1 spray intranasal BID #16 grams 03/03/25 mcg/actuation nasal spray,suspension (Flonase Allergy Relief) ondansetron 4 mg disintegrating 4 mg PO Q8H PRN nausea and 03/03/25 tablet vomiting 48 hours #10 tabs prednisone 20 mg tablet 40 mg (2 x 20 mg) PO DAILY 5 days 03/03/25 #10 tabs Allergies Allergy/AdvReac Type Severity Reaction Status Date / Time oxycodone (From Percocet) AdvReac Unknown Vomiting Verified 03/03/25 08:20 Review of Systems ROS Status of ROS 10 or more systems reviewed and unremarkable except as noted in history and below [facility] Social History Smoking status: Current every day smoker Little interest or pleasure in doing things: not at all Feeling down, depressed, or hopeless: not at all Exam Narrative Exam Narrative: Nurses notes and vital signs reviewed and patient is not hypoxic. General: Well-appearing and in no apparent distress. Skin: Warm, dry, no pallor noted. No rash. Head: Normocephalic, atraumatic. Neck: Supple, non-tender. Eye: Pupils are equal, round and EOMI. No scleral icterus. Ears, Nose, Mouth, and Throat: Erythema noted behind the tympanic membrane on the right side left ear examination was benign. oral mucosa is moist, no posterior oropharynx erythema, uvula is mid-line Cardiovascular: Regular Rate and Rhythm without murmur, gallop or rub. Respiratory: No accessory muscle use or respiratory distress. Lungs are clear to auscultation, no wheezing, rales or rhonchi Chest Wall: no tenderness Back: No midline thoracic or lumbar vertebral tenderness. No CVA tenderness Musculoskeletal: normal ROM, no calf or popliteal tenderness, no lower extremity edema/swelling GI: Abdomen is soft, non-distended. Normal bowel sounds. No masses appreciated. No tenderness to palpation. No rebound, guarding, or rigidity noted. Neurological: A&O x4. No cranial nerve dysfunction observed. No truncal ataxia. Moves all extremities. Sensation intact. Psychiatric: Cooperative and interactive. Normal mood and affect. Constitutional Vital Signs, click to edit/add: Last Vital Signs Temp 97.8 F 03/03/25 08:20 Pulse 60 03/03/25 10:48 Resp 16 03/03/25 10:48 BP 134/79 03/03/25 10:48 Pulse Ox 100 03/03/25 10:48 O2 Del Method Room Air 03/03/25 10:48 Course Vital Signs Vital signs: Vital Signs Temperature 97.8 F 03/03/25 08:20 Pulse Rate 77 03/03/25 08:20 Respiratory Rate 18 03/03/25 08:20 Blood Pressure 150/85 H 03/03/25 08:20 Pulse Oximetry 100 10/05/25 08:20 Oxygen Delivery Method Room Air 03/03/25 08:20 Temperature 97.8 F 03/03/25 08:20 Pulse Rate 60 03/03/25 10:48 Respiratory Rate 16 03/03/25 10:48 Blood Pressure 134/79 03/03/25 10:48 Pulse Oximetry 100 03/03/25 10:48 Oxygen Delivery Method Room Air 03/03/25 10:48 MDM - Dizziness MDM Narrative Medical decision making narrative: The patient EKG showing sinus rhythm with a heart rate of [address] elevation or depression Patient CBC and chemistry showed no acute significant pathology The patient also had chest x-ray within normal The patient right now was provided with a Z-Omar for covering the otitis media in addition to she have a history of COPD she was provided with a breathing treatment after which she was feeling much better Patient also was treated with prednisone discharged home to continue supportive care The patient is to follow up with primary care physician in next 2-3 days or to return to the emergency department should any of the signs or symptoms worsen or new symptoms develop. The patient agrees with the following Diagnosis and Treatment plan and the patient will be discharged home. Lab Data Labs: Lab Results 03/03/25 Range/Units 08:35 WBC 6.9 (4.0-11.0) 10^3/uL RBC 5.21 (4.20-5.40) 10^6/uL Hgb 15.9 (12.0-16.0) g/dL Hct 46.6 (36.0-48.0) % MCV 89.4 (81.0-99.0) fL MCH 30.5 (26.7-34.0) pg MCHC 34.1 (29.9-35.2) g/dL RDW 14.4 (11.0-15.0) % Plt Count 249 (150-450) 10^3/uL MPV 11.3 (9.5-13.5) fL Neut % (Auto) 56.5 (43.0-75.0) % Lymph % (Auto) 33.8 (20.5-60.0) % [place] % (Auto) 7.4 (1.7-12.0) % Eos % (Auto) 1.6 (0.9-7.0) % Baso % (Auto) 0.7 (0.2-2.0) % Neut # (Auto) 3.9 (1.4-6.5) 10^3/uL Lymph # (Auto) 2.3 (1.2-3.8) 10^3/uL [place] # (Auto) 0.5 (0.3-0.8) 10^3/uL Eos # (Auto) 0.1 (0.0-0.7) 10^3/uL Baso # (Auto) 0.1 (0.0-0.1) 10^3/uL Abs Immat Gran (auto) 0.00 (0.00-0.03) 10^3/uL Imm/Tot Granulo (auto) 0.0 (0.0-0.5) % PT 10.6 (9.0-11.6) sec INR 1.00 Sodium 140 (136-145) mmol/L Potassium 3.5 (3.5-5.1) mmol/L Chloride 103 (98-107) mmol/L Carbon Dioxide 26.4 (21.0-32.0) mmol/L Anion Gap 14.1 BUN 14.0 (7.0-18.0) mg/dL Creatinine 0.64 (0.55-1.02) mg/dL Est GFR ( Amer) >60 (>=60 mL/min/1.73m^2) Est GFR (Non-Af Amer) >60 (>=60 mL/min/1.73m^2) BUN/Creatinine Ratio 21.9 Glucose 94 (74-106) mg/dL Calcium 9.6 (8.5-10.1) mg/dL Total Bilirubin 0.9 (0.2-1.0) mg/dL AST 18 (15-37) U/L ALT 23 (14-59) U/L Alkaline Phosphatase 72 (46-116) U/L Troponin I High Sens 7.8 (4.0-51.3) pg/mL Total Protein 7.0 (6.4-8.2) g/dL Albumin 3.8 (3.4-5.0) g/dL Globulin 3.2 g/dL Albumin/Globulin Ratio 1.2 Discharge Plan Discharge Chief Complaint: Dizziness Clinical Impression: COPD exacerbation, Otitis media, Vertigo Patient Disposition: Home, Self-Care Time of Disposition Decision: 10:36 Condition: Good Prescriptions / Home Meds: New fluticasone propionate [Flonase Allergy Relief] 50 mcg/actuation spray,suspension 1 spray intranasal BID Qty: 16 0RF Rx Instructions: administer into each nostril azithromycin [Zithromax Z-Omar] 250 mg tablet See Rx Instructions .ROUTE .COMPLEX Qty: 6 0RF Rx Instructions: For 250 mg dose pack: take 500 mg today (day 1), then 250 mg for 4 days (days 2-5) prednisone 20 mg tablet 40 mg PO DAILY 5 Days Qty: 10 0RF ondansetron 4 mg tablet,disintegrating 4 mg PO Q8H PRN (Reason: nausea and vomiting) 2 Days Qty: 10 0RF No Action lisinopril-hydrochlorothiazide 20-12.5 mg tablet 1 tab PO DAILY albuterol sulfate 90 mcg/actuation HFA aerosol inhaler 2 inh INHALATION Q6H PRN (Reason: shortness of breath or wheezing) pregabalin 50 mg capsule 150 mg PO TID tizanidine 2 mg capsule 2 mg PO BID PRN (Reason: muscle spasm) Qty: 10 0RF Claritin-D 12 Hour 5-120 mg tablet extended release 12 hr 1 tab PO Q12H PRN (Reason: nasal congestion) Qty: 20 0RF meclizine 25 mg tablet cyclosporine [Restasis] 0.05 % dropperette 1 drp OPHTHALMIC (EYE) Q12H rosuvastatin 5 mg tablet 5 mg PO DAILY Print Language: Latvian Instructions: Vertigo (DC), Ear Infection (ED) Referrals: TIA JOSE [Primary Care Provider, Family Practice] - 1 week Discharge Date/Time: 03/03/25 10:50
[2025-03-03 09:13] LABS: INR 1.00; Prothrombin Time 10.6 sec (9.0-11.6)
[2025-03-03 09:23] LABS: Alanine Aminotransferase 23 U/L (14-59); Albumin Globulin Ratio 1.2; Albumin Level 3.8 g/dL (3.4-5.0); Alkaline Phosphatase 72 U/L (46-116); Anion Gap 14.1; Aspartate Amino Transferase 18 U/L (15-37); Blood Urea Nitrogen 14.0 mg/dL (7.0-18.0); Calcium 9.6 mg/dL (8.5-10.1); Carbon Dioxide 26.4 mmol/L (21.0-32.0); Chloride 103 mmol/L (98-107); Estimated GFR (African America >60 (>=60 mL/min/1.73m^2); Estimated GFR (Non-African Ame >60 (>=60 mL/min/1.73m^2); Globulin 3.2 g/dL; Glucose 94 mg/dL (74-106); Potassium 3.5 mmol/L (3.5-5.1); Sodium 140 mmol/L (136-145); Total Protein 7.0 g/dL (6.4-8.2)
[2025-03-03] MEDS: IPRATROPIUM/ALBUTEROL SULFATE 3 ML AMPUL.NEB IH (09:54)
[2025-03-03 09:55] VITALS: PULSE 60; O2SAT 98
[2025-03-03] MEDS: METHYLPREDNISOLONE SOD SUCC PF 125 MG/2 ML VIAL IVP (10:09)
[2025-03-03 10:48] VITALS: BP 134/79; PULSE 60; O2SAT 100
== END 2025-03-03 10:50 | disposition home or self-care (01) ==
PROVIDERS: Emergency Provider Emergency Medicine; PCP Physician Assistant
DX: R42 Dizziness and giddiness (principal); J44.1 Chronic obstructive pulmonary disease with (acute) exacerbation; H66.90 Otitis media, unspecified, unspecified ear; R06.02 Shortness of breath; F17.200 Nicotine dependence, unspecified, uncomplicated
CPT/HCPCS: 36415; 71045; 80053; 84484; 85025; 85610; 93005; 94640; 96361; 96374; 96375; 99285; J2405; J2919

== ENCOUNTER 2025-03-19 09:44 | Outpatient (RCR) | payer OTHER, SELFPAY | END 2025-03-20 07:25 | disposition home or self-care (01) | LOC: PT 09:44 | PROVIDERS: PCP Physician Assistant; Visit Provider Internal Medicine | DX: R42 Dizziness and giddiness (principal) | CPT/HCPCS: 97110; 97140; 97162 ==